=== PATIENT | male | born 1965 | race Caucasian/White ===

== ENCOUNTER 2019-05-12 07:59 | Inpatient (IN) | payer MEDICAID, SELFPAY ==
[2019-05-12] VITALS (115 sets, daily range): BP systolic 118–205; BP diastolic 88–169; PULSE 70–142; RESP 4–39; TEMP 36–36.6; O2SAT 82–98
--- NOTE | 2019-05-12 08:36 | DI.RAD_ITS ---
EXAM: XR CHEST 2V PA LATERAL INDICATION: cough, difficulty breathing. COMPARISON: CT ABDOMEN PELVIS W from 05/12/2019 TECHNIQUE: 2D digital imaging was performed. FINDINGS: The heart size is normal. Lungs are not well inflated on either view. There are small linear area of increased density at the right lung base likely representing atelectasis. Pneumonia cannot be def initely excluded. No pneumothorax or effusion is seen. IMPRESSION: Linear right lower lobe atelectasis.
--- NOTE | 2019-05-12 08:40 | DI.CT_ITS ---
EXAM: CT ABDOMEN PELVIS W CLINICAL HISTORY: abdominal pain TECHNIQUE: Images were performed from the lung bases through the ischial tuberosities after IV and w ithout oral contrast. There is mild artifact from patient's arm position at is sides. COMPARISON: No exams were available for comparison FINDINGS: There is a linear area atelectasis at the right lung base. The liver is enlarged and shows extreme s teatosis. No focal liver lesions or biliary dilatation is seen. The spleen is enlarged. The pancre as is mildly atrophic. The gallbladder, adrenals and kidneys are unremarkable. The appendix appears normal. There is no small bowel dilatation or wall thickening. There is a normal quantity of stool . There is no evidence of diverticulitis. The bladder is unremarkable. There is a small fatty cont aining umbilical hernia. There is no evidence spine or pelvic fracture. IMPRESSION: Severe hepatic steatosis. No acute abnormality.
--- NOTE | 2019-05-12 08:40 | DI.CT_ITS ---
EXAM: CT HEAD WO CLINICAL HISTORY: falls TECHNIQUE: Noncontrast COMPARISON: No exams were available for comparison FINDINGS: No intracranial hemorrhage, mass or infarct is seen. Is no evidence of skull fracture. The sinuses and mastoid air cells appear clear where visualized. IMPRESSION: No acute abnormality.
[2019-05-12] MEDS: Furosemide 100 MG/10 ML VIAL 80 MG IVP (08:45)
[2019-05-12] MEDS: LORazepam 2 MG/ML VIAL 0.5 MG IVP (08:46)
[2019-05-12 09:00] LABS: Abs Immature Grans 0.02 k/cumm (0.0-0.09); Absolute Basophil Count 0.02 k/cumm (0.0-0.2); Absolute Eosinophil Count 0.02 k/cumm (0.0-0.7); Absolute Lymphocyte Count 0.34 k/cumm (1.2-3.4); Absolute Monocyte Count 0.19 k/cumm (0.11-0.7); Absolute Neutrophil Count 2.46 k/cumm (1.2-6.7); Basophils % 0.7; Eosinophils % 0.7; HCT 42.2 % (40.0-50.0); HGB 14.2 g/dL (13.5-17.5); Immature Grans % 0.7; Lymphocytes % 11.1; Mean Corp. HGB Concentration 33.6 g/dL (32.0-36.0); Mean Corpuscular Hemoglobin 29.3 pg (27.0-33.0); Mean Corpuscular Volume 87.2 fL (80-95); Mean Platelet Volume 10.5 fL (8.0-11.0); Monocytes % 6.2; Neutrophils % 80.6; RBC 4.84 m/cumm (4.50-6.00); RBC Distribution Width 13.9 % (11.8-14.1); White Blood Cell Count 3.05 k/cumm (4.4-10.8)
[2019-05-12 09:11] LABS: Bilirubin Negative (Negative); Blood Trace-lysed (Negative); Clarity Clear (Clear); Glucose Negative (Negative); Ketones Negative (Negative); Leukocyte Esterase Negative (Negative); Nitrite Negative (Negative); Urobilinogen 0.2 EU/dL (Up TO 0.2); pH 7.5 (5-8)
[2019-05-12 09:11] LABS: PTT Activated 24.5 sec (21.0-31.4); Prothrombin Time 10.4 sec (9.3-11.0)
[2019-05-12 09:20] LABS: ALT 232 U/L (16-63); AST 190 U/L (15-37); Albumin 3.7 g/dL (3.4-5.0); Alkaline Phosphatase 143 U/L (46-116); Anion Gap 11.9 mmol/L (3-11); BUN 6 mg/dL (7-18); CO2 28.1 mmol/L (21.0-32.0); CREATININE 0.66 mg/dL (0.70-1.30); Calcium 8.4 mg/dL (8.5-10.1); Chloride 96 mmol/L (98-107); Glucose 155 mg/dL (70-100); Potassium 3.9 mmol/L (3.5-5.1); Sodium 136 mmol/L (136-145); Total Protein 7.2 g/dL (6.4-8.2)
[2019-05-12] MEDS: Albuterol/Ipratropium 3 ML UPD VIAL (09:20)
[2019-05-12] MEDS: methylPREDNISolone SUCC 125 MG VIAL (09:20)
[2019-05-12] MEDS: Albuterol 2.5 MG/3 ML INH SOLN VIAL (09:20)
[2019-05-12 09:26] LABS: Lipase 1090 U/L (73-393); NT-proBNP 131 pg/mL
[2019-05-12 09:32] LABS: WBC Negative HPF (0-5)
[2019-05-12 09:33] LABS: Bacteria Negative HPF (Negative); C & S Indicated? No; Casts Negative LPF (Negative); Crystals Negative HPF (Negative); Epithelial Cells Rare HPF (Negative); Mucus Negative (Negative)
[2019-05-12 09:34] LABS: Troponin I < 0.05 ng/mL (0.00-0.06)
[2019-05-12 09:39] LABS: Platelet Count 72 x1000/uL (130-400)
[2019-05-12 09:40] LABS: Diff Comment PLT Morph Reviewed; Polychromasia Present
--- NOTE | 2019-05-12 09:44 | NUR.NOTE ---
Nursing Note: pt has bruising all over his body in multiple stages of healing. states he falls almost every night when he stands up to go pee at night.
[2019-05-12] MEDS: Omnipaque 350 MG/ML 100 ML BTL IJ ×2 (10:25→13:27)
[2019-05-12] MEDS: LORazepam 2 MG/ML VIAL 1 MG IVP ×3 (10:34→13:29)
[2019-05-12] MEDS: Normal Saline 250 ML IV (11:30)
--- NOTE | 2019-05-12 11:39 | NUR.NOTE ---
Nursing Note: updated provider about pts urine output of 4,400mls and the increasing leg cramps. concern for hypokalemia and question for redraw. continue to monitor.
[2019-05-12 11:47] LABS: Troponin I < 0.05 ng/mL (0.00-0.06)
--- NOTE | 2019-05-12 12:15 | NUR.NOTE ---
Nursing Note: provided pt with 2 glasses of water as requested. hospitalist will be down to evaluate pt.
--- NOTE | 2019-05-12 12:31 | NUR.NOTE ---
Nursing Note: hospitalist at bedside.
[2019-05-12 13:13] LABS: Magnesium 1.7 mg/dL (1.8-2.4); Potassium 3.6 mmol/L (3.5-5.1)
--- NOTE | 2019-05-12 13:17 | W.ED.GENAD ---
Discharge Plan Discharge Details Chief Complaint: GenMedical Admit Provider: Jagdish Paz Attending Provider: Jagdish Paz Primary Care Provider: Milana Canales ED Provider: Heather Fregoso Home Meds and New Rx's Prescriptions: No Action methadone 40 mg Tablet,Soluble 130 mg PO DAILY RF: 0 Medical Decision Making Is a 53-year-old patient who presents to the emergency room hypertensive tachycardic and tachypneic appearing diaphoretic for complaints of increase in respiratory effort, occasional difficulty breathing, fluid retention and alcoholism. at the bedside reports multiple syncopal episodes recently. Specifically at night when getting up from bed to use the bathroom he stands from a laying position and passes out. This is reportedly the syncopal episodes which they have noted recently. Patient reports approximately 80 pound weight gain in the last 2 months. Patient notes significant fluid in his lower legs which is symmetrical bilaterally but is causing difficulty ambulating and interfering with his daily activities. Patient unable to work due to difficulty ambulating associated with pain in his legs as well as difficulty breathing when exerting. Patient denies active chest pain at this time. Patient does report upper abdominal pain. Occasional nausea. No patient does admit to being an alcoholic. He does report at least 12 beers daily. He does use methadone currently. He reports he typically goes to the [facility] clinic gets his dose of methadone and then goes home and begins drinking at that time due to withdrawal symptoms. Patient receiving methadone due to former IV drug use specifically Morphine. Last IV drug use approximately 4 to half years ago. On exam patient has rhonchi, rales and wheezing noted throughout all breath calixto, patient has obvious orthopnea, position was changed when noted increasing difficulty breathing laying flat. Patient propped upright in 2 L O2's via nasal cannula placed due to mild oxygen desaturations to the high 80s which were noted. Patient has notable tachycardia. Patient has cough present, abdominal distention noted with upper abdominal pain with palpation through the right and upper quadrants. No significant lower abdominal pain with palpation. Abdominal distention is diffuse consistent fluid retention. Distal pitting edema present in lower extremities, 2+. Lasix ordered after initial evaluation as well as imaging of his head due to frequent falls and alcoholism and CT of his abdomen due to abdominal distention and pain. I suspect this patient is retaining fluid due to his alcoholism possibly due to liver dysfunction and/or congestive heart failure. Labs ordered appropriately. This case and plan of care was discussed with Dr. Candy German who also evaluated the patient at the bedside Patient section x-ray ultimately shows mild atelectasis in the right lower lung but does not reveal obvious CHF pattern or pleural effusions. Patient's BNP is normal. Patient had urine output of approximately 4500 cc after giving Lasix 80 mg IV. Patient was provided nebs as well as Solu-Medrol due to wheezing which is become more evident on exam possibly due to daily smoking and underlying COPD which is undiagnosed. Patient did have some improvement with nebs. CIWA placed for alcohol withdrawal symptoms Patient will be admitted to the hospitalist, spoke with Dr. Paz, who will evaluate patient in the emergency room. HPI General Date/Time Provider Initiated Documentation: 05/12/19 08:35. HPI Narrative: Patient presents for complaints of worsening difficulty breathing, fluid in the his legs, abdominal pain and significant recent weight gain. Patient reports approximately 80 pounds of weight gain in the last 2 months. Patient is a daily drinker, admitted alcoholic. Currently on methadone for opiate addiction. Patient reports a history of IV drug use specifically morphine which he has been sober for the last 4 to half years. Uses methadone daily. Patient reports increase in difficulty breathing, worse when laying flat, cough is more productive and increased recently. Patient denies active chest pain. Patient presents appearing diaphoretic. Patient does report abdominal pain at present in the upper abdomen associated with mild nausea. No active vomiting. at the bedside reports he has been passing out when standing up from bed at night to use the bathroom. Patient reports multiple syncopal episodes and frequent falls. Presents with several areas of bruising on his back, chest and pelvic area. Patient reports the swelling in his leg is causing significant difficulty ambulating worse recently the last few weeks. 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 Patient admits to approximately 12 beers daily. He reports he typically goes to the methadone clinic gets his dose of methadone in the morning and then begins drinking in the morning due to withdrawal symptoms. Patient's last drink was yesterday. He does feel mildly shaky at this time. Admits to mild anxiety. Patient is a smoker smoking approximately 1-1/2 packs daily Patient denies fevers. Patient does report urinating normal amounts. No significant changes in bowels. Related Data Home Medications Medication Instructions Recorded Confirmed methadone 130 mg PO DAILY 05/12/19 05/12/19 Allergies Allergy/AdvReac Type Severity Reaction Status Date / Time No Known Allergies Allergy Unverified 05/12/19 08:09 General Stated Complaint: GenMedical KAYLEIGH: 2 Review of Systems All systems reviewed & are unremarkable except as noted in HPI and below Constitutional Constitutional: Reports chills, Reports fatigue, Denies headache(s) and Reports malaise ENT Ears, Nose, Mouth, and Throat: Denies headache(s), Denies nasal congestion and Denies sore throat Cardiovascular Cardiovascular: Denies chest pain, Denies chest pain at rest, Denies chest pain with activity, Reports syncope, Reports dyspnea on exertion and Reports orthopnea Respiratory Respiratory: Reports cough, Reports dyspnea on exertion and Reports wheezing Gastrointestinal Gastrointestinal: Reports abdominal pain, Denies diarrhea and Reports nausea Genitourinary Genitourinary: Denies dysuria Integumentary/Breasts Skin/Breast: Reports pruritus, Reports rash and Reports unusual bruising Neurologic Neurologic: Reports syncope and Denies headache(s) Endocrine Endocrine: Reports fatigue Allergic/Immunologic Allergic/Immunologic: Reports wheezing [facility] Medical History (Updated 05/12/19 @ 14:18 by Jagdish Paz MD) ETOH abuse (Chronic) 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 Alert and alert. HENMT: Head nomocephalic, normal to inspection. Atraumatic. Hearing grossly normal. External ear canal no erythema or swelling. TM normal bilaterally. Nose normal to inspection. No rhinnorhea. Normal facial exam. Tounge normal. Dentition normal. Normal posterior oropharynx. Uvula midline. Dry mucous membranes EYES: General normal appearance. Alignment normal. Eyelids normal. Conjunctiva normal. Sclera normal. PERRL. NECK: Normal visual inspection. FROM. No lymphadenopathy. Trachea midline. No Midline tenderness. CHEST: Normal insepection of the chest. RESP: Increased respiratory effort. Speaking full sentences. No cough. No wheezing. No retractions. Wheezing and rales present diffusely. Breath sound equal and present bilaterally. CARDIO: No JVD. Normal PMI. Regular Rate. Regular Rhythm. Normal peripheral pulses. GI: Normal inspection of abdomen. No distension. Soft. Nontender. Bowel sounds present in all 4 quadrants. No rebound. No gaurding. MUSCULOSKELETAL: Normal Gait. FROM of all extremities. Distal neurovascularly intact. Sensation intact distally. Bilateral distal edema present, symmetrical, 2+ pitting edema the pretibial darby extending into the feet. Pulses are present bilaterally in the feet. SKIN: Normal. Dry. No rashes. An echo mycosis of toes, several wounds to arms and legs, bruising noted scattered areas on the back from recent trauma, bruises noted in different stages NEURO: Alert and awake. Speech clear. PSYCH: Normal affect. Cooperative. Course Vital Signs Vital signs: Vital Signs Temperature 36.6 C 05/12/19 08:04 Pulse 111 H 05/12/19 08:04 Respiratory Rate 28 H 05/12/19 08:04 Blood Pressure 191/117 H 05/12/19 08:04 Pulse Oximetry 98 05/12/19 08:04 Temperature 36.6 C 05/12/19 08:04 Temperature Source Temporal Artery Scan 05/12/19 08:04 Pulse 102 H 05/12/19 12:01 Pulse 107 H 05/12/19 12:10 Respiratory Rate 18 05/12/19 12:10 Respiratory Effort 05/12/19 08:18 Respiratory Pattern Tachypnea 05/12/19 11:49 Blood Pressure 189/115 H 05/12/19 12:01 Blood Pressure Mean 127 05/12/19 12:01 Pulse Oximetry 93 L 05/12/19 12:10 Oxygen Delivery Method Nasal Cannula 05/12/19 08:15 Oxygen Flow Rate 2 05/12/19 08:15 Pain Level 8 05/12/19 08:04 Lab/Test Results Lab/Test Results: Laboratory Tests Range/Units 05/12/19 05/12/19 05/12/19 08:15 08:15 08:15 WBC (4.4-10.8) k/cumm 3.05 L RBC (4.50-6.00) m/cumm 4.84 Hgb (13.5-17.5) g/dL 14.2 Hct (40.0-50.0) % 42.2 MCV (80-95) fL 87.2 MCH (27.0-33.0) pg 29.3 MCHC (32.0-36.0) g/dL 33.6 RDW (11.8-14.1) % 13.9 Plt Count (130-400) x1000/uL 72 L MPV (8.0-11.0) fL 10.5 Immature Gran % 0.7 Neutrophils % 80.6 Lymphocytes % 11.1 Monocytes % 6.2 Eosinophils % 0.7 Basophils % 0.7 Absolute Neutrophils (1.2-6.7) k/cumm 2.46 Absolute Lymphocytes (1.2-3.4) k/cumm 0.34 L Absolute Monocytes (0.11-0.7) k/cumm 0.19 Absolute Eosinophils (0.0-0.7) k/cumm 0.02 Absolute Basophils (0.0-0.2) k/cumm 0.02 Differential Comment Plt morph reviewed RBC Morphology See below Polychromasia Present PT (9.3-11.0) sec 10.4 INR (0.9-1.1) 1.0 APTT (21.0-31.4) sec 24.5 Sodium (136-145) mmol/L Potassium (3.5-5.1) mmol/L Chloride (98-107) mmol/L Carbon Dioxide (21.0-32.0) mmol/L Anion Gap (3-11) mmol/L BUN (7-18) mg/dL Creatinine (0.70-1.30) mg/dL Estimated GFR/1.73 m2 (mL/min/1.73m2) Glucose (70-100) mg/dL Calcium (8.5-10.1) mg/dL Magnesium (1.8-2.4) mg/dL Total Bilirubin (0.2-1.0) mg/dL AST (15-37) U/L ALT (16-63) U/L Alkaline Phosphatase (46-116) U/L Troponin I (0.00-0.06) ng/mL < 0.05 NT-Pro-B Natriuret Pep ( - 299) pg/mL 131 Total Protein (6.4-8.2) g/dL Albumin (3.4-5.0) g/dL Lipase (73-393) U/L 1090 H Urine Color (Yellow) Urine Clarity (Clear) Urine pH (5-8) Ur Specific [place] (1.005-1.025) Urine Protein (Negative) mg/dL Urine Ketones (Negative) mg/dL Urine Blood (Negative) Urine Nitrite (Negative) Urine Bilirubin (Negative) Urine Urobilinogen (Up TO 0.2) EU/dL Ur Leukocyte Esterase (Negative) Urine RBC (0-2) HPF Urine WBC (0-5) HPF Ur Epithelial Cells (Negative) HPF Urine Crystals (Negative) HPF Urine Bacteria (Negative) HPF Urine Casts (Negative) LPF Urine Mucus (Negative) Ur Culture Indicated? Urine Glucose (Negative) mg/dL Range/Units 05/12/19 05/12/19 05/12/19 08:15 09:03 11:11 WBC (4.4-10.8) k/cumm RBC (4.50-6.00) m/cumm Hgb (13.5-17.5) g/dL Hct (40.0-50.0) % MCV (80-95) fL MCH (27.0-33.0) pg MCHC (32.0-36.0) g/dL RDW (11.8-14.1) % Plt Count (130-400) x1000/uL MPV (8.0-11.0) fL Immature Gran % Neutrophils % Lymphocytes % Monocytes % Eosinophils % Basophils % Absolute Neutrophils (1.2-6.7) k/cumm Absolute Lymphocytes (1.2-3.4) k/cumm Absolute Monocytes (0.11-0.7) k/cumm Absolute Eosinophils (0.0-0.7) k/cumm Absolute Basophils (0.0-0.2) k/cumm Differential Comment RBC Morphology Polychromasia PT (9.3-11.0) sec INR (0.9-1.1) APTT (21.0-31.4) sec Sodium (136-145) mmol/L 136 Potassium (3.5-5.1) mmol/L 3.9 Chloride (98-107) mmol/L 96 L Carbon Dioxide (21.0-32.0) mmol/L 28.1 Anion Gap (3-11) mmol/L 11.9 H BUN (7-18) mg/dL 6 L Creatinine (0.70-1.30) mg/dL 0.66 L Estimated GFR/1.73 m2 (mL/min/1.73m2) >= 60.00 Glucose (70-100) mg/dL 155 H Calcium (8.5-10.1) mg/dL 8.4 L Magnesium (1.8-2.4) mg/dL Total Bilirubin (0.2-1.0) mg/dL 1.0 AST (15-37) U/L 190 H ALT (16-63) U/L 232 H Alkaline Phosphatase (46-116) U/L 143 H Troponin I (0.00-0.06) ng/mL < 0.05 NT-Pro-B Natriuret Pep ( - 299) pg/mL Total Protein (6.4-8.2) g/dL 7.2 Albumin (3.4-5.0) g/dL 3.7 Lipase (73-393) U/L Urine Color (Yellow) Yellow Urine Clarity (Clear) Clear Urine pH (5-8) 7.5 Ur Specific [place] (1.005-1.025) 1.020 Urine Protein (Negative) mg/dL Negative Urine Ketones (Negative) mg/dL Negative Urine Blood (Negative) Trace-lysed H Urine Nitrite (Negative) Negative Urine Bilirubin (Negative) Negative Urine Urobilinogen (Up TO 0.2) EU/dL 0.2 Ur Leukocyte Esterase (Negative) Negative Urine RBC (0-2) HPF 10-20 H Urine WBC (0-5) HPF Negative Ur Epithelial Cells (Negative) HPF Rare Urine Crystals (Negative) HPF Negative Urine Bacteria (Negative) HPF Negative Urine Casts (Negative) LPF Negative Urine Mucus (Negative) Negative Ur Culture Indicated? No Urine Glucose (Negative) mg/dL Negative Range/Units 05/12/19 12:59 WBC (4.4-10.8) k/cumm RBC (4.50-6.00) m/cumm Hgb (13.5-17.5) g/dL Hct (40.0-50.0) % MCV (80-95) fL MCH (27.0-33.0) pg MCHC (32.0-36.0) g/dL RDW (11.8-14.1) % Plt Count (130-400) x1000/uL MPV (8.0-11.0) fL Immature Gran % Neutrophils % Lymphocytes % Monocytes % Eosinophils % Basophils % Absolute Neutrophils (1.2-6.7) k/cumm Absolute Lymphocytes (1.2-3.4) k/cumm Absolute Monocytes (0.11-0.7) k/cumm Absolute Eosinophils (0.0-0.7) k/cumm Absolute Basophils (0.0-0.2) k/cumm Differential Comment RBC Morphology Polychromasia PT (9.3-11.0) sec INR (0.9-1.1) APTT (21.0-31.4) sec Sodium (136-145) mmol/L Potassium (3.5-5.1) mmol/L 3.6 Chloride (98-107) mmol/L Carbon Dioxide (21.0-32.0) mmol/L Anion Gap (3-11) mmol/L BUN (7-18) mg/dL Creatinine (0.70-1.30) mg/dL Estimated GFR/1.73 m2 (mL/min/1.73m2) Glucose (70-100) mg/dL Calcium (8.5-10.1) mg/dL Magnesium (1.8-2.4) mg/dL 1.7 L Total Bilirubin (0.2-1.0) mg/dL AST (15-37) U/L ALT (16-63) U/L Alkaline Phosphatase (46-116) U/L Troponin I (0.00-0.06) ng/mL NT-Pro-B Natriuret Pep ( - 299) pg/mL Total Protein (6.4-8.2) g/dL Albumin (3.4-5.0) g/dL Lipase (73-393) U/L Urine Color (Yellow) Urine Clarity (Clear) Urine pH (5-8) Ur Specific [place] (1.005-1.025) Urine Protein (Negative) mg/dL Urine Ketones (Negative) mg/dL Urine Blood (Negative) Urine Nitrite (Negative) Urine Bilirubin (Negative) Urine Urobilinogen (Up TO 0.2) EU/dL Ur Leukocyte Esterase (Negative) Urine RBC (0-2) HPF Urine WBC (0-5) HPF Ur Epithelial Cells (Negative) HPF Urine Crystals (Negative) HPF Urine Bacteria (Negative) HPF Urine Casts (Negative) LPF Urine Mucus (Negative) Ur Culture Indicated? Urine Glucose (Negative) mg/dL
--- NOTE | 2019-05-12 13:27 | DI.CT_ITS ---
EXAM: CT CHEST PE CTA CLINICAL HISTORY: hypoxia TECHNIQUE: Post 100 cc Omnipaque [id number]. Axial CT angiography was performed with multi-slice acquisiti on and multi-planar and/or 3D reconstructions. Pulmonary arteries are suboptimally opacified with IV contrast. Exam is somewhat limited by the patient's body habitus. There is some respiratory motion as well. COMPARISON: CT ABDOMEN AND PELVIS W from 05/12/2019 FINDINGS: There is suboptimal opacification of the pulmonary arteries, particularly in the upper lobes. No jia tral pulmonary emboli are seen. There is elevation of the right diaphragm related to an enlarged fat ty liver. There is atelectasis at the right lung base. There are minimally increased densities in t he upper lobes, which could represent mild pneumonitis. No effusions are seen. Heart size is normal . There is no evidence of mass or adenopathy. Left gynecomastia is noted. There is an old proximal right clavicle fracture. No acute fractures are identified. Scoliosis and degenerative changes are noted in the spine. IMPRESSION: Somewhat limited exam due to patient body habitus and suboptimal pulmonary artery opacification. No large pulmonary emboli are seen. Small branch vessel emboli cannot be excluded. There is a question of mild upper lobe pneumonitis.
--- NOTE | 2019-05-12 13:40 | HPE_ITS ---
Date of service: 05/12/19 Time of Service: 13:40 Assessment and Plan Assessment and plan (1) Syncope: Status: Chronic Assessment and plan: Very likely Orthostatic, with patient reporting majority of events occuring while attempting to rise from a supine or seated position. Appears intravascularly depleted by labs, with EtOH intoxication potentially playing a role as well. - Hydrate and monitor orthostatic vitals. - No evidence of vasovagal symptoms. - Monitor on telemetry to rule out any evidence for arrhythmias. - Check ECHO to rule out structural heart disease. (2) Lower extremity edema: Status: Acute Assessment and plan: Bilateral pitting LE Edema - Unsure of etiology. - Check TSH. - Albumin is low normal. - Doubt DVT given bilateral nature of swelling. - Lack of proteinuria on u/a - Doubt nephrotic syndrome. - Lack of ascites on CT - imaging with significant fatty infiltration, but no mention of cirrhosis. - Normal BNP may be reflective of overall current dehydrated state - however, with subject and reported 80 pound weight gain. Check ECHO. - Hold off on any further diuresis currently, but may benefit from diuretic therapy soon. (3) Weight gain: Status: Acute Assessment and plan: As above. (4) Elevated liver enzymes: Status: Acute Assessment and plan: Patient has history of daily EtOH use, but with ALT > AST. - Given Obesity and findings of significant Steatohepatitis, fatty liver is a possibility. - Hx IVDA - check Hepatitis panel. - Check Fe/TIBC to rule out hemochromatosis. - Does not take medications other than daily methadone. (5) Tobacco abuse: Status: Acute Assessment and plan: Initiate NRT with prn Nicotrol. (6) Intravenous drug abuse in remission: Status: Acute Assessment and plan: Continue daily Methadone. (7) ETOH abuse: Status: Chronic Assessment and plan: Already with evidence of tremors, with last drink reportedly being last evening. Initiate on standing Chlordiazepoxide and Gabapentin, and maintain on CIWA protocol. Banana bag initiated, with MVI, Thiamine, and FA supplementation following. (8) Pneumonia: Status: Acute Assessment and plan: Potential evidence of infiltrate or 'pneumonitis' by CT, per verbal report from ED provider. Given hx of EtOH and recurrent daily LOC aspiration may be a possibility. Will initiate coverage with combination CTx and Metronidazole. (9) DVT prophylaxis: Status: Acute Assessment and plan: SC Enoxaparin. Initiate PPI therapy for GI prophylaxis as well. History of Present Illness History of Present Illness Chief Complaint: Syncope Narrative: Pleasant 53 year old man with a prior history of EtOH abuse and prior IVDA, being admitted from [facility] Emergency Department for further evaluation of recurrent syncopal episodes and recent weight gain. Mr. Maria has a Past Medical History significant for daily EtOH abuse, quantified as 12 pack per day of beer, along with prior IVDA with Morphine maintained on daily Methadone via [facility]. He also endorses daily tobacco use. The patient presented to the ED complaining of recent worsening dyspnea, accompanied by an approximate 80 lbs subjective weight gain over the last 2 months. He also endorses near daily 'syncope', described as blacking out, with episodes occuring mostly at night and when arising out of bed to use the bathroom. He takes a relatively high dose Methadone in the morning, and admits to drinking 6 24oz cans of beer through the day and mostly into the night. Upon presentation the patient was noted to be mildly hypoxic, hypertensive, and tachycardic. Work-up in the ED was significant for mild TCP, mild leukopenia, mild hypochloremia with normal renal function, and mildly elevated LFTs. BNP was normal, urinalysis negative for infection (although with hematuria without braga insertion), and Troponin undetectable. Lipase was elevated at 1090. Imaging showed evidence of severe hpeatic steatosis by CT, and RLL Atelectasis by CXR. Head CT showed no acute findings. CTA of the chest was also obtained by the ED, and while limited did not show any overt signs of PE - mention was made of potential Pneumonitis. Mr. Maria was referred for admission for further evaluation and treatment. Review of Systems All systems reviewed & are unremarkable except as noted in HPI and below PFSH Social History Smoking/Tobacco Use Status: Current every day Tobacco Type: cigarettes Alcohol Intake: current Alcohol Intake frequency: 3 or more drinks per day Alcohol type: beer Drug use: Current Sobriety Details: methadone clinic Do you feel safe at home: Yes Do you feel safe in your relationship?: Yes Meds Home Medications and Allergies Home Medications Medication Instructions Recorded Confirmed Type methadone 130 mg PO DAILY 05/12/19 05/12/19 History Allergies Allergy/AdvReac Type Severity Reaction Status Date / Time No Known Allergies Allergy Unverified 05/12/19 08:09 Exam Narrative Exam Narrative: GEN: AAOX3, NAD Neck: Supple CV: Regular, tachycardic, mildly distant Heart sounds but no overt r/m/g Pulmonary: Decreased breath sounds but clear, no clear wheezing or rhonchi at time of exam Abd: +BS, soft, distended and obese in contour. + Epigastric tenderness Vasc: +2-3 b/l pitting LE Edema Psych: Normal mood and affect Results Labs Result diagrams: 05/12/19 08:15 05/12/19 12:59 Labs: Laboratory Results - last 24 hr 05/12/19 05/12/19 05/12/19 08:15 08:15 08:15 WBC 3.05 L RBC 4.84 Hgb 14.2 Hct 42.2 MCV 87.2 MCH 29.3 MCHC 33.6 RDW 13.9 Plt Count 72 L MPV 10.5 Immature Gran % 0.7 Neutrophils % 80.6 Lymphocytes % 11.1 Monocytes % 6.2 Eosinophils % 0.7 Basophils % 0.7 Absolute Neutrophils 2.46 Absolute Lymphocytes 0.34 L Absolute Monocytes 0.19 Absolute Eosinophils 0.02 Absolute Basophils 0.02 Differential Comment Plt morph reviewed RBC Morphology See below Polychromasia Present PT 10.4 INR 1.0 APTT 24.5 Sodium Potassium Chloride Carbon Dioxide Anion Gap BUN Creatinine Estimated GFR/1.73 m2 Glucose Calcium Magnesium Total Bilirubin AST ALT Alkaline Phosphatase Troponin I < 0.05 NT-Pro-B Natriuret Pep 131 Total Protein Albumin Lipase 1090 H Urine Color Urine Clarity Urine pH Ur Specific [place] Urine Protein Urine Ketones Urine Blood Urine Nitrite Urine Bilirubin Urine Urobilinogen Ur Leukocyte Esterase Urine RBC Urine WBC Ur Epithelial Cells Urine Crystals Urine Bacteria Urine Casts Urine Mucus Ur Culture Indicated? Urine Glucose 05/12/19 05/12/19 05/12/19 08:15 09:03 11:11 WBC RBC Hgb Hct MCV MCH MCHC RDW Plt Count MPV Immature Gran % Neutrophils % Lymphocytes % Monocytes % Eosinophils % Basophils % Absolute Neutrophils Absolute Lymphocytes Absolute Monocytes Absolute Eosinophils Absolute Basophils Differential Comment RBC Morphology Polychromasia PT INR APTT Sodium 136 Potassium 3.9 Chloride 96 L Carbon Dioxide 28.1 Anion Gap 11.9 H BUN 6 L Creatinine 0.66 L Estimated GFR/1.73 m2 >= 60.00 Glucose 155 H Calcium 8.4 L Magnesium Total Bilirubin 1.0 AST 190 H ALT 232 H Alkaline Phosphatase 143 H Troponin I < 0.05 NT-Pro-B Natriuret Pep Total Protein 7.2 Albumin 3.7 Lipase Urine Color Yellow Urine Clarity Clear Urine pH 7.5 Ur Specific [place] 1.020 Urine Protein Negative Urine Ketones Negative Urine Blood Trace-lysed H Urine Nitrite Negative Urine Bilirubin Negative Urine Urobilinogen 0.2 Ur Leukocyte Esterase Negative Urine RBC 10-20 H Urine WBC Negative Ur Epithelial Cells Rare Urine Crystals Negative Urine Bacteria Negative Urine Casts Negative Urine Mucus Negative Ur Culture Indicated? No Urine Glucose Negative 05/12/19 12:59 WBC RBC Hgb Hct MCV MCH MCHC RDW Plt Count MPV Immature Gran % Neutrophils % Lymphocytes % Monocytes % Eosinophils % Basophils % Absolute Neutrophils Absolute Lymphocytes Absolute Monocytes Absolute Eosinophils Absolute Basophils Differential Comment RBC Morphology Polychromasia PT INR APTT Sodium Potassium 3.6 Chloride Carbon Dioxide Anion Gap BUN Creatinine Estimated GFR/1.73 m2 Glucose Calcium Magnesium 1.7 L Total Bilirubin AST ALT Alkaline Phosphatase Troponin I NT-Pro-B Natriuret Pep Total Protein Albumin Lipase Urine Color Urine Clarity Urine pH Ur Specific [place] Urine Protein Urine Ketones Urine Blood Urine Nitrite Urine Bilirubin Urine Urobilinogen Ur Leukocyte Esterase Urine RBC Urine WBC Ur Epithelial Cells Urine Crystals Urine Bacteria Urine Casts Urine Mucus Ur Culture Indicated? Urine Glucose Last Vital Signs Temp 36.6 C 05/12/19 08:04 Pulse 109 H 05/12/19 13:27 Resp 22 05/12/19 13:30 BP 118/89 05/12/19 13:27 Pulse Ox 89 L 05/12/19 13:30
[2019-05-12 14:15] LABS: Iron 93 ug/dL (50-175); Total Iron Binding Capacity 362 ug/dL (250-450); Transferrin Sat 26 % (20-55)
[2019-05-12 14:41] LABS: Procalcitonin < 0.1 ng/mL
[2019-05-12] MEDS: Normal Saline 500 ML IV (15:00)
[2019-05-12] MEDS: chlordiazePOXIDE 25 MG CAP PO ×2 (15:27→20:04)
[2019-05-12] MEDS: Gabapentin 400 MG CAP 800 MG PO ×2 (15:28→20:04)
[2019-05-12] MEDS: cefTRIAXone 2 GM/50 ML BAG IVPB (15:30)
[2019-05-12] MEDS: metroNIDAZOLE 500 MG/100 ML BAG 100 MG IVPB (16:36)
[2019-05-12] MEDS: LORazepam 2 MG/ML VIAL IVP (16:46)
[2019-05-12] MEDS: Normal Saline Flush 10 ML SYR IVP (16:48)
[2019-05-12] MEDS: MAGNESIUM SULFATE 1 GM/100 ML BAG IVPB (16:59)
[2019-05-12] MEDS: Pantoprazole 40 MG VIAL IVP (16:59)
[2019-05-13] VITALS (46 sets, daily range): BP systolic 117–175; BP diastolic 68–129; PULSE 70–110; RESP 4–28; TEMP 35.6–36.8; O2SAT 90–96
[2019-05-13] MEDS: metroNIDAZOLE 500 MG/100 ML BAG 100 MG IVPB ×2 (00:30→08:54)
[2019-05-13] MEDS: LORazepam 2 MG/ML VIAL IVP ×2 (00:58→14:32)
[2019-05-13 06:53] LABS: Abs Immature Grans 0.02 k/cumm (0.0-0.09); Absolute Basophil Count 0.01 k/cumm (0.0-0.2); Absolute Eosinophil Count 0.01 k/cumm (0.0-0.7); Absolute Monocyte Count 0.35 k/cumm (0.11-0.7); Absolute Neutrophil Count 3.89 k/cumm (1.2-6.7); Basophils % 0.2; Eosinophils % 0.2; HCT 41.7 % (40.0-50.0); HGB 14.3 g/dL (13.5-17.5); Immature Grans % 0.4; Lymphocytes % 10.5; Mean Corp. HGB Concentration 34.3 g/dL (32.0-36.0); Mean Corpuscular Hemoglobin 30.4 pg (27.0-33.0); Mean Corpuscular Volume 88.7 fL (80-95); Mean Platelet Volume 10.2 fL (8.0-11.0); Monocytes % 7.3; Neutrophils % 81.4; Platelet Count 92 x1000/uL (130-400); RBC Distribution Width 14.1 % (11.8-14.1); White Blood Cell Count 4.78 k/cumm (4.4-10.8)
[2019-05-13 07:08] LABS: ALT 213 U/L (16-63); AST 134 U/L (15-37); Albumin 3.4 g/dL (3.4-5.0); Alkaline Phosphatase 131 U/L (46-116); Anion Gap 6.4 mmol/L (3-11); BUN 15 mg/dL (7-18); Bilirubin, Total 0.9 mg/dL (0.2-1.0); CO2 33.6 mmol/L (21.0-32.0); Calcium 8.5 mg/dL (8.5-10.1); Chloride 96 mmol/L (98-107); Glucose 127 mg/dL (70-100); Lipase 966 U/L (73-393); Magnesium 2.3 mg/dL (1.8-2.4); Potassium 3.2 mmol/L (3.5-5.1); Sodium 136 mmol/L (136-145); Total Protein 7.4 g/dL (6.4-8.2)
--- NOTE | 2019-05-13 07:45 | DI.US_ITS ---
APPROVED REPORT EXAM: Comprehensive 2D, Doppler, and color-flow Echocardiogram Patient Location: In-Patient Room/Bed: 221A [employer]aste[employer] Spr[employer] Gun: Maryam Almeida [facility] ([place]) Indications: Significant weight gain, Dyspnea Conclusion Left Ventricle : The left ventricle is normal size. The left ventricular ejection fraction is within the normal range. There is normal LV segmental wall motion. Diastolic function is indeterminate but t here is evidence of increased LV filling pressures. Right Ventricle : The right ventricle is normal size. The right ventricular systolic function is norm al. Atria : Left atrium is mildly enlarged. The right atrium size is normal. Aortic Valve : Aortic valve is not well visualized. Aortic valve is probably trileaflet. There is no aortic valvular stenosis. No aortic regurgitation is present. Mitral Valve : The mitral valve is normal in structure. Trace mitral regurgitation. No evidence of mi tral valve stenosis. Tricuspid Valve : Tricuspid valve is grossly normal in structure and function. Trace tricuspid regurg itation. There is no tricuspid valve stenosis. Pulmonic Valve : Pulmonic valve is not well visualized. Great Vessels : The IVC was not visualized. Cannot estimate RVSP. There is no prior echocardiogram available for comparison. Wall motion Left Ventricle The left ventricle is normal size. The left ventricular ejection fraction is within the normal range. There is normal left ventricular wall thickness. There is normal LV segmental wall motion. Diastolic function is indeterminate but there is evidence of increased LV filling pressures. LVEF is 50-55%. Right Ventricle The right ventricle is normal size. The right ventricular systolic function is normal. Atria Left atrium is mildly enlarged. The right atrium size is normal. Aortic Valve Aortic valve is not well visualized. Aortic valve is probably trileaflet. There is no aortic valvular stenosis. No aortic regurgitation is present. Mitral Valve The mitral valve is normal in structure. No evidence of mitral valve stenosis. Trace mitral regurgita tion. Tricuspid Valve Tricuspid valve is grossly normal in structure and function. There is no tricuspid valve stenosis. Tr vanessa tricuspid regurgitation. Pulmonic Valve Pulmonic valve is not well visualized. There is no pulmonic valvular stenosis. Trace pulmonic regurgi tation. Great Vessels The aortic root is normal in size. The ascending aorta is normal in size. The IVC was not visualized. Cannot estimate RVSP. Pericardium There is no pericardial effusion. 2D Dimensions IVSd 0.80 cm M: 0.6-1.2 LV EDV A2C 121.44 mL PWd 0.80 cm M: 0.6 - 1.2 LV EDV A4C 98.42 mL LVDd 4.65 cm M: 4.2 - 5.8 LA Volume Index A2C 22.15 mL/m2 LVDs 3.40 cm M: 2.5 - 4.0 LA Volume Index A4C 12.23 mL/m2 Aortic Root 3.60 cm M: 3.1 - 3.7 LA Volume Index Biplane 16.96 mL/m2 Left Atrium 4.46 cm M: 3.0 - 4.0 LA Area A4C 12.39 cm2 RA Area A4C 10.86 cm2 LA Area A2C 17.17 cm2 LVOT 2.15 cm (M/F) 1.5-2.5 EF AP4 51.55 % Ascending Aorta 3.87 cm M: 2.6 - 3.4 EF AP2 44.84 % LVEF (Teich) 52.00 % EF BP 48.69 % LVEF (Ingram's) 48.69 % M: 52 - 72 LV Volume 80.54 mL M: 62 - 150 LV Volume Index 33.84 mL/m2 M: 34 - 74 FS 26.55 % LV Diastology E Decel Time 116.00 (160-240 msec) E/A Ratio 0.7 MED E' 0.09 (>0.07 m/s) LV E/e MED 5.60 (<14) LAT E' 0.08 (>0.1 m/s) LV E/e LAT 6.45 (<14) Aortic Valve LVOT Area 3.65 cm2 LVOT Peak Marcel. 1.00 m/s LVOT Mean Marcel. 0.64 m/s VARSHA Vmax 3.18 m/s LVOT Peak Gr. 4.05 mmHg VARSHA Vmax Index 1.34 cm2/m2 LVOT Mean Gr. 1.95 mmHg VARSHA Mean Marcel. 2.73 m/s LVOT VTI 0.15 m VARSHA Mean Marcel. Index 1.15 cm2/m2 AoV Peak Marcel. 1.16 (0.5-1.3 m/s) AoV Mean Marcel. 0.86 m/s AO Peak GR. 5.35 mmHg AO Mean GR. 3.21 (<5 mmHg) AO VTI 0.18 (0.18-0.25 m) VARSHA (VTI) 3.25 (2.5-4.5 cm2) VARSHA (VTI) Index 1.36 cm/m2 Mitral Valve MV E Max Marcel. 0.51 (0.4-1.3 m/s) MV A Velocity 0.75 (0.4-1.3 m/s) E/A Ratio 0.65 MV Decel. Time 116.00 (160-240 msec) MV PHT 33.65 msec MVA PHT 6.50 cm2 Pulmonary Valve PV Peak Velocity 0.85 (0.5-1.5 m/s)
[2019-05-13] MEDS: Methadone Liquid 10 MG/ML 130 MG PO (08:42)
[2019-05-13] MEDS: Multivitamin TAB 1 TAB PO (08:56)
[2019-05-13] MEDS: Gabapentin 400 MG CAP 800 MG PO ×3 (08:56→21:04)
[2019-05-13] MEDS: Thiamine 100 MG TAB PO (08:56)
[2019-05-13] MEDS: chlordiazePOXIDE 25 MG CAP PO ×3 (08:56→21:04)
--- NOTE | 2019-05-13 08:59 | PDOC.CMIN ---
- If Service Date Differs Date of service: 05/13/19 Time of Service: 08:59 Care Management Initial Assess REASON FOR HOSPITALIZATION:: Syncope PAST MEDICAL HISTORY/PAST SURGICAL HISTORY:: ETOH abuse. Former IVDU. obesity PREVIOUS FUNCTIONAL STATUS/SOCIAL/FAMILY SUPPORTS:: Mario lives in an apartment in [place] with his Phyllis. They have 2 adult children who live in the area. The apartment Mario lives in is on the second floor and he has 15 stairs to climb plus an additional floght up to the bedrooms.Mario has not been able to work for over a year due to breathing problems. CURRENT FUNCTIONAL STATUS:: Mario was sitting up in bed when CM met with him. He was pleasant and cooperative and readily engaged in conversation. Mario stated that he has been unable to work for over a year and would like to apply for disability. CM provided Mario with information about [facility] and will follow up on Thursday. ADVANCE DIRECTIVES:: none on file Has patient been provided with information about the portal?: Yes Did the patient sign up for the portal?: No CODE STATUS:: Full Code INSURANCE COVERAGE / FINANCIAL ISSUES:: Medicaid CURRENT HOME/COMMUNITY SERVICES/EQUIPMENT:: Mario receives [employer]. he states that neither he nor his work and they have no income. PRIMARY CARE PHYSICIAN:: Milana Canales POTENTIAL DISCHARGE NEEDS:: follow up with PCP. Possible substance abuse treatment PATIENT/FAMILY EDUCATION NEEDS:: discharge plan, limitations, follow up plan, [facility] [employer]. ANTICIPATED BARRIERS TO DISCHARGE:: none TRANSPORTATION:: via priavte vehicle with family PLAN:: Mario will likely be discharged home with new community services. He will transport via private vehicle with . CM will continue to support patient, family and discharge planning needs.
[2019-05-13] MEDS: Potassium Chloride 20 MEQ TABCR 40 MEQ PO (09:03)
[2019-05-13] MEDS: Albuterol 2.5 MG/3 ML INH SOLN VIAL (09:23)
[2019-05-13] MEDS: MULTIVITAMIN 10 ML, THIAMINE 100 MG, FOLIC ACID 1 MG in DEXTROSE 5%-0.45% SALINE 1,000 ML 42 ML IV (10:38)
[2019-05-13] MEDS: Albuterol/Ipratropium 3 ML UPD VIAL UPD (12:55)
--- NOTE | 2019-05-13 12:55 | W.PM.PROGNOT ---
Date of Service Date of service: 05/13/19 Time of Service: 12:56 Assessment and Plan Assessment and plan (1) Syncope: Status: Chronic Assessment and plan: Very likely Orthostatic, with patient reporting majority of events occuring while attempting to rise from a supine or seated position. Appears intravascularly depleted by labs, with EtOH intoxication potentially playing a role as well. - Initially diuresed with 80 IV Lasix in the ED, then Hydrated prior to admission. Current labs appear without signs of overt dehydration. - No evidence of vasovagal symptoms by history. - Monitor on telemetry to rule out any evidence for arrhythmias - so far without. - ECHO essentially normal, and without signs of structural heart disease or heart failure. (2) Dyspnea: Status: Acute Assessment and plan: Unlikely to be CHF based on normal ECHO and BNP. Potential mild pneumonia, but with undetectable Procalcitonin. Patient has a lengthy history of tobacco abuse, with likely underlying COPD. Current symptoms may represent acute exacerbation of underlying chronic obstructive pulmonary disease. - Initiate high dose IV Steroids. - Standing Duonebs. - Supplemental O2 as needed. - Doubt infection, but will continue on Ceftriaxone given cough and change in respiratory status, currently day #2. - Monitor respiratory symptoms closely. (3) Pneumonia: Status: Acute Assessment and plan: As above. (4) Lower extremity edema: Status: Acute Assessment and plan: Bilateral pitting LE Edema - Unsure of etiology. - TSH checked and normal. - Albumin is low normal. - Doubt DVT given bilateral nature of swelling, and no PE on CT Scan. - Lack of proteinuria on urinalysis - Doubt nephrotic syndrome. - Lack of ascites on CT - imaging with significant fatty infiltration, but no mention of cirrhosis. - Normal BNP and ECHO normal - Doubt CHF despite reported significant recent weight gain. - Hold off on any further diuresis currently and treat potential COPD exacerbation. May benefit from diuretic therapy in the future. (5) Weight gain: Status: Acute Assessment and plan: As above. (6) Elevated liver enzymes: Status: Acute Assessment and plan: Patient has history of daily EtOH use, but with ALT > AST. - Given Obesity and findings of significant Steatohepatitis, fatty liver is a possibility, with concurrent EtOH abuse as contributing to transaminitis. - Hx IVDA - check Hepatitis panel. - Check Fe/TIBC to rule out hemochromatosis. - Does not take medications other than daily methadone. (7) Tobacco abuse: Status: Acute Assessment and plan: Initiated NRT with prn Nicotrol. (8) Intravenous drug abuse in remission: Status: Acute Assessment and plan: Continue daily Methadone. (9) ETOH abuse: Status: Chronic Assessment and plan: Already with evidence of tremors, with last drink reportedly being last evening. Initiated on standing Chlordiazepoxide and Gabapentin, and maintained on CIWA protocol. Banana bag initiated, with MVI, Thiamine, and FA supplementation following. (10) DVT prophylaxis: Status: Acute Assessment and plan: SC Enoxaparin. Initiated PPI therapy for GI prophylaxis as well, especially given EtOH history and current treatment with steroids. Subjective Subjective Interval history since last seen: Pleasant 53 year old man with a prior history of EtOH abuse and prior IVDA, admitted from [facility] Emergency Department on 05/12 for further evaluation of recurrent syncopal episodes and recent weight gain. Mr. Maria has a Past Medical History significant for daily EtOH abuse, quantified as 12 pack per day of beer, along with prior IVDA with Morphine maintained on daily Methadone via BA[facility]. He also endorsed daily tobacco use, upwards of a 1.5 packs a day of cigarettes. The patient presented to the ED complaining of recent worsening dyspnea, accompanied by an approximate 80 lbs subjective weight gain over the last 2 months. He also endorses near daily 'syncope', described as blacking out, with episodes occuring mostly at night and when arising out of bed to use the bathroom. He takes a relatively high dose Methadone in the morning, and admits to drinking 6 24oz cans of beer through the day and mostly into the night. Upon presentation the patient was noted to be mildly hypoxic, hypertensive, and tachycardic. Work-up in the ED was significant for mild TCP, mild leukopenia, mild hypochloremia with normal renal function, and mildly elevated LFTs. BNP was normal, urinalysis negative for infection (although with hematuria without braga insertion), and Troponin undetectable. Lipase was elevated at 1090. Imaging showed evidence of severe hepeatic steatosis by CT, and RLL Atelectasis by CXR. Head CT showed no acute findings. CTA of the chest was also obtained by the ED, and while limited did not show any overt signs of PE - mention was made of potential mild upper lobe Pneumonitis, but procalcitonin was undetectable. Mr. Maria was referred for admission for further evaluation and treatment. This morning the patient feels improved. His ECHO was obtained and with potential Diastolic Dysfunction only (increased LV Pressures), but otherwise normal. No overnight events reported. Remains afebrile. Exam Narrative Exam Narrative: GEN: AAOX3, NAD Neck: Supple CV: Regular, tachycardic, mildly distant Heart sounds but no overt r/m/g Pulmonary: Breath sounds currently with diffuse rhonchi, mild wheezing Abd: +BS, soft, distended and obese in contour. + Epigastric tenderness Vasc: +2-3 b/l pitting LE Edema. B/l erythema c/w stasis Psych: Anxious, otherwise normal mood and affect Objective Objective Clinical Data: Abnormal lab results 05/12/19 05/13/19 05/13/19 Range/Units 12:59 06:10 06:10 Plt Count 92 L (130-400) x1000/uL Absolute Lymphocytes 0.50 L (1.2-3.4) k/cumm Potassium 3.2 L (3.5-5.1) mmol/L Chloride 96 L (98-107) mmol/L Carbon Dioxide 33.6 H (21.0-32.0) mmol/L Glucose 127 H (70-100) mg/dL Magnesium 1.7 L (1.8-2.4) mg/dL AST 134 H (15-37) U/L ALT 213 H (16-63) U/L Alkaline Phosphatase 131 H (46-116) U/L Lipase 966 H (73-393) U/L Vital Signs Temperature 36.8 C 05/13/19 12:24 Temperature Source Temporal Artery Scan 05/13/19 12:24 Pulse 106 H 05/13/19 12:14 Pulse 107 H 05/13/19 12:14 Respiratory Rate 12 05/13/19 12:14 Respiratory Effort Labored 05/13/19 12:24 Respiratory Depth Normal 05/13/19 12:24 Respiratory Pattern Normal 05/13/19 12:24 Blood Pressure 143/107 H 05/13/19 12:14 Blood Pressure Mean 116 05/13/19 12:14 Pulse Oximetry 94 L 05/13/19 12:14 Oxygen Delivery Method Nasal Cannula 05/13/19 09:18 Oxygen Flow Rate 4 05/13/19 09:18 Pain Level 2 05/13/19 09:05 Intake & Output 05/12/19 05/13/19 05/13/19 23:59 11:59 23:59 Intake Total 250.05 / 500.05 963 / 963 Output Total 1350 / 5750 1050 / 1050 Balance -1099.95 / -5249.95 -87 / -87 Weight 118 kg Intake: IV 250.05 / 500.05 613 / 613 Oral 350 / 350 Output: Urine 1350 / 5750 1050 / 1050 Other: Urine Color Dark Nicole Pale [place] Yellow Urine Appearance Clear Urine Odor Strong None Comment Per report, have not visualized thus far. icteric urine Voiding Methods Urinal Laboratory Results WBC 4.78 k/cumm (4.4-10.8) D 05/13/19 06:10 RBC 4.70 m/cumm (4.50-6.00) 05/13/19 06:10 Hgb 14.3 g/dL (13.5-17.5) 05/13/19 06:10 Hct 41.7 % (40.0-50.0) 05/13/19 06:10 MCV 88.7 fL (80-95) 05/13/19 06:10 MCH 30.4 pg (27.0-33.0) 05/13/19 06:10 MCHC 34.3 g/dL (32.0-36.0) 05/13/19 06:10 RDW 14.1 % (11.8-14.1) 05/13/19 06:10 Plt Count 92 x1000/uL (130-400) L 05/13/19 06:10 MPV 10.2 fL (8.0-11.0) 05/13/19 06:10 Immature Gran % 0.4 05/13/19 06:10 Neutrophils % 81.4 05/13/19 06:10 Lymphocytes % 10.5 05/13/19 06:10 Monocytes % 7.3 05/13/19 06:10 Eosinophils % 0.2 05/13/19 06:10 Basophils % 0.2 05/13/19 06:10 Absolute Neutrophils 3.89 k/cumm (1.2-6.7) 05/13/19 06:10 Absolute Lymphocytes 0.50 k/cumm (1.2-3.4) L 05/13/19 06:10 Absolute Monocytes 0.35 k/cumm (0.11-0.7) 05/13/19 06:10 Absolute Eosinophils 0.01 k/cumm (0.0-0.7) 05/13/19 06:10 Absolute Basophils 0.01 k/cumm (0.0-0.2) 05/13/19 06:10 Differential Comment Plt morph reviewed 05/12/19 08:15 RBC Morphology See below 05/12/19 08:15 Polychromasia Present 05/12/19 08:15 PT 10.4 sec (9.3-11.0) 05/12/19 08:15 INR 1.0 (0.9-1.1) 05/12/19 08:15 APTT 24.5 sec (21.0-31.4) 05/12/19 08:15 Sodium 136 mmol/L (136-145) 05/13/19 06:10 Potassium 3.2 mmol/L (3.5-5.1) L 05/13/19 06:10 Chloride 96 mmol/L (98-107) L 05/13/19 06:10 Carbon Dioxide 33.6 mmol/L (21.0-32.0) H 05/13/19 06:10 Anion Gap 6.4 mmol/L (3-11) 05/13/19 06:10 BUN 15 mg/dL (7-18) D 05/13/19 06:10 Creatinine 0.80 mg/dL (0.70-1.30) 05/13/19 06:10 Estimated GFR/1.73 m2 >= 60.00 (mL/min/1.73m2) 05/13/19 06:10 Glucose 127 mg/dL (70-100) H 05/13/19 06:10 Calcium 8.5 mg/dL (8.5-10.1) 05/13/19 06:10 Magnesium 2.3 mg/dL (1.8-2.4) 05/13/19 06:10 Iron 93 ug/dL (50-175) 05/12/19 12:59 TIBC 362 ug/dL (250-450) 05/12/19 12:59 Transferrin % Sat 26 % (20-55) 05/12/19 12:59 Total Bilirubin 0.9 mg/dL (0.2-1.0) 05/13/19 06:10 AST 134 U/L (15-37) H 05/13/19 06:10 ALT 213 U/L (16-63) H 05/13/19 06:10 Alkaline Phosphatase 131 U/L (46-116) H 05/13/19 06:10 Troponin I < 0.05 ng/mL (0.00-0.06) 05/12/19 11:11 NT-Pro-B Natriuret Pep 131 pg/mL (-299) 05/12/19 08:15 Total Protein 7.4 g/dL (6.4-8.2) 05/13/19 06:10 Albumin 3.4 g/dL (3.4-5.0) 05/13/19 06:10 Lipase 966 U/L (73-393) H 05/13/19 06:10 Procalcitonin < 0.1 ng/mL 05/12/19 12:59 TSH 2.80 uIU/mL (0.36-3.74) 05/13/19 06:10 Urine Color Yellow (Yellow) 05/12/19 09:03 Urine Clarity Clear (Clear) 05/12/19 09:03 Urine pH 7.5 (5-8) 05/12/19 09:03 Ur Specific [place] 1.020 (1.005-1.025) 05/12/19 09:03 Urine Protein Negative mg/dL (Negative) 05/12/19 09:03 Urine Ketones Negative mg/dL (Negative) 05/12/19 09:03 Urine Blood Trace-lysed (Negative) H 05/12/19 09:03 Urine Nitrite Negative (Negative) 05/12/19 09:03 Urine Bilirubin Negative (Negative) 05/12/19 09:03 Urine Urobilinogen 0.2 EU/dL (Up TO 0.2) 05/12/19 09:03 Ur Leukocyte Esterase Negative (Negative) 05/12/19 09:03 Urine RBC 10-20 HPF (0-2) H 05/12/19 09:03 Urine WBC Negative HPF (0-5) 05/12/19 09:03 Ur Epithelial Cells Rare HPF (Negative) 05/12/19 09:03 Urine Crystals Negative HPF (Negative) 05/12/19 09:03 Urine Bacteria Negative HPF (Negative) 05/12/19 09:03 Urine Casts Negative LPF (Negative) 05/12/19 09:03 Urine Mucus Negative (Negative) 05/12/19 09:03 Ur Culture Indicated? No 05/12/19 09:03 Urine Glucose Negative mg/dL (Negative) 05/12/19 09:03 Hepatitis A IgM Ab Cancelled 05/12/19 Unknown Hep Bs Antigen Cancelled 05/12/19 Unknown Hep B Core Total Ab Cancelled 05/12/19 Unknown Hepatitis C Antibody Cancelled 05/12/19 Unknown
--- NOTE | 2019-05-13 13:33 | PHARADMIT ---
Addendum entered by Devonte Mccormick III 05/16/19 12:22: Pharmacy Note Subjective CIWA- scores trending down, Librium dose tapering. Still requires Ativan. Objective BP-159/1100 Plts-87 ScR-0.96 H&H,Lytes-OK Assessment Lovenox dcd (Has SCDs) due to Low Plts, Gets Daily Methadone 130mg. Rocephin comletes today. Same LUIZA Librium, dose on transfer. Plan MD to transfer to the floor today. Original Note: Admission Pharmacy Clinical Review Dyspnea, syncope Code Status Full Code Current Weight 118 kg Renally Cleared and Narrow Therapeutic Index Meds Crcl ~119 mL/min current meds okay QTc Value / Action Taken QTc 489 has methadone ordered BP Control, Fever BP 143/107 afebrile Electrolytes reviewed K+ 3.2 DVT Prophylaxis enoxaparin Opiate Usage / Scheduled Bowel Regimen Ordered luiza/prn Plt/SCr for Heparin / Enoxaparin plt 92 SCr 0.80 INR for Warfarin n/a H/H stable, WBC/Bands h/h 14.3/41.7 WBC 4.78 Antibiotic appropriateness ceftriaxone (day 2) for potential mild pneumonia per progress note Cultures and Sensitivities none Surgical ABX d/c within 24 hr n/a DM control / Insulin Dosing Bg 127 none Heart Failure (Check EF%) (TSEPHEN's, B-Block, Diuretics) none IV to PO Switch n/a Home Meds Reviewed yes Home Meds Not Ordered all ordered Comments PO potassium replacement given metronidazole was discontinued currently has both PO and IV multivitamin, folic acid and thiamine ordered
[2019-05-13] MEDS: Normal Saline 500 ML 30 ML IV (14:21)
[2019-05-13] MEDS: cefTRIAXone 2 GM/50 ML BAG IVPB (14:22)
[2019-05-13] MEDS: Normal Saline Flush 10 ML SYR IVP ×2 (14:22→17:16)
[2019-05-13] MEDS: methylPREDNISolone SUCC 40 MG VIAL IVP ×2 (14:23→22:15)
[2019-05-13 14:54] LABS: Hep A Total Ab w Rflx IgM Negative (Negative)
--- NOTE | 2019-05-13 15:29 | CHAPLAIN ---
Allen was resting in bed when I visited. His wire and mom had been visiting earlier but have gone home for the day. Allen lives in [place], where he grew up, and likes living there. According to Care Management and ER notes, Allen is an admitted alcoholic, former IV drug user and a [facility] patient. He told me that he has a lot of health issues going on the he waited as long as I could before coming in, and asked me to be thinking of him. 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
[2019-05-13] MEDS: Enoxaparin 40 MG/0.4 ML SYR SC (17:15)
[2019-05-13] MEDS: Pantoprazole 40 MG VIAL IVP (17:15)
[2019-05-14] VITALS (45 sets, daily range): BP systolic 138–191; BP diastolic 79–125; PULSE 72–155; RESP 1–20; TEMP 35.5–36.8; O2SAT 88–97
[2019-05-14] MEDS: LORazepam 2 MG/ML VIAL IVP ×3 (03:55→16:21)
[2019-05-14] MEDS: Albuterol/Ipratropium 3 ML UPD VIAL UPD ×5 (03:56→20:15)
[2019-05-14] MEDS: Normal Saline Flush 10 ML SYR IVP ×3 (06:30→16:22)
[2019-05-14] MEDS: methylPREDNISolone SUCC 40 MG VIAL IVP ×2 (06:30→14:07)
[2019-05-14 06:59] LABS: Abs Immature Grans 0.03 k/cumm (0.0-0.09); Absolute Basophil Count 0.01 k/cumm (0.0-0.2); Absolute Lymphocyte Count 0.34 k/cumm (1.2-3.4); Absolute Neutrophil Count 4.29 k/cumm (1.2-6.7); Basophils % 0.2; HCT 40.6 % (40.0-50.0); HGB 13.6 g/dL (13.5-17.5); Immature Grans % 0.6; Mean Corp. HGB Concentration 33.5 g/dL (32.0-36.0); Mean Corpuscular Hemoglobin 29.9 pg (27.0-33.0); Mean Corpuscular Volume 89.2 fL (80-95); Mean Platelet Volume 10.8 fL (8.0-11.0); Monocytes % 4.1; Neutrophils % 88.1; RBC 4.55 m/cumm (4.50-6.00); RBC Distribution Width 13.8 % (11.8-14.1); White Blood Cell Count 4.87 k/cumm (4.4-10.8)
[2019-05-14 07:07] LABS: Lipase 649 U/L (73-393); Magnesium 2.2 mg/dL (1.8-2.4)
[2019-05-14 07:17] LABS: ALT 165 U/L (16-63); AST 89 U/L (15-37); Albumin 3.3 g/dL (3.4-5.0); Alkaline Phosphatase 118 U/L (46-116); Anion Gap 7.7 mmol/L (3-11); BUN 16 mg/dL (7-18); Bilirubin, Total 0.9 mg/dL (0.2-1.0); CO2 29.3 mmol/L (21.0-32.0); CREATININE 0.78 mg/dL (0.70-1.30); Calcium 8.3 mg/dL (8.5-10.1); Chloride 97 mmol/L (98-107); Glucose 182 mg/dL (70-100); Potassium 4.2 mmol/L (3.5-5.1); Sodium 134 mmol/L (136-145); Total Protein 6.9 g/dL (6.4-8.2)
[2019-05-14 07:29] LABS: Platelet Count 80 x1000/uL (130-400)
--- NOTE | 2019-05-14 08:30 | PGE_ITS ---
Date of Service Date of service: 05/14/19 Time of Service: 15:18 Assessment and Plan Assessment and plan (1) Alcohol withdrawal: Status: Acute Assessment and plan: Appears to be getting worse. Continue monitoring on CIWA with PO/IV ativan and scheduled librium. (2) Syncope: Status: Chronic Assessment and plan: Upon further investigation, it does appear that these syncopal events are post-micturation and are likely vasovagal in nature. Monitor on tele. (3) Dyspnea: Status: Acute Assessment and plan: Likely a combination of acute pneumonia, acute exacer bation of COPD, but I do think that there was a component of CHF as he sounds wet. For now, avoid IVF; decrease dose of ceftriaxone; keep steroid dose the same, continue nebs. (4) Pneumonia: Status: Acute Assessment and plan: As above. (5) Lower extremity edema: Status: Acute Assessment and plan: Likely due to CHF. low proBNP in setting of obesity could underestimate the actual degree of CHF. Avoid IVF for now. Consider resuming diuresis tomorrow. (6) Weight gain: Status: Acute Assessment and plan: As above. (7) Elevated liver enzymes: Status: Acute Assessment and plan: Patient has history of daily EtOH use, but with ALT > AST. Also, possibly congestive hepatopathy, steatohepatitis, fatty liver, with concurrent EtOH abuse as contributing to transaminitis. - Hx IVDA - Hepatitis panel pending - Transferrin saturation wnl - not likely to represent hemochromatosis. - Does not take medications other than daily methadone. (8) Tobacco abuse: Status: Acute Assessment and plan: add nicotine patch to nicotrol (9) Intravenous drug abuse in remission: Status: Acute Assessment and plan: Continue daily Methadone. (10) ETOH abuse: Status: Chronic Assessment and plan: As above (11) DVT prophylaxis: Status: Acute Assessment and plan: hold heparin due to thrombocytopenia (likely due to alcohol). Subjective Subjective Interval history since last seen: 6 mg of IV ativan given overnight. Did require PO ativan today and is starting to get more tremulous now. Nursing expresses concerns that he might be getting worse. I clarified with the patient - he states his syncopal episodes only happen after he urinates. Afebrile. Had not voided all night - voided 775 this am. No signs of urinary retention on bladder scans since. O2 has been able to be weaned to 3L from 5L. Denies dizziness, chest pain, shortness of breath, nausea, vomiting. 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 Objective Objective Clinical Data: Abnormal lab results 05/14/19 05/14/19 05/14/19 Range/Units 06:10 06:10 06:10 Plt Count 80 L (130-400) x1000/uL Absolute Lymphocytes 0.34 L (1.2-3.4) k/cumm Sodium 134 L (136-145) mmol/L Chloride 97 L (98-107) mmol/L Glucose 182 H (70-100) mg/dL Calcium 8.3 L (8.5-10.1) mg/dL AST 89 H (15-37) U/L ALT 165 H (16-63) U/L Alkaline Phosphatase 118 H (46-116) U/L Albumin 3.3 L (3.4-5.0) g/dL Lipase 649 H (73-393) U/L Vital Signs Temperature 35.5 C L 05/14/19 03:24 Temperature Source Temporal Artery Scan 05/14/19 03:24 Pulse 74 05/13/19 23:51 Pulse 87 05/13/19 22:01 Respiratory Rate 17 05/14/19 05:58 Respiratory Effort Accessory Muscle Use 05/14/19 03:24 Respiratory Depth Deep 05/14/19 03:24 Respiratory Pattern Normal 05/14/19 03:24 Blood Pressure 157/111 H 05/14/19 05:58 Blood Pressure Mean 126 05/14/19 05:58 Blood Pressure Position Supine 05/13/19 21:00 Pulse Oximetry 93 L 05/14/19 05:58 Oxygen Delivery Method Nasal Cannula 05/14/19 05:58 Oxygen Flow Rate 5 05/14/19 05:58 Pain Level 0 05/14/19 05:58 Intake & Output 05/13/19 05/13/19 05/14/19 11:59 23:59 11:59 Intake Total 963 / 1960.7 997.7 / 1960.7 540 / 540 Output Total 1050 / 1825 775 / 1825 Balance -87 / 135.7 222.7 / 135.7 540 / 540 Weight 121.6 kg Intake: IV 613 / 1440.7 827.7 / 1440.7 Oral 350 / 520 170 / 520 540 / 540 Output: Urine 1050 / 1825 775 / 1825 Other: Urine Color Pale Dark [place] Yellow Urine Appearance Clear Cloudy Urine Odor None Normal Comment icteric urine had not voided all shift. Denied need to void. pt states he does not need to void. bladder scanned for 375-425mL Stood to void = 775 mL Voiding Methods Urinal Laboratory Results WBC 4.87 k/cumm (4.4-10.8) 05/14/19 06:10 RBC 4.55 m/cumm (4.50-6.00) 05/14/19 06:10 Hgb 13.6 g/dL (13.5-17.5) 05/14/19 06:10 Hct 40.6 % (40.0-50.0) 05/14/19 06:10 MCV 89.2 fL (80-95) 05/14/19 06:10 MCH 29.9 pg (27.0-33.0) 05/14/19 06:10 MCHC 33.5 g/dL (32.0-36.0) 05/14/19 06:10 RDW 13.8 % (11.8-14.1) 05/14/19 06:10 Plt Count 80 x1000/uL (130-400) L 05/14/19 06:10 MPV 10.8 fL (8.0-11.0) 05/14/19 06:10 Immature Gran % 0.6 05/14/19 06:10 Neutrophils % 88.1 05/14/19 06:10 Lymphocytes % 7.0 05/14/19 06:10 Monocytes % 4.1 05/14/19 06:10 Eosinophils % 0.0 05/14/19 06:10 Basophils % 0.2 05/14/19 06:10 Absolute Neutrophils 4.29 k/cumm (1.2-6.7) 05/14/19 06:10 Absolute Lymphocytes 0.34 k/cumm (1.2-3.4) L 05/14/19 06:10 Absolute Monocytes 0.20 k/cumm (0.11-0.7) 05/14/19 06:10 Absolute Eosinophils 0.00 k/cumm (0.0-0.7) 05/14/19 06:10 Absolute Basophils 0.01 k/cumm (0.0-0.2) 05/14/19 06:10 Differential Comment Plt morph reviewed 05/12/19 08:15 RBC Morphology See below 05/12/19 08:15 Polychromasia Present 05/12/19 08:15 PT 10.4 sec (9.3-11.0) 05/12/19 08:15 INR 1.0 (0.9-1.1) 05/12/19 08:15 APTT 24.5 sec (21.0-31.4) 05/12/19 08:15 Sodium 134 mmol/L (136-145) L 05/14/19 06:10 Potassium 4.2 mmol/L (3.5-5.1) D 05/14/19 06:10 Chloride 97 mmol/L (98-107) L 05/14/19 06:10 Carbon Dioxide 29.3 mmol/L (21.0-32.0) 05/14/19 06:10 Anion Gap 7.7 mmol/L (3-11) 05/14/19 06:10 BUN 16 mg/dL (7-18) 05/14/19 06:10 Creatinine 0.78 mg/dL (0.70-1.30) 05/14/19 06:10 Estimated GFR/1.73 m2 >= 60.00 (mL/min/1.73m2) 05/14/19 06:10 Glucose 182 mg/dL (70-100) H 05/14/19 06:10 Calcium 8.3 mg/dL (8.5-10.1) L 05/14/19 06:10 Magnesium 2.2 mg/dL (1.8-2.4) 05/14/19 06:10 Iron 93 ug/dL (50-175) 05/12/19 12:59 TIBC 362 ug/dL (250-450) 05/12/19 12:59 Transferrin % Sat 26 % (20-55) 05/12/19 12:59 Total Bilirubin 0.9 mg/dL (0.2-1.0) 05/14/19 06:10 AST 89 U/L (15-37) H 05/14/19 06:10 ALT 165 U/L (16-63) H 05/14/19 06:10 Alkaline Phosphatase 118 U/L (46-116) H 05/14/19 06:10 Troponin I < 0.05 ng/mL (0.00-0.06) 05/12/19 11:11 NT-Pro-B Natriuret Pep 131 pg/mL (-299) 05/12/19 08:15 Total Protein 6.9 g/dL (6.4-8.2) 05/14/19 06:10 Albumin 3.3 g/dL (3.4-5.0) L 05/14/19 06:10 Lipase 649 U/L (73-393) H 05/14/19 06:10 Procalcitonin < 0.1 ng/mL 05/12/19 12:59 TSH 2.80 uIU/mL (0.36-3.74) 05/13/19 06:10 Urine Color Yellow (Yellow) 05/12/19 09:03 Urine Clarity Clear (Clear) 05/12/19 09:03 Urine pH 7.5 (5-8) 05/12/19 09:03 Ur Specific [place] 1.020 (1.005-1.025) 05/12/19 09:03 Urine Protein Negative mg/dL (Negative) 05/12/19 09:03 Urine Ketones Negative mg/dL (Negative) 05/12/19 09:03 Urine Blood Trace-lysed (Negative) H 05/12/19 09:03 Urine Nitrite Negative (Negative) 05/12/19 09:03 Urine Bilirubin Negative (Negative) 05/12/19 09:03 Urine Urobilinogen 0.2 EU/dL (Up TO 0.2) 05/12/19 09:03 Ur Leukocyte Esterase Negative (Negative) 05/12/19 09:03 Urine RBC 10-20 HPF (0-2) H 05/12/19 09:03 Urine WBC Negative HPF (0-5) 05/12/19 09:03 Ur Epithelial Cells Rare HPF (Negative) 05/12/19 09:03 Urine Crystals Negative HPF (Negative) 05/12/19 09:03 Urine Bacteria Negative HPF (Negative) 05/12/19 09:03 Urine Casts Negative LPF (Negative) 05/12/19 09:03 Urine Mucus Negative (Negative) 05/12/19 09:03 Ur Culture Indicated? No 05/12/19 09:03 Urine Glucose Negative mg/dL (Negative) 05/12/19 09:03 Hepatitis A IgM Ab Cancelled 05/12/19 Unknown Hepatitis A Ab Total Negative (Negative) 05/12/19 08:15 Hep Bs Antigen Cancelled 05/12/19 Unknown Hep B Core Total Ab Cancelled 05/12/19 Unknown Hepatitis C Antibody Cancelled 05/12/19 Unknown
[2019-05-14] MEDS: Multivitamin TAB 1 TAB PO (08:51)
[2019-05-14] MEDS: Gabapentin 400 MG CAP 800 MG PO ×3 (08:51→20:18)
[2019-05-14] MEDS: Acetaminophen 325 MG TAB PO ×2 (08:51→14:06)
[2019-05-14] MEDS: chlordiazePOXIDE 25 MG CAP PO ×3 (08:52→20:17)
[2019-05-14] MEDS: Thiamine 100 MG TAB PO (08:52)
[2019-05-14] MEDS: LORazepam 1 MG TAB PO/SL ×4 (08:52→20:17)
[2019-05-14] MEDS: Methadone Liquid 10 MG/ML 130 MG PO (09:40)
[2019-05-14] MEDS: guaiFENesin 600 MG TABCR PO ×2 (10:59→20:18)
[2019-05-14] MEDS: cefTRIAXone 2 GM/50 ML BAG IVPB (14:06)
--- NOTE | 2019-05-14 15:46 | PDOC.CMPRO ---
- If Service Date Differs Date of service: 05/14/19 Time of Service: 15:46 Care Management Progress Note S/O: Mario was laying in bed when CM met with him. He was dozing and stated that he was kind of tired. His was also present. CM reviewed information provided yesterday re: [place] AD document and [facility]. Mario was too sleepy to converse about the material but his said they would review the information. CM offered to answer any questions they might have tomorrow. Mario continues to score between 10 and 11 on the CIWA scale and is receiving medication as needed. A: Mario is a 53 year old man admitted to [facility] on 05/12/19 with dyspnea and syncope P: Mario will likely be discharged home with new community services in addition to the substance abuse treatment he is currently receiving through [facility]. He will transport with his via private vehicle and follow up with his PCP. CM will continue to support patient, family and discharge planning needs.
[2019-05-14] MEDS: Nicotine 21 MG/24 HR PATCH TD (16:21)
[2019-05-14] MEDS: Pantoprazole 40 MG VIAL IVP (16:21)
[2019-05-15] VITALS (38 sets, daily range): BP systolic 139–165; BP diastolic 77–113; PULSE 72–115; RESP 1–28; TEMP 36–36.7; O2SAT 91–100
[2019-05-15] MEDS: methylPREDNISolone SUCC 40 MG VIAL IVP ×3 (05:34→21:35)
[2019-05-15] MEDS: Albuterol/Ipratropium 3 ML UPD VIAL UPD ×5 (05:35→21:35)
--- NOTE | 2019-05-15 06:04 | NUR.NOTE ---
duo neb treatments given x2 tonight. Ls remain very rhonchorous and wheeezy.Nursing Note:
[2019-05-15 06:51] LABS: Abs Immature Grans 0.03 k/cumm (0.0-0.09); Absolute Eosinophil Count 0.02 k/cumm (0.0-0.7); Absolute Lymphocyte Count 0.82 k/cumm (1.2-3.4); Absolute Neutrophil Count 4.32 k/cumm (1.2-6.7); Eosinophils % 0.4; HGB 14.1 g/dL (13.5-17.5); Immature Grans % 0.5; Lymphocytes % 14.4; Mean Corp. HGB Concentration 32.8 g/dL (32.0-36.0); Mean Corpuscular Hemoglobin 29.5 pg (27.0-33.0); Mean Platelet Volume 10.5 fL (8.0-11.0); Monocytes % 8.8; Neutrophils % 75.9; RBC 4.78 m/cumm (4.50-6.00); RBC Distribution Width 14.1 % (11.8-14.1); White Blood Cell Count 5.69 k/cumm (4.4-10.8)
[2019-05-15 07:02] LABS: Platelet Count 86 x1000/uL (130-400)
[2019-05-15 07:06] LABS: ALT 140 U/L (16-63); AST 64 U/L (15-37); Albumin 3.5 g/dL (3.4-5.0); Alkaline Phosphatase 113 U/L (46-116); BUN 18 mg/dL (7-18); Bilirubin, Direct 0.35 mg/dL (0.00-0.20); Bilirubin, Total 0.9 mg/dL (0.2-1.0); CREATININE 0.89 mg/dL (0.70-1.30); Calcium 8.6 mg/dL (8.5-10.1); Chloride 98 mmol/L (98-107); Glucose 103 mg/dL (70-100); Magnesium 2.3 mg/dL (1.8-2.4); Potassium 4.1 mmol/L (3.5-5.1); Sodium 135 mmol/L (136-145); Total Protein 7.2 g/dL (6.4-8.2)
--- NOTE | 2019-05-15 07:36 | CMPROGNOTE_ITS ---
- If Service Date Differs Date of service: 05/15/19 Time of Service: 07:36 Care Management Progress Note S/O: Mario was sitting up in bed when CM came to see him. He was much more awake than yesterday and stated that he is feeling a bit better. He extended his arms to show CM that he was less tremulous, however he continues to score between 12 and 14 on the CIWA scale. He remains ICU level of care. A: Mario is a 53 year old man admitted to [facility] on 05/12/19 with dyspnea and syncope P: Mario will likely be discharged home with new community services in addition to the substance abuse treatment he is currently receiving through [facility]. He will transport with his via private vehicle and follow up with his PCP. CM will continue to support patient, family and discharge planning needs.
--- NOTE | 2019-05-15 08:00 | DI.RAD_ITS ---
EXAM: XR PORTABLE CHEST AP INDICATION: follow up respiratory failure. COMPARISON: XR CHEST 2V PA LATERAL from 05/12/2019 TECHNIQUE: 2D digital imaging was performed. FINDINGS: Lungs are not well inflated. There are linear areas of atelectasis. Leads overlie the chest. The he art size is normal. No focal area of consolidation or effusion is seen. IMPRESSION: Limited exam. Linear atelectasis. No acute abnormality.
[2019-05-15] MEDS: Multivitamin TAB 1 TAB PO (08:01)
[2019-05-15] MEDS: Gabapentin 400 MG CAP 800 MG PO ×3 (08:01→21:36)
[2019-05-15] MEDS: guaiFENesin 600 MG TABCR PO ×2 (08:01→21:38)
[2019-05-15] MEDS: Methadone Liquid 10 MG/ML 130 MG PO (08:02)
[2019-05-15] MEDS: chlordiazePOXIDE 25 MG CAP PO ×3 (08:02→21:36)
[2019-05-15] MEDS: Thiamine 100 MG TAB PO (08:02)
[2019-05-15] MEDS: Nicotine 21 MG/24 HR PATCH TD (08:03)
[2019-05-15] MEDS: LORazepam 1 MG TAB PO/SL (08:08)
[2019-05-15] MEDS: Acetaminophen 325 MG TAB PO ×2 (08:09→21:35)
--- NOTE | 2019-05-15 08:22 | PGE_ITS ---
Date of Service Date of service: 05/15/19 Time of Service: 13:59 Assessment and Plan Assessment and plan (1) Alcohol withdrawal: Status: Acute Assessment and plan: Not improving yet. Keep in ICU as just did require IV ativan. Continue monitoring on CIWA with PO/IV ativan and scheduled librium. (2) Syncope: Status: Chronic Assessment and plan: Upon further investigation, it does appear that these syncopal events are post-micturation and are likely vasovagal in nature. Monitor on tele. (3) Dyspnea: Status: Acute Assessment and plan: Likely a combination of acute pneumonia, acute exacerbation of COPD, and CHF (understimated by low BNP in setting of obesity). CXR better and clinically he is improving as well, with decreasing O2 requirements. Start to decrease solumedrol. Continue ceftriaxone (day 4); continue nebs. (4) Pneumonia: Status: Acute Assessment and plan: As above. (5) Lower extremity edema: Status: Acute Assessment and plan: Likely due to CHF. low proBNP in setting of obesity could underestimate the actual degree of CHF. Avoid IVF for now. Would not resume diuresis yet as PO intake is not as good today. (6) Weight gain: Status: Acute Assessment and plan: As above. 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 - Hx IVDA - Hepatitis panel pending - Transferrin saturation wnl - not likely to represent hemochromatosis. - Does not take medications other than daily methadone. (8) Tobacco abuse: Status: Acute Assessment and plan: Continue nicotine patch and prn nicotrol (9) Intravenous drug abuse in remission: Status: Acute Assessment and plan: Continue daily Methadone. (10) ETOH abuse: Status: Chronic Assessment and plan: As above (11) DVT prophylaxis: Status: Acute Assessment and plan: hold heparin due to thrombocytopenia (likely due to alcohol). Subjective Subjective Interval history since last seen: 3 mg of PO ativan given before bedtime, slept through night. Methadone already given - still having headache/anxiety/tremors. CIWA 11 this am. Given 3 mg PO ativan this morning. Given IV ativan this afternoon for CIWA score of 12 as the patient started to get more confused. In a chair this am, but back to bed now. States not short of breath, now on 2L of O2. Denies dizziness, hallucinations, chest pain, nausea. Exam Narrative Exam Narrative: General: very tremulous Obese male, A&Ox3, cooperative, looks slightly less tachypneic; anxious HEENT: EOMI, MMM Heart: RRR, no m/r/g, tachycardic Lungs: improved rhonchi/rales B GI: abdomen is soft, nontender, nondistended Extremities: trace edema BLE's, no c/c. Objective Objective Clinical Data: Abnormal lab results 05/15/19 05/15/19 Range/Units 06:10 06:10 Plt Count 86 L (130-400) x1000/uL Absolute Lymphocytes 0.82 L (1.2-3.4) k/cumm Sodium 135 L (136-145) mmol/L Glucose 103 H D (70-100) mg/dL Conjugated Bilirubin 0.35 H (0.00-0.20) mg/dL AST 64 H (15-37) U/L ALT 140 H (16-63) U/L Vital Signs Temperature 36 C L 05/15/19 04:44 Temperature Source Tympanic 05/15/19 04:44 Pulse 102 H 05/15/19 06:01 Pulse 103 H 05/15/19 06:01 Respiratory Rate 19 05/15/19 06:01 Respiratory Effort Accessory Muscle Use 05/15/19 04:44 Respiratory Depth Normal 05/15/19 04:44 Respiratory Pattern Normal 05/15/19 04:44 Blood Pressure 147/100 H 05/15/19 06:01 Blood Pressure Mean 112 05/15/19 06:01 Blood Pressure Position Sitting 05/15/19 04:44 Pulse Oximetry 92 L 05/15/19 06:01 Oxygen Delivery Method Nasal Cannula 05/15/19 04:44 Oxygen Flow Rate 3 05/15/19 04:44 Pain Level 6 05/15/19 08:09 Intake & Output 05/14/19 05/14/19 05/15/19 11:59 23:59 11:59 Intake Total 1810.5 / 2610.5 800 / 2610.5 Output Total 1735 / 3230 1495 / 3230 650 / 650 Balance 75.5 / -619.5 -695 / -619.5 -650 / -650 Weight 118.5 kg 121.5 kg Intake: IV 530.5 / 590.5 60 / 590.5 Oral 1280 / 2020 740 / 2019 Output: Urine 1700 / 3175 1475 / 3175 650 / 650 Post Void Residual Other: Urine Color Dark Gautam Dark Agutam Dark Gautam Urine Appearance Clear Clear Clear Urine Odor Normal Strong Strong Comment Pt denies having to void at this time. Pt voided 1525cc dark gautam urine during day shift. Voiding Methods Urinal Urinal Laboratory Results WBC 5.69 k/cumm (4.4-10.8) 05/15/19 06:10 RBC 4.78 m/cumm (4.50-6.00) 05/15/19 06:10 Hgb 14.1 g/dL (13.5-17.5) 05/15/19 06:10 Hct 43.0 % (40.0-50.0) 05/15/19 06:10 MCV 90.0 fL (80-95) 05/15/19 06:10 MCH 29.5 pg (27.0-33.0) 05/15/19 06:10 MCHC 32.8 g/dL (32.0-36.0) 05/15/19 06:10 RDW 14.1 % (11.8-14.1) 05/15/19 06:10 Plt Count 86 x1000/uL (130-400) L 05/15/19 06:10 MPV 10.5 fL (8.0-11.0) 05/15/19 06:10 Immature Gran % 0.5 05/15/19 06:10 Neutrophils % 75.9 05/15/19 06:10 Lymphocytes % 14.4 05/15/19 06:10 Monocytes % 8.8 05/15/19 06:10 Eosinophils % 0.4 05/15/19 06:10 Basophils % 0.0 05/15/19 06:10 Absolute Neutrophils 4.32 k/cumm (1.2-6.7) 05/15/19 06:10 Absolute Lymphocytes 0.82 k/cumm (1.2-3.4) L 05/15/19 06:10 Absolute Monocytes 0.50 k/cumm (0.11-0.7) 05/15/19 06:10 Absolute Eosinophils 0.02 k/cumm (0.0-0.7) 05/15/19 06:10 Absolute Basophils 0.00 k/cumm (0.0-0.2) 05/15/19 06:10 Differential Comment Plt morph reviewed 05/12/19 08:15 RBC Morphology See below 05/12/19 08:15 Polychromasia Present 05/12/19 08:15 PT 10.4 sec (9.3-11.0) 05/12/19 08:15 INR 1.0 (0.9-1.1) 05/12/19 08:15 APTT 24.5 sec (21.0-31.4) 05/12/19 08:15 Sodium 135 mmol/L (136-145) L 05/15/19 06:10 Potassium 4.1 mmol/L (3.5-5.1) 05/15/19 06:10 Chloride 98 mmol/L (98-107) 05/15/19 06:10 Carbon Dioxide 30.0 mmol/L (21.0-32.0) 05/15/19 06:10 Anion Gap 7.0 mmol/L (3-11) 05/15/19 06:10 BUN 18 mg/dL (7-18) 05/15/19 06:10 Creatinine 0.89 mg/dL (0.70-1.30) 05/15/19 06:10 Estimated GFR/1.73 m2 >= 60.00 (mL/min/1.73m2) 05/15/19 06:10 Glucose 103 mg/dL (70-100) H D 05/15/19 06:10 Calcium 8.6 mg/dL (8.5-10.1) 05/15/19 06:10 Magnesium 2.3 mg/dL (1.8-2.4) 05/15/19 06:10 Iron 93 ug/dL (50-175) 05/12/19 12:59 TIBC 362 ug/dL (250-450) 05/12/19 12:59 Transferrin % Sat 26 % (20-55) 05/12/19 12:59 Total Bilirubin 0.9 mg/dL (0.2-1.0) 05/15/19 06:10 Conjugated Bilirubin 0.35 mg/dL (0.00-0.20) H 05/15/19 06:10 AST 64 U/L (15-37) H 05/15/19 06:10 ALT 140 U/L (16-63) H 05/15/19 06:10 Alkaline Phosphatase 113 U/L (46-116) 05/15/19 06:10 Troponin I < 0.05 ng/mL (0.00-0.06) 05/12/19 11:11 NT-Pro-B Natriuret Pep 131 pg/mL (-299) 05/12/19 08:15 Total Protein 7.2 g/dL (6.4-8.2) 05/15/19 06:10 Albumin 3.5 g/dL (3.4-5.0) 05/15/19 06:10 Lipase 649 U/L (73-393) H 05/14/19 06:10 Procalcitonin < 0.1 ng/mL 05/12/19 12:59 TSH 2.80 uIU/mL (0.36-3.74) 05/13/19 06:10 Urine Color Yellow (Yellow) 05/12/19 09:03 Urine Clarity Clear (Clear) 05/12/19 09:03 Urine pH 7.5 (5-8) 05/12/19 09:03 Ur Specific [place] 1.020 (1.005-1.025) 05/12/19 09:03 Urine Protein Negative mg/dL (Negative) 05/12/19 09:03 Urine Ketones Negative mg/dL (Negative) 05/12/19 09:03 Urine Blood Trace-lysed (Negative) H 05/12/19 09:03 Urine Nitrite Negative (Negative) 05/12/19 09:03 Urine Bilirubin Negative (Negative) 05/12/19 09:03 Urine Urobilinogen 0.2 EU/dL (Up TO 0.2) 05/12/19 09:03 Ur Leukocyte Esterase Negative (Negative) 05/12/19 09:03 Urine RBC 10-20 HPF (0-2) H 05/12/19 09:03 Urine WBC Negative HPF (0-5) 05/12/19 09:03 Ur Epithelial Cells Rare HPF (Negative) 05/12/19 09:03 Urine Crystals Negative HPF (Negative) 05/12/19 09:03 Urine Bacteria Negative HPF (Negative) 05/12/19 09:03 Urine Casts Negative LPF (Negative) 05/12/19 09:03 Urine Mucus Negative (Negative) 05/12/19 09:03 Ur Culture Indicated? No 05/12/19 09:03 Urine Glucose Negative mg/dL (Negative) 05/12/19 09:03 Hepatitis A IgM Ab Cancelled 05/12/19 Unknown Hepatitis A Ab Total Negative (Negative) 05/12/19 08:15 Hep Bs Antigen Cancelled 05/12/19 Unknown Hep B Core Total Ab Cancelled 05/12/19 Unknown Hepatitis C Antibody Cancelled 05/12/19 Unknown CXR 05/15/19: Atelectasis or scar in the left midlung
--- NOTE | 2019-05-15 09:19 | DI.VRAD_ITS ---
PROCEDURE INFORMATION: Exam: XR Chest, 1 View Exam date and time: 05/15/2019 9:01 AM Clinical history: 53 years old, male; Other: Follow up respiratory failure TECHNIQUE: Imaging protocol: XR of the chest Views: 1 view. COMPARISON: CR XR CHEST 2V PA LATERAL 05/12/2019 10:47 AM FINDINGS: Lungs: Linear density in the left midlung may represent atelectasis or scar Pleural space: Unremarkable. No pleural effusion. No pneumothorax. Heart/Mediastinum: Unremarkable. No cardiomegaly. Diaphragm: Elevated hemidiaphragms bilaterally Bones/joints: Unremarkable. Other findings: Overlying EKG wires IMPRESSION: Atelectasis or scar in the left midlung Dictated and Authenticated by: Aureliano Bhatti MD. Ordering:KALEB Nguyen MD
[2019-05-15] MEDS: Senna TAB 1 TAB PO ×2 (11:28→21:38)
[2019-05-15] MEDS: Docusate Sodium 100 MG CAP PO ×2 (11:28→21:38)
[2019-05-15] MEDS: LORazepam 2 MG/ML VIAL IVP ×2 (11:28→14:32)
[2019-05-15] MEDS: Normal Saline Flush 10 ML SYR IVP ×4 (11:35→21:36)
[2019-05-15] MEDS: cefTRIAXone 1 GM/50 ML BAG IVPB (13:51)
[2019-05-15] MEDS: Pantoprazole 40 MG VIAL IVP (16:34)
[2019-05-16] VITALS (39 sets, daily range): BP systolic 128–172; BP diastolic 75–109; PULSE 72–108; RESP 2–21; TEMP 35.5–37.6; O2SAT 85–96
[2019-05-16] MEDS: LORazepam 2 MG/ML VIAL IVP (01:58)
[2019-05-16] MEDS: Normal Saline Flush 10 ML SYR IVP ×4 (01:59→16:22)
[2019-05-16] MEDS: Acetaminophen 325 MG TAB PO ×3 (02:00→23:53)
[2019-05-16] MEDS: Benzonatate 200 MG CAP PO (03:04)
[2019-05-16] MEDS: Albuterol/Ipratropium 3 ML UPD VIAL UPD ×6 (03:05→23:43)
[2019-05-16 06:55] LABS: Abs Immature Grans 0.03 k/cumm (0.0-0.09); Absolute Basophil Count 0.01 k/cumm (0.0-0.2); Absolute Lymphocyte Count 0.34 k/cumm (1.2-3.4); Absolute Monocyte Count 0.34 k/cumm (0.11-0.7); Absolute Neutrophil Count 5.57 k/cumm (1.2-6.7); Basophils % 0.2; HCT 40.9 % (40.0-50.0); HGB 13.4 g/dL (13.5-17.5); Immature Grans % 0.5; Lymphocytes % 5.4; Mean Corp. HGB Concentration 32.8 g/dL (32.0-36.0); Mean Corpuscular Hemoglobin 29.8 pg (27.0-33.0); Mean Corpuscular Volume 91.1 fL (80-95); Mean Platelet Volume 10.8 fL (8.0-11.0); Monocytes % 5.4; Neutrophils % 88.5; RBC 4.49 m/cumm (4.50-6.00); White Blood Cell Count 6.29 k/cumm (4.4-10.8)
[2019-05-16 07:02] LABS: Anion Gap 6.9 mmol/L (3-11); BUN 16 mg/dL (7-18); CO2 29.1 mmol/L (21.0-32.0); CREATININE 0.96 mg/dL (0.70-1.30); Calcium 8.5 mg/dL (8.5-10.1); Chloride 98 mmol/L (98-107); Glucose 173 mg/dL (70-100); Magnesium 2.4 mg/dL (1.8-2.4); Potassium 4.6 mmol/L (3.5-5.1); Sodium 134 mmol/L (136-145)
[2019-05-16 07:33] LABS: Diff Comment PLT Morph Reviewed; Platelet Count 87 x1000/uL (130-400); RBC Morphology Normal
[2019-05-16] MEDS: Nicotine 21 MG/24 HR PATCH TD (07:52)
[2019-05-16] MEDS: LORazepam 1 MG TAB PO/SL ×2 (07:53→13:09)
[2019-05-16] MEDS: guaiFENesin 600 MG TABCR PO ×2 (07:54→20:10)
[2019-05-16] MEDS: Multivitamin TAB 1 TAB PO (07:55)
[2019-05-16] MEDS: chlordiazePOXIDE 25 MG CAP PO ×3 (07:55→20:10)
[2019-05-16] MEDS: Gabapentin 400 MG CAP 800 MG PO ×2 (07:55→13:09)
[2019-05-16] MEDS: Docusate Sodium 100 MG CAP PO ×2 (07:55→20:10)
[2019-05-16] MEDS: Senna TAB 1 TAB PO ×2 (07:55→20:09)
[2019-05-16] MEDS: Thiamine 100 MG TAB PO (07:55)
[2019-05-16] MEDS: Methadone Liquid 10 MG/ML 130 MG PO (08:04)
--- NOTE | 2019-05-16 08:27 | W.PM.PROGNOT ---
Date of Service Date of service: 05/16/19 Time of Service: 08:27 Assessment and Plan Assessment and plan (1) Alcohol withdrawal: Status: Acute Assessment and plan: Better. Ok to move out of ICU to [facility] with tele. Keep on current dose of librium. Ask care management to discuss resources in the community to help quit drinking. Continue monitoring on CIWA with PO/IV ativan and scheduled librium. (2) Syncope: Status: Chronic Assessment and plan: Upon further investigation, it does appear that these syncopal events are post-micturation and are likely vasovagal in nature. Monitor on tele. Check orthostatics. (3) Dyspnea: Status: Acute Assessment and plan: Likely a combination of acute pneumonia, acute exacerbation of COPD, and CHF (understimated by low BNP in setting of obesity). O2 weaned. CXR shows resolution of infiltrate - d/c antibiotics after today's dose (will have completed 5 days of ceftriaxone). Change steroids to PO (keep dose same). Continue nebs - will need a nebulizer machine at home. (4) Pneumonia: Status: Acute Assessment and plan: As above. (5) Lower extremity edema: Status: Acute Assessment and plan: Likely due to CHF. Low proBNP in setting of obesity could underestimate the actual degree of CHF. Will give 1 dose of IV lasix at this time. . (6) Weight gain: Status: Acute Assessment and plan: As above. 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 - Hx IVDA - Hepatitis panel pending - Transferrin saturation wnl - not likely to represent hemochromatosis. - Does not take medications other than daily methadone. (8) Tobacco abuse: Status: Acute Assessment and plan: Continue nicotine patch and prn nicotrol (9) Intravenous drug abuse in remission: Status: Acute Assessment and plan: Continue daily Methadone. (10) ETOH abuse: Status: Chronic Assessment and plan: As above (11) DVT prophylaxis: Status: Acute Assessment and plan: hold heparin due to thrombocytopenia (likely due to alcohol). Subjective Subjective Interval history since last seen: The patient denies dizziness, chest pain, states breathing is a lot better, denies n/v. CIWA 12 this am - received 3 mg of ativan PO. Feels better. Not hallucinating. 3mg of IV ativan overnight for CIWA of 13. Cough nonproductive. Wheezing is better. O2 weaned down to room air. Was able to ambulate around the floor without oxygen and not desaturate. Nursing feels he no longer requires ICU. Sleep apnea-like episodes reported. Discussed sleep apnea and drinking with patient. He does not seem to be interested in AA or going to rehab, but he is interested in quitting drinking. He agrees to speak to case management about resources in community to help him quit drinking, though he states he already knows them all. Exam Narrative Exam Narrative: General: very tremulous Obese male, A&Ox3, cooperative, looks better, less tachypneic. Seen on room air HEENT: EOMI, MMM Heart: RRR, no m/r/g, tachycardic Lungs: expiratory wheezing bilaterally - better GI: abdomen is soft, nontender, nondistended Extremities: trace edema BLE's, no c/c. Objective Objective Clinical Data: Abnormal lab results 05/16/19 05/16/19 Range/Units 06:08 06:08 RBC 4.49 L (4.50-6.00) m/cumm Hgb 13.4 L (13.5-17.5) g/dL Plt Count 87 L (130-400) x1000/uL Absolute Lymphocytes 0.34 L (1.2-3.4) k/cumm Sodium 134 L (136-145) mmol/L Glucose 173 H (70-100) mg/dL Vital Signs Temperature 36.8 C 05/16/19 08:05 Temperature Source Temporal Artery Scan 05/16/19 08:05 Pulse 100 H 05/16/19 08:19 Pulse 76 05/16/19 06:01 Respiratory Rate 19 05/16/19 08:19 Respiratory Effort Labored 05/16/19 08:05 Respiratory Depth Normal 05/16/19 08:05 Respiratory Pattern Normal 05/16/19 08:05 Blood Pressure 140/90 05/16/19 08:05 Blood Pressure Mean 106 05/16/19 08:05 Blood Pressure Position Supine 05/16/19 02:55 Pulse Oximetry 92 L 05/16/19 08:19 Oxygen Delivery Method Nasal Cannula 05/16/19 08:05 Oxygen Flow Rate 1 05/16/19 08:05 Pain Level 3 05/16/19 08:05 Intake & Output 05/15/19 05/15/19 05/16/19 11:59 23:59 11:59 Intake Total 250 / 320 70 / 320 600 / 600 Output Total 650 / 2425 1775 / 2425 Balance -400 / -2105 -1705 / -2105 600 / 600 Weight 121.5 kg 121.8 kg Intake: IV 10 70 / 80 Oral 240 / 240 600 / 600 Output: Urine 650 / 2425 1775 / 2425 Post Void Residual 0 / 0 Other: Urine Color Dark Gautam Light Gautam Urine Appearance Clear Clear Urine Odor Strong Strong Comment scanned x 5, highest 32 pt voided 750ml lt gautam urine to urinal at his bedside. Voiding Methods Urinal Laboratory Results WBC 6.29 k/cumm (4.4-10.8) 05/16/19 06:08 RBC 4.49 m/cumm (4.50-6.00) L 05/16/19 06:08 Hgb 13.4 g/dL (13.5-17.5) L 05/16/19 06:08 Hct 40.9 % (40.0-50.0) 05/16/19 06:08 MCV 91.1 fL (80-95) 05/16/19 06:08 MCH 29.8 pg (27.0-33.0) 05/16/19 06:08 MCHC 32.8 g/dL (32.0-36.0) 05/16/19 06:08 RDW 14.0 % (11.8-14.1) 05/16/19 06:08 Plt Count 87 x1000/uL (130-400) L 05/16/19 06:08 MPV 10.8 fL (8.0-11.0) 05/16/19 06:08 Immature Gran % 0.5 05/16/19 06:08 Neutrophils % 88.5 05/16/19 06:08 Lymphocytes % 5.4 05/16/19 06:08 Monocytes % 5.4 05/16/19 06:08 Eosinophils % 0.0 05/16/19 06:08 Basophils % 0.2 05/16/19 06:08 Absolute Neutrophils 5.57 k/cumm (1.2-6.7) 05/16/19 06:08 Absolute Lymphocytes 0.34 k/cumm (1.2-3.4) L 05/16/19 06:08 Absolute Monocytes 0.34 k/cumm (0.11-0.7) 05/16/19 06:08 Absolute Eosinophils 0.00 k/cumm (0.0-0.7) 05/16/19 06:08 Absolute Basophils 0.01 k/cumm (0.0-0.2) 05/16/19 06:08 Differential Comment Plt morph reviewed 05/16/19 06:08 RBC Morphology Normal 05/16/19 06:08 Polychromasia Present 05/12/19 08:15 PT 10.4 sec (9.3-11.0) 05/12/19 08:15 INR 1.0 (0.9-1.1) 05/12/19 08:15 APTT 24.5 sec (21.0-31.4) 05/12/19 08:15 Sodium 134 mmol/L (136-145) L 05/16/19 06:08 Potassium 4.6 mmol/L (3.5-5.1) 05/16/19 06:08 Chloride 98 mmol/L (98-107) 05/16/19 06:08 Carbon Dioxide 29.1 mmol/L (21.0-32.0) 05/16/19 06:08 Anion Gap 6.9 mmol/L (3-11) 05/16/19 06:08 BUN 16 mg/dL (7-18) 05/16/19 06:08 Creatinine 0.96 mg/dL (0.70-1.30) 05/16/19 06:08 Estimated GFR/1.73 m2 >= 60.00 (mL/min/1.73m2) 05/16/19 06:08 Glucose 173 mg/dL (70-100) H 05/16/19 06:08 Calcium 8.5 mg/dL (8.5-10.1) 05/16/19 06:08 Magnesium 2.4 mg/dL (1.8-2.4) 05/16/19 06:08 Iron 93 ug/dL (50-175) 05/12/19 12:59 TIBC 362 ug/dL (250-450) 05/12/19 12:59 Transferrin % Sat 26 % (20-55) 05/12/19 12:59 Total Bilirubin 0.9 mg/dL (0.2-1.0) 05/15/19 06:10 Conjugated Bilirubin 0.35 mg/dL (0.00-0.20) H 05/15/19 06:10 AST 64 U/L (15-37) H 05/15/19 06:10 ALT 140 U/L (16-63) H 05/15/19 06:10 Alkaline Phosphatase 113 U/L (46-116) 05/15/19 06:10 Troponin I < 0.05 ng/mL (0.00-0.06) 05/12/19 11:11 NT-Pro-B Natriuret Pep 131 pg/mL (-299) 05/12/19 08:15 Total Protein 7.2 g/dL (6.4-8.2) 05/15/19 06:10 Albumin 3.5 g/dL (3.4-5.0) 05/15/19 06:10 Lipase 649 U/L (73-393) H 05/14/19 06:10 Procalcitonin < 0.1 ng/mL 05/12/19 12:59 TSH 2.80 uIU/mL (0.36-3.74) 05/13/19 06:10 Urine Color Yellow (Yellow) 05/12/19 09:03 Urine Clarity Clear (Clear) 05/12/19 09:03 Urine pH 7.5 (5-8) 05/12/19 09:03 Ur Specific [place] 1.020 (1.005-1.025) 05/12/19 09:03 Urine Protein Negative mg/dL (Negative) 05/12/19 09:03 Urine Ketones Negative mg/dL (Negative) 05/12/19 09:03 Urine Blood Trace-lysed (Negative) H 05/12/19 09:03 Urine Nitrite Negative (Negative) 05/12/19 09:03 Urine Bilirubin Negative (Negative) 05/12/19 09:03 Urine Urobilinogen 0.2 EU/dL (Up TO 0.2) 05/12/19 09:03 Ur Leukocyte Esterase Negative (Negative) 05/12/19 09:03 Urine RBC 10-20 HPF (0-2) H 05/12/19 09:03 Urine WBC Negative HPF (0-5) 05/12/19 09:03 Ur Epithelial Cells Rare HPF (Negative) 05/12/19 09:03 Urine Crystals Negative HPF (Negative) 05/12/19 09:03 Urine Bacteria Negative HPF (Negative) 05/12/19 09:03 Urine Casts Negative LPF (Negative) 05/12/19 09:03 Urine Mucus Negative (Negative) 05/12/19 09:03 Ur Culture Indicated? No 05/12/19 09:03 Urine Glucose Negative mg/dL (Negative) 05/12/19 09:03 Hepatitis A IgM Ab Cancelled 05/12/19 Unknown Hepatitis A Ab Total Negative (Negative) 05/12/19 08:15 Hep Bs Antigen Cancelled 05/12/19 Unknown Hep B Core Total Ab Cancelled 05/12/19 Unknown Hepatitis C Antibody Cancelled 05/12/19 Unknown
[2019-05-16] MEDS: methylPREDNISolone SUCC 40 MG VIAL IVP (08:50)
[2019-05-16] MEDS: Furosemide 20 MG/2 ML VIAL IVP (11:38)
[2019-05-16] MEDS: cefTRIAXone 1 GM/50 ML BAG IVPB (13:26)
[2019-05-16] MEDS: Pantoprazole 40 MG VIAL IVP (16:23)
[2019-05-16] MEDS: Gabapentin 800 MG TAB PO (20:09)
[2019-05-16] MEDS: predniSONE 20 MG TAB 40 MG PO (20:10)
[2019-05-17] VITALS (22 sets, daily range): BP systolic 126–153; BP diastolic 75–99; PULSE 74–97; RESP 4–21; TEMP 36.6–37.2; O2SAT 90–99
[2019-05-17] MEDS: LORazepam 1 MG TAB PO/SL ×2 (01:57→14:44)
[2019-05-17 07:49] LABS: HCT 42.7 % (40.0-50.0); HGB 14.1 g/dL (13.5-17.5); Mean Corpuscular Volume 90.9 fL (80-95); Mean Platelet Volume 10.6 fL (8.0-11.0); Platelet Count 103 x1000/uL (130-400); RBC Distribution Width 14.1 % (11.8-14.1); White Blood Cell Count 6.59 k/cumm (4.4-10.8)
[2019-05-17] MEDS: Methadone Liquid 10 MG/ML 130 MG PO (08:02)
[2019-05-17] MEDS: Albuterol/Ipratropium 3 ML UPD VIAL UPD ×5 (08:05→23:28)
[2019-05-17 08:12] LABS: ALT 101 U/L (16-63); AST 40 U/L (15-37); Albumin 3.6 g/dL (3.4-5.0); Alkaline Phosphatase 103 U/L (46-116); Anion Gap 9.2 mmol/L (3-11); BUN 16 mg/dL (7-18); Bilirubin, Total 0.8 mg/dL (0.2-1.0); CO2 29.8 mmol/L (21.0-32.0); CREATININE 0.93 mg/dL (0.70-1.30); Chloride 96 mmol/L (98-107); Glucose 186 mg/dL (70-100); Magnesium 2.3 mg/dL (1.8-2.4); Potassium 4.2 mmol/L (3.5-5.1); Sodium 135 mmol/L (136-145); Total Protein 7.6 g/dL (6.4-8.2)
[2019-05-17] MEDS: chlordiazePOXIDE 25 MG CAP PO ×3 (08:49→19:59)
[2019-05-17] MEDS: Nicotine 21 MG/24 HR PATCH TD (08:49)
[2019-05-17] MEDS: predniSONE 20 MG TAB 40 MG PO ×2 (08:49→19:59)
[2019-05-17] MEDS: guaiFENesin 600 MG TABCR PO ×2 (08:49→19:59)
[2019-05-17] MEDS: Thiamine 100 MG TAB PO (08:50)
[2019-05-17] MEDS: Gabapentin 800 MG TAB PO ×3 (08:50→19:59)
[2019-05-17] MEDS: Docusate Sodium 100 MG CAP PO ×2 (08:50→19:59)
[2019-05-17] MEDS: Senna TAB 1 TAB PO ×2 (08:50→19:59)
[2019-05-17] MEDS: Multivitamin TAB 1 TAB PO (08:50)
--- NOTE | 2019-05-17 10:57 | CMPROGNOTE_ITS ---
- If Service Date Differs Date of service: 05/17/19 Time of Service: 10:57 Care Management Progress Note S/O: Allen met with the [facility] today and he was open to support and would like to continue to receive support. No change in the plan today Allen remains inpatient with no change in status. CM faxed referral to [facility] for additional support as requested by the patient. A: Mario is a 53 year old man admitted to [facility] on 05/12/19 with dyspnea and syncope P: Mario will likely be discharged home with new community services in addition to the substance abuse treatment he is currently receiving through [facility]. He will transport with his via private vehicle and follow up with his PCP. CM will continue to support patient, family and discharge planning needs.
[2019-05-17] MEDS: Polyethylene Glycol 3350 17 GM PACKET PO (11:33)
[2019-05-17] MEDS: Milk of Magnesia 30 ML CUP PO (11:33)
[2019-05-17] MEDS: Acetaminophen 325 MG TAB PO (12:17)
--- NOTE | 2019-05-17 15:11 | W.PM.PROGNOT ---
Date of Service Date of service: 05/17/19 Time of Service: 15:11 Assessment and Plan Assessment and plan (1) Alcohol withdrawal: Status: Acute Assessment and plan: Better, but remains on librium taper and still did require an additional dose of ativan. Not ready to start tapering librium. Ok to d/c tele. Continue monitoring on CIWA with PO/IV ativan and scheduled librium. (2) Syncope: Status: Chronic Assessment and plan: Syncopal events are post-micturation and are likely vasovagal in nature. (3) Dyspnea: Status: Acute Assessment and plan: Likely a combination of acute pneumonia, acute exacerbation of COPD, and CHF (understimated by low BNP in setting of obesity). Still requires O2 at night - likely has ELLIOT - will eventually need a sleep study, but tonight will at a minimum do overnight oxymetry to qualify the patient for noctural O2 on discharge home tomorrow. CXR shows resolution of infiltrate - d/c antibiotics after today's dose (will have completed 5 days of ceftriaxone). Continue steroid taper. Continue nebs - will need a nebulizer machine at home. (4) Pneumonia: Status: Acute Assessment and plan: As above. (5) Lower extremity edema: Status: Resolved Assessment and plan: Likely due to CHF. Low proBNP in setting of obesity could underestimate the actual degree of CHF. Not requiring diuresis tonight. (6) Weight gain: Status: Resolved Assessment and plan: As above. 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 - Hx IVDA - Hepatitis panel pending - Transferrin saturation wnl - not likely to represent hemochromatosis. - Does not take medications other than daily methadone. 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 (10) ETOH abuse: Status: Chronic Assessment and plan: As above (11) DVT prophylaxis: Status: Acute Assessment and plan: hold heparin due to thrombocytopenia (likely due to alcohol). Subjective Subjective Interval history since last seen: Mr Maria required 2 L of O2 overnight, saturating 80 % while asleep. During the day, he does not require oxygen. He is planned to undergo overnight oxymetry tonight. He states he is feeling a lot better. Did just have a CIWA score of 5 and required a dose of PO ativan. Denies dizziness, chest pain, shortness of breath, nausea. Continues to have a cough. Exam Narrative Exam Narrative: General: anxious, but not tremulous, Obese male, A&Ox3, cooperative, looks better HEENT: EOMI, MMM Heart: RRR, no m/r/g Lungs: rhonchi and rales clear after a cough - CTAB GI: abdomen is soft, nontender, nondistended Extremities: no edema BLE's, does have chronic venous stasis, no c/c. Objective Objective Clinical Data: Abnormal lab results 05/17/19 05/17/19 Range/Units 06:50 06:50 Plt Count 103 L (130-400) x1000/uL Sodium 135 L (136-145) mmol/L Chloride 96 L (98-107) mmol/L Glucose 186 H (70-100) mg/dL Conjugated Bilirubin 0.30 H (0.00-0.20) mg/dL AST 40 H (15-37) U/L ALT 101 H (16-63) U/L Vital Signs Temperature 36.6 C 05/17/19 07:20 Temperature Source Tympanic 05/17/19 07:20 Pulse 85 05/17/19 11:25 Pulse Rhythm Regular 05/17/19 07:35 Pulse 94 H 05/16/19 10:27 Respiratory Rate 12 05/17/19 11:25 Respiratory Effort 05/17/19 08:20 Respiratory Depth Shallow 05/17/19 08:20 Respiratory Pattern Normal 05/17/19 08:20 Blood Pressure 143/99 H 05/17/19 07:20 Blood Pressure Mean 114 05/16/19 10:27 Blood Pressure Position Supine 05/16/19 02:55 Pulse Oximetry 94 L 05/17/19 13:04 Oxygen Delivery Method Room Air 05/17/19 13:04 Oxygen Flow Rate 0 05/17/19 13:04 Pain Level 8 05/17/19 12:17 Intake & Output 05/16/19 05/17/19 05/17/19 23:59 11:59 23:59 Intake Total 220 / 1060 240 / 240 Output Total 1300 / 1900 Balance -1080 / -840 240 / 240 Weight 120.6 kg Intake: IV Oral 200 / 1040 240 / 240 Output: Urine 1300 / 1900 Other: Urine Color Yellow Urine Appearance Clear Urine Odor None Comment Per Pt Voiding Methods Toilet Toilet Urinal Laboratory Results WBC 6.59 k/cumm (4.4-10.8) 05/17/19 06:50 RBC 4.70 m/cumm (4.50-6.00) 05/17/19 06:50 Hgb 14.1 g/dL (13.5-17.5) 05/17/19 06:50 Hct 42.7 % (40.0-50.0) 05/17/19 06:50 MCV 90.9 fL (80-95) 05/17/19 06:50 MCH 30.0 pg (27.0-33.0) 05/17/19 06:50 MCHC 33.0 g/dL (32.0-36.0) 05/17/19 06:50 RDW 14.1 % (11.8-14.1) 05/17/19 06:50 Plt Count 103 x1000/uL (130-400) L 05/17/19 06:50 MPV 10.6 fL (8.0-11.0) 05/17/19 06:50 Immature Gran % 0.5 05/16/19 06:08 Neutrophils % 88.5 05/16/19 06:08 Lymphocytes % 5.4 05/16/19 06:08 Monocytes % 5.4 05/16/19 06:08 Eosinophils % 0.0 05/16/19 06:08 Basophils % 0.2 05/16/19 06:08 Absolute Neutrophils 5.57 k/cumm (1.2-6.7) 05/16/19 06:08 Absolute Lymphocytes 0.34 k/cumm (1.2-3.4) L 05/16/19 06:08 Absolute Monocytes 0.34 k/cumm (0.11-0.7) 05/16/19 06:08 Absolute Eosinophils 0.00 k/cumm (0.0-0.7) 05/16/19 06:08 Absolute Basophils 0.01 k/cumm (0.0-0.2) 05/16/19 06:08 Differential Comment Plt morph reviewed 05/16/19 06:08 RBC Morphology Normal 05/16/19 06:08 Polychromasia Present 05/12/19 08:15 PT 10.4 sec (9.3-11.0) 05/12/19 08:15 INR 1.0 (0.9-1.1) 05/12/19 08:15 APTT 24.5 sec (21.0-31.4) 05/12/19 08:15 Sodium 135 mmol/L (136-145) L 05/17/19 06:50 Potassium 4.2 mmol/L (3.5-5.1) 05/17/19 06:50 Chloride 96 mmol/L (98-107) L 05/17/19 06:50 Carbon Dioxide 29.8 mmol/L (21.0-32.0) 05/17/19 06:50 Anion Gap 9.2 mmol/L (3-11) 05/17/19 06:50 BUN 16 mg/dL (7-18) 05/17/19 06:50 Creatinine 0.93 mg/dL (0.70-1.30) 05/17/19 06:50 Estimated GFR/1.73 m2 >= 60.00 (mL/min/1.73m2) 05/17/19 06:50 Glucose 186 mg/dL (70-100) H 05/17/19 06:50 Calcium 9.0 mg/dL (8.5-10.1) 05/17/19 06:50 Magnesium 2.3 mg/dL (1.8-2.4) 05/17/19 06:50 Iron 93 ug/dL (50-175) 05/12/19 12:59 TIBC 362 ug/dL (250-450) 05/12/19 12:59 Transferrin % Sat 26 % (20-55) 05/12/19 12:59 Total Bilirubin 0.8 mg/dL (0.2-1.0) 05/17/19 06:50 Conjugated Bilirubin 0.30 mg/dL (0.00-0.20) H 05/17/19 06:50 AST 40 U/L (15-37) H 05/17/19 06:50 ALT 101 U/L (16-63) H 05/17/19 06:50 Alkaline Phosphatase 103 U/L (46-116) 05/17/19 06:50 Troponin I < 0.05 ng/mL (0.00-0.06) 05/12/19 11:11 NT-Pro-B Natriuret Pep 131 pg/mL (-299) 05/12/19 08:15 Total Protein 7.6 g/dL (6.4-8.2) 05/17/19 06:50 Albumin 3.6 g/dL (3.4-5.0) 05/17/19 06:50 Lipase 649 U/L (73-393) H 05/14/19 06:10 Procalcitonin < 0.1 ng/mL 05/12/19 12:59 TSH 2.80 uIU/mL (0.36-3.74) 05/13/19 06:10 Urine Color Yellow (Yellow) 05/12/19 09:03 Urine Clarity Clear (Clear) 05/12/19 09:03 Urine pH 7.5 (5-8) 05/12/19 09:03 Ur Specific [place] 1.020 (1.005-1.025) 05/12/19 09:03 Urine Protein Negative mg/dL (Negative) 05/12/19 09:03 Urine Ketones Negative mg/dL (Negative) 05/12/19 09:03 Urine Blood Trace-lysed (Negative) H 05/12/19 09:03 Urine Nitrite Negative (Negative) 05/12/19 09:03 Urine Bilirubin Negative (Negative) 05/12/19 09:03 Urine Urobilinogen 0.2 EU/dL (Up TO 0.2) 05/12/19 09:03 Ur Leukocyte Esterase Negative (Negative) 05/12/19 09:03 Urine RBC 10-20 HPF (0-2) H 05/12/19 09:03 Urine WBC Negative HPF (0-5) 05/12/19 09:03 Ur Epithelial Cells Rare HPF (Negative) 05/12/19 09:03 Urine Crystals Negative HPF (Negative) 05/12/19 09:03 Urine Bacteria Negative HPF (Negative) 05/12/19 09:03 Urine Casts Negative LPF (Negative) 05/12/19 09:03 Urine Mucus Negative (Negative) 05/12/19 09:03 Ur Culture Indicated? No 05/12/19 09:03 Urine Glucose Negative mg/dL (Negative) 05/12/19 09:03 Hepatitis A IgM Ab Cancelled 05/12/19 Unknown Hepatitis A Ab Total Negative (Negative) 05/12/19 08:15 Hep Bs Antigen Cancelled 05/12/19 Unknown Hep B Core Total Ab Cancelled 05/12/19 Unknown Hepatitis C Antibody Cancelled 05/12/19 Unknown
--- NOTE | 2019-05-17 15:30 | NUR.NOTE ---
Nursing Note: Pt reports feeling anxious and states he wants a cigarette. Informed Pt there is no smoking allowed here @ [facility]. Nicotine patch on and nicotrol at bedside. Pt stated I want to get the fuck out of here informed.
[2019-05-17] MEDS: Pantoprazole 40 MG VIAL IVP (16:24)
[2019-05-17] MEDS: Normal Saline Flush 10 ML SYR IVP (16:25)
[2019-05-18 04:23] VITALS: PULSE 82; RESP 1; RESP 16; RESP 8; O2SAT 84
[2019-05-18] MEDS: Albuterol/Ipratropium 3 ML UPD VIAL UPD ×2 (04:23→07:33)
[2019-05-18 04:27] VITALS: BP 135/90; PULSE 82; RESP 16; TEMP 36.5; O2SAT 84
[2019-05-18] MEDS: Methadone Liquid 10 MG/ML 130 MG PO (05:55)
[2019-05-18 07:21] VITALS: BP 127/83; PULSE 81; RESP 20; TEMP 36.3; O2SAT 96
[2019-05-18 07:33] VITALS: PULSE 79; RESP 18; RESP 8; O2SAT 99
[2019-05-18 07:42] VITALS: PULSE 80; RESP 16; RESP 8; O2SAT 100
[2019-05-18] MEDS: Normal Saline Flush 10 ML SYR IVP (08:12)
[2019-05-18] MEDS: Polyethylene Glycol 3350 17 GM PACKET PO (08:12)
[2019-05-18] MEDS: Multivitamin TAB 1 TAB PO (08:13)
[2019-05-18] MEDS: Nicotine 21 MG/24 HR PATCH TD (08:13)
[2019-05-18] MEDS: Senna TAB 1 TAB PO (08:13)
[2019-05-18] MEDS: Docusate Sodium 100 MG CAP PO (08:13)
[2019-05-18] MEDS: Gabapentin 800 MG TAB PO ×2 (08:13→13:52)
[2019-05-18] MEDS: Thiamine 100 MG TAB PO (08:13)
[2019-05-18] MEDS: guaiFENesin 600 MG TABCR PO (08:13)
[2019-05-18] MEDS: chlordiazePOXIDE 25 MG CAP PO ×2 (08:13→13:52)
[2019-05-18] MEDS: predniSONE 20 MG TAB 40 MG PO (08:13)
[2019-05-18 08:25] VITALS: O2SAT 96
--- NOTE | 2019-05-18 11:27 | PDOC.CMDIS ---
- If Service Date Differs Date of service: 05/18/19 Time of Service: 11:27 LACE Index Scoring Tool - Questions: Length of Stay (in days): 4 - 6 Acuity (Admit via E.D.?): Yes Care Management Discharge Reason for Hospitalization: Syncope Discharge Plan: Discharge home with oxygen at night through [facility] coordinated by RT. CM faxed a referral to [facility] (Medicaid nurse healthcare consultant) and [facility] connections for resources and apply for disability. He will need follow up with sleep study, and outpatient PFT he will need to follow up with his primary care provider. He will transport home with his spouse at time of discharge. Patient/Family Education Needs: Discharge education, limitations and follow up plan of care including ask me three and self management. Services Needed at Discharge: Oxygen Therapy, Transportation
--- NOTE | 2019-05-18 12:09 | W.PM.DS.N ---
Date of service: 05/18/19 Time of Service: 12:09 DS: Diagnosis Discharge Diagnosis (1) Acute respiratory failure with hypoxia: Status: Resolved Asessment and Plan: Multifactorial (2) Acute on chronic diastolic CHF (congestive heart failure), NYHA class 1: Status: Acute Asessment and Plan: low pro BNP likely underestimating degree of CHF in obesity (3) COPD with acute exacerbation: Status: Suspected Asessment and Plan: PFTs ordered on discharge (4) Alcohol withdrawal: Status: Acute (5) Syncope: Status: Chronic Asessment and Plan: Post-micturation at home; none seen at the hospital If recurs, could benefit from halter monitor (6) Dyspnea: Status: Acute Asessment and Plan: Multifactorial, due to acute exacerbation of likely COPD with pneumonia, now at baseline, as well as acute on chronic diastolic CHF and sleep apnea. 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 Asessment and Plan: on methadone (12) ETOH abuse: Status: Chronic Asessment and Plan: being discharged with a librium taper (13) Lower extremity edema: Status: Resolved Asessment and Plan: DVT ruled out (14) Nocturnal hypoxia: Status: Chronic Asessment and Plan: Being discharged home on 2L of nocturnal O2 (15) Obstructive sleep apnea: Status: Suspected Asessment and Plan: Being referred for a sleep study (16) Opioid dependence: Status: Chronic (17) Anxiety disorder: Status: Chronic (18) Hepatic steatosis: Status: Acute Discharge Plan Disposition Patient Disposition: HOME Condition: Improving Discharge Details Chief Complaint: GenMedical Reason For Visit: DYSPNEA,SYNCOPE Admit Date/Time: 05/12/19 13:19 Admit Provider: Jagdish Paz Attending Provider: Jagdish Paz Primary Care Provider: Milana Canales ED Provider: Heather Fregoso Hospital Course Hospital Course: Mr Maria is a 53 year old male with PMHx of chronic opioid dependence with h/o of prior IV drug use, now on methadone therapy, as well as tobacco abuse, suspected chronic diastolic CHF, suspected COPD and suspected ELLIOT, who was admitted to [facility] ICU on 05/12/19 with acute hypoxic respiratory failure, requiring up to 5L of O2, felt to be multifactorial, due to pneumonia present on admission, suspected exacerbation of COPD, acute on chronic diastolic CHF, underestimated by normal pro-BNP in setting of obesity, and likely underlying obstructive sleep apnea. He was treated with standing librium with prn ativan per [facility], as well as ceftriaxone for pneumonia, steroid taper and nebulizer treatments. He was maintained on his methadone, which he normally gets through [facility]. He was transferred out of ICU on 05/16/19. He completed his antibiotics in house. He will need to finish his steroid and librium tapers as outpatient. He met with a technology coach and received resources for alcohol dependence treatment in the community. He no longer requires oxygen during the day or with ambulation, but does qualify for nocturnal oxygen at 2L (overnight oxymetry on room air with O2 sats of 84%). He would greatly benefit from testing for obstructive sleep apnea and is being referred to a sleep clinic as outpatient. As far as reports of post-micturation syncopal episodes prior to admission, we have seen no arrhythmias or syncope/near syncope here. It is possible that, in setting of alcohol intoxication, his autonomic nervous system was causing him to have vaso vagal episodes. If these recur as outpatient, he should have outpatient cardiac monitoring - we will defer this to PCP. The patient is stable for discharge home today. Care for patient as well as preparation of his discharge summary took 45 minutes on the day of discharge. Home Meds and New Rx's Prescriptions: New benzonatate 200 mg Capsule 200 mg PO TID PRNQty: 30 RF: 0 chlordiazepoxide HCl 25 mg Capsule 25 mg PO TID Qty: 2 RF: 0 gabapentin 800 mg Tablet 800 mg PO TID Qty: 60 RF: 0 Combivent Respimat 20-100 mcg/actuation Mist 1 - 2 puff inhalation QID Qty: 4 RF: 0 multivitamin [Multiple Vitamins] Tablet 1 tab PO DAILY Qty: 30 RF: 0 prednisone 20 mg Tablet See Rx Instructions .ROUTE .COMPLEX Qty: 10 RF: 0 nicotine 21 mg/24 hr Patch 24 Hour 21 mg transdermal DAILY Qty: 30 RF: 0 docusate sodium [Colace] 100 mg Capsule 100 mg PO BID Qty: 60 RF: 0 thiamine mononitrate (vit B1) [Vitamin B-1 (mononitrate)] 100 mg Tablet 100 mg PO DAILY Qty: 30 RF: 0 pantoprazole [Protonix] 40 mg tablet,delayed release (DR/EC) 40 mg PO DAILY Qty: 30 RF: 0 chlordiazepoxide HCl 10 mg capsule See Rx Instructions .ROUTE .COMPLEX Qty: 26 RF: 0 Continued methadone 40 mg Tablet,Soluble 130 mg PO DAILY RF: 0 Discharge Instructions Instructions: Chlordiazepoxide (By mouth), Prednisone (By mouth), Gabapentin (By mouth), Heart Failure (DC), Sleep Apnea (DC), COPD (Chronic Obstructive Pulmonary Disease) (DC), Abuse of Alcohol (DC), Bacterial Pneumonia (DC), Alcohol Withdrawal (DC) Additional Instructions: Finish your prednisone and librium tapers as prescribed. You must stop smoking and drinking. Do not take librium if you have made the decision to drink. You must not smoke while wearing oxygen. Wear 2 L of oxygen at night only. Follow up with Dr Canales (PCP) as below. Follow up for a sleep study. Follow up for PFT's. Stand Alone Forms: Nursing Discharge Form Referrals: [facility]OTHER[facility] - Milana Canales [Primary Care Provider] - 05/27/19 9:15 am Activity:: Activity as Tolerated Equipment/Supplies:: 2L at night Diet:: Low Sodium Discharge Orders Discharge Orders: Discharge Order (Routine); Ordered 05/18/19 Ordered By: Wendy Robledo Other Ambulatory Orders: PFT ([facility]) (Outpt) (ONCE) Timeframe: 20190525 Facility: [facility] - Location: Respiratory Therapy Ordered By: Wendy Robledo DS: Summary Status at Discharge Functional status at discharge: independent ambulation Overall status at discharge: patient is back to baseline Mental Status: mental status grossly normal Speech and Movement: speech and movement normal Mood: anxious mood Affect: anxious affect Exam Narrative Exam Narrative: General: anxious, but not tremulous, Obese male, A&Ox3, cooperative, looks better HEENT: EOMI, MMM Heart: RRR, no m/r/g Lungs: CTAB after coughing GI: abdomen is soft, nontender, nondistended Extremities: no edema BLE's, does have chronic venous stasis, no c/c. Psych Mental Status: mental status grossly normal Speech and Movement: speech and movement normal Mood: anxious mood Affect: anxious affect DS: Data Vitals/I&O Vitals and I&O: Vital Signs Temperature 36.3 C L 05/18/19 07:21 Temperature Source Tympanic 05/18/19 07:21 Pulse 80 05/18/19 07:42 Pulse Rhythm Regular 05/18/19 08:26 Pulse 94 H 05/16/19 10:27 Respiratory Rate 16 05/18/19 07:42 Respiratory Effort 05/18/19 08:26 Respiratory Depth Normal 05/18/19 08:26 Respiratory Pattern Normal 05/18/19 08:26 Blood Pressure 127/83 05/18/19 07:21 Blood Pressure Mean 114 05/16/19 10:27 Blood Pressure Position Supine 05/16/19 02:55 Pulse Oximetry 96 05/18/19 08:25 Oxygen Delivery Method Room Air 05/18/19 08:25 Oxygen Flow Rate 0 05/18/19 08:25 Pain Level 5 05/18/19 07:21 Comment 05/18/19 04:27 Intake & Output 05/17/19 05/18/19 05/18/19 23:59 11:59 23:59 Intake Total 250 / 250 480 / 480 Output Total 900 / 900 Balance -650 / -650 480 / 480 Weight 120.4 kg Intake: IV Oral 240 / 240 480 / 480 Output: Urine 900 / 900 Other: Urine Color Yellow Urine Appearance Clear Urine Odor Normal Comment pt states he got up to void this morning; urine not assessed by RN at that time. pt denies GI/ issues Voiding Methods Toilet Toilet Data Completed and Pending Completed studies during hospitalization [Text1]: CXR 05/12/19: The heart size is normal. Lungs are not well inflated on either view. There are small linear area of increased density at the right lung base likely representing atelectasis. Pneumonia cannot be definitely excluded. No pneumothorax or effusion is seen. IMPRESSION: Linear right lower lobe atelectasis. CT abdomen/pelvis 05/12/19: Severe hepatic steatosis. No acute abnormality. CT head 05/12/19: No acute abnormality. CTA chest 05/12/19: Somewhat limited exam due to patient body habitus and suboptimal pulmonary artery opacification. No large pulmonary emboli are seen. Small branch vessel emboli cannot be excluded. There is a question of mild upper lobe pneumonitis. 2D echo 05/13/19: Left Ventricle : The left ventricle is normal size. The left ventricular ejection fraction is within the normal range. There is normal LV segmental wall motion. Diastolic function is indeterminate but there is evidence of increased LV filling pressures. Right Ventricle : The right ventricle is normal size. The right ventricular systolic function is normal. Atria : Left atrium is mildly enlarged. The right atrium size is normal. Aortic Valve : Aortic valve is not well visualized. Aortic valve is probably trileaflet. There is no aortic valvular stenosis. No aortic regurgitation is present. Mitral Valve : The mitral valve is normal in structure. Trace mitral regurgitation. No evidence of mitral valve stenosis. Tricuspid Valve : Tricuspid valve is grossly normal in structure and function. Trace tricuspid regurgitation. There is no tricuspid valve stenosis. Pulmonic Valve : Pulmonic valve is not well visualized. Great Vessels : The IVC was not visualized. Cannot estimate RVSP. There is no prior echocardiogram available for comparison. CXR 05/15/19: Limited exam. Linear atelectasis. No acute abnormality. Pending studies at discharge: Hepatitis studies [facility] Medical History ETOH abuse (Chronic) 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) Social History Smoking/Tobacco Use Status: Current every day Tobacco Type: cigarettes Alcohol Intake: current Alcohol Intake frequency: 3 or more drinks per day Alcohol type: beer Drug use: Current Sobriety Details: methadone clinic Do you feel safe at home: Yes Do you feel safe in your relationship?: Yes
[2019-05-18] MEDS: Ipratropium/Albuterol 4 GM 120 PUFF INH IH (12:18)
[2019-05-19 13:39] LABS: HBs Antibody, Qual Negative (See Note); HBs Antibody, Quant <3.1 mIU/mL; Hepatitis B Core Antibody Negative (Negative); Hepatitis B surface Ag Negative (Negative); Hepatitis C Ab w Rflx HCV PCR Negative (Negative)
== END 2019-05-18 13:55 | disposition home or self-care (01) | DRG 189 ==
LOC: ER 13:43 → ICU 14:29 → MS 05-18 12:28 → ICU 05-19 11:07 → MS 05-19 11:07
PROVIDERS: Admitting Provider Internal Medicine; Emergency Provider Physician Assistant; PCP Nurse Practitioner Family; Visit Provider Internal Medicine
DX: J96.01 Acute respiratory failure with hypoxia (principal); I50.33 Acute on chronic diastolic (congestive) heart failure; J18.1 Lobar pneumonia, unspecified organism; J44.1 Chronic obstructive pulmonary disease with (acute) exacerbation; F11.20 Opioid dependence, uncomplicated; F10.239 Alcohol dependence with withdrawal, unspecified; R55 Syncope and collapse; K70.0 Alcoholic fatty liver; G47.34 Idiopathic sleep related nonobstructive alveolar hypoventilation; G47.33 Obstructive sleep apnea (adult) (pediatric); F41.9 Anxiety disorder, unspecified; D69.6 Thrombocytopenia, unspecified; E66.9 Obesity, unspecified
CPT/HCPCS: 36415; 71275; 80048; 80053; 80076; 83690; 84145; 85027; 86704; 86706; 86709; 86803; 87340; 94640; 96361; 96374; 96375; 96376; 99223; 99232; 99233; 99239; 99285; J1650; 70450; 71045; 71046; 74177; 81003; 81015; 83540; 83550; 83735; 83880; 84132; 84443; 84484; 85025; 85610; 85730; 87070; 87205; 93005; 93010; 93306; 94762; 99284; J0696; J1940; J1941; J2060; J2930; J3475; J3490; J7512; J7613; J7620

== ENCOUNTER 2019-06-01 20:43 | Outpatient (REF) | payer MEDICAID, SELFPAY ==
[2019-06-01 20:46] LABS: Abs Immature Grans 0.06 k/cumm (0.0-0.09); Absolute Basophil Count 0.03 k/cumm (0.0-0.2); Absolute Eosinophil Count 0.14 k/cumm (0.0-0.7); Absolute Lymphocyte Count 0.88 k/cumm (1.2-3.4); Absolute Neutrophil Count 2.75 k/cumm (1.2-6.7); Basophils % 0.7; Eosinophils % 3.3; HCT 40.4 % (40.0-50.0); HGB 13.6 g/dL (13.5-17.5); Immature Grans % 1.4; Lymphocytes % 20.7; Mean Corp. HGB Concentration 33.7 g/dL (32.0-36.0); Mean Corpuscular Hemoglobin 29.8 pg (27.0-33.0); Mean Corpuscular Volume 88.6 fL (80-95); Monocytes % 9.4; Neutrophils % 64.5; Platelet Count 130 x1000/uL (130-400); RBC 4.56 m/cumm (4.50-6.00); RBC Distribution Width 13.6 % (11.8-14.1); White Blood Cell Count 4.26 k/cumm (4.4-10.8)
[2019-06-01 20:49] LABS: Prothrombin Time 9.6 sec (9.3-11.0)
[2019-06-01 21:39] LABS: Hemoglobin A1C 6.7 % (4.5-6.2)
[2019-06-01 21:46] LABS: ALT 61 U/L (16-63); AST 31 U/L (15-37); Albumin 3.3 g/dL (3.4-5.0); Alkaline Phosphatase 82 U/L (46-116); Anion Gap 10.8 mmol/L (3-11); BUN 9 mg/dL (7-18); Bilirubin, Total 0.4 mg/dL (0.2-1.0); CO2 28.2 mmol/L (21.0-32.0); CREATININE 0.91 mg/dL (0.70-1.30); Chloride 101 mmol/L (98-107); Folate 13.2 ng/mL (8.6-20.0); Glucose 201 mg/dL (74-106); Magnesium 1.7 mg/dL (1.8-2.4); Potassium 4.5 mmol/L (3.5-5.1); Sodium 140 mmol/L (136-145); Total Protein 6.5 g/dL (6.4-8.2); Vitamin B12 1114 pg/mL (193-986)
[2019-06-01 22:35] LABS: Bilirubin, Direct 0.14 mg/dL (0.00-0.20)
[2019-06-03 11:40] LABS: AFP Tumor Marker 3.2 ng/mL (<8.1)
== END 2019-06-01 21:03 ==
LOC: NCHCN 20:43
PROVIDERS: PCP Nurse Practitioner Family; Visit Provider Family Medicine
DX: K76.0 Fatty (change of) liver, not elsewhere classified (principal); R16.0 Hepatomegaly, not elsewhere classified; F11.21 Opioid dependence, in remission; F10.20 Alcohol dependence, uncomplicated; J44.1 Chronic obstructive pulmonary disease with (acute) exacerbation; F17.200 Nicotine dependence, unspecified, uncomplicated; J96.91 Respiratory failure, unspecified with hypoxia; J18.9 Pneumonia, unspecified organism
CPT/HCPCS: 80053; 81240; 81241; 85300; 85303; 85306; 85610; 85613; 85730; 85732; 86147; 82105; 82248; 82607; 82746; 83036; 83735; 85025; 85240; 85379

== ENCOUNTER 2019-06-08 15:07 | Outpatient (REF) | payer MEDICAID, SELFPAY ==
[2019-06-08 22:42] LABS: Anion Gap 9.3 mmol/L (3-11); BUN 9 mg/dL (7-18); CO2 30.7 mmol/L (21.0-32.0); CREATININE 0.89 mg/dL (0.70-1.30); Calcium 9.1 mg/dL (8.5-10.1); Chloride 99 mmol/L (98-107); Glucose 138 mg/dL (74-106); Potassium 3.9 mmol/L (3.5-5.1); Sodium 139 mmol/L (136-145)
== END 2019-06-08 15:27 ==
LOC: NCHCN 15:07
PROVIDERS: PCP Nurse Practitioner Family; Visit Provider Family Medicine
DX: E11.9 Type 2 diabetes mellitus without complications (principal); R60.0 Localized edema
CPT/HCPCS: 80048

== ENCOUNTER 2019-08-15 07:11 | Inpatient (IN) | payer MEDICAID, SELFPAY ==
[2019-08-15] VITALS (45 sets, daily range): BP systolic 96–165; BP diastolic 37–123; PULSE 0–123; RESP 4–22; TEMP 36.2–38.2; O2SAT 90–99
[2019-08-15] MEDS: Normal Saline 1,000 ML 1000 ML IV (07:50)
--- NOTE | 2019-08-15 07:50 | ED.GENADUL_ITS ---
Discharge Plan Disposition Condition: Improving Discharge Details Chief Complaint: Cellulitis Admit Date/Time: 08/15/19 10:01 Admit Provider: Wendy Robledo Attending Provider: Wendy Robledo Primary Care Provider: Milana Canales ED Provider: Clarisse Anand Discharge Instructions Activity:: Activity as Tolerated Equipment/Supplies:: Blood Glucose Monitor Diet:: Carb Counting Discharge Orders Discharge Orders: Discharge Order (Routine); Ordered 08/18/19 Ordered By: Destiny Cortez Discharge Data Discharge Date/Time-TO BE ENTERED AT DEPARTURE: 08/15/19 11:14 Medical Decision Making Allen Maria is a 53-year-old man with history of COPD, CHF, IV drug use in the past, liver disease, alcohol dependence who presented to the emergency department with lower extremity rash and pain over the past week, worsening the past 3 to 4 days. On exam patient is diaphoretic and somewhat ill-appearing, but alert, pleasant, cooperative. Erythema and edema of the left foot and left lower leg without crepitus or drainage. Medial thigh with faint erythema, no tenderness to palpation, left groin erythematous with mild tenderness. Normal examination of the genitals. Concern for significant cellulitis, early sepsis, pneumonia, metabolic/lyte disturbance, other. Doubt necrotizing fasciitis. Left groin with mild skin breakdown likely secondary to yeast, cellulitis, this may be entry site. Exam/history is not consistent with Bishnu's gangrene. 8:06 Discussed Pt [facility] Dr. Cuba of surgery for bedside eval. 8:24 no surgical intervention at this time per Dr. Cuba, she will consult, plan for admission, awaiting labs 9:54 patient admitted to medicine Clinical impression: Cellulitis Disposition: [facility] inpatient Medical Records Medical records reviewed: Yes I reviewed the patient's medical records. Imaging Data Radiologic Study: Attestation: I personally reviewed and interpreted this imaging study as follows: Radiologist's impression: EXAM: XR PORTABLE CHEST AP INDICATION: SOB, cough. COMPARISON: XR PORTABLE CHEST AP from 05/15/2019 TECHNIQUE: 2D digital imaging was performed. FINDINGS: The heart size and pulmonary vasculature are within normal limits. There is unchanged elevation of the right hemidiaphragm. There is scarring or atelectasis in the right lung base. No focal consolidating infiltrates, effusions or pneumothoraces are identified. The bones appear unremarkable. IMPRESSION: No acute pulmonary process. EXAM: XR TIB/FIB LT INDICATION: infection, r/o gas. COMPARISON: No exams were available for comparison TECHNIQUE: 2D digital imaging was performed. FINDINGS: No acute fracture or dislocation is identified. No radiographic findings to suggest acute osteomyelitis are present. There is soft tissue swelling in the lower leg, particularly around the ankle. IMPRESSION: Marked soft tissue swelling about the lower leg, particularly around the ankle. No radiographic findings to suggest acute osteomyelitis. EXAM: XR FOOT LT LIMITED INDICATION: infection, r/o gas. COMPARISON: No exams were available for comparison TECHNIQUE: 2D digital imaging was performed. FINDINGS: There is marked soft tissue swelling around the foot. The bones are intact. No acute fracture or dislocation is seen. No radiographic evidence of acute osteomyelitis is noted. IMPRESSION: 1. Marked soft tissue swelling of the left foot. 2. No radiographic evidence of acute osteomyelitis. EXAM: US LOWER EXTREMITY VENOUS LT CLINICAL HISTORY: edema, infection. TECHNIQUE: Left lower extremity venous ultrasound performed using grayscale, color-flow, and spectral Doppler analysis. COMPARISON: No previous for comparison. FINDINGS: The left common femoral, femoral and popliteal veins demonstrate normal compressibility, augmentation, and color Doppler. The posterior tibial veins are patent. The saphenofemoral junction is unremarkable. There is edema seen in the soft tissues of the lower extremity. A 5.5 cm benign-appearing lymph node is seen in the left inguinal region. IMPRESSION: No DVT. Lab Data Lab results reviewed: Yes I reviewed the patient's lab results. Labs: 08/15/19 07:50 Blood Blood Culture - Pending 08/15/19 08:10 Blood Blood Culture - Pending Laboratory Tests Range/Units 08/15/19 08/15/19 08/15/19 08:10 08:10 08:10 WBC (4.4-10.8) k/cumm 12.82 H RBC (4.50-6.00) m/cumm 5.09 Hgb (13.5-17.5) g/dL 15.3 Hct (40.0-50.0) % 43.9 MCV (80-95) fL 86.2 MCH (27.0-33.0) pg 30.1 MCHC (32.0-36.0) g/dL 34.9 RDW (11.8-14.1) % 14.9 H Plt Count (130-400) x1000/uL 75 L MPV (8.0-11.0) fL 11.4 H Immature Gran % % 0.0 Neutrophils % 77.0 Band Neutrophils % % 10.0 Lymphocytes % 5.0 Monocytes % 8.0 Eosinophils % 0.0 Basophils % 0.0 Absolute Neutrophils (1.2-6.7) k/cumm 11.15 H Absolute Lymphocytes (1.2-3.4) k/cumm 0.64 L Absolute Monocytes (0.11-0.7) k/cumm 1.03 H Absolute Eosinophils (0.0-0.7) k/cumm 0.00 Absolute Basophils (0.0-0.2) k/cumm 0.00 Differential Comment Manual differential RBC Morphology See below Polychromasia Present Sodium (136-145) mmol/L 132 L Potassium (3.5-5.1) mmol/L 3.9 Chloride (98-107) mmol/L 93 L Carbon Dioxide (21.0-32.0) mmol/L 25.9 Anion Gap (3-11) mmol/L 13.1 H BUN (7-18) mg/dL 12 Creatinine (0.70-1.30) mg/dL 1.10 Estimated GFR/1.73 m2 (mL/min/1.73m2) >= 60.00 Glucose (74-106) mg/dL 195 H Lactate (0.6-1.4) mmol/L 1.8 H Calcium (8.5-10.1) mg/dL 8.6 Total Bilirubin (0.2-1.0) mg/dL 1.8 H AST (15-37) U/L 53 H ALT (16-63) U/L 96 H Alkaline Phosphatase (46-116) U/L 95 Troponin I (<0.06) ng/Ml < 0.05 Total Protein (6.4-8.2) g/dL 7.2 Albumin (3.4-5.0) g/dL 3.5 ECG Data Attestation: I personally reviewed and interpreted this ECG (s) as follows: Interpretation: EKG shows sinus tachycardia 105, normal axis, no STEMI, nondiagnostic EKG HPI General Mode of arrival: ambulatory . Date/Time Provider Initiated Documentation: 08/15/19 07:12 . Limitations to Documentation: no limitations . Information obtained by: patient, RN notes reviewed and old records reviewed . HPI Narrative: Allen Maria is a 53 y/o man with a history of IV drug use in the past now on methadone, alcohol dependence, chronic liver disease, COPD, CHF presenting to the emergency department with fatigue and leg pain/rash. Patient reports that approximately 1 week ago he noticed pain and slight rash in his left upper inner thigh. Patient reports that this pain and rash seem to improve, however in the last 3 to 4 days he has noticed worsening pain and rash in his left lower leg. Patient also reports that he has had increasing fatigue over the past few days. Patient reports that he was admitted to this hospital April 2019 for pneumonia and COPD. Patient reports that he has had shortness of breath and cough since he was discharged from that admission, however he reports that shortness of breath and cough seem worse in the past few days. Patient reports that he drinks 3 beers a day or so, but states he has not had anything to drink in the past 2 days. Patient reports that he is not currently experiencing withdrawal symptoms. Denies any pain other than left leg pain, including pain to testicles. No rash other than to left leg. Denies fevers, vomiting, diarrhea, numbness, weakness. Has a decreased appetite the past few days. No recent travel. No known initial skin wound or lesion. Related Data Home Medications Medication Instructions Recorded Confirmed methadone 130 mg PO DAILY 05/12/19 08/15/19 docusate sodium [Colace] 100 mg PO BID #60 cap 05/18/19 08/15/19 gabapentin 800 mg PO TID #60 tab 05/18/19 08/15/19 pantoprazole [Protonix] 40 mg PO DAILY #30 tab 05/18/19 08/15/19 thiamine mononitrate (vit B1) 100 mg PO DAILY #30 tab 05/18/19 08/15/19 [Vitamin B-1 (mononitrate)] Oxygen 08/15/19 08/15/19 albuterol sulfate [ProAir HFA] 2 puff INHALATION Q6H PRN 08/15/19 08/15/19 fluticasone propion-salmeterol 2 puff INHALATION BID 08/15/19 08/15/19 [Advair HFA] furosemide 40 mg PO QDAY 08/15/19 08/15/19 magnesium 400 mg PO BID 08/15/19 08/15/19 tiotropium bromide [Spiriva with 18 mcg INHALATION QDAY 08/15/19 08/15/19 HandiHaler] amoxicillin-pot clavulanate 1 tab PO BID #20 tab 08/18/19 [Augmentin] metformin 500 mg PO DAILY #30 tab 08/18/19 nystatin 500,000 units PO 5X/DAY #240 ml 08/18/19 prednisone See Rx Instructions .ROUTE 08/18/19 .COMPLEX #6 tab silver sulfadiazine 0 g TOPICAL BID #1 g 08/18/19 sulfamethoxazole-trimethoprim 2 tab PO BID #40 tab 08/18/19 Previous Rx's Medication Instructions Recorded docusate sodium [Colace] 100 mg PO BID #60 cap 05/18/19 gabapentin 800 mg PO TID #60 tab 05/18/19 pantoprazole [Protonix] 40 mg PO DAILY #30 tab 05/18/19 thiamine mononitrate (vit B1) 100 mg PO DAILY #30 tab 05/18/19 [Vitamin B-1 (mononitrate)] amoxicillin-pot clavulanate 1 tab PO BID #20 tab 08/18/19 [Augmentin] metformin 500 mg PO DAILY #30 tab 08/18/19 nystatin 500,000 units PO 5X/DAY #240 ml 08/18/19 prednisone See Rx Instructions .ROUTE 08/18/19 .COMPLEX #6 tab silver sulfadiazine 0 g TOPICAL BID #1 g 08/18/19 sulfamethoxazole-trimethoprim 2 tab PO BID #40 tab 08/18/19 Allergies Allergy/AdvReac Type Severity Reaction Status Date / Time No Known Allergies Allergy Unverified 08/15/19 07:25 General Stated Complaint: Cellulitis KAYLEIGH: 2 Review of Systems Narrative: Constitutional: denies fevers Eyes: denies eye pain ENT: denies ear pain, dental pain, sore throat Cardiovascular: denies chest pain Respiratory: Reports SOB, cough GI: denies abdominal pain, vomiting, diarrhea : denies flank pain, testicular pain, dysuria, testicular swelling MSK: denies back pain, neck pain, arthralgias, reports left lower leg pain Skin: Reports rash to left leg Neuro: denies headaches, numbness, weakness [facility] Medical History Anxiety disorder (Chronic) Chronic diastolic CHF (congestive heart failure) (Acute) Chronic respiratory failure with hypoxia (Acute) COPD (chronic obstructive pulmonary disease) (Chronic) DMII (diabetes mellitus, type 2) (Acute) ETOH abuse (Chronic) EtOH dependence (Acute) Hepatic steatosis (Acute) 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) Nocturnal hypoxia (Chronic) Obesity (BMI 30-39.9) (Acute) Obstructive sleep apnea (Suspected) Opioid dependence (Chronic) on methadone Thrombocytopenia (Chronic) Tobacco abuse (Chronic) Surgical History History of mandibular surgery (Acute) S/P nasal surgery (Acute) Family History Father Diabetes Brother Cancer lung cancer - smoker Social History Smoking/Tobacco Use Status: Current every day Tobacco Type: cigarettes Alcohol Intake: current Alcohol Intake frequency: 3 or more drinks per day Alcohol type: beer Drug use: Current Sobriety Details: methadone clinic Do you feel safe at home: Yes Do you feel safe in your relationship?: Yes Exam Narrative Exam Narrative: Constitutional: Somewhat ill appearing, pleasant, conversing normally HENT: head atraumatic/normocephalic/normal inspection, mucous membranes moist Eyes: conjunctiva normal, sclera normal, pupils 3mm b/l Neck: no stridor, normal ROM, trachea midline Chest: normal inspection Resp: normal work of breathing, LCTAB Cardio: Tachycardic rate 108, normal rhythm, no murmur appreciated GI: abdomen soft, non-tender, non-distended : Normal inspection of the scrotum and penis without erythema, edema, testicles nontender to palpation without mass Back: normal inspection, no rash Skin: warm, diaphoretic, normal color, no rash except to left leg as noted below Neuro: alert, not altered, grossly non-focal, normal tone Ext: With circumferential erythema of the left foot and lower leg, left lower leg and foot edematous, no apparent drainage, area of rash diffusely tender to palpation without crepitus, able to range knee without pain, mild erythema of the medial thigh without tenderness palpation or crepitus, left groin with patchy erythema, mild tenderness to palpation without crepitus Psych: normal mood, normal affect, normal behavior Course Vital Signs Vital signs: Vital Signs Temperature 37.3 C 08/15/19 07:15 Pulse 123 H 08/15/19 07:15 Respiratory Rate 18 08/15/19 07:15 Blood Pressure 156/106 H 08/15/19 07:15 Pulse Oximetry 95 08/15/19 07:15 Temperature 37.3 C 08/15/19 07:15 Temperature Source Oral 08/15/19 07:15 Pulse 123 H 08/15/19 07:15 Respiratory Rate 18 08/15/19 07:15 Respiratory Effort 08/15/19 07:22 Blood Pressure 156/106 H 08/15/19 07:15 Blood Pressure Position Sitting 08/15/19 07:15 Pulse Oximetry 95 08/15/19 07:15 Oxygen Delivery Method Room Air 08/15/19 07:15 Oxygen Flow Rate 0 08/15/19 07:15 Pain Level 10 08/15/19 07:15 Lab/Test Results Lab/Test Results: 08/15/19 07:37 Blood Blood Culture - Pending 08/15/19 07:37 Blood Blood Culture - Pending
[2019-08-15] MEDS: CEFEPIME 2 GM in Normal Saline 100 ML IVPB (07:58)
[2019-08-15] MEDS: CLINDAMYCIN 900 MG/50 ML BAG 50 MG IVPB (08:10)
[2019-08-15] MEDS: Albuterol/Ipratropium 3 ML UPD VIAL UPD ×3 (08:14→18:10)
[2019-08-15 08:20] LABS: Lactate 1.8 mmol/L (0.6-1.4)
[2019-08-15 08:29] LABS: Abs Immature Grans 0.07 k/cumm (0.0-0.09); HCT 43.9 % (40.0-50.0); HGB 15.3 g/dL (13.5-17.5); Mean Corp. HGB Concentration 34.9 g/dL (32.0-36.0); Mean Corpuscular Hemoglobin 30.1 pg (27.0-33.0); Mean Corpuscular Volume 86.2 fL (80-95); Mean Platelet Volume 11.4 fL (8.0-11.0); RBC 5.09 m/cumm (4.50-6.00); RBC Distribution Width 14.9 % (11.8-14.1); White Blood Cell Count 12.82 k/cumm (4.4-10.8)
[2019-08-15] MEDS: VANCOMYCIN 2,000 MG in Normal Saline 500 ML 250 MG IVPB (08:36)
--- NOTE | 2019-08-15 08:45 | DI.US_ITS ---
EXAM: US LOWER EXTREMITY VENOUS LT CLINICAL HISTORY: edema, infection. TECHNIQUE: Left lower extremity venous ultrasound performed using grayscale, color-flow, and spectra l Doppler analysis. COMPARISON: No previous for comparison. FINDINGS: The left common femoral, femoral and popliteal veins demonstrate normal compressibility, augmentation , and color Doppler. The posterior tibial veins are patent. The saphenofemoral junction is unremarkab le. There is edema seen in the soft tissues of the lower extremity. A 5.5 cm benign-appearing lymph node is seen in the left inguinal region. IMPRESSION: No DVT. Findings were discussed with the emergency department on the date of the examination.
[2019-08-15 08:48] LABS: ALT 96 U/L (16-63); AST 53 U/L (15-37); Albumin 3.5 g/dL (3.4-5.0); Alkaline Phosphatase 95 U/L (46-116); Anion Gap 13.1 mmol/L (3-11); BUN 12 mg/dL (7-18); Bilirubin, Total 1.8 mg/dL (0.2-1.0); CO2 25.9 mmol/L (21.0-32.0); Calcium 8.6 mg/dL (8.5-10.1); Chloride 93 mmol/L (98-107); Glucose 195 mg/dL (74-106); Potassium 3.9 mmol/L (3.5-5.1); Sodium 132 mmol/L (136-145); Total Protein 7.2 g/dL (6.4-8.2); Troponin I < 0.05 ng/Ml (<0.06)
--- NOTE | 2019-08-15 08:49 | DI.RAD_ITS ---
EXAM: XR PORTABLE CHEST AP INDICATION: SOB, cough. COMPARISON: XR PORTABLE CHEST AP from 05/15/2019 TECHNIQUE: 2D digital imaging was performed. FINDINGS: The heart size and pulmonary vasculature are within normal limits. There is unchanged elevation of t he right hemidiaphragm. There is scarring or atelectasis in the right lung base. No focal consolida ting infiltrates, effusions or pneumothoraces are identified. The bones appear unremarkable. IMPRESSION: No acute pulmonary process.
--- NOTE | 2019-08-15 08:50 | DI.RAD_ITS ---
EXAM: XR FOOT LT LIMITED INDICATION: infection, r/o gas. COMPARISON: No exams were available for comparison TECHNIQUE: 2D digital imaging was performed. FINDINGS: There is marked soft tissue swelling around the foot. The bones are intact. No acute fracture or di slocation is seen. No radiographic evidence of acute osteomyelitis is noted. IMPRESSION: 1. Marked soft tissue swelling of the left foot. 2. No radiographic evidence of acute osteomyelitis.
--- NOTE | 2019-08-15 08:50 | DI.RAD_ITS ---
EXAM: XR TIB/FIB LT INDICATION: infection, r/o gas. COMPARISON: No exams were available for comparison TECHNIQUE: 2D digital imaging was performed. FINDINGS: No acute fracture or dislocation is identified. No radiographic findings to suggest acute osteomyeli tis are present. There is soft tissue swelling in the lower leg, particularly around the ankle. IMPRESSION: Marked soft tissue swelling about the lower leg, particularly around the ankle. No radiographic find ings to suggest acute osteomyelitis.
[2019-08-15 09:10] LABS: Platelet Count 75 x1000/uL (130-400)
[2019-08-15 09:11] LABS: Absolute Lymphocyte Count 0.64 k/cumm (1.2-3.4); Absolute Monocyte Count 1.03 k/cumm (0.11-0.7); Absolute Neutrophil Count 11.15 k/cumm (1.2-6.7); Diff Comment Manual Differential; Polychromasia Present
[2019-08-15 09:56] LABS: NT-proBNP 177 pg/mL (<300)
[2019-08-15 10:18] LABS: C-Reactive Protein 22.63 mg/dL (0.0-0.3)
--- NOTE | 2019-08-15 10:34 | W.SURGCON ---
Date of service: 08/15/19 Time of Service: 10:34 Assessment and Plan Assessment and plan (1) Opioid dependence: Status: Chronic (2) Acute on chronic diastolic CHF (congestive heart failure), NYHA class 1: Status: Acute (3) COPD with acute exacerbation: Status: Acute (4) Obstructive sleep apnea: Status: Suspected (5) EtOH dependence: Status: Acute (6) Tobacco abuse: Status: Chronic (7) Intravenous drug abuse in remission: Status: Chronic (8) ETOH abuse: Status: Chronic (9) DMII (diabetes mellitus, type 2): Status: Acute (10) Cellulitis: Status: Acute Assessment and plan: severe infection. no open sores. does not require debridement. no crepitus. treat w/ abx at this time. can use silvadene and vanessa wraps Ct angio after hydration merrepenum nad vanco control of DM moniter for w/drawl follow CRP DM foot care. (11) Sepsis: Status: Acute History of Present Illness Narrative: pt admitted thru ED w/ pain in LLE. Severe cellulitis. pt is + DM. hx of smoking/CAD/IVDA/ETOH abuse. Very poorly kept. 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) Nocturnal hypoxia (Chronic) Obesity (BMI 30-39.9) (Acute) Obstructive sleep apnea (Suspected) Opioid dependence (Chronic) on methadone Thrombocytopenia (Chronic) Tobacco abuse (Chronic) Surgical History History of mandibular surgery (Acute) S/P nasal surgery (Acute) Family History Father Diabetes Brother Cancer lung cancer - smoker Social History (Reviewed 02/17/20 @ 18:56 by NICHOLAS Ulloa Smoking/Tobacco Use Status: Current every day Tobacco Type: cigarettes Alcohol Intake: current Alcohol Intake frequency: 3 or more drinks per day Alcohol type: beer Drug use: Current Sobriety Details: methadone clinic Do you feel safe at home: Yes Do you feel safe in your relationship?: Yes Exam Const General: cooperative, healthy appearing, comfortable, no acute distress, well developed and well groomed Nutritional Appearance: average body habitus and well nourished Orientation: alert, awake and oriented x3 HENMT Head: normal to inspection, normocephalic and atraumatic Ears: hearing grossly normal bilaterally and external ears normal General nose exam: external nose normal Face and sinus: normal facial exam and sinuses nontender Mouth: oral mucosae normal, lip normal, tongue normal and moist mucous membranes Teeth and gingiva: dentition normal Eyes General: appearance normal, both eyes and all related structures Conjunctivae: conjunctivae normal Sclera: sclerae normal Pupils: PERRL Neck Neck: normal visual inspection and full ROM Chest Chest: normal inspection of the chest Resp Effort & Inspection: normal respiratory effort, able to speak in complete sentences, no cough, no nasal flaring, not tachypneic and no use of accessory muscles Auscultation: clear to auscultation bilaterally, no rales, no rhonchi and no wheezes Cardio Jugular venous pressure: no JVD Rate: regular rate Rhythm: regular rhythm GI Inspection: normal to inspection, no edema and non-distended Palpation: soft, no masses, nontender and No ascites Auscultation: normal bowel sounds Skin General skin exam: no rashes or lesions noted Trauma: no lacerations or abrasions Neuro General: alert, oriented x3, oriented, moves all extremities, no focal motor deficits and CN's II-XI intact bilaterally Cognition: normal cognition Speech: speech normal Gait: normal gait Motor: muscle tone normal throughout Sensory Exam: no sensory deficits noted Extrem General: normal exam except as noted Other: LLE: red and swollen from knee to toes. generalized weeping of the skin- serous. there are no open wounds. skin, jamie of feet is filthy. there are no open sores. I cannot palpate any pulses- but this may be due to edema. he has full ROM. he has some numbness secondary to DM b/l. Psych Appearance: grossly normal and well kempt Mental Status: mental status grossly normal Speech and Movement: speech and movement normal Affect: normal affect Results Last Vital Signs Temp 36.6 C 08/15/19 09:08 Pulse 98 H 08/15/19 10:15 Resp 16 08/15/19 09:10 BP 139/105 H 08/15/19 10:15 Pulse Ox 92 L 08/15/19 10:01 Labs Result diagrams: 08/15/19 08:10 08/15/19 08:10 Labs: Laboratory Results - last 24 hr 08/15/19 08/15/19 08/15/19 07:41 08:10 08:10 WBC RBC Hgb Hct MCV MCH MCHC RDW Plt Count MPV Immature Gran % Neutrophils % Band Neutrophils % Lymphocytes % Monocytes % Eosinophils % Basophils % Absolute Neutrophils Absolute Lymphocytes Absolute Monocytes Absolute Eosinophils Absolute Basophils Differential Comment RBC Morphology Polychromasia Sodium 132 L Potassium 3.9 Chloride 93 L Carbon Dioxide 25.9 Anion Gap 13.1 H BUN 12 Creatinine 1.10 Estimated GFR/1.73 m2 >= 60.00 Glucose 195 H Lactate 1.8 H Calcium 8.6 Total Bilirubin 1.8 H AST 53 H ALT 96 H Alkaline Phosphatase 95 Troponin I < 0.05 C-Reactive Protein 22.63 H NT-Pro-B Natriuret Pep 177 Total Protein 7.2 Albumin 3.5 08/15/19 08:10 WBC 12.82 H RBC 5.09 Hgb 15.3 Hct 43.9 MCV 86.2 MCH 30.1 MCHC 34.9 RDW 14.9 H Plt Count 75 L MPV 11.4 H Immature Gran % 0.0 Neutrophils % 77.0 Band Neutrophils % 10.0 Lymphocytes % 5.0 Monocytes % 8.0 Eosinophils % 0.0 Basophils % 0.0 Absolute Neutrophils 11.15 H Absolute Lymphocytes 0.64 L Absolute Monocytes 1.03 H Absolute Eosinophils 0.00 Absolute Basophils 0.00 Differential Comment Manual differential RBC Morphology See below Polychromasia Present Sodium Potassium Chloride Carbon Dioxide Anion Gap BUN Creatinine Estimated GFR/1.73 m2 Glucose Lactate Calcium Total Bilirubin AST ALT Alkaline Phosphatase Troponin I C-Reactive Protein NT-Pro-B Natriuret Pep Total Protein Albumin
[2019-08-15 11:04] LABS: Troponin I < 0.05 ng/Ml (<0.06)
[2019-08-15 11:08] LABS: Procalcitonin 0.7 ng/mL
[2019-08-15] MEDS: THIAMINE 100 MG in Normal Saline 100 ML 200 MG IVPB (11:51)
[2019-08-15] MEDS: Insulin Aspart 300 UNITS/3 ML PEN SC ×2 (12:02→22:56)
--- NOTE | 2019-08-15 13:30 | W.PM.HP.N ---
Date of service: 08/15/19 Time of Service: 13:31 Assessment and Plan Assessment and plan (1) Sepsis: Status: Acute Assessment and plan: due to cellulitis LLE, present on admission. qSOFA score of zero - not high risk. Admitted to medical surgical floor with empiric vancomycin and zosyn, IVF. Will trend CRP and procalcitonin, await results of blood cultures. (2) Cellulitis of left lower extremity: Status: Acute Assessment and plan: Possible trigger - initial crack in the heel. ?diabetic foot infection which extended more proximally. General surgery evaluated the patient in ED - did not feel surgical intervention was needed. Will obtain podiatry c/s. Consider MRI LLE as CRP elevated and OM may have to be ruled out. Will discuss with podiatry. Treatment as above - empiric vanco/zosyn. Trend CRP/procalcitonin. (3) COPD with acute exacerbation: Status: Acute Assessment and plan: In addition to above abx, will treat with systemic steroids, and scheduled and prn nebs. (4) DMII (diabetes mellitus, type 2): Status: Acute Assessment and plan: Will cover with SSI. Anticipate steroid-induced hyperglycemia as well. (5) EtOH dependence: Status: Acute Assessment and plan: Monitor on CIWA with prn ativan. Previously required librium. Not showing signs of w/d yet. (6) Opioid dependence: Status: Chronic Assessment and plan: Continue home methadone. (7) Nocturnal hypoxia: Status: Chronic Assessment and plan: Continue home O2 at 2.5 L. STill needs a sleep study - has not yet followed up. (8) DVT prophylaxis: Status: Acute Assessment and plan: TEDs/SCD's. Avoid chemical DVT ppx due to chronic thrombocytopenia (9) Discharge planning issues: Status: Acute Assessment and plan: Full code History of Present Illness History of Present Illness Chief Complaint: I couldn't even walk anymore - left leg pain, swelling and redness Narrative: Mr Maria is a 53 year old male with PMHx of NIDDM2, chronic diastolic CHF, COPD, suspected ELLIOT, chronic hypoxic respiratory failure on 2.5 L of O2 at night, alcohol abuse with history of alcohol withdrawal and h/o IVD abuse, now on methadone therapy through [facility], who presented to [facility] ED today complaining of LLE pain, swelling, and redness - to the point that he had a hard time bearing weight on the leg. The patient states that the symptoms started 1 week ago when the heel of his left foot cracked. He stated it was really painful. Within the next 48 hours, he noticed that his L inner thigh was sore, but not so much erythematous. Within 3 days, his distal LLE including his foot became more swollen, red, and painful. The pain is so bad the patient can't sleep at night. He describes objective fevers, chills, and dry heaves. He states his breathing is at his baseline and that his cough has been productive of white/yellow sputum - his normal. He does endorse wheezing. He was given a nebulizer treatment in ED with some relief. Venous doppler of LLE ruled out a DVT. He was initiated on vancomycin, cefepime, and clindamycin in the ED after having blood cultures drawn. We were asked to admit the patient for further care. His last alcoholic beverage was 2 days ago. Review of Systems Narrative: 12 systems reviewed. Pertinent positives and negatives are as per HPI. 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) Nocturnal hypoxia (Chronic) Obesity (BMI 30-39.9) (Acute) Obstructive sleep apnea (Suspected) Opioid dependence (Chronic) on methadone Thrombocytopenia (Chronic) Tobacco abuse (Chronic) Surgical History (Updated 08/15/19 @ 15:20 by Wendy Robledo MD) History of mandibular surgery (Acute) S/P nasal surgery (Acute) Family History (Updated 08/15/19 @ 15:21 by Wendy Robledo MD) Father Diabetes Brother Cancer lung cancer - smoker Social History Smoking/Tobacco Use Status: Current every day Tobacco Type: cigarettes Alcohol Intake: current Alcohol Intake frequency: 3 or more drinks per day Alcohol type: beer Drug use: Current Sobriety Details: methadone clinic Do you feel safe at home: Yes Do you feel safe in your relationship?: Yes Meds Home Medications and Allergies Home Medications Medication Instructions Recorded Confirmed Type methadone 130 mg PO DAILY 05/12/19 08/15/19 History docusate sodium [Colace] 100 mg PO BID #60 cap 05/18/19 08/15/19 Rx gabapentin 800 mg PO TID #60 tab 05/18/19 08/15/19 Rx ipratropium-albuterol [Combivent 1 - 2 puff INHALATION QID #4 gm 05/18/19 08/15/19 Rx Respimat] multivitamin [Multiple Vitamins] 1 tab PO DAILY #30 tab 05/18/19 08/15/19 Rx pantoprazole [Protonix] 40 mg PO DAILY #30 tab 05/18/19 08/15/19 Rx thiamine mononitrate (vit B1) 100 mg PO DAILY #30 tab 05/18/19 08/15/19 Rx [Vitamin B-1 (mononitrate)] Oxygen 08/15/19 08/15/19 History albuterol sulfate [ProAir HFA] 2 puff INHALATION Q6H PRN 08/15/19 08/15/19 History Allergies Allergy/AdvReac Type Severity Reaction Status Date / Time No Known Allergies Allergy Unverified 08/15/19 07:25 Exam Narrative Exam Narrative: General: Obese male, looks sick, laying comfortably in bed, able to fluently tell the story of his illness Neurological: A&Ox3, no focal deficits, not tremulous Psychiatric: mildly anxious Skin: LLE erythematous and edematos 2[address] to the knee, erythema tracking posteriorly on his LLE and up into his inner thigh; cracked left heel, but no obvious draining wound on L foot; cracked skin on several toes on LLE HEENT: Atraumatic, normocephalic, EOMI, dry MM, clear oropharynx, no submandibular or cervical lymphadenopathy, no goiter or JVD Cardiovascular: RRR, mildly tachycardic, no m/r/g Lungs: wheezing on expiration B Gastrointestinal: soft, nontender, nondistended Genitourinary: deferred Extremities: see skin exam; I am unable to palpate LLE pedal pulse, but it is dopplerable; 1+ RLE pedal pulse, no e/c/c RLE. No open wounds R foot. Results Imaging Additional studies: US venous LLE: No DVT. CXR: No acute pulmonary process XR Left foot: 1. Marked soft tissue swelling of the left foot. 2. No radiographic evidence of acute osteomyelitis. XR L tib/fib: Marked soft tissue swelling about the lower leg, particularly around the ankle. No radiographic findings to suggest acute osteomyelitis. EKG: HR 105, Sinus tach, no acute ischemia Labs Result diagrams: 08/15/19 08:10 08/15/19 08:10 Labs: Laboratory Results - last 24 hr 08/15/19 08/15/19 08/15/19 07:41 08:10 08:10 WBC RBC Hgb Hct MCV MCH MCHC RDW Plt Count MPV Immature Gran % Neutrophils % Band Neutrophils % Lymphocytes % Monocytes % Eosinophils % Basophils % Absolute Neutrophils Absolute Lymphocytes Absolute Monocytes Absolute Eosinophils Absolute Basophils Differential Comment RBC Morphology Polychromasia Sodium 132 L Potassium 3.9 Chloride 93 L Carbon Dioxide 25.9 Anion Gap 13.1 H BUN 12 Creatinine 1.10 Estimated GFR/1.73 m2 >= 60.00 Glucose 195 H Lactate 1.8 H Calcium 8.6 Total Bilirubin 1.8 H AST 53 H ALT 96 H Alkaline Phosphatase 95 Troponin I < 0.05 C-Reactive Protein 22.63 H NT-Pro-B Natriuret Pep 177 Total Protein 7.2 Albumin 3.5 Procalcitonin Cancelled 08/15/19 08/15/19 08/15/19 08:10 10:25 10:25 WBC 12.82 H RBC 5.09 Hgb 15.3 Hct 43.9 MCV 86.2 MCH 30.1 MCHC 34.9 RDW 14.9 H Plt Count 75 L MPV 11.4 H Immature Gran % 0.0 Neutrophils % 77.0 Band Neutrophils % 10.0 Lymphocytes % 5.0 Monocytes % 8.0 Eosinophils % 0.0 Basophils % 0.0 Absolute Neutrophils 11.15 H Absolute Lymphocytes 0.64 L Absolute Monocytes 1.03 H Absolute Eosinophils 0.00 Absolute Basophils 0.00 Differential Comment Manual differential RBC Morphology See below Polychromasia Present Sodium Potassium Chloride Carbon Dioxide Anion Gap BUN Creatinine Estimated GFR/1.73 m2 Glucose Lactate Calcium Total Bilirubin AST ALT Alkaline Phosphatase Troponin I < 0.05 C-Reactive Protein NT-Pro-B Natriuret Pep Total Protein Albumin Procalcitonin 0.7 Last Vital Signs Temp 36.2 C L 08/15/19 11:27 Pulse 76 08/15/19 11:27 Resp 20 08/15/19 11:27 BP 159/100 H 08/15/19 11:27 Pulse Ox 96 08/15/19 11:27
[2019-08-15] MEDS: Acetaminophen 325 MG TAB PO ×2 (13:46→20:06)
[2019-08-15] MEDS: Normal Saline Flush 10 ML SYR (15:25)
[2019-08-15] MEDS: Normal Saline 1,000 ML 100 ML IV (15:25)
[2019-08-15] MEDS: Pantoprazole 40 MG VIAL IVP (16:06)
[2019-08-15] MEDS: methylPREDNISolone SUCC 125 MG VIAL 60 MG IVP (16:07)
[2019-08-15] MEDS: PIPERACILLIN/TAZO 3.375 GM in Normal Saline 50 ML IVPB ×2 (16:07→22:26)
[2019-08-15] MEDS: LORazepam 1 MG TAB PO/SL ×2 (17:36→20:06)
--- NOTE | 2019-08-15 18:53 | W.PODCONSULT ---
Date of service: 08/15/19 Time of Service: 18:53 History of Present Illness History of Present Illness Chief Complaint: Cellulitis left lower extremity Narrative: 53-year-old white male with multiple comorbidities admitted for cellulitis left lower extremity with sepsis. He indicates he developed some tenderness in the medial aspect of his left groin on Thursday and he had progressive redness swelling pain developing from the tips of his toes to just below his knee. He seen at bedside with Hitesh wrap on his left leg. Admission labs are reviewed, x-rays are unremarkable without any findings of osteomyelitis. 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) Nocturnal hypoxia (Chronic) Obesity (BMI 30-39.9) (Acute) Obstructive sleep apnea (Suspected) Opioid dependence (Chronic) on methadone Thrombocytopenia (Chronic) Tobacco abuse (Chronic) Surgical History History of mandibular surgery (Acute) S/P nasal surgery (Acute) Family History Father Diabetes Brother Cancer lung cancer - smoker Social History Smoking/Tobacco Use Status: Current every day Tobacco Type: cigarettes Alcohol Intake: current Alcohol Intake frequency: 3 or more drinks per day Alcohol type: beer Drug use: Current Sobriety Details: methadone clinic Do you feel safe at home: Yes Do you feel safe in your relationship?: Yes Exam Narrative Exam Narrative: Allen is seen at bedside. He is awake and alert and communicates effectively. He is feels like his left foot is better since he has been admitted as he is able to move them more freely and not feeling as tight. Vascular exam: DP and PT pulses are palpable in the right lower extremity graded plus 1 out of 4, capillary refills immediately to all toes and there is no edema Left lower extremity Hitesh wrap is removed, pulses are poorly palpable secondary to edema but there is good capillary return to the toes and there is intense erythema from the tops of his toes to just below his knee primarily across the dorsal aspect of the foot and anterior aspect of his leg with some extension medially and posterior. no fluid accumulations or deep abscesses were palpable. Marker tracings of cellulitis are noted on his leg and groin which were placed early on his admission and no extension noted at this time. Venous Doppler studies were performed earlier and are negative for DVT. A large lymph node in his groin is noted.. Dermatologic exam: Toenails are heavy, yellowed, thick, dystrophic, hypertrophic, elongated and in need of debridement. There is subungual debris with periungual tenderness but no active drainage. All toenails are affected. Skin on both lower extremities plantar aspects of his foot is dry with superficial fissures noted around the heels and across the forefoot including the tips of the toes. None of the fissures appear to be grossly open, there is no drainage no erythema and there was no particular tenderness with palpation. There is intense cellulitis affecting the left lower extremity as previously mentioned but the skin is intact at this time. No drainage is observed. Muscle groups of 5 out of 5 bilaterally with the left foot being somewhat uncomfortable due to edema and cellulitis. Skeletal exam appeared grossly unremarkable at this time. There was nothing obvious in his left foot starting at the toes with the midfoot and rear foot being difficult to palpate due to cellulitis and edema. The radiographs that were obtained earlier in the day have no findings to suggest an osteomyelitis at this time. Neurologically: His toes are downgoing. He admits to significant numbness of his feet likely due to alcohol induced neuropathy but I note that his blood sugar is about 195 and it likely is a contributing factor to his decreased sensorium. Impressions: Acute cellulitis with sepsis left lower extremity Xerosis with heel fissuring bilaterally Onychodystrophy likely onychomycosis Peripheral neuropathy Plan: At this time I do not see any clinical evidence for deep space infection of the foot or osteomyelitis. The chronic fissures on his feet can certainly be a nidus for infection triggering his current cellulitis. I did emphasize to Allen the importance of hydrating the skin to reduce xerosis and fissuring. Clinically at this time I agree with continued IV antibiotics, compression and elevation of the left lower extremity. Application of moisturizing creams to both feet. I mechanically and electrically debrided all nails aggressively and atraumatically to patient tolerance 1 through 5 bilaterally. Gently curettaged all debris free of the nail grooves. I will be happy to reassess if requested if his clinical picture changes or any further concerns for potential osteomyelitis of the foot needs to be examined. Unless his clinical picture changes, I do not feel that any additional imaging of his left foot is required. Results Last Vital Signs Temp 36.8 C 08/15/19 15:05 Pulse 96 H 08/15/19 15:08 Resp 18 08/15/19 15:08 BP 127/68 08/15/19 15:05 Pulse Ox 99 08/15/19 15:08 Labs Result diagrams: 08/15/19 08:10 08/15/19 08:10 Labs: Laboratory Results - last 24 hr 08/15/19 08/15/19 08/15/19 07:41 08:10 08:10 WBC RBC Hgb Hct MCV MCH MCHC RDW Plt Count MPV Immature Gran % Neutrophils % Band Neutrophils % Lymphocytes % Monocytes % Eosinophils % Basophils % Absolute Neutrophils Absolute Lymphocytes Absolute Monocytes Absolute Eosinophils Absolute Basophils Differential Comment RBC Morphology Polychromasia Sodium 132 L Potassium 3.9 Chloride 93 L Carbon Dioxide 25.9 Anion Gap 13.1 H BUN 12 Creatinine 1.10 Estimated GFR/1.73 m2 >= 60.00 Glucose 195 H Lactate 1.8 H Calcium 8.6 Total Bilirubin 1.8 H AST 53 H ALT 96 H Alkaline Phosphatase 95 Troponin I < 0.05 C-Reactive Protein 22.63 H NT-Pro-B Natriuret Pep 177 Total Protein 7.2 Albumin 3.5 Procalcitonin Cancelled 08/15/19 08/15/19 08/15/19 08:10 10:25 10:25 WBC 12.82 H RBC 5.09 Hgb 15.3 Hct 43.9 MCV 86.2 MCH 30.1 MCHC 34.9 RDW 14.9 H Plt Count 75 L MPV 11.4 H Immature Gran % 0.0 Neutrophils % 77.0 Band Neutrophils % 10.0 Lymphocytes % 5.0 Monocytes % 8.0 Eosinophils % 0.0 Basophils % 0.0 Absolute Neutrophils 11.15 H Absolute Lymphocytes 0.64 L Absolute Monocytes 1.03 H Absolute Eosinophils 0.00 Absolute Basophils 0.00 Differential Comment Manual differential RBC Morphology See below Polychromasia Present Sodium Potassium Chloride Carbon Dioxide Anion Gap BUN Creatinine Estimated GFR/1.73 m2 Glucose Lactate Calcium Total Bilirubin AST ALT Alkaline Phosphatase Troponin I < 0.05 C-Reactive Protein NT-Pro-B Natriuret Pep Total Protein Albumin Procalcitonin 0.7
[2019-08-15] MEDS: Magnesium Oxide 400 MG TAB PO (19:48)
[2019-08-15] MEDS: Normal Saline Flush 10 ML SYR IVP (19:48)
[2019-08-15] MEDS: Docusate Sodium 100 MG CAP PO (19:49)
[2019-08-15] MEDS: Budesonide/Formoterol 160/4.5 6 GM 60 PUFF INH IH (22:20)
[2019-08-15] MEDS: Gabapentin 800 MG TAB PO (22:23)
[2019-08-16] VITALS (11 sets, daily range): BP systolic 129–158; BP diastolic 83–96; PULSE 98–110; RESP 4–24; TEMP 36.2–37.5; O2SAT 93–95
[2019-08-16] MEDS: Albuterol/Ipratropium 3 ML UPD VIAL UPD ×4 (00:25→17:43)
[2019-08-16] MEDS: methylPREDNISolone SUCC 125 MG VIAL 60 MG IVP ×4 (00:25→23:59)
[2019-08-16] MEDS: Normal Saline Flush 10 ML SYR IVP ×3 (00:29→23:59)
[2019-08-16] MEDS: Normal Saline 1,000 ML 100 ML IV ×2 (03:57→23:47)
[2019-08-16] MEDS: PIPERACILLIN/TAZO 3.375 GM in Normal Saline 50 ML IVPB ×4 (03:57→22:09)
[2019-08-16 07:20] LABS: Abs Immature Grans 0.06 k/cumm (0.0-0.09); Absolute Lymphocyte Count 0.21 k/cumm (1.2-3.4); Absolute Monocyte Count 0.34 k/cumm (0.11-0.7); Absolute Neutrophil Count 7.87 k/cumm (1.2-6.7); HCT 36.7 % (40.0-50.0); HGB 12.5 g/dL (13.5-17.5); Immature Grans % 0.7 %; Lymphocytes % 2.5; Mean Corp. HGB Concentration 34.1 g/dL (32.0-36.0); Mean Corpuscular Hemoglobin 29.7 pg (27.0-33.0); Mean Corpuscular Volume 87.2 fL (80-95); Mean Platelet Volume 11.5 fL (8.0-11.0); Neutrophils % 92.8; RBC 4.21 m/cumm (4.50-6.00); RBC Distribution Width 14.9 % (11.8-14.1); White Blood Cell Count 8.48 k/cumm (4.4-10.8)
[2019-08-16 07:44] LABS: Anion Gap 9.6 mmol/L (3-11); BUN 10 mg/dL (7-18); CO2 26.4 mmol/L (21.0-32.0); Calcium 8.3 mg/dL (8.5-10.1); Chloride 99 mmol/L (98-107); Glucose 222 mg/dL (74-106); Magnesium 2.4 mg/dL (1.8-2.4); Potassium 4.1 mmol/L (3.5-5.1); Sodium 135 mmol/L (136-145); TSH (W/Ref FT4) 0.52 uIU/mL (0.36-3.74)
[2019-08-16 07:48] LABS: Diff Comment PLT Morph Reviewed; Platelet Count 73 x1000/uL (130-400); RBC Morphology Normal
[2019-08-16] MEDS: Budesonide/Formoterol 160/4.5 6 GM 60 PUFF INH IH ×2 (07:52→18:13)
[2019-08-16 07:54] LABS: C-Reactive Protein > 25.00 mg/dL (0.0-0.3)
[2019-08-16] MEDS: Multivitamin TAB 1 TAB PO (07:55)
[2019-08-16] MEDS: Docusate Sodium 100 MG CAP PO ×2 (07:55→18:14)
[2019-08-16] MEDS: Thiamine 100 MG TAB PO (07:55)
[2019-08-16] MEDS: Gabapentin 800 MG TAB PO ×3 (07:55→18:14)
[2019-08-16] MEDS: Folic Acid 1 MG TAB PO (07:56)
[2019-08-16] MEDS: Magnesium Oxide 400 MG TAB PO ×2 (07:56→18:14)
[2019-08-16] MEDS: Silver sulfaDIAZINE 1% 25 GM TUBE TP ×2 (07:56→18:14)
[2019-08-16] MEDS: Insulin Aspart 300 UNITS/3 ML PEN SC ×4 (08:22→22:10)
--- NOTE | 2019-08-16 08:30 | DI.CT_ITS ---
EXAM: CT ABD AORTA CTA W RUNOFF CLINICAL HISTORY: DM/SMOKER/INFECTION. TECHNIQUE: Imaging Protocol: Axial CT angiography was performed with multislice acquisition and mul tiplanar and/or 3D reconstructions. CONTRAST MATERIAL: Intravenous: Omnipaque 350 Contrast volume:150 mL contrast route:IV - Oral: No COMPARISON: CT CHEST PE CTA from 05/12/2019 FINDINGS: Vascular Structures: Abdomen: Celiac Allamuchy/SMA: No evidence of occlusion or significant stenosis. Renal Arteries: No evidence of occlusion or significant stenosis. There is a single renal artery per fusing each kidney. Aorta: No aneurysm. No dissection. Mild atherosclerosis. Pelvis: Iliac Arteries: No evidence of occlusion or significant stenosis. Atherosclerosis. Common Femoral Arteries: No evidence of occlusion or significant stenosis. Lower extremities: Right: Common Femoral: No evidence of occlusion or significant stenosis. Superficial Femoral: No evidence of occlusion or significant stenosis. Popliteal: No evidence of occlusion or significant stenosis. Knee Trifurcation: No evidence of occlusion or significant stenosis. Anterior tibial: No evidence of occlusion or significant stenosis. Posterior Tibial: No evidence of occlusion or significant stenosis. Dorsalis Pedis: No evidence of occlusion or significant stenosis. Left: Common Femoral: No evidence of occlusion or significant stenosis. Superficial Femoral: No evidence of occlusion or significant stenosis. Popliteal: No evidence of occlusion or significant stenosis. Knee Trifurcation: No evidence of occlusion or significant stenosis. Anterior tibial: No evidence of occlusion or significant stenosis. Posterior Tibial: No evidence of occlusion or significant stenosis. Dorsalis Pedis: No evidence of occlusion or significant stenosis. Soft Tissues: Liver: The superior liver was not included on this examination. There is diffuse decreased attenuati on of the liver consistent with fatty infiltration. No measurable mass. Gallbladder and biliary tract: No radiodense calculus or dilation. Pancreas: Normal density, no abnormal calcifications or inflammatory process. Spleen: The superior spleen is not included on this examination. The spleen is enlarged measuring at least 20 centimeters in length. Kidneys: Normal size, contour and axis. No radiodense stones or obstructive uropathy. No masses seen. Adrenal glands: No masses seen. Aorta: See above. Bladder: Symmetric distention, no gross wall thickening. Bowel: No obstruction or bowel wall thickening. Peritoneal cavity: No ascites, collection or mesenteric inflammatory response. Reproductive organs: Within normal limits. Bones: Degenerative changes. Lymph nodes: Mildly enlarged left external iliac and left inguinal lymph nodes. There is edema seen in the soft tissues of the left inguinal region and left lower extremity. There is thickening of the skin in the left lower extremity. No focal fluid collection is seen. There is ill-defined spiculat ed soft tissue lateral to the left greater trochanter. This area measures 5.2 AP x 3.8 TR x 5.2 cran iocaudad cm. IMPRESSION: 1. No evidence of occlusion or significant stenosis. 2. Hepatic steatosis. 3. Splenomegaly. 4. Left lower extremity subcutaneous edema and skin thickening. No focal fluid collection. Findings are suspicious for cellulitis. No findings to suggest acute osteomyelitis. 5. 5.2 x 3.8 x 5.2 cm spiculated soft tissue lateral to the left greater trochanter. This may repres ent an area of scarring or postsurgical change. Neoplasm cannot be excluded. Please correlate with patient's surgical or traumatic history. MRI/Biopsy may be considered for further evaluation. DATA REPOSITORY: All CT scans at this facility are submitted to the National Radiology Data Registry (NRDR) Dose Index Registry (DIR) with the [employer] (ACR). RADIATION OPTIMIZATION: All CT scans at this facility use at least one of these dose optimization te chniques: automated exposure control; mA and/or kV adjustment per patient size (includes targeted exa ms where dose is matched to clinical indication); or iterative reconstruction.
[2019-08-16 08:32] LABS: Lactate 1.5 mmol/L (0.6-1.4)
[2019-08-16] MEDS: LORazepam 1 MG TAB PO/SL (08:54)
[2019-08-16] MEDS: Omnipaque 350 MG/ML 100 ML BTL IJ (09:27)
--- NOTE | 2019-08-16 11:18 | W.NUTCONSULT ---
Date of service: 08/16/19 Time of Service: 11:19 Nutritional Consult ASSESSMENT: 53 year old male admitted with sepsis secondary to cellulitis of lower extremity. PMH: ETOH/drug use, DM2, CHF, COPD, Resp. Fx. Meds include appropriate vitamin/mineral repletion. Follwoing Diabetic Diet with adequate intake. BMI indicates class 2 obesity. DM consult pending. Nut at nutritional risk at this time. will be available prn. MONITORING AND EVALUATION: labs, po intake, weight Time Spent in Nutritional Counseling and Treatment: 0 time spent face to face
[2019-08-16] MEDS: Methadone Liquid 10 MG/ML 130 MG PO (11:20)
--- NOTE | 2019-08-16 14:16 | CHAPLAIN ---
Allen was sitting in a chair when I visited. He said he is feeling better and his leg is beginning to look better. I didn't stay long as he said he was hoping to rest. He expects family members to be in later today to visit.
[2019-08-16] MEDS: chlordiazePOXIDE 25 MG CAP PO ×2 (14:32→18:14)
--- NOTE | 2019-08-16 15:15 | PDOC.CMIN ---
- If Service Date Differs Date of service: 08/16/19 Time of Service: 15:15 Care Management Initial Assess REASON FOR HOSPITALIZATION:: Sepsis due to Cellulitis LLE PAST MEDICAL HISTORY/PAST SURGICAL HISTORY:: Medical History (Updated 08/15/19 @ 15:33 by Wendy Robledo MD). Anxiety disorder (Chronic). Chronic diastolic CHF (congestive heart failure) (Acute). Chronic respiratory failure with hypoxia (Acute). COPD (chronic obstructive pulmonary disease) (Chronic). DMII (diabetes mellitus, type 2) (Acute). ETOH abuse (Chronic). EtOH dependence (Acute). Hepatic steatosis (Acute). 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 Nocturnal hypoxia (Chronic). Obesity (BMI 30-39.9) (Acute). Obstructive sleep apnea (Suspected). Opioid dependence (Chronic). on methadone. Thrombocytopenia (Chronic). Tobacco abuse (Chronic). Surgical History (Updated 08/15/19 @ 15:20 by Wendy Robledo MD). History of mandibular surgery (Acute). S/P nasal surgery (Acute) PREVIOUS FUNCTIONAL STATUS/SOCIAL/FAMILY SUPPORTS:: Allen lives in [place] with his , Phyllis. His mother lives nearby and is supportive. 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 He is independent at baseline, and has his license but does not currently have a car. His mother transports him, as well as [facility]. CURRENT FUNCTIONAL STATUS:: Allen was sitting up in bed when CM met with him. He reported that he was feeling a bit better today, but he has not been able to get much sleep here as so many people have been in and out of his room. He has seen Dr. Alfonso for his foot, who stated to continue abx, compression and elevation of his LLE. CM will continue to follow. ADVANCE DIRECTIVES:: None on file. Has patient been provided with information about the portal?: No Did the patient sign up for the portal?: No CODE STATUS:: Full Code INSURANCE COVERAGE / FINANCIAL ISSUES:: [employer]/ Self Pay CURRENT HOME/COMMUNITY SERVICES/EQUIPMENT:: Allen does not currently have any equipment or services in the community. PRIMARY CARE PHYSICIAN:: Sunshine Pierre POTENTIAL DISCHARGE NEEDS:: Evaluations for further needs, follow up appointments PATIENT/FAMILY EDUCATION NEEDS:: Review discharge instructions regarding activity levels and medications, discussion of self care needs including ask me three ANTICIPATED BARRIERS TO DISCHARGE:: None identified at this time. TRANSPORTATION:: Anticipate Allen will transport via private vehicle driven by his mom vs [facility]. PLAN:: Anticipate Allen will return home when medically cleared. CM will fax a referral to [facility] for assistance with SSI/SSDI, as requested by Allen. He will transport via private vehicle. CM will continue to follow.
[2019-08-16 15:32] LABS: Vancomycin, Trough 8.3 ug/mL (10.0-20.0)
--- NOTE | 2019-08-16 15:33 | W.PM.PROGNOT ---
Date of Service Date of service: 08/16/19 Time of Service: 15:33 Assessment and Plan Assessment and plan (1) Sepsis: Status: Acute Assessment and plan: due to cellulitis LLE, present on admission. Blood cultures: 1 bottle out of 4 is positive for GPCs in clusters. Speciation/sensitivities pending. Repeat blood cultures in am. Consider repeat echo, pending result of culture. Continue empiric vanco/zosyn. Recheck CRP and procalcitonin tomorrow. Decrease IVF rate. (2) Cellulitis of left lower extremity: Status: Acute Assessment and plan: Possible trigger - initial crack in the heel. Podiatry does feel that the cracked skin could have been port of entry, but there is no indication for surgery at this time. Continue empiric vanco/zosyn. Trend CRP/procalcitonin. (3) COPD with acute exacerbation: Status: Acute Assessment and plan: In addition to above abx, continue systemic steroids, and scheduled and prn nebs. (4) DMII (diabetes mellitus, type 2): Status: Acute Assessment and plan: Continue SSI. Add long acting insulin Anticipate steroid-induced hyperglycemia. (5) EtOH dependence: Status: Acute Assessment and plan: Monitor on CIWA with prn ativan and now scheduled librium. (6) Opioid dependence: Status: Chronic Assessment and plan: Continue home methadone. (7) Nocturnal hypoxia: Status: Chronic Assessment and plan: Continue home O2 at 2.5 L. STill needs a sleep study - has not yet followed up. (8) DVT prophylaxis: Status: Acute Assessment and plan: TEDs/SCD's. Avoid chemical DVT ppx due to chronic thrombocytopenia (9) Discharge planning issues: Status: Acute Assessment and plan: Full code Subjective Subjective Interval history since last seen: Mr Maria states he thinks he feels a little bit better. Denies dizziness, chest pain, states his breathing is at his baseline. Denies n/v. C/o anxiety. States his L leg feels a lot better. It is less swollen/painful. CIWA score 9 this am - initiated on librium - now it is a 2. Exam Narrative Exam Narrative: General: Obese male, looks a bit better than yesterday,but still looks sick/flushed, mildly anxious, not tremulous HEENT: EOMI, MMM Cardiovascular: RRR, no m/r/g Lungs: quiet rhonchi and rales diffusely B Gastrointestinal: soft, nontender, nondistended Extremities: LLE wrapped - when unwrapped, erythema does not appear to extend quite as proximally and has more of a dark red tone, edema has decreased Objective Objective Clinical Data: Abnormal lab results 08/16/19 08/16/19 08/16/19 Range/Units 06:20 06:20 08:10 RBC 4.21 L (4.50-6.00) m/cumm Hgb 12.5 L D (13.5-17.5) g/dL Hct 36.7 L (40.0-50.0) % RDW 14.9 H (11.8-14.1) % Plt Count 73 L (130-400) x1000/uL MPV 11.5 H (8.0-11.0) fL Absolute Neutrophils 7.87 H (1.2-6.7) k/cumm Absolute Lymphocytes 0.21 L (1.2-3.4) k/cumm Sodium 135 L (136-145) mmol/L Glucose 222 H (74-106) mg/dL Lactate 1.5 H (0.6-1.4) mmol/L Calcium 8.3 L (8.5-10.1) mg/dL C-Reactive Protein > 25.00 H (0.0-0.3) mg/dL Vancomycin Trough (10.0-20.0) ug/mL 08/16/19 Range/Units 15:08 RBC (4.50-6.00) m/cumm Hgb (13.5-17.5) g/dL Hct (40.0-50.0) % RDW (11.8-14.1) % Plt Count (130-400) x1000/uL MPV (8.0-11.0) fL Absolute Neutrophils (1.2-6.7) k/cumm Absolute Lymphocytes (1.2-3.4) k/cumm Sodium (136-145) mmol/L Glucose (74-106) mg/dL Lactate (0.6-1.4) mmol/L Calcium (8.5-10.1) mg/dL C-Reactive Protein (0.0-0.3) mg/dL Vancomycin Trough 8.3 L (10.0-20.0) ug/mL Vital Signs Temperature 36.6 C 08/16/19 11:50 Temperature Source Skin 08/16/19 11:50 Pulse 102 H 08/16/19 13:34 Pulse Rhythm Regular 08/16/19 07:50 Pulse 97 H 08/15/19 09:10 Respiratory Rate 20 08/16/19 13:34 Respiratory Effort 08/16/19 07:50 Respiratory Depth Normal 08/16/19 07:50 Respiratory Pattern Normal 08/16/19 07:50 Blood Pressure 134/91 H 08/16/19 11:50 Blood Pressure Mean 116 08/15/19 11:00 Blood Pressure Position Sitting 08/15/19 07:15 Pulse Oximetry 93 L 08/16/19 13:34 Oxygen Delivery Method Room Air 08/16/19 13:29 Oxygen Flow Rate 0 08/16/19 13:29 Pain Level 5 08/16/19 11:50 Comment 08/16/19 07:20 Intake & Output 08/15/19 08/16/19 08/16/19 23:59 11:59 23:59 Intake Total 2041 / 3581 2370 / 2620 250 / 2620 Balance 2040 / 3581 2370 / 2620 250 / 2620 Weight 123.1 kg Intake: IV 801 / 2101 1050 / 1050 Oral 1240 / 1480 1320 / 1570 250 / 1570 Other: Urine Color Yellow Yellow Urine Appearance Clear Clear Comment voided x2 in the bathroom voids independently in toilet Stool Size Moderate Voiding Methods Toilet Toilet Toilet Laboratory Results WBC 8.48 k/cumm (4.4-10.8) D 08/16/19 06:20 RBC 4.21 m/cumm (4.50-6.00) L 08/16/19 06:20 Hgb 12.5 g/dL (13.5-17.5) L D 08/16/19 06:20 Hct 36.7 % (40.0-50.0) L 08/16/19 06:20 MCV 87.2 fL (80-95) 08/16/19 06:20 MCH 29.7 pg (27.0-33.0) 08/16/19 06:20 MCHC 34.1 g/dL (32.0-36.0) 08/16/19 06:20 RDW 14.9 % (11.8-14.1) H 08/16/19 06:20 Plt Count 73 x1000/uL (130-400) L 08/16/19 06:20 MPV 11.5 fL (8.0-11.0) H 08/16/19 06:20 Immature Gran % 0.7 % 08/16/19 06:20 Neutrophils % 92.8 08/16/19 06:20 Band Neutrophils % 10.0 % 08/15/19 08:10 Lymphocytes % 2.5 08/16/19 06:20 Monocytes % 4.0 08/16/19 06:20 Eosinophils % 0.0 08/16/19 06:20 Basophils % 0.0 08/16/19 06:20 Absolute Neutrophils 7.87 k/cumm (1.2-6.7) H 08/16/19 06:20 Absolute Lymphocytes 0.21 k/cumm (1.2-3.4) L 08/16/19 06:20 Absolute Monocytes 0.34 k/cumm (0.11-0.7) 08/16/19 06:20 Absolute Eosinophils 0.00 k/cumm (0.0-0.7) 08/16/19 06:20 Absolute Basophils 0.00 k/cumm (0.0-0.2) 08/16/19 06:20 Differential Comment Plt morph reviewed 08/16/19 06:20 RBC Morphology Normal 08/16/19 06:20 Polychromasia Present 08/15/19 08:10 Sodium 135 mmol/L (136-145) L 08/16/19 06:20 Potassium 4.1 mmol/L (3.5-5.1) 08/16/19 06:20 Chloride 99 mmol/L (98-107) 08/16/19 06:20 Carbon Dioxide 26.4 mmol/L (21.0-32.0) 08/16/19 06:20 Anion Gap 9.6 mmol/L (3-11) 08/16/19 06:20 BUN 10 mg/dL (7-18) 08/16/19 06:20 Creatinine 0.80 mg/dL (0.70-1.30) 08/16/19 06:20 Estimated GFR/1.73 m2 >= 60.00 (mL/min/1.73m2) 08/16/19 06:20 Glucose 222 mg/dL (74-106) H 08/16/19 06:20 Lactate 1.5 mmol/L (0.6-1.4) H 08/16/19 08:10 Calcium 8.3 mg/dL (8.5-10.1) L 08/16/19 06:20 Magnesium 2.4 mg/dL (1.8-2.4) 08/16/19 06:20 Total Bilirubin 1.8 mg/dL (0.2-1.0) H 08/15/19 08:10 AST 53 U/L (15-37) H 08/15/19 08:10 ALT 96 U/L (16-63) H 08/15/19 08:10 Alkaline Phosphatase 95 U/L (46-116) 08/15/19 08:10 Troponin I < 0.05 ng/Ml (<0.06) 08/15/19 10:25 C-Reactive Protein > 25.00 mg/dL (0.0-0.3) H 08/16/19 06:20 NT-Pro-B Natriuret Pep 177 pg/mL (<300) 08/15/19 07:41 Total Protein 7.2 g/dL (6.4-8.2) 08/15/19 08:10 Albumin 3.5 g/dL (3.4-5.0) 08/15/19 08:10 Procalcitonin 0.7 ng/mL 08/15/19 10:25 TSH 0.52 uIU/mL (0.36-3.74) 08/16/19 06:20 Vancomycin Trough 8.3 ug/mL (10.0-20.0) L 08/16/19 15:08 CTA aorta w/ runoff: read pending
[2019-08-16] MEDS: Pantoprazole 40 MG VIAL IVP (16:05)
[2019-08-16] MEDS: LORazepam 1 MG TAB PO (18:14)
[2019-08-16] MEDS: Acetaminophen 325 MG TAB PO (19:18)
--- NOTE | 2019-08-16 20:28 | W.PM.PROGNOT ---
Date of Service Date of service: 08/16/19 Time of Service: 10:30 Assessment and Plan Assessment and plan (1) Cellulitis of left lower extremity: Status: Acute Assessment and plan: The CT angiogram is reviewed. No abscess identified. Arteries patent. No surgical intervention indicated at this time. Blood culture with gram positive cocci in 1/4 bottles Subjective Subjective Interval history since last seen: Patient reports decreased swelling and improved mobility of leg. No new complaints Exam Narrative Exam Narrative: Left leg with erythema extending from toes to knee and then on medial thigh. Also some overlying a reactive groin node. Has not extended significantly beyond marking. Objective Objective Clinical Data: Abnormal lab results 08/16/19 08/16/19 08/16/19 Range/Units 06:20 06:20 08:10 RBC 4.21 L (4.50-6.00) m/cumm Hgb 12.5 L D (13.5-17.5) g/dL Hct 36.7 L (40.0-50.0) % RDW 14.9 H (11.8-14.1) % Plt Count 73 L (130-400) x1000/uL MPV 11.5 H (8.0-11.0) fL Absolute Neutrophils 7.87 H (1.2-6.7) k/cumm Absolute Lymphocytes 0.21 L (1.2-3.4) k/cumm Sodium 135 L (136-145) mmol/L Glucose 222 H (74-106) mg/dL Lactate 1.5 H (0.6-1.4) mmol/L Calcium 8.3 L (8.5-10.1) mg/dL C-Reactive Protein > 25.00 H (0.0-0.3) mg/dL Vancomycin Trough (10.0-20.0) ug/mL 08/16/19 Range/Units 15:08 RBC (4.50-6.00) m/cumm Hgb (13.5-17.5) g/dL Hct (40.0-50.0) % RDW (11.8-14.1) % Plt Count (130-400) x1000/uL MPV (8.0-11.0) fL Absolute Neutrophils (1.2-6.7) k/cumm Absolute Lymphocytes (1.2-3.4) k/cumm Sodium (136-145) mmol/L Glucose (74-106) mg/dL Lactate (0.6-1.4) mmol/L Calcium (8.5-10.1) mg/dL C-Reactive Protein (0.0-0.3) mg/dL Vancomycin Trough 8.3 L (10.0-20.0) ug/mL Vital Signs Temperature 99.5 F 08/16/19 19:32 Temperature Source Tympanic 08/16/19 19:32 Pulse 110 H 08/16/19 19:32 Pulse Rhythm Regular 08/16/19 19:23 Pulse 97 H 08/15/19 09:10 Respiratory Rate 20 08/16/19 19:32 Respiratory Effort 08/16/19 19:23 Respiratory Depth Normal 08/16/19 19:23 Respiratory Pattern Normal 08/16/19 19:23 Blood Pressure 151/84 H 08/16/19 19:32 Blood Pressure Mean 116 08/15/19 11:00 Blood Pressure Position Sitting 08/15/19 07:15 Pulse Oximetry 95 08/16/19 19:32 Oxygen Delivery Method Room Air 08/16/19 19:32 Oxygen Flow Rate 0 08/16/19 19:32 Pain Level 5 08/16/19 19:18 Comment 08/16/19 16:07 Intake & Output 08/15/19 08/16/19 08/16/19 23:59 11:59 23:59 Intake Total 2040 / 3581 2420 / 3710 1290 / 3710 Balance 2040 / 358 2420 / 3710 1290 / 3710 Weight 271 lb 6.224 oz Intake: IV 801 / 2101 1100 / 1150 50 / 1150 Oral 1240 / 1480 1320 / 2560 1240 / 2560 Other: Urine Color Yellow Yellow Urine Appearance Clear Clear Comment voided x2 in the bathroom voids independently in toilet Stool Size Moderate Voiding Methods Toilet Toilet Toilet Laboratory Results WBC 8.48 k/cumm (4.4-10.8) D 08/16/19 06:20 RBC 4.21 m/cumm (4.50-6.00) L 08/16/19 06:20 Hgb 12.5 g/dL (13.5-17.5) L D 02/18/20 06:20 Hct 36.7 % (40.0-50.0) L 08/16/19 06:20 MCV 87.2 fL (80-95) 08/16/19 06:20 MCH 29.7 pg (27.0-33.0) 08/16/19 06:20 MCHC 34.1 g/dL (32.0-36.0) 08/16/19 06:20 RDW 14.9 % (11.8-14.1) H 08/16/19 06:20 Plt Count 73 x1000/uL (130-400) L 08/16/19 06:20 MPV 11.5 fL (8.0-11.0) H 08/16/19 06:20 Immature Gran % 0.7 % 08/16/19 06:20 Neutrophils % 92.8 08/16/19 06:20 Band Neutrophils % 10.0 % 08/15/19 08:10 Lymphocytes % 2.5 08/16/19 06:20 Monocytes % 4.0 08/16/19 06:20 Eosinophils % 0.0 08/16/19 06:20 Basophils % 0.0 08/16/19 06:20 Absolute Neutrophils 7.87 k/cumm (1.2-6.7) H 08/16/19 06:20 Absolute Lymphocytes 0.21 k/cumm (1.2-3.4) L 08/16/19 06:20 Absolute Monocytes 0.34 k/cumm (0.11-0.7) 08/16/19 06:20 Absolute Eosinophils 0.00 k/cumm (0.0-0.7) 08/16/19 06:20 Absolute Basophils 0.00 k/cumm (0.0-0.2) 08/16/19 06:20 Differential Comment Plt morph reviewed 08/16/19 06:20 RBC Morphology Normal 08/16/19 06:20 Polychromasia Present 08/15/19 08:10 Sodium 135 mmol/L (136-145) L 08/16/19 06:20 Potassium 4.1 mmol/L (3.5-5.1) 08/16/19 06:20 Chloride 99 mmol/L (98-107) 08/16/19 06:20 Carbon Dioxide 26.4 mmol/L (21.0-32.0) 08/16/19 06:20 Anion Gap 9.6 mmol/L (3-11) 08/16/19 06:20 BUN 10 mg/dL (7-18) 08/16/19 06:20 Creatinine 0.80 mg/dL (0.70-1.30) 08/16/19 06:20 Estimated GFR/1.73 m2 >= 60.00 (mL/min/1.73m2) 08/16/19 06:20 Glucose 222 mg/dL (74-106) H 08/16/19 06:20 Lactate 1.5 mmol/L (0.6-1.4) H 08/16/19 08:10 Calcium 8.3 mg/dL (8.5-10.1) L 08/16/19 06:20 Magnesium 2.4 mg/dL (1.8-2.4) 08/16/19 06:20 Total Bilirubin 1.8 mg/dL (0.2-1.0) H 08/15/19 08:10 AST 53 U/L (15-37) H 08/15/19 08:10 ALT 96 U/L (16-63) H 08/15/19 08:10 Alkaline Phosphatase 95 U/L (46-116) 08/15/19 08:10 Troponin I < 0.05 ng/Ml (<0.06) 08/15/19 10:25 C-Reactive Protein > 25.00 mg/dL (0.0-0.3) H 08/16/19 06:20 NT-Pro-B Natriuret Pep 177 pg/mL (<300) 08/15/19 07:41 Total Protein 7.2 g/dL (6.4-8.2) 08/15/19 08:10 Albumin 3.5 g/dL (3.4-5.0) 08/15/19 08:10 Procalcitonin 0.7 ng/mL 08/15/19 10:25 TSH 0.52 uIU/mL (0.36-3.74) 08/16/19 06:20 Vancomycin Trough 8.3 ug/mL (10.0-20.0) L 08/16/19 15:08
[2019-08-16] MEDS: Insulin Glargine 300 UNITS/3 ML PEN 10 UNITS SC (22:09)
[2019-08-17] VITALS (9 sets, daily range): BP systolic 133–181; BP diastolic 79–96; PULSE 83–92; RESP 4–20; TEMP 36.2–36.7; O2SAT 92–98
[2019-08-17] MEDS: PIPERACILLIN/TAZO 3.375 GM in Normal Saline 50 ML IVPB ×4 (04:15→21:40)
[2019-08-17] MEDS: Acetaminophen 325 MG TAB PO (04:53)
[2019-08-17] MEDS: Albuterol/Ipratropium 3 ML UPD VIAL UPD ×3 (06:15→18:50)
[2019-08-17 06:59] LABS: Abs Immature Grans 0.07 k/cumm (0.0-0.09); Absolute Basophil Count 0.01 k/cumm (0.0-0.2); Absolute Eosinophil Count 0.01 k/cumm (0.0-0.7); Absolute Lymphocyte Count 0.35 k/cumm (1.2-3.4); Absolute Monocyte Count 0.27 k/cumm (0.11-0.7); Absolute Neutrophil Count 5.54 k/cumm (1.2-6.7); Basophils % 0.2; Eosinophils % 0.2; HCT 35.5 % (40.0-50.0); HGB 12.2 g/dL (13.5-17.5); Immature Grans % 1.1 %; Lymphocytes % 5.6; Mean Corp. HGB Concentration 34.4 g/dL (32.0-36.0); Mean Corpuscular Hemoglobin 30.3 pg (27.0-33.0); Mean Corpuscular Volume 88.3 fL (80-95); Mean Platelet Volume 11.3 fL (8.0-11.0); Monocytes % 4.3; Neutrophils % 88.6; Platelet Count 92 x1000/uL (130-400); RBC 4.02 m/cumm (4.50-6.00); RBC Distribution Width 14.9 % (11.8-14.1); White Blood Cell Count 6.25 k/cumm (4.4-10.8)
[2019-08-17 07:17] LABS: Anion Gap 6.7 mmol/L (3-11); BUN 15 mg/dL (7-18); CO2 29.3 mmol/L (21.0-32.0); CREATININE 0.79 mg/dL (0.70-1.30); Calcium 8.4 mg/dL (8.5-10.1); Chloride 100 mmol/L (98-107); Glucose 201 mg/dL (74-106); Magnesium 2.5 mg/dL (1.8-2.4); Potassium 4.1 mmol/L (3.5-5.1); Sodium 136 mmol/L (136-145)
[2019-08-17 07:25] LABS: C-Reactive Protein 16.44 mg/dL (0.0-0.3)
[2019-08-17] MEDS: Insulin Aspart 300 UNITS/3 ML PEN SC ×4 (08:20→21:40)
[2019-08-17] MEDS: chlordiazePOXIDE 25 MG CAP PO ×3 (08:23→19:40)
[2019-08-17] MEDS: Docusate Sodium 100 MG CAP PO ×2 (08:24→19:41)
[2019-08-17] MEDS: Gabapentin 800 MG TAB PO ×3 (08:24→19:41)
[2019-08-17] MEDS: Multivitamin TAB 1 TAB PO (08:25)
[2019-08-17] MEDS: Thiamine 100 MG TAB PO (08:25)
[2019-08-17] MEDS: Folic Acid 1 MG TAB PO (08:26)
[2019-08-17] MEDS: methylPREDNISolone SUCC 125 MG VIAL 60 MG IVP ×2 (08:26→17:01)
[2019-08-17] MEDS: Budesonide/Formoterol 160/4.5 6 GM 60 PUFF INH IH ×2 (08:40→19:40)
[2019-08-17] MEDS: Magnesium Oxide 400 MG TAB PO ×2 (09:07→19:41)
[2019-08-17] MEDS: Silver sulfaDIAZINE 1% 25 GM TUBE TP ×2 (09:07→19:40)
[2019-08-17] MEDS: LORazepam 1 MG TAB PO/SL ×2 (10:33→18:50)
[2019-08-17] MEDS: Methadone Liquid 10 MG/ML 130 MG PO (11:42)
--- NOTE | 2019-08-17 12:31 | PDOC.CMPRO ---
- If Service Date Differs Date of service: 08/17/19 Time of Service: 12:31 Care Management Progress Note S/O: Allen was sitting up in bed when CM met with him. His , Phyllis was in the room with him. He stated that he is feeling good and that he is receiving good care here at [facility]. CM informed Allen that a referral was sent to [facility] for his questions regarding SSI/SSDI. CM explained that they sometimes meet with pt's while at the hospital, otherwise they will call and set up an outpatient appointment. CM will follow up with the referral sent. CM will continue to follow. A: Allen is a 53 year old male admitted to [facility] on 08/15/19 with Sepsis and Cellulitis of the LLE. P: Anticipate Allen will return home with no additional services once medically cleared. He will transport via private vehicle by family when ready. He will follow up with his PCP, as recommended. [facility] will follow up with him while inpatient vs outpatient. CM will continue to follow.
--- NOTE | 2019-08-17 12:50 | PHARADMIT ---
Addendum entered by Devonte Mccormick III 08/17/19 15:59: VANCOMYCIN TROUGH 19.4, INTERPOLATED TO 16.1. CONTINUE CURRENT DOSE Original Note: Admission Pharmacy Clinical Review sepsis due to cellulitis LLE, CHF Code Status Full Code Current Weight Wgt-123.1 kg Renally Cleared and Narrow Therapeutic Index Meds CrCl~ 119 mL/min Meds-OK QTc Value / Action Taken QTc-465 (Methadone, Zosyn) BP Control, Fever BP- 133/79 Electrolytes reviewed Na-136 K+3.6 Mag-2.5 DVT Prophylaxis TEDS & SCDs (low Plts) Opiate Usage / Scheduled Bowel Regimen Ordered No Yes Plt/SCr for Heparin / Enoxaparin PLts-92 SCr-0.79 INR for Warfarin na H/H stable, WBC/Bands H&H-12.2/35.5 WBC-6.25 Antibiotic appropriateness Zosyn, Vancomycin Cultures and Sensitivities Blood-pending (Earlier, Naeem sp.) Surgical ABX d/c within 24 hr na DM control / Insulin Dosing BG-201 Aspart, Glargine Heart Failure (Check EF%) (STEPHEN's, B-Block, Diuretics) None IV to PO Switch No Home Meds Reviewed Yes Home Meds Not Order Advair (subs Symbicort), Spiriva,Lasix Comments RCRP-16.44 On Methadone, Librium for CIWA
[2019-08-17 15:39] LABS: Vancomycin, Trough 19.4 ug/mL (10.0-20.0)
--- NOTE | 2019-08-17 16:23 | W.INDIABCONS ---
Date of service: 08/17/19 Time of Service: 16:23 Diabetes Inpatient Consult DESCRIPTION/ASSESSMENT: Appreciate diabetes consult for Mr. Maria who is hospitalized with sepsis related to foot infection. A1c 6.7 06/17 He is experiencing hyperglycemia this hospitalization secondary to 60mg steroid administration q 8 hours. Blood sugars 195-243 taking sensitive insulin correction and eating 30-65 grams carbohydrate per meal. He was started on 10u basal insulin last night. Diabetes is in reasonable control without medication when not on steroids as evidenced by A1c. INTERVENTION: If improved glycemic control is desired suggest addition of low dose of NPH with each steroid administration. Given he may have some insulin sensitivity, and his need for insulin correction is at least 10 units which is not actually correcting hyperglycemia, suggest 5 units at each administration and decrease as steroid is tapered. This is substantially lower dose than the recommended .8x weight in Kg based on steroid dose. PLAN: Suggest adding NPH dosing at steroid administration if this temporary hyperglycemia is not acceptable Will follow up re: self management support prior to discharge as able. Time Spent in Nutritional Counseling and Treatment: 0 minutes face to face
--- NOTE | 2019-08-17 16:54 | W.PM.PROGNOT ---
Date of Service Date of service: 08/17/19 Time of Service: 16:54 Assessment and Plan Assessment and plan (1) Sepsis: Status: Acute Assessment and plan: resolved. Blood cultures: 1 bottle out of 4 is positive for GPCs in clusters. Speciation/sensitivities pending. likely contaminent Repeat blood cultures pending Consider repeat echo, pending result of culture. Continue empiric vanco day 3/zosyn day 3 CRP trending downwards and procalcitonin tomorrow. Decrease IVF rate (2) Cellulitis of left lower extremity: Status: Acute Assessment and plan: Possible trigger - initial crack in the heel. Podiatry does feel that the cracked skin could have been port of entry, but there is no indication for surgery at this time. Continue empiric vanco/zosyn. Trend CRP/procalcitonin. (3) COPD with acute exacerbation: Status: Acute Assessment and plan: In addition to above abx, continue systemic steroids with taper, and scheduled and prn nebs. (4) DMII (diabetes mellitus, type 2): Status: Acute Assessment and plan: Continue SSI. Add long acting insulin Anticipate steroid-induced hyperglycemia (5) EtOH dependence: Status: Acute Assessment and plan: Monitor on CIWA with prn ativan and now scheduled librium. (6) Opioid dependence: Status: Chronic Assessment and plan: Continue home methadone. (7) Nocturnal hypoxia: Status: Chronic Assessment and plan: Continue home O2 at 2.5 L. STill needs a sleep study - has not yet followed up. (8) DVT prophylaxis: Status: Acute Assessment and plan: TEDs/SCD's. Avoid chemical DVT ppx due to chronic thrombocytopenia (9) Discharge planning issues: Status: Acute Assessment and plan: full code, anticipate discharge to home when medically stable, case management following. Subjective Subjective Patient reports: no new complaints and pain is less Interval history since last seen: reports improvement in pain and swelling of left lower extremity. able to ambulate better, no fevers or chills, is eating and drinking well but c/o some tongue discomfort. states he had loose stools in am but improved during the day, voiding without difficulty Exam Const General: cooperative, comfortable, no acute distress, well developed, disheveled and other (older than stated age) Nutritional Appearance: average body habitus Orientation: alert, awake and oriented x3 HENMT Head: normal to inspection, normocephalic and atraumatic Mouth: tongue abnormal with white coating Chest Chest: normal inspection of the chest Resp Effort & Inspection: normal respiratory effort Auscultation: wheezes expiratory wheezes (scattered coarse, with good air movement) Cardio Rate: regular rate Rhythm: regular rhythm GI Inspection: normal to inspection Palpation: soft Auscultation: normal bowel sounds Skin Rashes: rashes noted (left lower, extending slightly above dressing. dressing clean and intact) Neuro General: alert, awake and oriented x3 Cranial Nerves: CN's II-XI intact bilaterally Extrem General: edema (reports improvement) Laterality: left Psych Mental Status: mental status grossly normal Speech and Movement: speech and movement normal Mood: congruent mood Affect: normal affect Attitude: cooperative Thought Process: normal Thought Content: normal Objective Objective Clinical Data: Abnormal lab results 08/17/19 08/17/19 Range/Units 06:31 06:31 RBC 4.02 L (4.50-6.00) m/cumm Hgb 12.2 L (13.5-17.5) g/dL Hct 35.5 L (40.0-50.0) % RDW 14.9 H (11.8-14.1) % Plt Count 92 L (130-400) x1000/uL MPV 11.3 H (8.0-11.0) fL Absolute Lymphocytes 0.35 L (1.2-3.4) k/cumm Glucose 201 H (74-106) mg/dL Calcium 8.4 L (8.5-10.1) mg/dL Magnesium 2.5 H (1.8-2.4) mg/dL C-Reactive Protein 16.44 H (0.0-0.3) mg/dL Vital Signs Temperature 36.7 C 08/17/19 15:27 Temperature Source Tympanic 08/17/19 15:27 Pulse 83 08/17/19 15:27 Pulse Rhythm Regular 08/17/19 13:30 Pulse 97 H 08/15/19 09:10 Respiratory Rate 08/17/19 15:27 Respiratory Effort Non-Labored 08/17/19 13:30 Respiratory Depth Normal 08/17/19 13:30 Respiratory Pattern Irregular 08/17/19 13:30 Blood Pressure 155/94 H 08/17/19 15:27 Blood Pressure Mean 116 08/15/19 11:00 Blood Pressure Position Sitting 08/15/19 07:15 Pulse Oximetry 93 L 08/17/19 15:27 Oxygen Delivery Method Room Air 08/17/19 15:27 Oxygen Flow Rate 0 08/17/19 15:27 Pain Level 0 08/17/19 15:27 Comment 08/17/19 07:29 Intake & Output 08/16/19 08/17/19 08/17/19 23:59 11:59 23:59 Intake Total 3141.667 / 6161.667 2150 / 2560 410 / 2560 Balance 3141.667 / 6161.667 2150 / 2560 410 / 2560 Weight 123.1 kg Intake: IV 1901.667 / 3001.667 550 / 600 50 / 600 Oral 1240 / 3160 1600 / 1960 360 / 1960 Other: Urine Color Yellow Urine Appearance Clear Clear Clear Comment Pt voiding independently in bathroom, flushing toilet. Denies GI/ issues. voids independently Voiding Methods Toilet Toilet Toilet Laboratory Results WBC 6.25 k/cumm (4.4-10.8) 08/17/19 06:31 RBC 4.02 m/cumm (4.50-6.00) L 08/17/19 06:31 Hgb 12.2 g/dL (13.5-17.5) L 08/17/19 06:31 Hct 35.5 % (40.0-50.0) L 08/17/19 06:31 MCV 88.3 fL (80-95) 08/17/19 06:31 MCH 30.3 pg (27.0-33.0) 08/17/19 06:31 MCHC 34.4 g/dL (32.0-36.0) 08/17/19 06:31 RDW 14.9 % (11.8-14.1) H 08/17/19 06:31 Plt Count 92 x1000/uL (130-400) L 08/17/19 06:31 MPV 11.3 fL (8.0-11.0) H 08/17/19 06:31 Immature Gran % 1.1 % 08/17/19 06:31 Neutrophils % 88.6 08/17/19 06:31 Band Neutrophils % 10.0 % 08/15/19 08:10 Lymphocytes % 5.6 08/17/19 06:31 Monocytes % 4.3 08/17/19 06:31 Eosinophils % 0.2 08/17/19 06:31 Basophils % 0.2 08/17/19 06:31 Absolute Neutrophils 5.54 k/cumm (1.2-6.7) 08/17/19 06:31 Absolute Lymphocytes 0.35 k/cumm (1.2-3.4) L 08/17/19 06:31 Absolute Monocytes 0.27 k/cumm (0.11-0.7) 08/17/19 06:31 Absolute Eosinophils 0.01 k/cumm (0.0-0.7) 08/17/19 06:31 Absolute Basophils 0.01 k/cumm (0.0-0.2) 08/17/19 06:31 Differential Comment Plt morph reviewed 08/16/19 06:20 RBC Morphology Normal 08/16/19 06:20 Polychromasia Present 08/15/19 08:10 Sodium 136 mmol/L (136-145) 08/17/19 06:31 Potassium 4.1 mmol/L (3.5-5.1) 08/17/19 06:31 Chloride 100 mmol/L (98-107) 08/17/19 06:31 Carbon Dioxide 29.3 mmol/L (21.0-32.0) 08/17/19 06:31 Anion Gap 6.7 mmol/L (3-11) 08/17/19 06:31 BUN 15 mg/dL (7-18) 08/17/19 06:31 Creatinine 0.79 mg/dL (0.70-1.30) 08/17/19 06:31 Estimated GFR/1.73 m2 >= 60.00 (mL/min/1.73m2) 08/17/19 06:31 Glucose 201 mg/dL (74-106) H 08/17/19 06:31 Lactate 1.5 mmol/L (0.6-1.4) H 08/16/19 08:10 Calcium 8.4 mg/dL (8.5-10.1) L 08/17/19 06:31 Magnesium 2.5 mg/dL (1.8-2.4) H 08/17/19 06:31 Total Bilirubin 1.8 mg/dL (0.2-1.0) H 08/15/19 08:10 AST 53 U/L (15-37) H 08/15/19 08:10 ALT 96 U/L (16-63) H 08/15/19 08:10 Alkaline Phosphatase 95 U/L (46-116) 08/15/19 08:10 Troponin I < 0.05 ng/Ml (<0.06) 08/15/19 10:25 C-Reactive Protein 16.44 mg/dL (0.0-0.3) H 08/17/19 06:31 NT-Pro-B Natriuret Pep 177 pg/mL (<300) 08/15/19 07:41 Total Protein 7.2 g/dL (6.4-8.2) 08/15/19 08:10 Albumin 3.5 g/dL (3.4-5.0) 08/15/19 08:10 Procalcitonin 0.7 ng/mL 08/15/19 10:25 TSH 0.52 uIU/mL (0.36-3.74) 08/16/19 06:20 Vancomycin Trough 19.4 ug/mL (10.0-20.0) 08/17/19 15:07
[2019-08-17] MEDS: Pantoprazole 40 MG VIAL IVP (17:01)
[2019-08-17] MEDS: Normal Saline Flush 10 ML SYR IVP ×2 (17:01→21:40)
[2019-08-17] MEDS: Nystatin 500000 UNITS/5 ML SUSP 5ML CUP PO ×2 (18:50→21:41)
[2019-08-17] MEDS: Insulin Glargine 300 UNITS/3 ML PEN 10 UNITS SC (21:40)
[2019-08-17] MEDS: LORazepam 1 MG TAB PO (21:43)
[2019-08-18] MEDS: PIPERACILLIN/TAZO 3.375 GM in Normal Saline 50 ML IVPB ×2 (04:23→10:49)
[2019-08-18] MEDS: LORazepam 1 MG TAB PO ×2 (04:23→12:03)
[2019-08-18] MEDS: Nystatin 500000 UNITS/5 ML SUSP 5ML CUP PO ×3 (05:47→13:59)
[2019-08-18] MEDS: Albuterol/Ipratropium 3 ML UPD VIAL UPD ×2 (05:48→12:09)
[2019-08-18 06:29] LABS: Abs Immature Grans 0.12 k/cumm (0.0-0.09); Absolute Lymphocyte Count 0.43 k/cumm (1.2-3.4); Absolute Monocyte Count 0.25 k/cumm (0.11-0.7); Absolute Neutrophil Count 4.03 k/cumm (1.2-6.7); HCT 36.4 % (40.0-50.0); HGB 12.2 g/dL (13.5-17.5); Immature Grans % 2.5 %; Lymphocytes % 8.9; Mean Corp. HGB Concentration 33.5 g/dL (32.0-36.0); Mean Corpuscular Hemoglobin 29.8 pg (27.0-33.0); Mean Platelet Volume 10.6 fL (8.0-11.0); Monocytes % 5.2; Neutrophils % 83.4; Platelet Count 132 x1000/uL (130-400); RBC 4.09 m/cumm (4.50-6.00); White Blood Cell Count 4.83 k/cumm (4.4-10.8)
[2019-08-18 06:34] LABS: Anion Gap 6.7 mmol/L (3-11); BUN 14 mg/dL (7-18); CO2 28.3 mmol/L (21.0-32.0); CREATININE 0.77 mg/dL (0.70-1.30); Calcium 8.1 mg/dL (8.5-10.1); Chloride 100 mmol/L (98-107); Glucose 197 mg/dL (74-106); Magnesium 2.4 mg/dL (1.8-2.4); Potassium 4.4 mmol/L (3.5-5.1); Sodium 135 mmol/L (136-145)
[2019-08-18] MEDS: Mylanta Suspension 30 ML CUP PO (06:54)
[2019-08-18] MEDS: Budesonide/Formoterol 160/4.5 6 GM 60 PUFF INH IH (07:36)
[2019-08-18 07:37] VITALS: O2SAT 98
[2019-08-18 07:39] VITALS: RESP 16
[2019-08-18 07:40] LABS: Procalcitonin 0.2 ng/mL
[2019-08-18 07:55] VITALS: BP 142/88; PULSE 76; RESP 20; TEMP 36.4; O2SAT 95
[2019-08-18] MEDS: Thiamine 100 MG TAB PO (08:01)
[2019-08-18] MEDS: Docusate Sodium 100 MG CAP PO (08:01)
[2019-08-18] MEDS: Folic Acid 1 MG TAB PO (08:02)
[2019-08-18] MEDS: Magnesium Oxide 400 MG TAB PO (08:02)
[2019-08-18] MEDS: Gabapentin 800 MG TAB PO ×2 (08:03→13:59)
[2019-08-18] MEDS: chlordiazePOXIDE 25 MG CAP PO ×2 (08:03→13:59)
[2019-08-18] MEDS: predniSONE 20 MG TAB 40 MG PO (08:03)
[2019-08-18] MEDS: Multivitamin TAB 1 TAB PO (08:03)
[2019-08-18] MEDS: Silver sulfaDIAZINE 1% 25 GM TUBE TP (08:04)
[2019-08-18] MEDS: Insulin Aspart 300 UNITS/3 ML PEN SC ×2 (08:08→11:52)
[2019-08-18] MEDS: Methadone Liquid 10 MG/ML 130 MG PO (08:13)
--- NOTE | 2019-08-18 10:12 | W.PM.DS.N ---
Documented by User: Destiny Cortez NP 08/18/19 13:45 Date of service: 08/18/19 Time of Service: 10:12 DS: Diagnosis Discharge Diagnosis (1) Sepsis: Status: Acute (2) Cellulitis of left lower extremity: Status: Acute (3) COPD with acute exacerbation: Status: Acute (4) DMII (diabetes mellitus, type 2): Status: Acute (5) EtOH dependence: Status: Acute (6) Opioid dependence: Status: Chronic (7) Nocturnal hypoxia: Status: Chronic Discharge Plan Disposition Patient Disposition: HOME Condition: Improving Discharge Details Chief Complaint: Cellulitis Reason For Visit: SEPSIS DUE TO CELLULITIS LLE Admit Date/Time: 08/15/19 10:01 Admit Provider: Wendy Robledo Attending Provider: Wendy Robledo Primary Care Provider: Milana Canales ED Provider: Clarisse Anand Hospital Course Hospital Course: Mr Maria is a 53 year old male with a past medical history of type 2 diabetes mellitus with a hemoglobin A1c of 6.7, chronic diastolic CHF, COPD, suspected ELLIOT, chronic hypoxic respiratory failure on 2.5 L of O2 at night, alcohol abuse with history of alcohol withdrawal and history of IV drug abuse abuse, now on methadone therapy through [facility], who presented to the ED for left lower extremity pain, swelling, and redness. Work-up in the emergency department included a venous doppler which ruled out a DVT. He was initiated on vancomycin, zosyn, and clindamycin in the ED after having blood cultures drawn. He was admitted to the medical surgical unit for further inpatient treatment and evaluation. He was seen by podiatry who did debride his nails imaging showed no evidence of osteomyelitis. He was also seen by general surgery and a CTA showed no evidence of peripheral artery disease. His erythema pain and swelling gradually improved. His inflammatory markers as well he has been afebrile he is eating drinking bowels and bladder functioning he is stable and is requesting discharge to home. I did discuss with him that I would like to try to down steps here in the hospital prior to discharge secondary to the degree of erythema that is still present. He insists that the erythema swelling and pain is markedly improved and insists that he will elevate at home and return sooner for new or worsening symptoms. Again I did tell him that I thought staying another day or 2 on IV might be prudent but again he really wants to be discharged today. I will discharge him home on Bactrim DS 2 tabs p.o. twice daily for 10 days and Augmentin 875 twice daily for 10 days He has been on IV steroids for COPD exacerbation and has been down stepped to oral which he will complete 4 more days then stop. He had no alcohol withdrawal symptoms while hospitalized. He will follow-up outpatient with primary care provider. Home Meds and New Rx's Prescriptions: New silver sulfadiazine 1 % Cream 0 g topical BID Qty: 1 RF: 0 nystatin 100,000 unit/mL Suspension 500,000 units PO 5X/DAY Qty: 240 RF: 0 sulfamethoxazole-trimethoprim 800-160 mg tablet 2 tab PO BID Qty: 40 RF: 0 amoxicillin-pot clavulanate [Augmentin] 875-125 mg tablet 1 tab PO BID Qty: 20 RF: 0 metformin 500 mg tablet 500 mg PO DAILY Qty: 30 RF: 0 prednisone 20 mg tablet See Rx Instructions .ROUTE .COMPLEX Qty: 6 RF: 0 Continued (DME) Oxygen Tank RF: 0 No Action methadone 40 mg Tablet,Soluble 130 mg PO DAILY RF: 0 gabapentin 800 mg Tablet 800 mg PO TID Qty: 60 RF: 0 docusate sodium [Colace] 100 mg Capsule 100 mg PO BID Qty: 60 RF: 0 thiamine mononitrate (vit B1) [Vitamin B-1 (mononitrate)] 100 mg Tablet 100 mg PO DAILY Qty: 30 RF: 0 pantoprazole [Protonix] 40 mg tablet,delayed release (DR/EC) 40 mg PO DAILY Qty: 30 RF: 0 albuterol sulfate [ProAir HFA] 90 mcg/actuation Hfa Aerosol Inhaler 2 puff INHALATION Q6H PRNRF: 0 Spiriva with HandiHaler 18 mcg Capsule, W/Inhalation Device 18 mcg INHALATION QDAY RF: 0 magnesium 200 mg Tablet 400 mg PO BID RF: 0 furosemide 40 mg Tablet 40 mg PO QDAY RF: 0 Advair HFA 115-21 mcg/actuation Hfa Aerosol Inhaler 2 puff INHALATION BID RF: 0 Discharge Instructions Instructions: Cellulitis (DC) Additional Instructions: take antibioitics as prescribed. call or return immediately for worsening symptoms elevate leg as much as possible during the day to keep swelling down wrap with vanessa wrap to help keep swelling down. Stand Alone Forms: Nursing Discharge Form Referrals: Milana Canales [Primary Care Provider] - 08/23/19 8:00 am Activity:: Activity as Tolerated Equipment/Supplies:: Blood Glucose Monitor Diet:: Carb Counting Discharge Orders Discharge Orders: Discharge Order (Routine); Ordered 08/18/19 Ordered By: Destiny Cortez Discharge Data Discharge Date/Time-TO BE ENTERED AT DEPARTURE: 08/18/19 14:42 DS: Summary Status at Discharge Functional status at discharge: independent ambulation Overall status at discharge: patient is progressing back to baseline Mental Status: mental status grossly normal Speech and Movement: speech and movement normal Mood: congruent mood Affect: normal affect Exam Narrative Exam Narrative: General: Obese white male, older appearing than stated age, In no acute distress: Neuro: A&Ox3, no focal deficits, not tremulous Psychiatric: Normal mood and affect Skin: LLE erythematous and edematus 2[address] to the knee, erythema that was tracking posteriorly on his LLE and up into his inner thigh has resolved; cracked left heel, but no obvious draining wound on L foot; cracked skin on several toes on LLE HEENT: Atraumatic, normocephalic, EOMI, Slightly dry oral mucosa with no exudate, clear oropharynx, Cardiovascular: RRR, No murmurs appreciated Lungs: Faint scattered wheezing on expiration Gastrointestinal: soft, nontender, nondistended Psych Mental Status: mental status grossly normal Speech and Movement: speech and movement normal Mood: congruent mood Affect: normal affect DS: Data Vitals/I&O Vitals and I&O: Vital Signs Temperature 36.4 C L 08/18/19 07:55 Temperature Source Tympanic 08/18/19 07:55 Pulse 76 08/18/19 07:55 Pulse Rhythm Regular 08/18/19 00:20 Pulse 97 H 08/15/19 09:10 Respiratory Rate 20 08/18/19 07:55 Respiratory Effort 08/18/19 08:36 Respiratory Depth Normal 08/18/19 08:36 Respiratory Pattern Normal 08/18/19 08:36 Blood Pressure 142/88 H 08/18/19 07:55 Blood Pressure Mean 116 08/15/19 11:00 Blood Pressure Position Sitting 08/15/19 07:15 Pulse Oximetry 95 08/18/19 07:55 Oxygen Delivery Method Room Air 08/18/19 07:55 Oxygen Flow Rate 0 08/18/19 07:55 Pain Level 5 08/18/19 08:35 Comment 08/17/19 07:29 Intake & Output 08/17/19 08/17/19 08/18/19 11:59 23:59 11:59 Intake Total 2650 / 3660 1010 / 3660 1530 / 1530 Balance 2650 / 3660 1010 / 3660 1530 / 1530 Weight 123.1 kg Intake: IV 1050 / 1700 650 / 1700 1050 / 1050 Oral 1600 / 1960 360 / 1960 480 / 480 Other: Urine Color Yellow Urine Appearance Clear Clear Clear Urine Odor Normal Comment Pt voiding independently in bathroom, flushing toilet. Denies GI/ issues. voids independently Stool Size Large Voiding Methods Toilet Toilet Data Completed and Pending Labs on day of discharge: Labs from last 24 hours 08/18/19 08/18/19 08/18/19 06:04 06:04 06:04 WBC 4.83 RBC 4.09 L Hgb 12.2 L Hct 36.4 L MCV 89.0 MCH 29.8 MCHC 33.5 RDW 15.0 H Plt Count 132 MPV 10.6 Immature Gran % 2.5 Neutrophils % 83.4 Lymphocytes % 8.9 Monocytes % 5.2 Eosinophils % 0.0 Basophils % 0.0 Absolute Neutrophils 4.03 Absolute Lymphocytes 0.43 L Absolute Monocytes 0.25 Absolute Eosinophils 0.00 Absolute Basophils 0.00 Sodium 135 L Potassium 4.4 Chloride 100 Carbon Dioxide 28.3 Anion Gap 6.7 BUN 14 Creatinine 0.77 Estimated GFR/1.73 m2 >= 60.00 Glucose 197 H Calcium 8.1 L Magnesium 2.4 Procalcitonin 0.2 Vancomycin Trough 08/17/19 15:07 WBC RBC Hgb Hct MCV MCH MCHC RDW Plt Count MPV Immature Gran % Neutrophils % Lymphocytes % Monocytes % Eosinophils % Basophils % Absolute Neutrophils Absolute Lymphocytes Absolute Monocytes Absolute Eosinophils Absolute Basophils Sodium Potassium Chloride Carbon Dioxide Anion Gap BUN Creatinine Estimated GFR/1.73 m2 Glucose Calcium Magnesium Procalcitonin Vancomycin Trough 19.4 Preliminary micro results at discharge 08/17/19 06:31 Blood Culture - Preliminary Blood NO GROWTH 24 HOURS 08/17/19 06:45 Blood Culture - Preliminary Blood NO GROWTH 24 HOURS 08/15/19 07:50 Blood Culture - Preliminary Blood Staph Sp., Not Aureus 08/15/19 08:10 Blood Culture - Preliminary Blood NO GROWTH 48 HOURS PFSH Medical History Anxiety disorder (Chronic) Chronic diastolic CHF (congestive heart failure) (Acute) Chronic respiratory failure with hypoxia (Acute) COPD (chronic obstructive pulmonary disease) (Chronic) DMII (diabetes mellitus, type 2) (Acute) ETOH abuse (Chronic) EtOH dependence (Acute) Hepatic steatosis (Acute) 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) Nocturnal hypoxia (Chronic) Obesity (BMI 30-39.9) (Acute) Obstructive sleep apnea (Suspected) Opioid dependence (Chronic) on methadone Thrombocytopenia (Chronic) Tobacco abuse (Chronic) Surgical History History of mandibular surgery (Acute) S/P nasal surgery (Acute) Family History Father Diabetes Brother Cancer lung cancer - smoker Social History Smoking/Tobacco Use Status: Current every day Tobacco Type: cigarettes Alcohol Intake: current Alcohol Intake frequency: 3 or more drinks per day Alcohol type: beer Drug use: Current Sobriety Details: methadone clinic Do you feel safe at home: Yes Do you feel safe in your relationship?: Yes Documented by User: Wendy Robledo MD 08/18/19 15:09 Discharge Plan Disposition Patient Disposition: HOME Condition: Improving Discharge Details Chief Complaint: Cellulitis Reason For Visit: SEPSIS DUE TO CELLULITIS LLE Admit Date/Time: 08/15/19 10:01 Admit Provider: Wendy Robledo Attending Provider: Wendy Robledo Primary Care Provider: Milana Canales ED Provider: Clarisse Anand [facility] Hospital Course Hospital Course: Mr Maria is a 53 year old male with a past medical history of type 2 diabetes mellitus with a hemoglobin A1c of 6.7, chronic diastolic CHF, COPD, suspected ELLIOT, chronic hypoxic respiratory failure on 2.5 L of O2 at night, alcohol abuse with history of alcohol withdrawal and history of IV drug abuse abuse, now on methadone therapy through [facility], who presented to the ED for left lower extremity pain, swelling, and redness. Work-up in the emergency department included a venous doppler which ruled out a DVT. He was initiated on vancomycin, zosyn, and clindamycin in the ED after having blood cultures drawn. He was admitted to the medical surgical unit for further inpatient treatment and evaluation. He was seen by podiatry who did debride his nails imaging showed no evidence of osteomyelitis. He was also seen by general surgery and a CTA showed no evidence of peripheral artery disease. His erythema pain and swelling gradually improved. His inflammatory markers as well he has been afebrile he is eating drinking bowels and bladder functioning he is stable and is requesting discharge to home. I did discuss with him that I would like to try to down steps here in the hospital prior to discharge secondary to the degree of erythema that is still present. He insists that the erythema swelling and pain is markedly improved and insists that he will elevate at home and return sooner for new or worsening symptoms. Again I did tell him that I thought staying another day or 2 on IV might be prudent but again he really wants to be discharged today. I will discharge him home on Bactrim DS 2 tabs p.o. twice daily for 10 days and Augmentin 875 twice daily for 10 days He has been on IV steroids for COPD exacerbation and has been down stepped to oral which he will complete 4 more days then stop. He had no alcohol withdrawal symptoms while hospitalized. He will follow-up outpatient with primary care provider. Home Meds and New Rx's Prescriptions: New silver sulfadiazine 1 % Cream 0 g topical BID Qty: 1 RF: 0 nystatin 100,000 unit/mL Suspension 500,000 units PO 5X/DAY Qty: 240 RF: 0 sulfamethoxazole-trimethoprim 800-160 mg tablet 2 tab PO BID Qty: 40 RF: 0 amoxicillin-pot clavulanate [Augmentin] 875-125 mg tablet 1 tab PO BID Qty: 20 RF: 0 metformin 500 mg tablet 500 mg PO DAILY Qty: 30 RF: 0 prednisone 20 mg tablet See Rx Instructions .ROUTE .COMPLEX Qty: 6 RF: 0 Continued (DME) Oxygen Tank RF: 0 No Action methadone 40 mg Tablet,Soluble 130 mg PO DAILY RF: 0 gabapentin 800 mg Tablet 800 mg PO TID Qty: 60 RF: 0 docusate sodium [Colace] 100 mg Capsule 100 mg PO BID Qty: 60 RF: 0 thiamine mononitrate (vit B1) [Vitamin B-1 (mononitrate)] 100 mg Tablet 100 mg PO DAILY Qty: 30 RF: 0 pantoprazole [Protonix] 40 mg tablet,delayed release (DR/EC) 40 mg PO DAILY Qty: 30 RF: 0 albuterol sulfate [ProAir HFA] 90 mcg/actuation Hfa Aerosol Inhaler 2 puff INHALATION Q6H PRNRF: 0 Spiriva with HandiHaler 18 mcg Capsule, W/Inhalation Device 18 mcg INHALATION QDAY RF: 0 magnesium 200 mg Tablet 400 mg PO BID RF: 0 furosemide 40 mg Tablet 40 mg PO QDAY RF: 0 Advair HFA 115-21 mcg/actuation Hfa Aerosol Inhaler 2 puff INHALATION BID RF: 0 Discharge Instructions Instructions: Cellulitis (DC) Additional Instructions: take antibioitics as prescribed. call or return immediately for worsening symptoms elevate leg as much as possible during the day to keep swelling down wrap with vanessa wrap to help keep swelling down. Stand Alone Forms: Nursing Discharge Form Referrals: Milana Canales [Primary Care Provider] - 08/23/19 8:00 am Activity:: Activity as Tolerated Equipment/Supplies:: Blood Glucose Monitor Diet:: Carb Counting Discharge Orders Discharge Orders: Discharge Order (Routine); Ordered 08/18/19 Ordered By: Destiny Cortez Discharge Data Discharge Date/Time-TO BE ENTERED AT DEPARTURE: 08/18/19 14:42 [facility] Medical History Anxiety disorder (Chronic) Chronic diastolic CHF (congestive heart failure) (Acute) Chronic respiratory failure with hypoxia (Acute) COPD (chronic obstructive pulmonary disease) (Chronic) DMII (diabetes mellitus, type 2) (Acute) ETOH abuse (Chronic) EtOH dependence (Acute) Hepatic steatosis (Acute) 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) Nocturnal hypoxia (Chronic) Obesity (BMI 30-39.9) (Acute) Obstructive sleep apnea (Suspected) Opioid dependence (Chronic) on methadone Thrombocytopenia (Chronic) Tobacco abuse (Chronic) Surgical History History of mandibular surgery (Acute) S/P nasal surgery (Acute) Family History Father Diabetes Brother Cancer lung cancer - smoker Social History Smoking/Tobacco Use Status: Current every day Tobacco Type: cigarettes Alcohol Intake: current Alcohol Intake frequency: 3 or more drinks per day Alcohol type: beer Drug use: Current Sobriety Details: methadone clinic Do you feel safe at home: Yes Do you feel safe in your relationship?: Yes
[2019-08-18 11:14] VITALS: BP 160/106; PULSE 76; RESP 18; TEMP 36.4; O2SAT 95
[2019-08-18 12:09] VITALS: PULSE 89; RESP 16; RESP 4; RESP 5; O2SAT 98
[2019-08-18 12:10] VITALS: PULSE 92; RESP 16; RESP 5; O2SAT 99
--- NOTE | 2019-08-18 12:19 | CMDISCH_ITS ---
- If Service Date Differs Date of service: 08/18/19 Time of Service: 12:19 LACE Index Scoring Tool - Questions: Length of Stay (in days): 4 - 6 Acuity (Admit via E.D.?): Yes Comorbidities: Diabetes w/o Complication, Congestive Heart Failure, Chronic Pulmonary Disease E.D. Visits: 2 - Answers: Total Score: 14 Risk of Readmission: High Risk Care Management Discharge Reason for Hospitalization: Sepsis due to Cellulitis LLE Discharge Plan: Allen will return home with no additional services. CM sent a referral to [facility], who will connect him with [facility] to receive support with SSI applications. CM will coordinate transportation via [facility] private vehicle for him to return home. He will follow up with his PCP and discharge plan of care. Patient/Family Education Needs: Review discharge instructions regarding activity levels and medications, discussion of self care needs including ask me three and goals of care. Services Needed at Discharge: Transportation (RCT p/v)
== END 2019-08-18 14:42 | disposition home or self-care (01) | DRG 872 ==
LOC: ER 10:28 → MS 11:20
PROVIDERS: Admitting Provider Internal Medicine; Emergency Provider Student in an Organized Health Care Education/Training Program; PCP Nurse Practitioner Family; Visit Provider Internal Medicine
DX: A41.9 Sepsis, unspecified organism (principal); L03.116 Cellulitis of left lower limb; J44.1 Chronic obstructive pulmonary disease with (acute) exacerbation; F11.20 Opioid dependence, uncomplicated; I50.32 Chronic diastolic (congestive) heart failure; J96.11 Chronic respiratory failure with hypoxia; L85.3 Xerosis cutis; R23.4 Changes in skin texture; L60.3 Nail dystrophy; B35.1 Tinea unguium; E11.42 Type 2 diabetes mellitus with diabetic polyneuropathy; F10.20 Alcohol dependence, uncomplicated; G47.33 Obstructive sleep apnea (adult) (pediatric); F19.11 Other psychoactive substance abuse, in remission; F17.210 Nicotine dependence, cigarettes, uncomplicated; E66.9 Obesity, unspecified; Z68.36 Body mass index [BMI] 36.0-36.9, adult; D69.6 Thrombocytopenia, unspecified; R59.0 Localized enlarged lymph nodes; Z71.3 Dietary counseling and surveillance
CPT/HCPCS: 36415; 75635; 80048; 80053; 84145; 87040; 87077; 93005; 94640; 96361; 96365; 96366; 96367; 99223; 99231; 99232; 99239; 99253; 99285; 71045; 73590; 73620; 80202; 83605; 83735; 83880; 84443; 84484; 85025; 86140; 87070; 87205; 93010; 93971; J2543; J2930; J3370; J3490; J7512; J7620

== ENCOUNTER 2019-08-22 06:17 | Inpatient (IN) | payer MEDICAID, SELFPAY ==
[2019-08-22] VITALS (28 sets, daily range): BP systolic 120–184; BP diastolic 77–102; PULSE 83–129; RESP 2–28; TEMP 36.5–37.2; O2SAT 87–97
--- NOTE | 2019-08-22 05:15 | DI.RAD_ITS ---
EXAM: XR PORTABLE CHEST AP CLINICAL HISTORY: shortness of breath COMPARISON: XR PORTABLE CHEST AP from 05/15/2019 XR PORTABLE CHEST AP from 08/15/2019 FINDINGS: Portable AP chest was obtained. There is mild elevation of the diaphragm on the right which has been present on multiple previous examinations. Linear areas of increased radiodensity in right lung bas e are consistent with atelectasis, present on prior film of 08/15 but not present on prior film of . Patchy bilateral areas of increased radiodensity noted in the perihilar areas bilaterally, most prominent left upper lung field, suggestive of pneumonia but asymmetric pulmonary edema not enti rely excluded. IMPRESSION: Patchy bilateral acute infiltrates, left greater than right. Please see above discussion. Suspiciou s for pneumonia.
--- NOTE | 2019-08-22 05:48 | ED.GENADUL_ITS ---
Discharge Plan Disposition Patient Disposition: [facility] INPATIENT Condition: Stable Discharge Details Chief Complaint: RespSymp Clinical Impression: COPD with acute exacerbation, Cellulitis of left lower extremity Primary Care Provider: Milana Canales ED Provider: Og Poole Home Meds and New Rx's Prescriptions: No Action methadone 40 mg Tablet,Soluble 130 mg PO DAILY RF: 0 gabapentin 800 mg Tablet 800 mg PO TID Qty: 60 RF: 0 docusate sodium [Colace] 100 mg Capsule 100 mg PO BID Qty: 60 RF: 0 thiamine mononitrate (vit B1) [Vitamin B-1 (mononitrate)] 100 mg Tablet 100 mg PO DAILY Qty: 30 RF: 0 pantoprazole [Protonix] 40 mg tablet,delayed release (DR/EC) 40 mg PO DAILY Qty: 30 RF: 0 albuterol sulfate [ProAir HFA] 90 mcg/actuation Hfa Aerosol Inhaler 2 puff INHALATION Q6H PRNRF: 0 (DME) Oxygen Tank RF: 0 Spiriva with HandiHaler 18 mcg Capsule, W/Inhalation Device 18 mcg INHALATION QDAY RF: 0 magnesium 200 mg Tablet 400 mg PO BID RF: 0 furosemide 40 mg Tablet 40 mg PO QDAY RF: 0 Advair HFA 115-21 mcg/actuation Hfa Aerosol Inhaler 2 puff INHALATION BID RF: 0 silver sulfadiazine 1 % Cream 0 g topical BID Qty: 1 RF: 0 nystatin 100,000 unit/mL Suspension 500,000 units PO 5X/DAY Qty: 240 RF: 0 sulfamethoxazole-trimethoprim 800-160 mg tablet 2 tab PO BID Qty: 40 RF: 0 amoxicillin-pot clavulanate [Augmentin] 875-125 mg tablet 1 tab PO BID Qty: 20 RF: 0 metformin 500 mg tablet 500 mg PO DAILY Qty: 30 RF: 0 prednisone 20 mg tablet See Rx Instructions .ROUTE .COMPLEX Qty: 6 RF: 0 Medical Decision Making <Michael Gill MD - Last Filed: 08/22/19 07:11> 53 yo male with hx of copd, larisa supposed to be on home o2 at night, diastolic heart failure, dm2, who just left the [facility] on 08/18 for left leg cellulitis comes in with increased redness, swelling and discomfort in the left leg as well as shortness of breath. He states he was planning on coming to the ED today after he went to [facility] for the increased redness and swelling, but woke up this morning short of breath so called ems who gave him two duoneb and he states he feels better with his breathing, forgot to wear his home o2 as he is supposed to. he denies fevers or severe pain. He is talking in full sentences, has apical wheezing bilaterally and diminished breath sounds at the bases. His entire left leg from the knee down is red, swollen and warm, no severe pain to touch. Suspect recurrent cellulitis. Had negative xrays for osteo during last admission and also negative cta and u/s of the leg. Will repeat foot xray, obtain labs and monitor. Suspect his shortness of breath is multifactorial due to his copd and also not wearing his o2. NO chest pain or pressure and no significant b lines on bedside u/s so doubt chf pt remains hd stable, mild sinus tachycardia at rate of 110. labs show lactate of 2.0 otherwise reassuring lab work, crp over 3 down from last admission and procalcitonin reassuring. Will treat as cellulitis as it did improve with IV abx last time but could also be lymphedema. Will admit for cellulitis and also copd Differential Diagnosis Differential Diagnosis: cellulitis, copd, larisa Medical Records Medical records reviewed: Yes I reviewed the patient's medical records. Imaging Data Radiologic Study: Attestation: I personally reviewed and interpreted this imaging study as follows: Imaging: X-Ray Radiologist's impression: IMPRESSION: Patchy interstitial prominence noted which is nonspecific involving predominantly central lungs more prominent on the left than on the right.. Radiologic Study #2: Attestation: I personally reviewed and interpreted this imaging study as follows: Imaging: X-Ray Radiologist's impression: Diffuse soft tissue swelling of the left foot noted . Lab Data Lab results reviewed: Yes I reviewed the patient's lab results. ECG Data Attestation: I personally reviewed and interpreted this ECG (s) as follows: Prior ECG tracings: not available for review Interpretation: sinus tachycardia rate of 129, pr 132, qtc 434 <Og Poole DO - Last Filed: 08/22/19 08:11> 53-year-old male with a past medical history of CHF, COPD, recent left lower extremity cellulitis who left prior to recommended discharge date less than 3 days ago, was signed out to me by my colleague Dr. Gill pending admission to the hospitalist. Please refer to his HPI, assessment and plan in initial documentation. At time of handoff a troponin was ordered but had not yet resulted. Pending callback from the hospitalist. Hospitalist did call, I spoke with Dr. Amaro, he agrees with the assessment and plan recommendations for admission. After handoff with my colleague Dr. Gill I did personally reevaluate and reassess the patient. Bedside ultrasound shows a very small trace pericardial effusion with potential minimal small fat pad. No signs of pericardial tamponade whatsoever or significant hypokinesis. Bedside pulmonary ultrasound shows evidence of minimal B-lines. He otherwise appears clinically stable at this time, heart rate has improved to 105. Vancomycin will be continued. I do suspect he has a combination of minimal/mild CHF, in conjunction with COPD, and continued cellulitis that is minimally improving. I did discuss with the hospitalist potential for DVT especially that at this time he appears clinically inconsistent with this is his minimal chest pressure has completely improved/resolved with the breathing treatments that he received. However it does remain in the differential. We will get a repeat ultrasound of his left lower extremity. I have extensively reviewed the treatment plan with the patient. I have addressed all patient concerns at this time. I have also discussed the plan with the admitting physician and they agree with the current assessment and plan and have agreed to assume responsibility for the patient. All parties demonstrate verbal understanding and agreement with our assessment and plan at this time. HPI <Michael Gill MD - Last Filed: 08/22/19 07:11> General Mode of arrival: EMS . Date/Time Provider Initiated Documentation: 08/22/19 06:20 . Limitations to Documentation: no limitations . Information obtained by: patient . History of Present Illness 53 year old M presents to the emergency department with the chief complaint of left leg increased redness and swelling, described as moderate, Patient started experiencing this week(s) (1) and it has been constant. No relieving factors improve symptom(s), No exacerbating factors reported . Related Data Home Medications Medication Instructions Recorded Confirmed methadone 130 mg PO DAILY 05/12/19 08/22/19 docusate sodium [Colace] 100 mg PO BID #60 cap 05/18/19 08/22/19 gabapentin 800 mg PO TID #60 tab 05/18/19 08/22/19 pantoprazole [Protonix] 40 mg PO DAILY #30 tab 05/18/19 08/22/19 thiamine mononitrate (vit B1) 100 mg PO DAILY #30 tab 05/18/19 08/22/19 [Vitamin B-1 (mononitrate)] Oxygen 08/15/19 08/15/19 albuterol sulfate [ProAir HFA] 2 puff INHALATION Q6H PRN 08/15/19 08/22/19 fluticasone propion-salmeterol 2 puff INHALATION BID 08/15/19 08/22/19 [Advair HFA] furosemide 40 mg PO QDAY 08/15/19 08/22/19 magnesium 400 mg PO BID 08/15/19 08/22/19 tiotropium bromide [Spiriva with 18 mcg INHALATION QDAY 08/15/19 08/22/19 HandiHaler] amoxicillin-pot clavulanate 1 tab PO BID #20 tab 08/18/19 08/22/19 [Augmentin] metformin 500 mg PO DAILY #30 tab 08/18/19 08/22/19 nystatin 500,000 units PO 5X/DAY #240 ml 08/18/19 08/22/19 prednisone See Rx Instructions .ROUTE 08/18/19 08/22/19 .COMPLEX #6 tab silver sulfadiazine 0 g TOPICAL BID #1 g 08/18/19 08/22/19 sulfamethoxazole-trimethoprim 2 tab PO BID #40 tab 08/18/19 08/22/19 Previous Rx's Medication Instructions Recorded docusate sodium [Colace] 100 mg PO BID #60 cap 05/18/19 gabapentin 800 mg PO TID #60 tab 05/18/19 pantoprazole [Protonix] 40 mg PO DAILY #30 tab 05/18/19 thiamine mononitrate (vit B1) 100 mg PO DAILY #30 tab 05/18/19 [Vitamin B-1 (mononitrate)] amoxicillin-pot clavulanate 1 tab PO BID #20 tab 08/18/19 [Augmentin] metformin 500 mg PO DAILY #30 tab 08/18/19 nystatin 500,000 units PO 5X/DAY #240 ml 08/18/19 prednisone See Rx Instructions .ROUTE 08/18/19 .COMPLEX #6 tab silver sulfadiazine 0 g TOPICAL BID #1 g 08/18/19 sulfamethoxazole-trimethoprim 2 tab PO BID #40 tab 08/18/19 Allergies Allergy/AdvReac Type Severity Reaction Status Date / Time No Known Allergies Allergy Unverified 08/15/19 07:25 General KAYLEIGH: 2 Review of Systems <Michael Gill MD - Last Filed: 08/22/19 07:11> All systems reviewed & are unremarkable except as noted in HPI and below Constitutional Constitutional: Denies chills and Denies fever(s) Cardiovascular Cardiovascular: Denies chest pain and Denies dyspnea Respiratory Respiratory: Denies cough and Denies dyspnea Gastrointestinal Gastrointestinal: Denies abdominal pain, Denies nausea and Denies vomiting Psychiatric Psychiatric: Denies depression PFSH <Michael Gill MD - Last Filed: 08/22/19 07:11> Social History Smoking/Tobacco Use Status: Current every day Tobacco Type: cigarettes Alcohol Intake: current Alcohol Intake frequency: 3 or more drinks per day Alcohol type: beer Drug use: Current Sobriety Details: methadone clinic Do you feel safe at home: Yes Do you feel safe in your relationship?: Yes Exam <Michael Gill MD - Last Filed: 08/22/19 07:11> Const General: no acute distress Orientation: alert HENTX Head: normal to inspection Ears: external ears normal General nose exam: external nose normal Mouth: moist mucous membranes Eyes General: appearance normal, both eyes and all related structures Neck Neck: normal visual inspection Resp Effort & Inspection: normal respiratory effort and able to speak in complete sentences Cardio Rate: tachycardic Skin General skin exam: no rashes or lesions noted Neuro General: alert and oriented x3 Extrem General: normal to inspection Psych Mental Status: mental status grossly normal Course <Michael Gill MD - Last Filed: 08/22/19 07:11> Lab/Test Results Lab/Test Results: 08/22/19 05:17 Blood Blood Culture - Pending 08/22/19 05:17 Blood Blood Culture - Pending Sign Out <Michael Gill MD - Last Filed: 08/22/19 07:11> Sign Out Data: Sign Out Comment: follow up troponin likely admission Last updated by Michael Gill MD at 08/22/19 07:24
[2019-08-22 06:07] LABS: BE (Venous) 8.5 mmol/L (-3-3); HCO3 (Venous) 34 mmol/L (22-28); O2 Sat (Venous) 60 % (70-80); TCO2 (Venous) 30 mmol/L (22-29); pCO2 (Venous) 58 mm/Hg (34-47); pH (Venous) 7.37 (7.35-7.45); pO2 (Venous) 34 mm/Hg (28-44)
--- NOTE | 2019-08-22 06:10 | DI.RAD_ITS ---
EXAM: XR FOOT LT COMPLETE CLINICAL HISTORY: ?osteomyelitis TECHNIQUE: COMPARISON: XR FOOT LT LIMITED from 08/15/2019 FINDINGS: Three views were obtained. There is diffuse soft tissue swelling of the foot. No focal erosive or d estructive lesion seen. If there is clinical suspicion of osteomyelitis additional evaluation with M RI may be considered. IMPRESSION:
[2019-08-22 06:12] LABS: Abs Immature Grans 0.64 k/cumm (0.0-0.09); HCT 43.1 % (40.0-50.0); HGB 14.5 g/dL (13.5-17.5); Mean Corp. HGB Concentration 33.6 g/dL (32.0-36.0); Mean Platelet Volume 9.7 fL (8.0-11.0); Platelet Count 217 x1000/uL (130-400); RBC 4.84 m/cumm (4.50-6.00); RBC Distribution Width 15.1 % (11.8-14.1); White Blood Cell Count 8.14 k/cumm (4.4-10.8)
--- NOTE | 2019-08-22 06:20 | DI.VRAD_ITS ---
PROCEDURE INFORMATION: Exam: XR Chest, 1 View Exam date and time: 08/22/2019 6:01 AM Age: 53 years old Clinical indication: Shortness of breath TECHNIQUE: Imaging protocol: XR of the chest Views: 1 view. COMPARISON: No relevant prior studies available. FINDINGS: Lungs: Linear atelectasis noted at the right lung base Patchy interstitial prominence noted which is nonspecific involving predominantly central lungs more prominent on the left than on the right.. Pleural space: Unremarkable. No pleural effusion. No pneumothorax. Heart/Mediastinum: Unremarkable. No cardiomegaly. Bones/joints: Unremarkable. IMPRESSION: Patchy interstitial prominence noted which is nonspecific involving predominantly central lungs more prominent on the left than on the right.. Dictated and Authenticated by: Angelo Vega MD. Ordering:JACKELYN Rodriguez MD
[2019-08-22 06:21] LABS: ETHANOL BLOOD < 3.0 mg/dL (<3)
[2019-08-22 06:25] LABS: INR 1.1 (0.9-1.1); PTT Activated 22.8 sec (21.0-31.4); Prothrombin Time 10.9 sec (9.3-11.0)
[2019-08-22] MEDS: Normal Saline 1,000 ML 1000 ML IV (06:27)
[2019-08-22] MEDS: VANCOMYCIN 1,000 MG in Normal Saline 250 ML 166.6666 MG IVPB (06:27)
[2019-08-22] MEDS: Normal Saline Flush 10 ML SYR IVP ×2 (06:27→20:23)
[2019-08-22] MEDS: methylPREDNISolone SUCC 125 MG VIAL IVP (06:27)
--- NOTE | 2019-08-22 06:27 | DI.VRAD_ITS ---
PROCEDURE INFORMATION: Exam: XR Left Foot Complete Exam date and time: 08/22/2019 6:04 AM Age: 53 years old Clinical indication: Pain; Foot; Left; Patient HX: ? Osteomyelitis, swelling, redness TECHNIQUE: Imaging protocol: XR Left foot. Views: 3 or more views. COMPARISON: CR XR FOOT LT LIMITED 08/15/2019 8:31 AM FINDINGS: Bones/joints: Normal. Soft tissues: Diffuse soft tissue swelling of the left foot noted . IMPRESSION: Diffuse soft tissue swelling of the left foot noted . Dictated and Authenticated by: Angelo Vega MD. Ordering:JACKELYN Rodriguez MD
[2019-08-22 06:33] LABS: ALT 102 U/L (16-63); AST 45 U/L (15-37); Albumin 3.1 g/dL (3.4-5.0); Alkaline Phosphatase 92 U/L (46-116); Anion Gap 4.5 mmol/L (3-11); BUN 10 mg/dL (7-18); Bilirubin, Total 0.5 mg/dL (0.2-1.0); CO2 32.5 mmol/L (21.0-32.0); CREATININE 1.01 mg/dL (0.70-1.30); Calcium 8.2 mg/dL (8.5-10.1); Chloride 94 mmol/L (98-107); Glucose 192 mg/dL (74-106); Magnesium 1.9 mg/dL (1.8-2.4); NT-proBNP 220 pg/mL (<300); Potassium 4.3 mmol/L (3.5-5.1); Sodium 131 mmol/L (136-145); Total Protein 7.3 g/dL (6.4-8.2)
[2019-08-22 06:35] LABS: C-Reactive Protein 3.58 mg/dL (0.0-0.3)
--- NOTE | 2019-08-22 06:40 | NUR.NOTE ---
ANDRES Vargas from [facility] c/o SOB. Pt DC rom this facility AMA on 08/19 s/p LLE cellulitis. Sent home on PO abx. Today feeling acutely SOB. Has home O2, supposed to use 2.5L continuously. Has not worn for several days. Did not use O2 when felt SOB, because i didn't feel good. Also notes continued redness to LLE. Per EMS RA sat 84% on their arrival. Placed on O2 NC on arrival to the ED, sats to low 90's. insp/exp wheezes throughout. US guided IV to RUE placed by MD Gill. Labs drawn. ST on monitor. Reports PRIEST.
[2019-08-22 06:45] LABS: Absolute Lymphocyte Count 0.33 k/cumm (1.2-3.4); Absolute Monocyte Count 0.65 k/cumm (0.11-0.7); Absolute Neutrophil Count 6.67 k/cumm (1.2-6.7); Diff Comment Manual Differential
[2019-08-22 06:46] LABS: Anisocytosis 1+
--- NOTE | 2019-08-22 06:47 | NUR.NOTE ---
3+ pitting edema to LLE, +PP. LLE red, hot to touch, weeping scant amount of serous drainage in area below knee. RLE +pp.
[2019-08-22 07:04] LABS: Procalcitonin 0.2 ng/mL
[2019-08-22 07:22] LABS: ESR 21 mm/hr (1-20)
--- NOTE | 2019-08-22 07:45 | DI.US_ITS ---
EXAM: US LOWER EXTREMITY VENOUS LT US LOWER EXTREMITY VENOUS LT CLINICAL HISTORY: swelling, cellulitis, r/o DVT. swelling, cellulitis, r/o DVT TECHNIQUE: Ultrasound performed using standard protocol. COMPARISON: US LOWER EXTREMITY VENOUS LT from 08/15/2019 FINDINGS: Duplex venous ultrasound was performed according to the usual protocol. The deep veins are freely com pressible throughout and there is normal flow augmentation with manual calf compression. 2D and Doppl er evaluation are unremarkable. IMPRESSION: No evidence of deep venous thrombosis of the lower extremity DATA REPOSITORY:
[2019-08-22 08:11] LABS: Troponin I < 0.05 ng/Ml (<0.06)
[2019-08-22] MEDS: Normal Saline 1,000 ML 150 ML IV ×2 (08:40→18:29)
[2019-08-22] MEDS: Albuterol/Ipratropium 3 ML UPD VIAL UPD ×3 (10:33→19:54)
[2019-08-22 10:42] LABS: Troponin I 0.05 ng/Ml (<0.06)
--- NOTE | 2019-08-22 10:56 | HPE_ITS ---
Date of service: 08/22/19 Time of Service: 10:56 Assessment and Plan Assessment and plan (1) HCAP (healthcare-associated pneumonia): Status: Acute Assessment and plan: Patient presents with new onset cough for the last 3 to 4 days along with new infiltrates on his chest x-ray. Given his recent hospi talization presumption is that he has a healthcare acquired pneumonia. Patient will continue to be treated with vancomycin and clindamycin for cellulitis of his left leg and Zosyn has been added for respiratory pathogens. Patient be given IV corticosteroids for his COPD exacerbation along with aerosolized bronchodilators and supplemental oxygen. (2) Cellulitis of left lower extremity: Status: Acute Assessment and plan: Continue vancomycin and will add Zosyn and clindamycin to his regimen. Zosyn was added in particular for coverage of respiratory pathogens in light of his pneumonia (3) COPD with acute exacerbation: Status: Acute Assessment and plan: As above (4) DMII (diabetes mellitus, type 2): Status: Acute Assessment and plan: Will refrain from use of the Metformin given his recent history of diarrhea. We will cover him with insulin per sliding scale. Monitor blood sugars before meals and at bedtime. We will change his diet to a cardiac/diabetic diet Qualifiers: Diabetes mellitus group home insulin use: without terminal operator use Diabetes mellitus complication status: without complication Qualified Code(s): E11.9 - Type 2 diabetes mellitus without complications (5) EtOH dependence: Status: Acute Assessment and plan: We will monitor for acute alcohol withdrawal with CIWA scale. However patient was hospitalized for 3 to 4 days last time without evidence of acute alcohol withdrawal Qualifiers: Substance use status: uncomplicated Qualified Code(s): F10.20 - Alcohol dependence, uncomplicated (6) Obstructive sleep apnea: Status: Suspected Assessment and plan: Will order CPAP at night. He has been suspected of having ELLIOT but says that he has not had a formal work-up (7) Opioid dependence: Status: Chronic Assessment and plan: We will continue his usual dose of methadone which was confirmed by nursing staff per their discussion with [facility] Qualifiers: Substance use status: uncomplicated Qualified Code(s): F11.20 - Opioid dependence, uncomplicated History of Present Illness History of Present Illness Chief Complaint: Dyspnea Narrative: 53-year-old male with a history of COPD, diastolic heart failure, type 2 diabetes mellitus who is a smoker of 1 pack a day for the last 10 years, former IV drug user currently clean for the last 6 years on chronic methadone treatment who was hospitalized at [facility] from August 15 through August 18, 2019 with left lower extremity cellulitis. He was treated with IV antibiotics including vancomycin and Zosyn and was discharged on oral antibiotics including Bactrim DS 2 tabs p.o. twice daily x10 days Augmentin 875 mg twice daily x10 days at that time is also being treated for COPD exacerbation with oral steroids. Patient states his been taking his oral antibiotics since discharge. He presented emergency department with acute dyspnea and nonproductive cough not associated with any fever but associated with chest tightness and also new onset of left lower extremity edema up to his thigh to the level of his hip. Cough is been present for the last 2 to 3 days. Yesterday dyspnea was severe enough that he could not lie flat and had to sit up to breathe. There is been no associated fever or chills or rigors. Evaluation emergency department included routine labs CBC that failed to show a leukocytosis. Total white cell count 8100. Hemoglobin hematocrit are normal at 14.5 and 43%. CMP demonstrated normal BUN and creatinine of 10 and 1.0. Lactate was elevated 2.0. LFTs were mildly elevated at 45 and 102. Troponin levels were negative x2 sets. CRP is elevated 3.58. proBNP is normal at 220 and procalcitonin is slightly elevated at 0.2. Imaging studies include a venous duplex of his left leg because of acute left leg edema that developed after discharge from the hospital. This showed no evidence for DVT chest x-ray showed patchy bilateral acute infiltrates left greater than right suspicious for pneumonia. X-ray of the left foot was performed showed diffuse soft tissue swelling in the foot but no focal erosive or destructive lesions were seen. Patient is now admitted to the hospital for continued antibiotic treatment of his left leg cellulitis as well as treatment of HCAP Review of Systems Constitutional Constitutional: Denies chills, Denies fever(s), Reports snoring and Denies stops breathing during sleep Cardiovascular Cardiovascular: Reports chest pain, Reports chest pain at rest, Reports leg edema, Reports dyspnea, Reports orthopnea and Reports paroxysmal nocturnal dyspnea Respiratory Respiratory: Denies change in phlegm color, Reports chest congestion, Reports cough, Denies excessive phlegm production, Reports dyspnea and Reports snoring Gastrointestinal Gastrointestinal: Reports diarrhea Genitourinary Genitourinary: Reports system reviewed and no additional complaints, except as docu Musculoskeletal Musculoskeletal: Reports as per HPI Integumentary/Breasts Skin/Breast: Reports as per HPI Neurologic Neurologic: Reports system reviewed and no additional complaints, except as docu Psychiatric Psychiatric: Reports system reviewed and no additional complaints, except as docu Endocrine Endocrine: Reports system reviewed and no additional complaints, except as docu Hematologic/Lymphatic Hematologic/Lymphatic: Reports system reviewed and no additional complaints, except as docu Allergic/Immunologic Allergic/Immunologic: Reports system reviewed and no additional complaints, except as docu PFSH Social History Smoking/Tobacco Use Status: Current every day Tobacco Type: cigarettes Alcohol Intake: current Alcohol Intake frequency: 3 or more drinks per day Alcohol type: beer Drug use: Current Sobriety Details: methadone clinic Do you feel safe at home: Yes Do you feel safe in your relationship?: Yes Meds Home Medications and Allergies Home Medications Medication Instructions Recorded Confirmed Type methadone 130 mg PO DAILY 05/12/19 08/22/19 History docusate sodium [Colace] 100 mg PO BID #60 cap 05/18/19 08/22/19 Rx gabapentin 800 mg PO TID #60 tab 05/18/19 08/22/19 Rx pantoprazole [Protonix] 40 mg PO DAILY #30 tab 05/18/19 08/22/19 Rx thiamine mononitrate (vit B1) 100 mg PO DAILY #30 tab 05/18/19 08/22/19 Rx [Vitamin B-1 (mononitrate)] Oxygen 08/15/19 08/15/19 History albuterol sulfate [ProAir HFA] 2 puff INHALATION Q6H PRN 08/15/19 08/22/19 History fluticasone propion-salmeterol 2 puff INHALATION BID 08/15/19 08/22/19 History [Advair HFA] furosemide 40 mg PO QDAY 08/15/19 08/22/19 History magnesium 400 mg PO BID 08/15/19 08/22/19 History tiotropium bromide [Spiriva with 18 mcg INHALATION QDAY 08/15/19 08/22/19 History HandiHaler] amoxicillin-pot clavulanate 1 tab PO BID #20 tab 08/18/19 08/22/19 Rx [Augmentin] metformin 500 mg PO DAILY #30 tab 08/18/19 08/22/19 Rx nystatin 500,000 units PO 5X/DAY #240 ml 08/18/19 08/22/19 Rx prednisone See Rx Instructions .ROUTE 08/18/19 08/22/19 Rx .COMPLEX #6 tab silver sulfadiazine 0 g TOPICAL BID #1 g 08/18/19 08/22/19 Rx sulfamethoxazole-trimethoprim 2 tab PO BID #40 tab 08/18/19 08/22/19 Rx Allergies Allergy/AdvReac Type Severity Reaction Status Date / Time No Known Allergies Allergy Unverified 08/15/19 07:25 Exam Narrative Exam Narrative: Morbidly obese male who is alert and oriented person place time circumstance. HEENT is unremarkable. Neck is obese soft and nontender without lymphadenopathy no JVD no carotid bruits normal carotid pulses. Lungs reveal diffuse expiratory wheezes and bibasilar rales no rhonchi. Heart is regular without murmur rub or gallop. Abdomen is obese soft and nontender with no bruits no palpable masses. Lower extremities there is asymmetric pitting edema of his left leg from his foot and ankle all the way up to his thigh just below his groin. There is area of erythema over the left pretibial surface covering the lower one third of his left leg and involving the ankle and left foot. Pedal pulses are palpable and strong. There is no open sores or purulent discharge. Neurologic exam is nonfocal and grossly intact. Results Imaging Imaging Studies: Left foot x-ray showed soft tissue swelling in the foot no erosive or destructive lesion seen. Chest x-ray showed patchy interstitial prominence in the perihilar regions bilaterally most prominent left upper lobe suggestive of pneumonia. Left leg venous duplex study showed no DVT Labs Result diagrams: 08/22/19 05:56 08/22/19 05:56 Labs: Laboratory Results - last 24 hr 08/22/19 08/22/19 08/22/19 05:56 05:56 05:56 WBC 8.14 RBC 4.84 Hgb 14.5 Hct 43.1 MCV 89.0 MCH 30.0 MCHC 33.6 RDW 15.1 H Plt Count 217 MPV 9.7 Immature Gran % See Differential Neutrophils % 74.0 Band Neutrophils % 8.0 Lymphocytes % 4.0 Monocytes % 8.0 Eosinophils % 0.0 Basophils % 0.0 Metamyelocytes % 3.0 Myelocytes % 3.0 Absolute Neutrophils 6.67 Absolute Lymphocytes 0.33 L Absolute Monocytes 0.65 Absolute Eosinophils 0.00 Absolute Basophils 0.00 Differential Comment Manual differential RBC Morphology See below Anisocytosis 1+ ESR PT 10.9 INR 1.1 APTT 22.8 VBG pH VBG pCO2 VBG pO2 VBG HCO3 VBG Total CO2 VBG O2 Saturation VBG Base Excess Sodium 131 L Potassium 4.3 Chloride 94 L Carbon Dioxide 32.5 H Anion Gap 4.5 BUN 10 Creatinine 1.01 Estimated GFR/1.73 m2 >= 60.00 Glucose 192 H Lactate Calcium 8.2 L Magnesium 1.9 Total Bilirubin 0.5 AST 45 H ALT 102 H Alkaline Phosphatase 92 Troponin I C-Reactive Protein NT-Pro-B Natriuret Pep 220 Total Protein 7.3 Albumin 3.1 L Procalcitonin Ethyl Alcohol 08/22/19 08/22/19 08/22/19 05:56 05:56 05:56 WBC RBC Hgb Hct MCV MCH MCHC RDW Plt Count MPV Immature Gran % Neutrophils % Band Neutrophils % Lymphocytes % Monocytes % Eosinophils % Basophils % Metamyelocytes % Myelocytes % Absolute Neutrophils Absolute Lymphocytes Absolute Monocytes Absolute Eosinophils Absolute Basophils Differential Comment RBC Morphology Anisocytosis ESR PT INR APTT VBG pH 7.37 VBG pCO2 58 H VBG pO2 34 VBG HCO3 34 H VBG Total CO2 30 H VBG O2 Saturation 60 L VBG Base Excess 8.5 H Sodium Potassium Chloride Carbon Dioxide Anion Gap BUN Creatinine Estimated GFR/1.73 m2 Glucose Lactate 2.0 H Calcium Magnesium Total Bilirubin AST ALT Alkaline Phosphatase Troponin I C-Reactive Protein NT-Pro-B Natriuret Pep Total Protein Albumin Procalcitonin Ethyl Alcohol < 3.0 08/22/19 08/22/19 08/22/19 05:56 05:56 05:56 WBC RBC Hgb Hct MCV MCH MCHC RDW Plt Count MPV Immature Gran % Neutrophils % Band Neutrophils % Lymphocytes % Monocytes % Eosinophils % Basophils % Metamyelocytes % Myelocytes % Absolute Neutrophils Absolute Lymphocytes Absolute Monocytes Absolute Eosinophils Absolute Basophils Differential Comment RBC Morphology Anisocytosis ESR 21 H PT INR APTT VBG pH VBG pCO2 VBG pO2 VBG HCO3 VBG Total CO2 VBG O2 Saturation VBG Base Excess Sodium Potassium Chloride Carbon Dioxide Anion Gap BUN Creatinine Estimated GFR/1.73 m2 Glucose Lactate Calcium Magnesium Total Bilirubin AST ALT Alkaline Phosphatase Troponin I C-Reactive Protein 3.58 H NT-Pro-B Natriuret Pep Total Protein Albumin Procalcitonin 0.2 Ethyl Alcohol 08/22/19 08/22/19 05:56 10:15 WBC RBC Hgb Hct MCV MCH MCHC RDW Plt Count MPV Immature Gran % Neutrophils % Band Neutrophils % Lymphocytes % Monocytes % Eosinophils % Basophils % Metamyelocytes % Myelocytes % Absolute Neutrophils Absolute Lymphocytes Absolute Monocytes Absolute Eosinophils Absolute Basophils Differential Comment RBC Morphology Anisocytosis ESR PT INR APTT VBG pH VBG pCO2 VBG pO2 VBG HCO3 VBG Total CO2 VBG O2 Saturation VBG Base Excess Sodium Potassium Chloride Carbon Dioxide Anion Gap BUN Creatinine Estimated GFR/1.73 m2 Glucose Lactate Calcium Magnesium Total Bilirubin AST ALT Alkaline Phosphatase Troponin I < 0.05 0.05 C-Reactive Protein NT-Pro-B Natriuret Pep Total Protein Albumin Procalcitonin Ethyl Alcohol Last Vital Signs Temp 36.6 C 08/22/19 05:41 Pulse 110 H 08/22/19 10:35 Resp 18 08/22/19 10:35 BP 136/77 08/22/19 08:49 Pulse Ox 97 08/22/19 10:35
[2019-08-22] MEDS: Gabapentin 800 MG TAB PO ×3 (11:03→19:54)
[2019-08-22] MEDS: Thiamine 100 MG TAB PO (11:03)
[2019-08-22] MEDS: Docusate Sodium 100 MG CAP PO (11:03)
[2019-08-22] MEDS: Magnesium Oxide 400 MG TAB PO ×2 (11:03→19:54)
[2019-08-22] MEDS: Methadone Liquid 10 MG/ML 130 MG PO (11:03)
[2019-08-22] MEDS: Pantoprazole 40 MG TABCR PO (11:06)
[2019-08-22] MEDS: CLINDAMYCIN 900 MG/50 ML BAG 50 MG IVPB ×2 (13:21→19:56)
[2019-08-22] MEDS: PIPERACILLIN/TAZO 4.5 GM in Normal Saline 100 ML IVPB ×2 (14:55→22:02)
[2019-08-22] MEDS: VANCOMYCIN 2,000 MG in Normal Saline 500 ML 250 MG IV (14:55)
[2019-08-22] MEDS: methylPREDNISolone SUCC 125 MG VIAL 80 MG IVP ×2 (14:57→22:03)
[2019-08-22] MEDS: Insulin Aspart 300 UNITS/3 ML PEN SC ×2 (17:23→22:03)
--- NOTE | 2019-08-22 18:44 | INITIAL_ITS ---
Care Management Initial Assess REASON FOR HOSPITALIZATION:: COPD, CHF, Cellulitis PAST MEDICAL HISTORY/PAST SURGICAL HISTORY:: Anxiety, Diastolic CHF, chronic respiratory failure with hypoxia, COPD, DM2, ETOH abuse, hepatic steatosis, IV drug abuse in re-admission, nocturnal hypoxia, KATT, Cellulitis-sepsis, HCAP, Obesity, ELLIOT, Opioid dependence, thrombocytopenia, tobacco abuse, mandibular sugery, nasal surgery. PREVIOUS FUNCTIONAL STATUS/SOCIAL/FAMILY SUPPORTS:: Allen resides in [place] with his , Phyllis. He reports his mother lives nearby and is supportive. 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 He is independent at baseline, has his license but does not currently own a vehicle. His mother provides transportation, as well as RCT; through their [place] Office. CURRENT FUNCTIONAL STATUS:: Allen is lying in bed, oxygen on, being assessed by RN when CM attempts to meet with him. CM will continue to follow. ADVANCE DIRECTIVES:: None on file. Has patient been provided with information about the portal?: No Did the patient sign up for the portal?: No CODE STATUS:: Full Code INSURANCE COVERAGE / FINANCIAL ISSUES:: Medicaid CURRENT HOME/COMMUNITY SERVICES/EQUIPMENT:: Allen is reportedly working with community supports on applying for disability. PRIMARY CARE PHYSICIAN:: Milana Canales POTENTIAL DISCHARGE NEEDS:: Follow up appointment with PCP, transport support. PATIENT/FAMILY EDUCATION NEEDS:: Review discharge instructions regarding activity levels and medications, discussion of self care needs including Ask Me Three, review re-admission considerations. ANTICIPATED BARRIERS TO DISCHARGE:: None identified. TRANSPORTATION:: Via RCT coordinated through [place] [facility]. PLAN:: Allen will return home when medically cleared, he will follow up with his PCP and plan of care as prescribed. He will transport via private vehicle; RCT coordinated by this typewriter operator automatic. CM will continue to follow and support discharge planning considerations. Readmission - Within the Past 30 Days Yes or No: Y - Date of First Admission Date of 1st Admission: 08/15/19 - Date of this Admission Date of Admission: 08/22/19 This admission was: Through ED - Office Visit Since 1st Admission Have you seen your PCP in the office since discharge?: No Had an appointment Been Scheduled?: Yes Date of Scheduled Appointment: 08/23/19@0800 - ED visits How many ED visits in the past 12 months: 3 (Since 05/12/19) - Assessment for Readmission Summary of readmission circumstances, based upon interviews: Per Provider DC 08/18/19: Mr Maria is a 53 year old male with a past medical history of type 2 diabetes mellitus with a hemoglobin A1c of 6.7, chronic diastolic CHF, COPD, suspected ELLIOT, chronic hypoxic respiratory failure on 2.5 L of O2 at night, alcohol abuse with history of alcohol withdrawal and history of IV drug abuse abuse, now on methadone therapy through [facility], who presented to the ED for left lower extremity pain, swelling, and redness. Work-up in the emergency department included a venous doppler which ruled out a DVT. He was initiated on vancomycin, zosyn, and clindamycin in the ED after having blood cultures drawn. He was admitted to the medical surgical unit for further inpatient treatment and evaluation. He was seen by podiatry who did debride his nails imaging showed no evidence of osteomyelitis. He was also seen by general surgery and a CTA showed no evidence of peripheral artery disease. His erythema pain and swelling gradually improved. His inflammatory markers as well he has been afebrile he is eating drinking bowels and bladder functioning he is stable and is requesting discharge to home. I did discuss with him that I would like to try to down steps here in the hospital prior to discharge secondary to the degree of erythema that is still present. He insists that the erythema swelling and pain is markedly improved and insists that he will elevate at home and return sooner for new or worsening symptoms. Again I did tell him that I thought staying another day or 2 on IV might be prudent but again he really wants to be discharged today. I will discharge him home on Bactrim DS 2 tabs p.o. twice daily for 10 days and Augmentin 875 twice daily for 10 days He has been on IV steroids for COPD exacerbation and has been down stepped to oral which he will complete 4 more days then stop. He had no alcohol withdrawal symptoms while hospitalized. He will follow-up outpatient with primary care provider.
[2019-08-22] MEDS: Budesonide/Formoterol 160/4.5 6 GM 60 PUFF INH IH (19:53)
[2019-08-23] VITALS (14 sets, daily range): BP systolic 128–148; BP diastolic 77–95; PULSE 76–102; RESP 4–22; TEMP 35.7–37.2; O2SAT 84–96
[2019-08-23] MEDS: VANCOMYCIN 2,000 MG in Normal Saline 500 ML 250 MG IV ×3 (00:24→20:59)
[2019-08-23] MEDS: Albuterol/Ipratropium 3 ML UPD VIAL UPD ×4 (02:06→23:23)
[2019-08-23] MEDS: CLINDAMYCIN 900 MG/50 ML BAG 50 MG IVPB ×3 (04:06→20:59)
[2019-08-23] MEDS: Normal Saline Flush 10 ML SYR IVP ×6 (04:24→21:14)
[2019-08-23] MEDS: Normal Saline 1,000 ML 150 ML IV ×2 (05:15→13:20)
[2019-08-23] MEDS: PIPERACILLIN/TAZO 4.5 GM in Normal Saline 100 ML IVPB ×3 (06:06→22:49)
[2019-08-23] MEDS: methylPREDNISolone SUCC 125 MG VIAL 80 MG IVP ×3 (06:07→21:14)
[2019-08-23 07:50] LABS: Lactate 1.9 mmol/L (0.6-1.4)
[2019-08-23 07:51] LABS: Absolute Lymphocyte Count 0.32 k/cumm (1.2-3.4); Absolute Monocyte Count 0.28 k/cumm (0.11-0.7); Absolute Neutrophil Count 5.12 k/cumm (1.2-6.7); HCT 41.3 % (40.0-50.0); HGB 13.8 g/dL (13.5-17.5); Immature Grans % 3.4 %; Lymphocytes % 5.4; Mean Corp. HGB Concentration 33.4 g/dL (32.0-36.0); Mean Corpuscular Hemoglobin 30.1 pg (27.0-33.0); Mean Platelet Volume 9.4 fL (8.0-11.0); Monocytes % 4.7; Neutrophils % 86.5; Platelet Count 182 x1000/uL (130-400); RBC 4.59 m/cumm (4.50-6.00); White Blood Cell Count 5.92 k/cumm (4.4-10.8)
[2019-08-23 08:07] LABS: Anion Gap 7.4 mmol/L (3-11); BUN 11 mg/dL (7-18); C-Reactive Protein 4.92 mg/dL (0.0-0.3); CO2 30.6 mmol/L (21.0-32.0); CREATININE 0.98 mg/dL (0.70-1.30); Calcium 8.2 mg/dL (8.5-10.1); Chloride 97 mmol/L (98-107); Glucose 228 mg/dL (74-106); Potassium 4.7 mmol/L (3.5-5.1); Sodium 135 mmol/L (136-145)
[2019-08-23] MEDS: Insulin Aspart 300 UNITS/3 ML PEN SC ×3 (08:26→21:15)
[2019-08-23] MEDS: Enoxaparin 40 MG/0.4 ML SYR SC (08:26)
[2019-08-23] MEDS: Gabapentin 800 MG TAB PO ×3 (08:27→21:00)
[2019-08-23] MEDS: Thiamine 100 MG TAB PO (08:27)
[2019-08-23] MEDS: Pantoprazole 40 MG TABCR PO (08:27)
[2019-08-23] MEDS: Docusate Sodium 100 MG CAP PO (08:27)
[2019-08-23] MEDS: Magnesium Oxide 400 MG TAB PO ×2 (08:28→21:00)
[2019-08-23] MEDS: Budesonide/Formoterol 160/4.5 6 GM 60 PUFF INH IH ×2 (09:04→21:02)
[2019-08-23] MEDS: Methadone Liquid 10 MG/ML 130 MG PO (09:25)
--- NOTE | 2019-08-23 11:17 | W.NUTCONSULT ---
Date of service: 08/23/19 Time of Service: 11:18 Nutritional Consult ASSESSMENT: 53 year old male admitted with COPD exacerbation, cellulities, obesity, CHF. Hx of opiod and tobacco abuse. Following Diabetic diet and meeting nutrient and fluid needs at this time. BMI indicates class 2 obesity. Not considered at nutritional risk at this time. Followed by CDE for diabetes counseling. MONITORING AND EVALUATION: po intake, weight, labs Time Spent in Nutritional Counseling and Treatment: 0 time spent face to face
--- NOTE | 2019-08-23 11:19 | PDOC.CMPRO ---
- If Service Date Differs Date of service: 08/23/19 Time of Service: 11:19 Care Management Progress Note S/O: Allen was sitting up on the side of his bed when CM met with him. His , Phyllis, was in the room with him. Allen reported that he was feeling much better today. He stated that his leg became much worse after going home last week, so he felt that he needed to return to [facility]. He stated that he is receiving very good care at [facility], and is happy to have his care here. He reported that he expects to stay for a couple more days while he recuperates. CM will continue to follow and support Allen with discharge planning needs. A: Allen is a 53 year old male admitted to [facility] on 08/22/19 with COPD, CHF, Cellulitis. P: Anticipate Allen will return home when medically cleared. He will follow up with his PCP, as recommended. He will transport via [facility] private vehicle, coordinated by CM. CM will continue to follow and support discharge planning considerations.
[2019-08-23] MEDS: guaiFENesin 600 MG TABCR PO ×2 (14:29→21:00)
[2019-08-23] MEDS: LORazepam 1 MG TAB PO/SL ×2 (14:43→21:14)
--- NOTE | 2019-08-23 16:56 | PGE_ITS ---
Date of Service Date of service: 08/23/19 Time of Service: 16:56 Assessment and Plan Assessment and plan (1) HCAP (healthcare-associated pneumonia): Status: Acute Assessment and plan: Continue with IV Zosyn and IV vancomycin for healthcare acquired pneumonia. Add Acapella for pulmonary toiletry. Add Mucinex to help mobilize sputum. Continue with IV corticosteroids and ae rosolized bronchodilators.. (2) Cellulitis of left lower extremity: Status: Acute Assessment and plan: Continue with current antibiotic regimen including Zosyn and clindamycin for cellulitis. Zosyn was added for respiratory pathogens (3) COPD with acute exacerbation: Status: Acute Assessment and plan: As above (4) DMII (diabetes mellitus, type 2): Status: Acute Assessment and plan: Will refrain from use of the Metformin given his recent history of diarrhea. We will cover him with insulin per sliding scale. Monitor blood sugars before meals and at bedtime. We will change his diet to a cardiac/diabetic diet Qualifiers: Diabetes mellitus exterminator termite insulin use: without exterminator termite use Diabetes mellitus complication status: without complication Qualified Code(s): E11.9 - Type 2 diabetes mellitus without complications (5) EtOH dependence: Status: Acute Assessment and plan: We will monitor for acute alcohol withdrawal with CIWA scale. However patient was hospitalized for 3 to 4 days last time without evidence of acute alcohol withdrawal Qualifiers: Substance use status: uncomplicated Qualified Code(s): F10.20 - Alcohol dependence, uncomplicated (6) Obstructive sleep apnea: Status: Suspected Assessment and plan: Will order CPAP at night. He has been suspected of having ELLIOT but says that he has not had a formal work-up (7) Opioid dependence: Status: Chronic Assessment and plan: We will continue his usual dose of methadone which was confirmed by nursing staff per their discussion with ZEE Qualifiers: Substance use status: uncomplicated Qualified Code(s): F11.20 - Opioid dependence, uncomplicated Subjective Subjective Interval history since last seen: Patient states that the left leg edema has gone down remarkably. He has been trying to keep it elevated and nursing has been applying an Hitesh wrap. Area of erythema is diminishing to the lower half of his left tibia. As far as his pneumonia is breathing has improved although he still has coarse expiratory wheezes and rhonchi. Cough is nonproductive. He remains afebrile. Oxygen FiO2 has been decreased to 3 L/min per nasal cannula with his oxygen saturation in the low 90s. Exam Narrative Exam Narrative: Middle-age male who is sitting up in bed eating his dinner. Chest is barrel chested. Lungs reveal coarse scattered bilateral expiratory wheezes and rhonchi. Heart is regular without murmur rub or gallop abdomen is obese soft and nontender. Left leg edema has gone down remarkably. He was edematous all the way to his left groin with 3+ pitting edema. This is gone down it is now down to 1-2+ pitting edema in the tibia and no appreciable edema in the thigh Objective Objective Clinical Data: Abnormal lab results 08/23/19 08/23/19 08/23/19 Range/Units 07:41 07:41 07:41 RDW 15.0 H (11.8-14.1) % Absolute Lymphocytes 0.32 L (1.2-3.4) k/cumm Sodium 135 L (136-145) mmol/L Chloride 97 L (98-107) mmol/L Glucose 228 H (74-106) mg/dL Lactate 1.9 H (0.6-1.4) mmol/L Calcium 8.2 L (8.5-10.1) mg/dL C-Reactive Protein 4.92 H (0.0-0.3) mg/dL Vital Signs Temperature 36.4 C L 08/23/19 10:15 Temperature Source Tympanic 08/23/19 10:15 Pulse 91 H 08/23/19 11:58 Pulse Rhythm Regular 08/23/19 08:30 Pulse 106 H 08/22/19 08:24 Respiratory Rate 16 08/23/19 11:58 Respiratory Effort 08/23/19 08:30 Respiratory Depth Normal 08/23/19 08:30 Respiratory Pattern Normal 08/23/19 08:30 Blood Pressure 148/91 H 08/23/19 10:15 Blood Pressure Mean 90 08/22/19 08:24 Blood Pressure Position Sitting 08/22/19 05:41 Pulse Oximetry 84 L 08/23/19 11:58 Oxygen Delivery Method Room Air 08/23/19 11:43 Oxygen Flow Rate 0 08/23/19 11:43 Pain Level 0 08/23/19 01:07 Intake & Output 08/22/19 08/23/19 08/23/19 23:59 11:59 23:59 Intake Total 2637.5 / 3907.5 2690.0 / 3840.0 1150 / 3840.0 Output Total 2600 / 2600 800 / 800 Balance 37.5 / 1307.5 1890.0 / 3040.0 1150 / 3040.0 Weight 121.2 kg Intake: IV 1917.5 / 3187.5 2450.0 / 3000.0 550 / 3000.0 Oral 720 / 720 240 / 840 600 / 840 Output: Urine 2600 / 2600 800 / 800 Other: Urine Color Yellow Yellow Urine Appearance Clear Clear Urine Odor None Comment voids in toilet Stool Size Moderate Stool Characteristics Soft Voiding Methods Urinal Urinal Toilet Laboratory Results WBC 5.92 k/cumm (4.4-10.8) 08/23/19 07:41 RBC 4.59 m/cumm (4.50-6.00) 08/23/19 07:41 Hgb 13.8 g/dL (13.5-17.5) 08/23/19 07:41 Hct 41.3 % (40.0-50.0) 08/23/19 07:41 MCV 90.0 fL (80-95) 08/23/19 07:41 MCH 30.1 pg (27.0-33.0) 08/23/19 07:41 MCHC 33.4 g/dL (32.0-36.0) 08/23/19 07:41 RDW 15.0 % (11.8-14.1) H 08/23/19 07:41 Plt Count 182 x1000/uL (130-400) 08/23/19 07:41 MPV 9.4 fL (8.0-11.0) 08/23/19 07:41 Immature Gran % 3.4 % 08/23/19 07:41 Neutrophils % 86.5 08/23/19 07:41 Band Neutrophils % 8.0 % 08/22/19 05:56 Lymphocytes % 5.4 08/23/19 07:41 Monocytes % 4.7 08/23/19 07:41 Eosinophils % 0.0 08/23/19 07:41 Basophils % 0.0 08/23/19 07:41 Metamyelocytes % 3.0 % 08/22/19 05:56 Myelocytes % 3.0 % 08/22/19 05:56 Absolute Neutrophils 5.12 k/cumm (1.2-6.7) 08/23/19 07:41 Absolute Lymphocytes 0.32 k/cumm (1.2-3.4) L 08/23/19 07:41 Absolute Monocytes 0.28 k/cumm (0.11-0.7) 08/23/19 07:41 Absolute Eosinophils 0.00 k/cumm (0.0-0.7) 08/23/19 07:41 Absolute Basophils 0.00 k/cumm (0.0-0.2) 08/23/19 07:41 Differential Comment Manual differential 08/22/19 05:56 RBC Morphology See below 08/22/19 05:56 Anisocytosis 1+ 08/22/19 05:56 ESR 21 mm/hr (1-20) H 08/22/19 05:56 PT 10.9 sec (9.3-11.0) 08/22/19 05:56 INR 1.1 (0.9-1.1) 08/22/19 05:56 APTT 22.8 sec (21.0-31.4) 08/22/19 05:56 VBG pH 7.37 (7.35-7.45) 08/22/19 05:56 VBG pCO2 58 mm/Hg (34-47) H 08/22/19 05:56 VBG pO2 34 mm/Hg (28-44) 08/22/19 05:56 VBG HCO3 34 mmol/L (22-28) H 08/22/19 05:56 VBG Total CO2 30 mmol/L (22-29) H 08/22/19 05:56 VBG O2 Saturation 60 % (70-80) L 08/22/19 05:56 VBG Base Excess 8.5 mmol/L (-3-3) H 08/22/19 05:56 Sodium 135 mmol/L (136-145) L 08/23/19 07:41 Potassium 4.7 mmol/L (3.5-5.1) 08/23/19 07:41 Chloride 97 mmol/L (98-107) L 08/23/19 07:41 Carbon Dioxide 30.6 mmol/L (21.0-32.0) 08/23/19 07:41 Anion Gap 7.4 mmol/L (3-11) 08/23/19 07:41 BUN 11 mg/dL (7-18) 08/23/19 07:41 Creatinine 0.98 mg/dL (0.70-1.30) 08/23/19 07:41 Estimated GFR/1.73 m2 >= 60.00 (mL/min/1.73m2) 08/23/19 07:41 Glucose 228 mg/dL (74-106) H 08/23/19 07:41 Lactate 1.9 mmol/L (0.6-1.4) H 08/23/19 07:41 Calcium 8.2 mg/dL (8.5-10.1) L 08/23/19 07:41 Magnesium 1.9 mg/dL (1.8-2.4) 08/22/19 05:56 Total Bilirubin 0.5 mg/dL (0.2-1.0) 08/22/19 05:56 AST 45 U/L (15-37) H 08/22/19 05:56 ALT 102 U/L (16-63) H 08/22/19 05:56 Alkaline Phosphatase 92 U/L (46-116) 08/22/19 05:56 Troponin I 0.05 ng/Ml (<0.06) 08/22/19 10:15 C-Reactive Protein 4.92 mg/dL (0.0-0.3) H 08/23/19 07:41 NT-Pro-B Natriuret Pep 220 pg/mL (<300) 08/22/19 05:56 Total Protein 7.3 g/dL (6.4-8.2) 08/22/19 05:56 Albumin 3.1 g/dL (3.4-5.0) L 08/22/19 05:56 Procalcitonin 0.2 ng/mL 08/22/19 05:56 Ethyl Alcohol < 3.0 mg/dL (<3) 08/22/19 05:56
[2019-08-24] VITALS (11 sets, daily range): BP systolic 136–170; BP diastolic 85–111; PULSE 81–102; RESP 5–24; TEMP 36.8–38.7; O2SAT 89–94
[2019-08-24] MEDS: LORazepam 1 MG TAB PO/SL ×4 (02:00→20:20)
[2019-08-24] MEDS: CLINDAMYCIN 900 MG/50 ML BAG 50 MG IVPB ×3 (03:45→20:19)
[2019-08-24] MEDS: PIPERACILLIN/TAZO 4.5 GM in Normal Saline 100 ML IVPB ×3 (05:30→22:02)
[2019-08-24] MEDS: methylPREDNISolone SUCC 125 MG VIAL 80 MG IVP ×3 (05:31→22:01)
[2019-08-24] MEDS: Normal Saline Flush 10 ML SYR IVP ×4 (05:31→20:20)
[2019-08-24] MEDS: VANCOMYCIN 2,000 MG in Normal Saline 500 ML 250 MG IV ×2 (05:31→16:22)
[2019-08-24] MEDS: Albuterol/Ipratropium 3 ML UPD VIAL UPD ×3 (05:31→17:35)
[2019-08-24 06:42] LABS: Abs Immature Grans 0.05 k/cumm (0.0-0.09); Absolute Lymphocyte Count 0.44 k/cumm (1.2-3.4); Absolute Monocyte Count 0.31 k/cumm (0.11-0.7); Absolute Neutrophil Count 4.52 k/cumm (1.2-6.7); HCT 40.9 % (40.0-50.0); HGB 13.3 g/dL (13.5-17.5); Immature Grans % 0.9 %; Lymphocytes % 8.3; Mean Corp. HGB Concentration 32.5 g/dL (32.0-36.0); Mean Corpuscular Hemoglobin 29.4 pg (27.0-33.0); Mean Corpuscular Volume 90.5 fL (80-95); Mean Platelet Volume 9.6 fL (8.0-11.0); Monocytes % 5.8; Platelet Count 148 x1000/uL (130-400); RBC 4.52 m/cumm (4.50-6.00); White Blood Cell Count 5.32 k/cumm (4.4-10.8)
[2019-08-24 06:51] LABS: Anion Gap 3.4 mmol/L (3-11); BUN 12 mg/dL (7-18); C-Reactive Protein 1.96 mg/dL (0.0-0.3); CO2 34.6 mmol/L (21.0-32.0); CREATININE 0.92 mg/dL (0.70-1.30); Calcium 8.3 mg/dL (8.5-10.1); Chloride 97 mmol/L (98-107); Glucose 201 mg/dL (74-106); Potassium 4.8 mmol/L (3.5-5.1); Sodium 135 mmol/L (136-145)
[2019-08-24] MEDS: Enoxaparin 40 MG/0.4 ML SYR SC (07:58)
[2019-08-24] MEDS: Insulin Aspart 300 UNITS/3 ML PEN SC ×4 (07:58→22:04)
[2019-08-24] MEDS: guaiFENesin 600 MG TABCR PO ×2 (07:59→20:21)
[2019-08-24] MEDS: Pantoprazole 40 MG TABCR PO (07:59)
[2019-08-24] MEDS: Thiamine 100 MG TAB PO (07:59)
[2019-08-24] MEDS: Magnesium Oxide 400 MG TAB PO ×2 (07:59→20:21)
[2019-08-24] MEDS: Docusate Sodium 100 MG CAP PO (07:59)
[2019-08-24] MEDS: Gabapentin 800 MG TAB PO ×3 (07:59→20:21)
[2019-08-24] MEDS: Budesonide/Formoterol 160/4.5 6 GM 60 PUFF INH IH ×2 (08:05→20:19)
[2019-08-24] MEDS: Methadone Liquid 10 MG/ML 130 MG PO (08:25)
--- NOTE | 2019-08-24 10:33 | W.PM.PROGNOT ---
Date of Service Date of service: 08/24/19 Time of Service: 10:33 Assessment and Plan Assessment and plan (1) HCAP (healthcare-associated pneumonia): Status: Acute Assessment and plan: Continue with IV Zosyn and IV vancomycin for healthcare acquired pneumonia. Add Acapella for pulmonary toiletry. Add Mucinex to help mobilize sputum. Continue with IV corticosteroids and aerosolized bronchodilators.. (2) Cellulitis of left lower extremity: Status: Acute Assessment and plan: Continue with current antibiotic regimen including Zosyn and clindamycin for cellulitis. Zosyn was added for respiratory pathogens. He remains afebrile with no leukocytosis and his CRP is declining down to 1.96. (3) COPD with acute exacerbation: Status: Acute Assessment and plan: As above (4) DMII (diabetes mellitus, type 2): Status: Acute Assessment and plan: I have added NPH to cover the spikes in his blood sugar from his Solu-Medrol Qualifiers: Diabetes mellitus complication status: without complication Diabetes mellitus care home insulin use: without care home use Qualified Code(s): E11.9 - Type 2 diabetes mellitus without complications (5) EtOH dependence: Status: Acute Assessment and plan: Patient remains on CIWA protocol. He is scoring a 6 or 7 on a CIWA scale. I think this is primarily related to his anxiety associated with his dyspnea from his COPD and pneumonia. He is not having any hallucinations Qualifiers: Substance use status: uncomplicated Qualified Code(s): F10.20 - Alcohol dependence, uncomplicated (6) Obstructive sleep apnea: Status: Suspected Assessment and plan: Patient apparently was supposed to be referred for polysomnogram but this has not been worked up yet. (7) Opioid dependence: Status: Chronic Assessment and plan: We will continue his usual dose of methadone which was confirmed by nursing staff per their discussion with ZEE Qualifiers: Substance use status: uncomplicated Qualified Code(s): F11.20 - Opioid dependence, uncomplicated Subjective Subjective Interval history since last seen: Patient states from a cellulitis standpoint he is doing better. The induration and erythema have been receding in his left leg. Left thigh is no longer swollen. The edema is down in his left lower leg. He has not been running any fevers. His CRP is declining to 1.96. From a respiratory standpoint he feels things a little rougher today. Just getting cleaned up in the bathroom he was very short of breath. Cough is nonproductive. He states aerosol treatments to help with his breathing. Exam Narrative Exam Narrative: Obese middle-aged male who is mildly dyspneic with just ambulating across his room. Lungs reveal diffuse expiratory wheezes and rhonchi. Heart is regular but slightly tachycardic. Left lower leg is improving. No induration of the thigh. 1+ edema of the left lower leg. The pretibial erythema is not as intense and it looks more of a dark pink to purplish coloration. No exudate. Objective Objective Clinical Data: Abnormal lab results 08/24/19 08/24/19 Range/Units 06:15 06:15 Hgb 13.3 L (13.5-17.5) g/dL RDW 15.0 H (11.8-14.1) % Absolute Lymphocytes 0.44 L (1.2-3.4) k/cumm Sodium 135 L (136-145) mmol/L Chloride 97 L (98-107) mmol/L Carbon Dioxide 34.6 H (21.0-32.0) mmol/L Glucose 201 H (74-106) mg/dL Calcium 8.3 L (8.5-10.1) mg/dL C-Reactive Protein 1.96 H (0.0-0.3) mg/dL Vital Signs Temperature 36.8 C 08/24/19 07:33 Temperature Source Tympanic 08/24/19 07:33 Pulse 95 H 08/24/19 07:33 Pulse Rhythm Regular 08/24/19 10:27 Pulse 106 H 08/22/19 08:24 Respiratory Rate 19 08/24/19 07:33 Respiratory Effort Short of Breath 08/24/19 10:27 Respiratory Depth Normal 08/24/19 10:27 Respiratory Pattern Normal 08/24/19 10:27 Blood Pressure 144/94 H 08/24/19 07:33 Blood Pressure Mean 90 08/22/19 08:24 Blood Pressure Position Sitting 08/22/19 05:41 Pulse Oximetry 94 L 08/24/19 07:33 Oxygen Delivery Method Nasal Cannula 08/24/19 07:33 Oxygen Flow Rate 3 08/24/19 07:33 Pain Level 0 08/24/19 08:25 Intake & Output 08/23/19 08/23/19 08/24/19 11:59 23:59 11:59 Intake Total 2690.0 / 5467.5 2777.5 / 5467.5 100 / 100 Output Total 2099 1300 / 2100 Balance 1890.0 / 3367.5 1477.5 / 3367.5 100 / 100 Weight 121.2 kg 118 kg Intake: IV 2450.0 / 4387.5 1937.5 / 4387.5 100 / 100 Oral 240 / 1080 840 / 1080 Output: Urine 2099 1300 / 2100 Other: Urine Color Yellow Yellow Urine Appearance Clear Clear Clear Comment voids in toilet Voiding Methods Urinal Urinal Toilet Laboratory Results WBC 5.32 k/cumm (4.4-10.8) 08/24/19 06:15 RBC 4.52 m/cumm (4.50-6.00) 08/24/19 06:15 Hgb 13.3 g/dL (13.5-17.5) L 08/24/19 06:15 Hct 40.9 % (40.0-50.0) 08/24/19 06:15 MCV 90.5 fL (80-95) 08/24/19 06:15 MCH 29.4 pg (27.0-33.0) 08/24/19 06:15 MCHC 32.5 g/dL (32.0-36.0) 08/24/19 06:15 RDW 15.0 % (11.8-14.1) H 08/24/19 06:15 Plt Count 148 x1000/uL (130-400) 08/24/19 06:15 MPV 9.6 fL (8.0-11.0) 08/24/19 06:15 Immature Gran % 0.9 % 08/24/19 06:15 Neutrophils % 85.0 08/24/19 06:15 Band Neutrophils % 8.0 % 08/22/19 05:56 Lymphocytes % 8.3 08/24/19 06:15 Monocytes % 5.8 08/24/19 06:15 Eosinophils % 0.0 08/24/19 06:15 Basophils % 0.0 08/24/19 06:15 Metamyelocytes % 3.0 % 08/22/19 05:56 Myelocytes % 3.0 % 08/22/19 05:56 Absolute Neutrophils 4.52 k/cumm (1.2-6.7) 08/24/19 06:15 Absolute Lymphocytes 0.44 k/cumm (1.2-3.4) L 08/24/19 06:15 Absolute Monocytes 0.31 k/cumm (0.11-0.7) 08/24/19 06:15 Absolute Eosinophils 0.00 k/cumm (0.0-0.7) 08/24/19 06:15 Absolute Basophils 0.00 k/cumm (0.0-0.2) 08/24/19 06:15 Differential Comment Manual differential 08/22/19 05:56 RBC Morphology See below 08/22/19 05:56 Anisocytosis 1+ 08/22/19 05:56 ESR 21 mm/hr (1-20) H 08/22/19 05:56 PT 10.9 sec (9.3-11.0) 08/22/19 05:56 INR 1.1 (0.9-1.1) 08/22/19 05:56 APTT 22.8 sec (21.0-31.4) 08/22/19 05:56 VBG pH 7.37 (7.35-7.45) 08/22/19 05:56 VBG pCO2 58 mm/Hg (34-47) H 08/22/19 05:56 VBG pO2 34 mm/Hg (28-44) 08/22/19 05:56 VBG HCO3 34 mmol/L (22-28) H 08/22/19 05:56 VBG Total CO2 30 mmol/L (22-29) H 08/22/19 05:56 VBG O2 Saturation 60 % (70-80) L 08/22/19 05:56 VBG Base Excess 8.5 mmol/L (-3-3) H 08/22/19 05:56 Sodium 135 mmol/L (136-145) L 08/24/19 06:15 Potassium 4.8 mmol/L (3.5-5.1) 08/24/19 06:15 Chloride 97 mmol/L (98-107) L 08/24/19 06:15 Carbon Dioxide 34.6 mmol/L (21.0-32.0) H 08/24/19 06:15 Anion Gap 3.4 mmol/L (3-11) 08/24/19 06:15 BUN 12 mg/dL (7-18) 08/24/19 06:15 Creatinine 0.92 mg/dL (0.70-1.30) 08/24/19 06:15 Estimated GFR/1.73 m2 >= 60.00 (mL/min/1.73m2) 08/24/19 06:15 Glucose 201 mg/dL (74-106) H 08/24/19 06:15 Lactate 1.9 mmol/L (0.6-1.4) H 08/23/19 07:41 Calcium 8.3 mg/dL (8.5-10.1) L 08/24/19 06:15 Magnesium 1.9 mg/dL (1.8-2.4) 08/22/19 05:56 Total Bilirubin 0.5 mg/dL (0.2-1.0) 08/22/19 05:56 AST 45 U/L (15-37) H 08/22/19 05:56 ALT 102 U/L (16-63) H 08/22/19 05:56 Alkaline Phosphatase 92 U/L (46-116) 08/22/19 05:56 Troponin I 0.05 ng/Ml (<0.06) 08/22/19 10:15 C-Reactive Protein 1.96 mg/dL (0.0-0.3) H 08/24/19 06:15 NT-Pro-B Natriuret Pep 220 pg/mL (<300) 08/22/19 05:56 Total Protein 7.3 g/dL (6.4-8.2) 08/22/19 05:56 Albumin 3.1 g/dL (3.4-5.0) L 08/22/19 05:56 Procalcitonin 0.2 ng/mL 08/22/19 05:56 Ethyl Alcohol < 3.0 mg/dL (<3) 08/22/19 05:56
--- NOTE | 2019-08-24 11:30 | W.INDIABCONS ---
Date of service: 08/24/19 Time of Service: 11:30 Diabetes Inpatient Consult DESCRIPTION/ASSESSMENT: Appreciate diabetes consult for Allen Maria who is hospitalized with COPD, Pneumonia and cellulitis. He currently receives 80mg Prednilisone q 8 hours. A1c 6.7 BMI 36 Blood sugars this hospitalization 138-335 taking sensitive insulin correction. He received a total of 11 units Aspart over the course of the day with blood sugars [id number]. At home he takes Metformin and appears to be just meeting diagnosis of diabetes. INTERVENTION: If improved glycemic control is desired, he may benefit from a low dose of NPH at the time of steroid administration at a low dose suggesting 4 units given his high dose of steroid and somewhat small glycemic response. He could alternatively be offered 16units long acting insulin if his steroid does is not changing precipitously. PLAN: WIll follow blood sugars and follow up when he is closer to discharge as needed. Time Spent in Nutritional Counseling and Treatment: 0 minutes face to face
--- NOTE | 2019-08-24 11:35 | W.NUTRFU ---
Date of service: 08/24/19 Time of Service: 11:35 Nutritional Follow up NOTE: Allen continues to have excellent po intake however due to large wound (cellulitis on left lower limb), and his large size (BMI 35) will need additional protein for optimal wound healing. Estimated Needs based on Adjusted Body Weight of 90 [id number] kcal (25-30 kcal/kg), 90-108 g protein(1-1.2 gpro/kg) , 2700 ml fluid(30 ml fluid/kg). Current PO intake (1800 kcal, 60 g protein ) meeting 75% of calorie and protein needs for optimal healing. Recommend adding 2 packets ally daily (additional 30 grams protein) and double protein at lunch and dinner to meet 100% nutrient/fluid needs. Nutritional Diagnosis: Increased nutrient needs in view of wound size and increased nutrient needs for healing Intervention: Ally - 1 packet BID, double protein at lunch and dinner - providing addition of 60 -70 grams of protein Plan: coordinate care with wound team, coordinate care with dietary, educate patient on nutrient needs for optimal healing, CDE to work with medical team for diabetes management. Time Spent in Nutritional Counseling and Treatment: 10 min spent face to face
--- NOTE | 2019-08-24 13:59 | PHA.ADMREV ---
Pharmacy Clinical Review - Admission Clinical Review (Last Reviewed 08/15/19 @ 18:56 by Raul Garcia DPM) HCAP (healthcare-associated pneumonia) (Acute) Cellulitis of left lower extremity (Acute) DMII (diabetes mellitus, type 2) (Acute) EtOH dependence (Acute) COPD with acute exacerbation (Acute) No Known Allergies Allergy (Unverified 08/15/19 07:25) Height 6 ft Weight 118 kg - Renal Dosing Renal Dosing: BUN 12 mg/dL (7-18) 08/24/19 06:15 Creatinine 0.92 mg/dL (0.70-1.30) 08/24/19 06:15 CrCl ~126ml/min using adjusted body weight Medications needing adjustments: Reviewed List of meds needing interventions: None. - Anticoagulation Anticoagulation: Hgb 13.3 g/dL (13.5-17.5) L 08/24/19 06:15 Hct 40.9 % (40.0-50.0) 08/24/19 06:15 Plt Count 148 x1000/uL (130-400) 08/24/19 06:15 INR 1.1 (0.9-1.1) 08/22/19 05:56 Creatinine 0.92 mg/dL (0.70-1.30) 08/24/19 06:15 DVT Prohphylaxis: Reviewed Medications: Enoxaparin Therapeutic Anticoagulation: N/A - Opiate Usage Evaluate Pain Scale/Pains Meds: Reviewed Scheduled Bowel Reg ordered if on Opiates?: Yes - Relevant Labs ESR 21 mm/hr (1-20) H 08/22/19 05:56 Sodium 135 mmol/L (136-145) L 08/24/19 06:15 Potassium 4.8 mmol/L (3.5-5.1) 08/24/19 06:15 Chloride 97 mmol/L (98-107) L 08/24/19 06:15 Magnesium 1.9 mg/dL (1.8-2.4) 08/22/19 05:56 C-Reactive Protein 1.96 mg/dL (0.0-0.3) H 08/24/19 06:15 Electrolytes, C-Reactive P, ESR: Reviewed - Antimicrobial Stewardship Antibiotic appropriateness: Reviewed (Zosyn for HCAP plus Clinda+Vanco for cellulitis; Vanco Trough 14.7 - continued 2grams q10h) Surgical Abx d/c within 24 hr: N/A De-escalation: No (Day 3 of antibiotics) IV to PO Switch: No C. Diff: No - DM Control DM Control: Glucose 201 mg/dL (74-106) H 08/24/19 06:15 Finger Stick Blood Glucose 162 Finger Stick Blood Glucose 189 Finger Stick Blood Glucose 189 Insulin Dosing: Reviewed (Aspart SS plus NPH 40U q8h - verified dose with MD: 1/2U per every mg of steroid (80mg of solu-medrol q8h)) - Heart Failure/NC Heart Failure/NC: Troponin I 0.05 ng/Ml (<0.06) 08/22/19 10:15 NT-Pro-B Natriuret Pep 220 pg/mL (<300) 08/22/19 05:56 EF%, STEPHEN's, B-Blockers, Diuretics: Reviewed - BP Control BP Control: Blood Pressure 144/94 Blood Pressure 136/85 If elevated: Reviewed - QTc Review If Elevated: Reviewed - IV to PO Switch IV Medications: Reviewed - Home Meds Home Med List reviewed: Reviewed Relevent Home Meds Not ordered & why?: Furosemide, metformin (ss aspart as inpt) - Current meds Current Medication Order Review: Reviewed - Comments Comments/Follow Ups: CRP is trending down. ABX Day 3. MIGUEL protocol. daily methadone
[2019-08-24] MEDS: Insulin NPH-Human 300 UNITS/3 ML PEN 40 UNIT SC ×2 (14:15→22:02)
--- NOTE | 2019-08-24 15:27 | W.NUTRFU ---
Date of service: 08/24/19 Time of Service: 15:27 Nutritional Follow up NOTE: Met with Allen again today as nursing reports he will not drink Stewart as protein supplement. Educated Allen on importance of adequate protein intake for optimal wound healing. He is able to demonstrate understanding and is willing to eat double portions of protein at meals and cottage cheese daily. Will d/c Stewart and will continue to support for optimal nutritional intake as with increased nutrient needs with cellulitis and skin breakdown. Time Spent in Nutritional Counseling and Treatment: 15 min spent face to face
[2019-08-24 15:55] LABS: Vancomycin, Trough 14.7 ug/mL (10.0-20.0)
--- NOTE | 2019-08-24 20:13 | PDOC.CMPRO ---
- If Service Date Differs Date of service: 08/24/19 Time of Service: 20:13 Care Management Progress Note S/O: Allen was sitting up on the edge of his bed when CM met with him. He reported that he was feeling better today, but not at his baseline. He stated that he expects to be at [facility] for a couple more days because he doesn't want to leave too early. He stated that he was anxious to leave quickly at his last admission, and he feels that he left too soon. He stated that he wants to take care of his body in order to spend more time with his family. CM will continue to follow. A: Allen is a 53 year old male admitted to [facility] on 08/22/19 with COPD, CHF, Cellulitis. P: Anticipate Allen will return home when medically cleared. He will follow up with his PCP, as recommended. He will transport via [facility] private vehicle, coordinated by CM. CM will continue to follow and support discharge planning considerations.
[2019-08-24] MEDS: Albuterol 2.5 MG/3 ML INH SOLN VIAL UPD (22:12)
[2019-08-25] VITALS (79 sets, daily range): BP systolic 118–180; BP diastolic 70–131; PULSE 82–146; RESP 2–35; TEMP 36.6–38.3; O2SAT 83–98
[2019-08-25] MEDS: Albuterol/Ipratropium 3 ML UPD VIAL UPD ×5 (00:21→23:18)
[2019-08-25] MEDS: LORazepam 1 MG TAB PO/SL ×7 (00:21→23:15)
[2019-08-25] MEDS: Acetaminophen 325 MG TAB 650 MG PO (00:58)
[2019-08-25] MEDS: Normal Saline Flush 10 ML SYR IVP ×5 (02:29→23:15)
[2019-08-25] MEDS: VANCOMYCIN 2,000 MG in Normal Saline 500 ML 250 MG IV ×3 (02:29→23:18)
[2019-08-25] MEDS: CLINDAMYCIN 900 MG/50 ML BAG 50 MG IVPB ×3 (04:48→20:38)
[2019-08-25] MEDS: methylPREDNISolone SUCC 125 MG VIAL 80 MG IVP ×2 (06:00→14:55)
[2019-08-25] MEDS: PIPERACILLIN/TAZO 4.5 GM in Normal Saline 100 ML IVPB ×3 (06:20→23:16)
[2019-08-25] MEDS: Insulin NPH-Human 300 UNITS/3 ML PEN 40 UNIT SC (06:27)
[2019-08-25 07:10] LABS: Abs Immature Grans 0.04 k/cumm (0.0-0.09); Absolute Lymphocyte Count 0.28 k/cumm (1.2-3.4); Absolute Monocyte Count 0.25 k/cumm (0.11-0.7); Absolute Neutrophil Count 3.48 k/cumm (1.2-6.7); HCT 39.5 % (40.0-50.0); HGB 13.2 g/dL (13.5-17.5); Lymphocytes % 6.9; Mean Corp. HGB Concentration 33.4 g/dL (32.0-36.0); Mean Corpuscular Hemoglobin 29.7 pg (27.0-33.0); Monocytes % 6.2; Neutrophils % 85.9; Platelet Count 136 x1000/uL (130-400); RBC 4.44 m/cumm (4.50-6.00); White Blood Cell Count 4.05 k/cumm (4.4-10.8)
[2019-08-25 07:17] LABS: Anion Gap 6.2 mmol/L (3-11); BUN 13 mg/dL (7-18); C-Reactive Protein 2.16 mg/dL (0.0-0.3); CO2 30.8 mmol/L (21.0-32.0); CREATININE 0.88 mg/dL (0.70-1.30); Calcium 8.2 mg/dL (8.5-10.1); Chloride 95 mmol/L (98-107); Glucose 189 mg/dL (74-106); Potassium 4.3 mmol/L (3.5-5.1); Sodium 132 mmol/L (136-145)
[2019-08-25] MEDS: Budesonide/Formoterol 160/4.5 6 GM 60 PUFF INH IH ×2 (07:50→23:21)
[2019-08-25] MEDS: Albuterol 2.5 MG/3 ML INH SOLN VIAL UPD (08:01)
[2019-08-25] MEDS: Thiamine 100 MG TAB PO (08:22)
[2019-08-25] MEDS: Magnesium Oxide 400 MG TAB PO ×2 (08:22→23:14)
[2019-08-25] MEDS: guaiFENesin 600 MG TABCR PO ×2 (08:22→23:14)
[2019-08-25] MEDS: Gabapentin 800 MG TAB PO ×2 (08:22→23:14)
[2019-08-25] MEDS: Pantoprazole 40 MG TABCR PO (08:23)
[2019-08-25] MEDS: Docusate Sodium 100 MG CAP PO ×2 (08:23→23:15)
[2019-08-25] MEDS: Enoxaparin 40 MG/0.4 ML SYR SC (08:23)
--- NOTE | 2019-08-25 09:43 | PDOC.CMPRO ---
Care Management Progress Note S/O: Due to increased agitation, pulmonary edema, CIWA scoring labs, vitals and presentation, transferred Allen to ICU. He continues to be closely monitored at this time. CM continues to follow; anticipate he will remain inpatient for at least a few more days during withdrawal and while receiving treatment for CHF and COPD. CM will continue to follow and support discharge planning considerations. A: Allen is a 53 year old male admitted to [facility] on 08/22/19 with COPD, CHF, Cellulitis. P: Anticipate Allen will return home when medically cleared. He will follow up with his PCP, and plan of care as recommended. assistant basketball coach will be contacted to consult with Allen prior to discharge. CM will review additional options for support and review community based services. Allen will transport via [facility] private vehicle, coordinated by CORNELIA.
[2019-08-25] MEDS: Methadone Liquid 10 MG/ML 130 MG PO (10:13)
--- NOTE | 2019-08-25 11:45 | DI.RAD_ITS ---
EXAM: XR PORTABLE CHEST AP INDICATION: Dyspnea. COMPARISON: XR FOOT LT COMPLETE from 08/22/2019 XR PORTABLE CHEST AP from 08/22/2019 TECHNIQUE: 2D digital imaging was performed. FINDINGS: The exam is limited by poor pulmonary inflation and mild respiratory motion. Heart size is normal. There is vascular crowding secondary to hypoinflation. There are streaky basilar densities likely r epresenting atelectasis. IMPRESSION: Limited exam. Basilar atelectasis. Infiltrates cannot be excluded. DATA REPOSITORY: RADIATION DOSE DELIVERED:
[2019-08-25] MEDS: Furosemide 100 MG/10 ML VIAL 80 MG IVP (12:17)
--- NOTE | 2019-08-25 12:41 | W.PM.PROGNOT ---
Date of Service Date of service: 08/25/19 Time of Service: 12:42 Subjective Subjective Interval history since last seen: I was called to see the patient urgently because the patient allegedly stated these go to leave AMA and put a bullet to his head. When I saw the patient he denied ever saying such things. However I do believe that he is going through acute alcohol withdrawal. His main concern is that he cannot breathe he said he had a rough night last night unable to lie down to sleep. He has been having his sit upright. He denies any chest pain or pressure. Objective Objective Clinical Data: Abnormal lab results 08/25/19 08/25/19 Range/Units 05:57 05:57 WBC 4.05 L (4.4-10.8) k/cumm RBC 4.44 L (4.50-6.00) m/cumm Hgb 13.2 L (13.5-17.5) g/dL Hct 39.5 L (40.0-50.0) % RDW 15.0 H (11.8-14.1) % Absolute Lymphocytes 0.28 L (1.2-3.4) k/cumm Sodium 132 L (136-145) mmol/L Chloride 95 L (98-107) mmol/L Glucose 189 H (74-106) mg/dL Calcium 8.2 L (8.5-10.1) mg/dL C-Reactive Protein 2.16 H (0.0-0.3) mg/dL Vital Signs Temperature 36.9 C 08/25/19 07:57 Temperature Source Tympanic 08/25/19 07:57 Pulse 110 H 08/25/19 11:10 Pulse Rhythm Regular 08/25/19 00:29 Pulse 106 H 08/22/19 08:24 Respiratory Rate 20 08/25/19 11:10 Respiratory Effort 08/25/19 07:47 Respiratory Depth Shallow 08/25/19 07:47 Respiratory Pattern Normal 08/25/19 07:47 Blood Pressure 147/94 H 08/25/19 07:57 Blood Pressure Mean 90 08/22/19 08:24 Blood Pressure Position Sitting 08/22/19 05:41 Pulse Oximetry 98 08/25/19 11:10 Oxygen Delivery Method Nasal Cannula 08/25/19 11:08 Oxygen Flow Rate 4 08/25/19 11:08 Pain Level 7 08/25/19 07:57 Comment 08/25/19 07:57 Intake & Output 08/24/19 08/25/19 08/25/19 23:59 11:59 23:59 Intake Total 1440 / 2430 3460 / 3460 Output Total 2150 / 2150 Balance 1440 / 2430 1310 / 1310 Intake: IV 720 / 1470 660 / 660 Oral 720 / 960 2800 / 2800 Output: Urine 2149 / 0 Other: Urine Color Pale Urine Appearance Clear Urine Odor Normal Voiding Methods Toilet Urinal Laboratory Results WBC 4.05 k/cumm (4.4-10.8) L 08/25/19 05:57 RBC 4.44 m/cumm (4.50-6.00) L 08/25/19 05:57 Hgb 13.2 g/dL (13.5-17.5) L 08/25/19 05:57 Hct 39.5 % (40.0-50.0) L 08/25/19 05:57 MCV 89.0 fL (80-95) 08/25/19 05:57 MCH 29.7 pg (27.0-33.0) 08/25/19 05:57 MCHC 33.4 g/dL (32.0-36.0) 08/25/19 05:57 RDW 15.0 % (11.8-14.1) H 08/25/19 05:57 Plt Count 136 x1000/uL (130-400) 08/25/19 05:57 MPV 10.0 fL (8.0-11.0) 08/25/19 05:57 Immature Gran % 1.0 % 08/25/19 05:57 Neutrophils % 85.9 08/25/19 05:57 Band Neutrophils % Not Applicable 08/24/19 06:15 Lymphocytes % 6.9 08/25/19 05:57 Monocytes % 6.2 08/25/19 05:57 Eosinophils % 0.0 08/25/19 05:57 Basophils % 0.0 08/25/19 05:57 Metamyelocytes % 3.0 % 08/22/19 05:56 Myelocytes % 3.0 % 08/22/19 05:56 Absolute Neutrophils 3.48 k/cumm (1.2-6.7) 08/25/19 05:57 Absolute Lymphocytes 0.28 k/cumm (1.2-3.4) L 08/25/19 05:57 Absolute Monocytes 0.25 k/cumm (0.11-0.7) 08/25/19 05:57 Absolute Eosinophils 0.00 k/cumm (0.0-0.7) 08/25/19 05:57 Absolute Basophils 0.00 k/cumm (0.0-0.2) 08/25/19 05:57 Differential Comment Manual differential 08/22/19 05:56 RBC Morphology See below 08/22/19 05:56 Anisocytosis 1+ 08/22/19 05:56 ESR 21 mm/hr (1-20) H 08/22/19 05:56 PT 10.9 sec (9.3-11.0) 08/22/19 05:56 INR 1.1 (0.9-1.1) 08/22/19 05:56 APTT 22.8 sec (21.0-31.4) 08/22/19 05:56 VBG pH 7.37 (7.35-7.45) 08/22/19 05:56 VBG pCO2 58 mm/Hg (34-47) H 08/22/19 05:56 VBG pO2 34 mm/Hg (28-44) 08/22/19 05:56 VBG HCO3 34 mmol/L (22-28) H 08/22/19 05:56 VBG Total CO2 30 mmol/L (22-29) H 08/22/19 05:56 VBG O2 Saturation 60 % (70-80) L 08/22/19 05:56 VBG Base Excess 8.5 mmol/L (-3-3) H 08/22/19 05:56 Sodium 132 mmol/L (136-145) L 08/25/19 05:57 Potassium 4.3 mmol/L (3.5-5.1) 08/25/19 05:57 Chloride 95 mmol/L (98-107) L 08/25/19 05:57 Carbon Dioxide 30.8 mmol/L (21.0-32.0) 08/25/19 05:57 Anion Gap 6.2 mmol/L (3-11) 08/25/19 05:57 BUN 13 mg/dL (7-18) 08/25/19 05:57 Creatinine 0.88 mg/dL (0.70-1.30) 08/25/19 05:57 Estimated GFR/1.73 m2 >= 60.00 (mL/min/1.73m2) 08/25/19 05:57 Glucose 189 mg/dL (74-106) H 08/25/19 05:57 Lactate 1.9 mmol/L (0.6-1.4) H 08/23/19 07:41 Calcium 8.2 mg/dL (8.5-10.1) L 08/25/19 05:57 Magnesium 1.9 mg/dL (1.8-2.4) 08/22/19 05:56 Total Bilirubin 0.5 mg/dL (0.2-1.0) 08/22/19 05:56 AST 45 U/L (15-37) H 08/22/19 05:56 ALT 102 U/L (16-63) H 08/22/19 05:56 Alkaline Phosphatase 92 U/L (46-116) 08/22/19 05:56 Troponin I 0.05 ng/Ml (<0.06) 08/22/19 10:15 C-Reactive Protein 2.16 mg/dL (0.0-0.3) H 08/25/19 05:57 NT-Pro-B Natriuret Pep 220 pg/mL (<300) 08/22/19 05:56 Total Protein 7.3 g/dL (6.4-8.2) 08/22/19 05:56 Albumin 3.1 g/dL (3.4-5.0) L 08/22/19 05:56 Procalcitonin 0.2 ng/mL 08/22/19 05:56 Vancomycin Trough 14.7 ug/mL (10.0-20.0) 08/24/19 15:30 Ethyl Alcohol < 3.0 mg/dL (<3) 08/22/19 05:56
[2019-08-25 13:10] LABS: NT-proBNP 425 pg/mL (<300); Troponin I < 0.05 ng/Ml (<0.06)
[2019-08-25] MEDS: diazePAM 10 MG/2 ML SYR IVP ×6 (13:23→20:37)
--- NOTE | 2019-08-25 15:25 | W.PM.PROGNOT ---
Date of Service Date of service: 08/25/19 Time of Service: 12:01 Assessment and Plan Assessment and plan (1) Acute respiratory failure: Status: Acute Assessment and plan: Appears to be multifactorial in origin including underlying COPD with healthcare acquired pneumonia and superimposed CHF. Presumably CHF is diastolic in nature possibly due to some underlying untreated ELLIOT. However ACS is being ruled out. Plan is to transfer patient to the intensive care unit with continued supportive care with BiPAP. Begin a Lasix drip and check serial troponin levels and get an echocardiogram in the morning when the instructional technologist is available. Qualifiers: Respiratory failure complication: hypoxia Qualified Code(s): J96.01 - Acute respiratory failure with hypoxia (2) HCAP (healthcare-associated pneumonia): Status: Acute Assessment and plan: Continue with IV Zosyn and vancomycin along w/ aerosolized bronchodilators, and iv corticosteroids. Support w/ NIPPV/; if he fails this then he will need intubation and mechanical ventilation. (3) Cellulitis of left lower extremity: Status: Acute Assessment and plan: continues to improve on current antibiotics. continue Vancomycin and Clindamycin and Zosyn. (4) COPD with acute exacerbation: Status: Acute Assessment and plan: As above (5) DMII (diabetes mellitus, type 2): Status: Acute Assessment and plan: hold scheduled basal insulin while NPO Qualifiers: Diabetes mellitus complication status: without complication Diabetes mellitus nursing home insulin use: without nursing home use Qualified Code(s): E11.9 - Type 2 diabetes mellitus without complications (6) EtOH dependence: Status: Acute Assessment and plan: Now in withdrawal. Patient moved to ICU d/t acute respiratory failure but will need ICU care for alcohol withdrawal and parenteral benzodiazepines. Qualifiers: Substance use status: uncomplicated Qualified Code(s): F10.20 - Alcohol dependence, uncomplicated (7) Obstructive sleep apnea: Status: Suspected Assessment and plan: Patient apparently was supposed to be referred for polysomnogram but this has not been worked up yet. (8) Opioid dependence: Status: Chronic Assessment and plan: We will continue his usual dose of methadone which was confirmed by nursing staff per their discussion with [facility]EE Qualifiers: Substance use status: uncomplicated Qualified Code(s): F11.20 - Opioid dependence, uncomplicated Subjective Subjective Interval history since last seen: I was called to see the patient urgently because the patient allegedly stated these go to leave AMA and put a bullet to his head. When I saw the patient he denied ever saying such things. However I do believe that he is going through acute alcohol withdrawal. His main concern is that he cannot breathe he said he had a rough night last night unable to lie down to sleep. He has been having his sit upright. He denies any chest pain or pressure. Patient was in a panic sitting up to breath with audible rales heard without a stethoscope. He is tachycardic and diaphoretic. Patient reportedly had been threatening to go out of the hospital AGAINST MEDICAL ADVICE and threatening suicide. Patient appears to be in acute alcohol withdrawal and acute congestive heart failure. Exam Narrative Exam Narrative: Middle-age obese bearded male sitting up in bed diaphoretic short of breath tachypneic and tachycardia. Neck is obese difficult to discern JVD. Lungs with diffuse rales anteriorly and posteriorly to the apices. Heart is tachycardic no appreciable murmur rub Abdomen is obese with active bowel sounds soft and nondistended and nontender Lower extremities left leg cellulitis appears to be healing there is continued retreatment of the area of erythema over the pretibial surface. The edema in his left leg is gone down markedly. Objective Objective Clinical Data: Abnormal lab results 08/25/19 08/25/19 08/25/19 Range/Units 05:57 05:57 12:38 WBC 4.05 L (4.4-10.8) k/cumm RBC 4.44 L (4.50-6.00) m/cumm Hgb 13.2 L (13.5-17.5) g/dL Hct 39.5 L (40.0-50.0) % RDW 15.0 H (11.8-14.1) % Absolute Lymphocytes 0.28 L (1.2-3.4) k/cumm Sodium 132 L (136-145) mmol/L Chloride 95 L (98-107) mmol/L Glucose 189 H (74-106) mg/dL Calcium 8.2 L (8.5-10.1) mg/dL C-Reactive Protein 2.16 H (0.0-0.3) mg/dL NT-Pro-B Natriuret Pep 425 H (<300) pg/mL Vital Signs Temperature 37.0 C 08/25/19 11:08 Temperature Source Tympanic 08/25/19 11:08 Pulse 121 H 08/25/19 13:41 Pulse Rhythm Regular 08/25/19 00:29 Pulse 106 H 08/22/19 08:24 Respiratory Rate 21 08/25/19 13:41 Respiratory Effort 08/25/19 07:47 Respiratory Depth Shallow 08/25/19 07:47 Respiratory Pattern Normal 08/25/19 07:47 Blood Pressure 164/92 H 08/25/19 11:08 Blood Pressure Mean 90 08/22/19 08:24 Blood Pressure Position Sitting 08/22/19 05:41 Pulse Oximetry 94 L 08/25/19 13:41 Oxygen Delivery Method Nasal Cannula 08/25/19 11:08 Oxygen Flow Rate 3 08/25/19 11:08 Fraction of Inspired Oxygen (FIO2) 40 08/25/19 13:41 Pain Level 8 08/25/19 11:08 Comment 08/25/19 07:57 Intake & Output 08/24/19 08/25/19 08/25/19 23:59 11:59 23:59 Intake Total 1440 / 2430 3560 / 3560 Output Total 3300 / 4400 1100 / 4400 Balance 1440 / 2430 260 / -840 -1100 / -840 Weight 118 kg Intake: IV 720 / 1470 760 / 760 Oral 720 / 960 2800 / 2800 Output: Urine 3300 / 4400 1100 / 4400 Other: Urine Color Straw Straw Urine Appearance Clear Clear Urine Odor None None Voiding Methods Toilet Urinal Urinal Laboratory Results WBC 4.05 k/cumm (4.4-10.8) L 08/25/19 05:57 RBC 4.44 m/cumm (4.50-6.00) L 08/25/19 05:57 Hgb 13.2 g/dL (13.5-17.5) L 08/25/19 05:57 Hct 39.5 % (40.0-50.0) L 08/25/19 05:57 MCV 89.0 fL (80-95) 08/25/19 05:57 MCH 29.7 pg (27.0-33.0) 08/25/19 05:57 MCHC 33.4 g/dL (32.0-36.0) 08/25/19 05:57 RDW 15.0 % (11.8-14.1) H 08/25/19 05:57 Plt Count 136 x1000/uL (130-400) 08/25/19 05:57 MPV 10.0 fL (8.0-11.0) 08/25/19 05:57 Immature Gran % 1.0 % 08/25/19 05:57 Neutrophils % 85.9 08/25/19 05:57 Band Neutrophils % Not Applicable 08/24/19 06:15 Lymphocytes % 6.9 08/25/19 05:57 Monocytes % 6.2 08/25/19 05:57 Eosinophils % 0.0 08/25/19 05:57 Basophils % 0.0 08/25/19 05:57 Metamyelocytes % 3.0 % 08/22/19 05:56 Myelocytes % 3.0 % 08/22/19 05:56 Absolute Neutrophils 3.48 k/cumm (1.2-6.7) 08/25/19 05:57 Absolute Lymphocytes 0.28 k/cumm (1.2-3.4) L 08/25/19 05:57 Absolute Monocytes 0.25 k/cumm (0.11-0.7) 08/25/19 05:57 Absolute Eosinophils 0.00 k/cumm (0.0-0.7) 08/25/19 05:57 Absolute Basophils 0.00 k/cumm (0.0-0.2) 08/25/19 05:57 Differential Comment Manual differential 08/22/19 05:56 RBC Morphology See below 08/22/19 05:56 Anisocytosis 1+ 08/22/19 05:56 ESR 21 mm/hr (1-20) H 08/22/19 05:56 PT 10.9 sec (9.3-11.0) 08/22/19 05:56 INR 1.1 (0.9-1.1) 08/22/19 05:56 APTT 22.8 sec (21.0-31.4) 08/22/19 05:56 VBG pH 7.37 (7.35-7.45) 08/22/19 05:56 VBG pCO2 58 mm/Hg (34-47) H 08/22/19 05:56 VBG pO2 34 mm/Hg (28-44) 08/22/19 05:56 VBG HCO3 34 mmol/L (22-28) H 08/22/19 05:56 VBG Total CO2 30 mmol/L (22-29) H 08/22/19 05:56 VBG O2 Saturation 60 % (70-80) L 08/22/19 05:56 VBG Base Excess 8.5 mmol/L (-3-3) H 08/22/19 05:56 Sodium 132 mmol/L (136-145) L 08/25/19 05:57 Potassium 4.3 mmol/L (3.5-5.1) 08/25/19 05:57 Chloride 95 mmol/L (98-107) L 08/25/19 05:57 Carbon Dioxide 30.8 mmol/L (21.0-32.0) 08/25/19 05:57 Anion Gap 6.2 mmol/L (3-11) 08/25/19 05:57 BUN 13 mg/dL (7-18) 08/25/19 05:57 Creatinine 0.88 mg/dL (0.70-1.30) 08/25/19 05:57 Estimated GFR/1.73 m2 >= 60.00 (mL/min/1.73m2) 08/25/19 05:57 Glucose 189 mg/dL (74-106) H 08/25/19 05:57 Lactate 1.9 mmol/L (0.6-1.4) H 08/23/19 07:41 Calcium 8.2 mg/dL (8.5-10.1) L 08/25/19 05:57 Magnesium 1.9 mg/dL (1.8-2.4) 08/22/19 05:56 Total Bilirubin 0.5 mg/dL (0.2-1.0) 08/22/19 05:56 AST 45 U/L (15-37) H 08/22/19 05:56 ALT 102 U/L (16-63) H 08/22/19 05:56 Alkaline Phosphatase 92 U/L (46-116) 08/22/19 05:56 Troponin I < 0.05 ng/Ml (<0.06) 08/25/19 12:38 C-Reactive Protein 2.16 mg/dL (0.0-0.3) H 08/25/19 05:57 NT-Pro-B Natriuret Pep 425 pg/mL (<300) H 08/25/19 12:38 Total Protein 7.3 g/dL (6.4-8.2) 08/22/19 05:56 Albumin 3.1 g/dL (3.4-5.0) L 08/22/19 05:56 Procalcitonin 0.2 ng/mL 08/22/19 05:56 Vancomycin Trough 14.7 ug/mL (10.0-20.0) 08/24/19 15:30 Ethyl Alcohol < 3.0 mg/dL (<3) 08/22/19 05:56 Objective Narrative Objective Narrative: [id number] ultrasound of his lungs demonstrated diffuse bilateral B-lines from apices to the bases. I did not see pleural effusion nor was there visible lobar consolidation. [id number] echocardiogram was attempted however because of his COPD and obesity I could not get good windows. The best window I could obtain was an apical four-chamber which was marginal at best. LV appears to be enlarged and lateral wall appears to be slightly hyokinetic, however images are poor at best.
[2019-08-25 17:00] LABS: Troponin I < 0.05 ng/Ml (<0.06)
[2019-08-25 17:46] LABS: BE 13.1 mmol/L (-3-3); HCO3 37 mmol/L (22-28); pCO2 54 mmHg (34-47); pH 7.45 (7.35-7.45); pO2 87 mmHg (83-108); sO2 97 % (94-98); tCO2 32 mmol/L (22-29)
[2019-08-25 17:49] LABS: Site Left Radial
[2019-08-25 17:50] LABS: FIO2 50 %
[2019-08-25 21:10] LABS: Troponin I < 0.05 ng/Ml (<0.06)
[2019-08-25] MEDS: methylPREDNISolone SUCC 125 MG VIAL 40 MG IVP (23:16)
[2019-08-25] MEDS: Nystatin 500000 UNITS/5 ML SUSP 5ML CUP PO (23:55)
[2019-08-26] VITALS (55 sets, daily range): BP systolic 100–168; BP diastolic 72–125; PULSE 68–123; RESP 2–30; TEMP 30–37.2; O2SAT 87–96
[2019-08-26] MEDS: CLINDAMYCIN 900 MG/50 ML BAG 50 MG IVPB ×3 (04:53→19:52)
[2019-08-26] MEDS: PIPERACILLIN/TAZO 4.5 GM in Normal Saline 100 ML IVPB ×3 (04:54→21:57)
[2019-08-26] MEDS: methylPREDNISolone SUCC 125 MG VIAL 40 MG IVP ×3 (05:10→21:57)
[2019-08-26] MEDS: Normal Saline Flush 10 ML SYR IVP ×3 (05:14→22:02)
[2019-08-26] MEDS: Albuterol/Ipratropium 3 ML UPD VIAL UPD ×3 (05:15→19:22)
[2019-08-26] MEDS: Insulin Aspart 300 UNITS/3 ML PEN SC ×4 (05:27→22:17)
[2019-08-26] MEDS: Pantoprazole 40 MG TABCR PO (06:05)
[2019-08-26] MEDS: Nystatin 500000 UNITS/5 ML SUSP 5ML CUP PO ×5 (06:05→21:58)
--- NOTE | 2019-08-26 06:45 | DI.RAD_ITS ---
EXAM: XR PORTABLE CHEST AP INDICATION: Dyspnea. COMPARISON: XR PORTABLE CHEST AP from 08/25/2019 TECHNIQUE: 2D digital imaging was performed. FINDINGS: Lungs are not well inflated. There are increased densities at the lung bases could represent atelect asis. Pneumonia cannot be excluded. No gross effusions are seen. The heart size is normal. IMPRESSION: Severely limited exam. Bibasilar infiltrates versus atelectasis. DATA REPOSITORY: RADIATION DOSE DELIVERED:
[2019-08-26 07:35] LABS: HCT 41.5 % (40.0-50.0); Mean Corp. HGB Concentration 33.7 g/dL (32.0-36.0); Mean Corpuscular Hemoglobin 29.7 pg (27.0-33.0); Mean Corpuscular Volume 88.1 fL (80-95); Platelet Count 119 x1000/uL (130-400); RBC 4.71 m/cumm (4.50-6.00); RBC Distribution Width 15.5 % (11.8-14.1); White Blood Cell Count 3.46 k/cumm (4.4-10.8)
--- NOTE | 2019-08-26 07:37 | DI.VRAD_ITS ---
PROCEDURE INFORMATION: Exam: XR Chest, 1 View Exam date and time: 08/26/2019 6:50 AM Age: 53 years old Clinical indication: Dyspnea; Additional info: Patient had a hard time taking in a deep breath. TECHNIQUE: Imaging protocol: XR of the chest Views: 1 view. COMPARISON: CR XR PORTABLE CHEST AP 08/25/2019 12:39 PM FINDINGS: Lungs: Low lung volumes. Streaky perihilar opacities, increased from prior study. Irregular opacities projecting over the left upper lung and left lung base, better seen than on prior study. Stable right basilar density. Pleural space: New blunting of the costophrenic angles suggesting pleural effusions. Heart/Mediastinum: Cardiomediastinal silhouette magnified by AP technique and low lung volumes. IMPRESSION: 1. Suspect pleural effusions. 2. Bilateral perihilar opacities, could reflect edema or infection. 3. Irregular opacities projecting over the left upper lung and left lung base, could reflect infection. Underlying lesion/neoplasm not excluded. Follow up advised. Dictated and Authenticated by: Jewell Borges MD. Ordering:[facility] Sondra Zhu MD
[2019-08-26 07:41] LABS: Anion Gap 5.5 mmol/L (3-11); BUN 19 mg/dL (7-18); CO2 34.5 mmol/L (21.0-32.0); CREATININE 1.19 mg/dL (0.70-1.30); Calcium 7.8 mg/dL (8.5-10.1); Chloride 90 mmol/L (98-107); Glucose 159 mg/dL (74-106); PHOSPHORUS 6.1 mg/dL (2.6-4.7); Potassium 4.1 mmol/L (3.5-5.1); Sodium 130 mmol/L (136-145)
[2019-08-26 07:49] LABS: Magnesium 2.3 mg/dL (1.8-2.4); NT-proBNP 168 pg/mL (<300)
[2019-08-26 07:50] LABS: Vancomycin, Trough 23.3 ug/mL (10.0-20.0)
[2019-08-26] MEDS: Gabapentin 800 MG TAB PO ×3 (08:12→19:23)
[2019-08-26] MEDS: Magnesium Oxide 400 MG TAB PO ×2 (08:12→19:23)
[2019-08-26] MEDS: Thiamine 100 MG TAB PO (08:13)
[2019-08-26] MEDS: Docusate Sodium 100 MG CAP PO ×2 (08:13→19:23)
[2019-08-26] MEDS: guaiFENesin 600 MG TABCR PO ×2 (08:13→19:23)
[2019-08-26] MEDS: Acetaminophen 325 MG TAB 650 MG PO ×2 (08:14→12:42)
[2019-08-26] MEDS: Enoxaparin 40 MG/0.4 ML SYR SC (08:14)
[2019-08-26] MEDS: Budesonide/Formoterol 160/4.5 6 GM 60 PUFF INH IH ×2 (08:37→20:10)
--- NOTE | 2019-08-26 08:42 | PGE_ITS ---
Date of Service Date of service: 08/26/19 Time of Service: 08:42 Assessment and Plan Assessment and plan (1) Acute respiratory failure: Status: Acute Assessment and plan: Market improvement in his respiratory status overnight. He diuresed 2600 cc. Echocardiogram is pending at this time to evaluate LV and RV function. I think his underlying respiratory failure is multifactorial in origin including underlying COPD with superimposed H CAP and CHF from volume overload. Qualifiers: Respiratory failure complication: hypoxia Qualified Code(s): J96.01 - Acute respiratory failure with hypoxia (2) HCAP (healthcare-associated pneumonia): Status: Acute Assessment and plan: Continue with IV Zosyn and vancomycin along w/ aerosolized bronchodilators, and iv corticosteroids. I have reduced his corticosteroid dose as this may have been contributing to his acute delirium (3) Cellulitis of left lower extremity: Status: Acute Assessment and plan: continues to improve on current antibiotics. continue Vancomycin and Clindamycin and Zosyn. (4) COPD with acute exacerbation: Status: Acute Assessment and plan: As above (5) DMII (diabetes mellitus, type 2): Status: Acute Assessment and plan: Resume basal insulin. He should continue to receive NPH was receiving IV corticosteroids. I reduced his corticosteroids in half last night to 40 mg IV every 8 hours. I will subsequently decrease his NPH to 20 units subcutaneous every 8 hours to correspond with his Solu-Medrol Qualifiers: Diabetes mellitus superintendent container terminal insulin use: without group home use Diabetes mellitus complication status: without complication Qualified Code(s): E11.9 - Type 2 diabetes mellitus without complications (6) EtOH dependence: Status: Acute Assessment and plan: Continue monitor with CIWA protocol. I am to put her on program dose of Librium for the next 48 hours. With parameters to hold for sedation Qualifiers: Substance use status: uncomplicated Qualified Code(s): F10.20 - Alcohol dependence, uncomplicated (7) Obstructive sleep apnea: Status: Suspected Assessment and plan: Patient apparently was supposed to be referred for polysomnogram but this has not been worked up yet. (8) Opioid dependence: Status: Chronic Assessment and plan: We will continue his usual dose of methadone which was confirmed by nursing staff per their discussion with [facility] Qualifiers: Substance use status: uncomplicated Qualified Code(s): F11.20 - Opioid dependence, uncomplicated Subjective Subjective Interval history since last seen: Patient is doing markedly better this morning. He has been weaned off the BiPAP mask is on a high flow nasal cannula 15 L/min. Oxygen saturation is in the low 90s. Heart rate is much improved he is no longer tachycardic. Heart rate is in the 90s sinus rhythm. Blood pressure stable at 120/84. Respirations are nonlabored. He diuresed 2600 cc overnight. His weight is down to 115.4 kg. This represents a 2.6 kg decrease over the last 24 hours. His proBNP is down to normal at 168. Chest x-ray demonstrates perihilar opacities suggestive of CHF and he has bilateral pleural effusions on his chest x-ray. This point organ to discontinue his Lasix drip and treated with IV Lasix 40 mg twice a day. Echocardiogram is pending at this time. I am to put him on program doses of Librium for the next 48 hours. His CIWA scores were 12 and 13 last night. Nursing has not assigned a score yet this morning but the patient is much calmer. He is not hallucinating and has no tremors. Exam Narrative Exam Narrative: Middle-age male sitting up in a chair drinking couple coffee. Is wearing high flow nasal cannula. No accessory respiratory muscle use. Lungs reveal scattered expiratory wheezes and rhonchi. Heart is regular rate and rhythm without audible murmur or gallop. Abdomen is obese soft and nontender. Lower extremities show market improvement in his edema. Left leg has chronic venous stasis skin changes. Area of cellulitis over his left pretibial surface is markedly improved and has faded to a purplish/dark reddish. There is no edema of his thigh or his left calf and pretibial surface. Neurologic exam is markedly improved he is alert and answering questions appropriately. Objective Objective Clinical Data: Abnormal lab results 08/25/19 08/25/19 08/26/19 Range/Units 12:38 17:40 07:15 WBC (4.4-10.8) k/cumm RDW (11.8-14.1) % Plt Count (130-400) x1000/uL ABG pCO2 54 H (34-47) mmHg ABG HCO3 37 H (22-28) mmol/L ABG Total CO2 32 H (22-29) mmol/L ABG Base Excess 13.1 H (-3-3) mmol/L Sodium (136-145) mmol/L Chloride (98-107) mmol/L Carbon Dioxide (21.0-32.0) mmol/L BUN (7-18) mg/dL Glucose (74-106) mg/dL Calcium (8.5-10.1) mg/dL Phosphorus (2.6-4.7) mg/dL NT-Pro-B Natriuret Pep 425 H (<300) pg/mL Vancomycin Trough 23.3 H* (10.0-20.0) ug/mL 08/26/19 08/26/19 Range/Units 07:15 07:15 WBC 3.46 L (4.4-10.8) k/cumm RDW 15.5 H (11.8-14.1) % Plt Count 119 L (130-400) x1000/uL ABG pCO2 (34-47) mmHg ABG HCO3 (22-28) mmol/L ABG Total CO2 (22-29) mmol/L ABG Base Excess (-3-3) mmol/L Sodium 130 L (136-145) mmol/L Chloride 90 L (98-107) mmol/L Carbon Dioxide 34.5 H (21.0-32.0) mmol/L BUN 19 H D (7-18) mg/dL Glucose 159 H (74-106) mg/dL Calcium 7.8 L (8.5-10.1) mg/dL Phosphorus 6.1 H (2.6-4.7) mg/dL NT-Pro-B Natriuret Pep (<300) pg/mL Vancomycin Trough (10.0-20.0) ug/mL Vital Signs Temperature 36.2 C L 08/26/19 07:52 Temperature Source Tympanic 08/26/19 07:52 Pulse 87 08/26/19 07:52 Pulse Rhythm Regular 08/25/19 08:20 Pulse 82 08/26/19 07:00 Respiratory Rate 28 H 08/26/19 07:52 Respiratory Effort 08/26/19 07:52 Respiratory Depth Normal 08/26/19 07:52 Respiratory Pattern Normal 08/26/19 07:52 Blood Pressure 117/79 08/26/19 07:00 Blood Pressure Mean 86 08/26/19 07:00 Blood Pressure Position Supine 08/26/19 07:52 Pulse Oximetry 91 L 08/26/19 07:52 Oxygen Delivery Method Nasal Cannula 08/26/19 07:52 Oxygen Flow Rate 6 08/26/19 07:52 Fraction of Inspired Oxygen (FIO2) 40 08/26/19 03:32 Pain Level 0 08/26/19 03:32 Comment 08/25/19 07:57 Intake & Output 08/25/19 08/25/19 08/26/19 11:59 23:59 11:59 Intake Total 3560 / 4922.833 1362.833 / 4922.833 1217.417 / 1217.417 Output Total 3300 / 7175 3875 / 7175 2243 / 2243 Balance 260 / -2252.167 -2512.167 / -2252.167 -1025.583 / -1025.583 Weight 118 kg 118 kg 115.4 kg Intake: IV 760 / 1522.833 762.833 / 1522.833 677.417 / 677.417 Oral 2800 / 3400 600 / 3400 540 / 540 Output: Urine 3300 / 7175 3875 / 7175 2243 / 2243 Stool 0 / 0 Other: Urine Color Straw Yellow Yellow Urine Appearance Clear Clear Clear Urine Odor None None Comment Kumari catheter intact and draining clear yellow urine. Kumari catheter intact and draining clear yellow urine. Voiding Methods Urinal Urinal Indwelling Catheter Laboratory Results WBC 3.46 k/cumm (4.4-10.8) L 08/26/19 07:15 RBC 4.71 m/cumm (4.50-6.00) 08/26/19 07:15 Hgb 14.0 g/dL (13.5-17.5) 08/26/19 07:15 Hct 41.5 % (40.0-50.0) 08/26/19 07:15 MCV 88.1 fL (80-95) 08/26/19 07:15 MCH 29.7 pg (27.0-33.0) 08/26/19 07:15 MCHC 33.7 g/dL (32.0-36.0) 08/26/19 07:15 RDW 15.5 % (11.8-14.1) H 08/26/19 07:15 Plt Count 119 x1000/uL (130-400) L 08/26/19 07:15 MPV 10.0 fL (8.0-11.0) 08/26/19 07:15 Immature Gran % 1.0 % 08/25/19 05:57 Neutrophils % 85.9 08/25/19 05:57 Band Neutrophils % Not Applicable 08/24/19 06:15 Lymphocytes % 6.9 08/25/19 05:57 Monocytes % 6.2 08/25/19 05:57 Eosinophils % 0.0 08/25/19 05:57 Basophils % 0.0 08/25/19 05:57 Metamyelocytes % 3.0 % 08/22/19 05:56 Myelocytes % 3.0 % 08/22/19 05:56 Absolute Neutrophils 3.48 k/cumm (1.2-6.7) 08/25/19 05:57 Absolute Lymphocytes 0.28 k/cumm (1.2-3.4) L 08/25/19 05:57 Absolute Monocytes 0.25 k/cumm (0.11-0.7) 08/25/19 05:57 Absolute Eosinophils 0.00 k/cumm (0.0-0.7) 08/25/19 05:57 Absolute Basophils 0.00 k/cumm (0.0-0.2) 08/25/19 05:57 Differential Comment Manual differential 08/22/19 05:56 RBC Morphology See below 08/22/19 05:56 Anisocytosis 1+ 08/22/19 05:56 ESR 21 mm/hr (1-20) H 08/22/19 05:56 PT 10.9 sec (9.3-11.0) 08/22/19 05:56 INR 1.1 (0.9-1.1) 08/22/19 05:56 APTT 22.8 sec (21.0-31.4) 08/22/19 05:56 ABG Sample Site Left radial 08/25/19 17:40 ABG pH 7.45 (7.35-7.45) 08/25/19 17:40 ABG pCO2 54 mmHg (34-47) H 08/25/19 17:40 ABG pO2 87 mmHg (83-108) 08/25/19 17:40 ABG HCO3 37 mmol/L (22-28) H 08/25/19 17:40 ABG Total CO2 32 mmol/L (22-29) H 08/25/19 17:40 ABG O2 Saturation 97 % (94-98) 08/25/19 17:40 ABG Base Excess 13.1 mmol/L (-3-3) H 08/25/19 17:40 VBG pH 7.37 (7.35-7.45) 08/22/19 05:56 VBG pCO2 58 mm/Hg (34-47) H 08/22/19 05:56 VBG pO2 34 mm/Hg (28-44) 08/22/19 05:56 VBG HCO3 34 mmol/L (22-28) H 08/22/19 05:56 VBG Total CO2 30 mmol/L (22-29) H 08/22/19 05:56 VBG O2 Saturation 60 % (70-80) L 08/22/19 05:56 VBG Base Excess 8.5 mmol/L (-3-3) H 08/22/19 05:56 FiO2 50 % 08/25/19 17:40 Sodium 130 mmol/L (136-145) L 08/26/19 07:15 Potassium 4.1 mmol/L (3.5-5.1) 08/26/19 07:15 Chloride 90 mmol/L (98-107) L 08/26/19 07:15 Carbon Dioxide 34.5 mmol/L (21.0-32.0) H 08/26/19 07:15 Anion Gap 5.5 mmol/L (3-11) 08/26/19 07:15 BUN 19 mg/dL (7-18) H D 08/26/19 07:15 Creatinine 1.19 mg/dL (0.70-1.30) 08/26/19 07:15 Estimated GFR/1.73 m2 >= 60.00 (mL/min/1.73m2) 08/26/19 07:15 Glucose 159 mg/dL (74-106) H 08/26/19 07:15 Lactate 1.9 mmol/L (0.6-1.4) H 08/23/19 07:41 Calcium 7.8 mg/dL (8.5-10.1) L 08/26/19 07:15 Phosphorus 6.1 mg/dL (2.6-4.7) H 08/26/19 07:15 Magnesium 2.3 mg/dL (1.8-2.4) 08/26/19 07:15 Total Bilirubin 0.5 mg/dL (0.2-1.0) 08/22/19 05:56 AST 45 U/L (15-37) H 08/22/19 05:56 ALT 102 U/L (16-63) H 08/22/19 05:56 Alkaline Phosphatase 92 U/L (46-116) 08/22/19 05:56 Troponin I < 0.05 ng/Ml (<0.06) 08/25/19 20:05 C-Reactive Protein 2.16 mg/dL (0.0-0.3) H 08/25/19 05:57 NT-Pro-B Natriuret Pep 168 pg/mL (<300) 08/26/19 07:15 Total Protein 7.3 g/dL (6.4-8.2) 08/22/19 05:56 Albumin 3.1 g/dL (3.4-5.0) L 08/22/19 05:56 Procalcitonin 0.2 ng/mL 08/22/19 05:56 Vancomycin Trough 23.3 ug/mL (10.0-20.0) H* 08/26/19 07:15 Ethyl Alcohol < 3.0 mg/dL (<3) 08/22/19 05:56
[2019-08-26] MEDS: Methadone Liquid 10 MG/ML 130 MG PO (08:53)
[2019-08-26] MEDS: Insulin NPH-Human 300 UNITS/3 ML PEN 20 UNIT SC ×3 (09:04→22:16)
[2019-08-26] MEDS: Multivitamin TAB 1 TAB PO (09:20)
[2019-08-26] MEDS: Folic Acid 1 MG TAB PO (09:20)
[2019-08-26] MEDS: Furosemide 40 MG/4 ML VIAL IVP ×2 (09:21→16:23)
--- NOTE | 2019-08-26 10:23 | CMPROGNOTE_ITS ---
- If Service Date Differs Date of service: 08/26/19 Time of Service: 10:23 Care Management Progress Note S/O: Allen was sitting up in his chair when CM met with him. Yesterday he was transferred to ICU level of care due to acute respiratory failure. He reported that he is feeling better today, but still not well. Per provider, he has been taken off BiPAP and is now on high flow nasal cannula, which he is tolerating with O2 in the low 90's. CORNELIA contacted the cost recovery technician, Jo Ann, and introduced her to Allen. Per Jo Ann, he was receptive to discussing quitting drinking. CM will continue to follow. A: Allen is a 53 year old male admitted to [facility] on 08/22/19 with COPD, CHF, Cellulitis. P: Anticipate Allen will return home when medically cleared. He will follow up with his PCP, and plan of care as recommended. assistant women's soccer coach will be contacted to consult with Allen prior to discharge. CM will review additional options for support and review community based services. Allen will transport via [facility] private vehicle, coordinated by CORNELIA.
[2019-08-26] MEDS: Normal Saline 500 ML 30 ML IV (11:34)
[2019-08-26] MEDS: chlordiazePOXIDE 25 MG CAP PO ×3 (12:09→19:23)
--- NOTE | 2019-08-26 13:43 | W.NUTRFU ---
Date of service: 08/26/19 Time of Service: 13:43 Nutritional Follow up NOTE: Allen has returned to Regular Diet 08/26/19 at breakfast after 3 days of poor intake. No new nutritional recommendations at this time. Will continue to follow. Time Spent in Nutritional Counseling and Treatment: 0 time spent face to face
[2019-08-27] VITALS (46 sets, daily range): BP systolic 98–143; BP diastolic 67–114; PULSE 73–126; RESP 4–30; TEMP 31–37.2; O2SAT 80–94
[2019-08-27] MEDS: CLINDAMYCIN 900 MG/50 ML BAG 50 MG IVPB ×3 (03:40→20:17)
[2019-08-27] MEDS: methylPREDNISolone SUCC 125 MG VIAL 40 MG IVP ×3 (06:48→21:37)
[2019-08-27] MEDS: PIPERACILLIN/TAZO 4.5 GM in Normal Saline 100 ML IVPB ×3 (06:48→21:37)
[2019-08-27] MEDS: Insulin NPH-Human 300 UNITS/3 ML PEN 20 UNIT SC ×3 (06:49→20:18)
[2019-08-27] MEDS: Albuterol/Ipratropium 3 ML UPD VIAL UPD ×3 (06:49→18:09)
[2019-08-27] MEDS: Nystatin 500000 UNITS/5 ML SUSP 5ML CUP PO ×5 (06:49→21:38)
[2019-08-27 06:56] LABS: Abs Immature Grans 0.04 k/cumm (0.0-0.09); Absolute Basophil Count 0.01 k/cumm (0.0-0.2); Absolute Lymphocyte Count 0.43 k/cumm (1.2-3.4); Absolute Neutrophil Count 2.32 k/cumm (1.2-6.7); Basophils % 0.3; HCT 39.6 % (40.0-50.0); HGB 13.4 g/dL (13.5-17.5); Immature Grans % 1.3 %; Lymphocytes % 14.3; Mean Corp. HGB Concentration 33.8 g/dL (32.0-36.0); Mean Corpuscular Hemoglobin 29.6 pg (27.0-33.0); Mean Corpuscular Volume 87.4 fL (80-95); Mean Platelet Volume 10.3 fL (8.0-11.0); Monocytes % 6.7; Neutrophils % 77.4; Platelet Count 119 x1000/uL (130-400); RBC 4.53 m/cumm (4.50-6.00); RBC Distribution Width 14.9 % (11.8-14.1)
[2019-08-27 07:27] LABS: Anion Gap 3.2 mmol/L (3-11); BUN 22 mg/dL (7-18); C-Reactive Protein 3.07 mg/dL (0.0-0.3); CO2 35.8 mmol/L (21.0-32.0); CREATININE 1.06 mg/dL (0.70-1.30); Calcium 7.7 mg/dL (8.5-10.1); Chloride 94 mmol/L (98-107); Glucose 150 mg/dL (74-106); Magnesium 2.4 mg/dL (1.8-2.4); NT-proBNP 53 pg/mL (<300); Potassium 3.8 mmol/L (3.5-5.1); Sodium 133 mmol/L (136-145)
[2019-08-27] MEDS: Budesonide/Formoterol 160/4.5 6 GM 60 PUFF INH IH ×2 (08:34→20:16)
--- NOTE | 2019-08-27 08:34 | PGE_ITS ---
Date of Service Date of service: 08/27/19 Time of Service: 08:34 Assessment and Plan Assessment and plan (1) Acute on chronic respiratory failure with hypoxia and hypercapnia: Status: Acute Assessment and plan: Multifactorial, due to HCAP, acute exacerbation of COPD, and acute on chronic diastolic CHF. Improved. Currently requiring humidified heated high flow O2. Continue to wean O2 while diuresing, treating PNA, and providing nebulizer treatments as below. (2) HCAP (healthcare-associated pneumonia): Status: Acute Assessment and plan: Improving. Continue vancomycin, zosyn, clindamycin. Would consider d/c'ing vancomycin if/when CRP improves. (3) Acute on chronic diastolic CHF (congestive heart failure), NYHA class 1: Status: Acute Assessment and plan: Monitor I/O's while on lasix boluses. (4) COPD with acute exacerbation: Status: Acute Assessment and plan: Improving. Continue steroid taper, scheduled/prn nebs, symbicort, abx as above. Wean O2 as tolerated. (5) Cellulitis of left lower extremity: Status: Acute Assessment and plan: Improving. Continue Vancomycin, clindamycin, zosyn. (6) DMII (diabetes mellitus, type 2): Status: Acute Assessment and plan: with steroid-induced hyperglycemia. Continue basal bolus insulin with NPH insulin timed with steroid doses. Qualifiers: Diabetes mellitus long term care phlebotomist insulin use: without long term care phlebotomist use Diabetes mellitus complication status: without complication Qualified Code(s): E11.9 - Type 2 diabetes mellitus without complications (7) EtOH dependence: Status: Acute Assessment and plan: Continue scheduled librium with monitoring on CIWA. Met with a power and recovery superintendent. Currently, withdrawal sx are controlled. Qualifiers: Substance use status: uncomplicated Qualified Code(s): F10.20 - Alcohol dependence, uncomplicated (8) Obstructive sleep apnea: Status: Suspected Assessment and plan: Will need outpatient sleep study. (9) Opioid dependence: Status: Chronic Assessment and plan: Continue methadone (normally gets it through [facility]. Qualifiers: Substance use status: uncomplicated Qualified Code(s): F11.20 - Opioid dependence, uncomplicated (10) Diarrhea: Status: Acute Assessment and plan: Check for C.diff. Hold bowel regimen. Start probiotics. (11) DVT prophylaxis: Status: Acute Assessment and plan: SC lovenox (12) Discharge planning issues: Status: Acute Assessment and plan: Full code Keep in ICU as still hypoxic to 70's overnight Subjective Subjective Interval history since last seen: States breathing is a little bit better, but not the best. Denies dizziness, chest pain, nausea, vomiting. Had liquid BM. States had diarrhea at home as well. Calm, cooperative, afebrile. L Foot hurts. Afebrile. On humidified heated high flow at 45 L/46% FiO2, O2 sats 90's at rest; 80's with activity now, 70's at night. Weaned off of BiPAP yesterday am because he was pulling it. CIWA 0-1. Not agitated. Anxious. No longer on lasix gtt. Exam Narrative Exam Narrative: General: Pleasant middle-aged male, laying comfortably in bed, A&Ox3, mildly anxious, not tremulous HEENT: EOMI, MMM Heart: RRR, no m/r/g Lungs: expiratory wheezing B Abdomen: soft, nontender, nondistended Extremities: trace edema LLE with significantly improved erythema; no c/c. Objective Objective Clinical Data: Abnormal lab results 08/27/19 08/27/19 Range/Units 06:18 06:18 WBC 3.00 L (4.4-10.8) k/cumm Hgb 13.4 L (13.5-17.5) g/dL Hct 39.6 L (40.0-50.0) % RDW 14.9 H (11.8-14.1) % Plt Count 119 L (130-400) x1000/uL Absolute Lymphocytes 0.43 L (1.2-3.4) k/cumm Sodium 133 L (136-145) mmol/L Chloride 94 L (98-107) mmol/L Carbon Dioxide 35.8 H (21.0-32.0) mmol/L BUN 22 H (7-18) mg/dL Glucose 150 H (74-106) mg/dL Calcium 7.7 L (8.5-10.1) mg/dL C-Reactive Protein 3.07 H (0.0-0.3) mg/dL Vital Signs Temperature 36.6 C 08/27/19 03:37 Temperature Source Temporal Artery Scan 08/27/19 03:37 Pulse 81 08/27/19 06:00 Pulse Rhythm Regular 08/25/19 08:20 Pulse 83 08/27/19 06:00 Respiratory Rate 20 08/27/19 06:00 Respiratory Effort 08/27/19 03:37 Respiratory Depth Normal 08/27/19 03:37 Respiratory Pattern Normal 08/27/19 03:37 Blood Pressure 131/81 08/27/19 06:00 Blood Pressure Mean 91 08/27/19 06:00 Blood Pressure Position Sitting 08/27/19 03:37 Pulse Oximetry 92 L 08/27/19 06:00 Oxygen Delivery Method Hi Flow Nasal Cannula 08/27/19 03:37 Oxygen Flow Rate 40 08/27/19 03:37 Fraction of Inspired Oxygen (FIO2) 45 08/27/19 03:37 Pain Level 2 08/27/19 03:37 Comment 08/25/19 07:57 Intake & Output 08/26/19 08/26/19 08/27/19 11:59 23:59 11:59 Intake Total 1351.667 / 3601.667 2250 / 3601.667 100 / 100 Output Total 2668 / 4403 1735 / 4403 800 / 800 Balance -1316.333 / -801.333 515 / -801.333 -700 / -700 Weight 115.4 kg Intake: IV 811.667 / 1361.667 550 / 1361.667 100 / 100 Oral 540 / 2240 1700 / 2240 Output: Urine 2668 / 4403 1735 / 4403 700 / 700 Stool 0 / 0 100 / 100 Other: Urine Color Yellow Yellow Yellow Urine Appearance Clear Clear Urine Odor Normal Comment Kumari catheter intact and draining clear yellow urine. pt just voided 650ml clear yellow. voids to urinal at bedside. Stool Occult Blood Negative Negative Negative Stool Size Moderate Moderate Moderate Stool Characteristics Soft Soft Liquid Formed Brown Voiding Methods Indwelling Catheter Urinal Laboratory Results WBC 3.00 k/cumm (4.4-10.8) L 08/27/19 06:18 RBC 4.53 m/cumm (4.50-6.00) 08/27/19 06:18 Hgb 13.4 g/dL (13.5-17.5) L 08/27/19 06:18 Hct 39.6 % (40.0-50.0) L 08/27/19 06:18 MCV 87.4 fL (80-95) 08/27/19 06:18 MCH 29.6 pg (27.0-33.0) 08/27/19 06:18 MCHC 33.8 g/dL (32.0-36.0) 08/27/19 06:18 RDW 14.9 % (11.8-14.1) H 08/27/19 06:18 Plt Count 119 x1000/uL (130-400) L 08/27/19 06:18 MPV 10.3 fL (8.0-11.0) 08/27/19 06:18 Immature Gran % 1.3 % 08/27/19 06:18 Neutrophils % 77.4 08/27/19 06:18 Band Neutrophils % Not Applicable 08/24/19 06:15 Lymphocytes % 14.3 08/27/19 06:18 Monocytes % 6.7 08/27/19 06:18 Eosinophils % 0.0 08/27/19 06:18 Basophils % 0.3 08/27/19 06:18 Metamyelocytes % 3.0 % 08/22/19 05:56 Myelocytes % 3.0 % 08/22/19 05:56 Absolute Neutrophils 2.32 k/cumm (1.2-6.7) 08/27/19 06:18 Absolute Lymphocytes 0.43 k/cumm (1.2-3.4) L 08/27/19 06:18 Absolute Monocytes 0.20 k/cumm (0.11-0.7) 08/27/19 06:18 Absolute Eosinophils 0.00 k/cumm (0.0-0.7) 08/27/19 06:18 Absolute Basophils 0.01 k/cumm (0.0-0.2) 08/27/19 06:18 Differential Comment Manual differential 08/22/19 05:56 RBC Morphology See below 08/22/19 05:56 Anisocytosis 1+ 08/22/19 05:56 ESR 21 mm/hr (1-20) H 08/22/19 05:56 PT 10.9 sec (9.3-11.0) 08/22/19 05:56 INR 1.1 (0.9-1.1) 08/22/19 05:56 APTT 22.8 sec (21.0-31.4) 08/22/19 05:56 ABG Sample Site Left radial 08/25/19 17:40 ABG pH 7.45 (7.35-7.45) 08/25/19 17:40 ABG pCO2 54 mmHg (34-47) H 08/25/19 17:40 ABG pO2 87 mmHg (83-108) 08/25/19 17:40 ABG HCO3 37 mmol/L (22-28) H 08/25/19 17:40 ABG Total CO2 32 mmol/L (22-29) H 08/25/19 17:40 ABG O2 Saturation 97 % (94-98) 08/25/19 17:40 ABG Base Excess 13.1 mmol/L (-3-3) H 08/25/19 17:40 VBG pH 7.37 (7.35-7.45) 08/22/19 05:56 VBG pCO2 58 mm/Hg (34-47) H 08/22/19 05:56 VBG pO2 34 mm/Hg (28-44) 08/22/19 05:56 VBG HCO3 34 mmol/L (22-28) H 08/22/19 05:56 VBG Total CO2 30 mmol/L (22-29) H 08/22/19 05:56 VBG O2 Saturation 60 % (70-80) L 08/22/19 05:56 VBG Base Excess 8.5 mmol/L (-3-3) H 08/22/19 05:56 FiO2 50 % 08/25/19 17:40 Sodium 133 mmol/L (136-145) L 08/27/19 06:18 Potassium 3.8 mmol/L (3.5-5.1) 08/27/19 06:18 Chloride 94 mmol/L (98-107) L 08/27/19 06:18 Carbon Dioxide 35.8 mmol/L (21.0-32.0) H 08/27/19 06:18 Anion Gap 3.2 mmol/L (3-11) 08/27/19 06:18 BUN 22 mg/dL (7-18) H 08/27/19 06:18 Creatinine 1.06 mg/dL (0.70-1.30) 08/27/19 06:18 Estimated GFR/1.73 m2 >= 60.00 (mL/min/1.73m2) 08/27/19 06:18 Glucose 150 mg/dL (74-106) H 08/27/19 06:18 Lactate 1.9 mmol/L (0.6-1.4) H 08/23/19 07:41 Calcium 7.7 mg/dL (8.5-10.1) L 08/27/19 06:18 Phosphorus 6.1 mg/dL (2.6-4.7) H 08/26/19 07:15 Magnesium 2.4 mg/dL (1.8-2.4) 08/27/19 06:18 Total Bilirubin 0.5 mg/dL (0.2-1.0) 08/22/19 05:56 AST 45 U/L (15-37) H 08/22/19 05:56 ALT 102 U/L (16-63) H 08/22/19 05:56 Alkaline Phosphatase 92 U/L (46-116) 08/22/19 05:56 Troponin I < 0.05 ng/Ml (<0.06) 08/25/19 20:05 C-Reactive Protein 3.07 mg/dL (0.0-0.3) H 08/27/19 06:18 NT-Pro-B Natriuret Pep 53 pg/mL (<300) 08/27/19 06:18 Total Protein 7.3 g/dL (6.4-8.2) 08/22/19 05:56 Albumin 3.1 g/dL (3.4-5.0) L 08/22/19 05:56 Procalcitonin 0.2 ng/mL 08/22/19 05:56 Vancomycin Trough 23.3 ug/mL (10.0-20.0) H* 08/26/19 07:15 Ethyl Alcohol < 3.0 mg/dL (<3) 08/22/19 05:56
[2019-08-27] MEDS: Magnesium Oxide 400 MG TAB PO ×2 (08:59→20:17)
[2019-08-27] MEDS: Multivitamin TAB 1 TAB PO (08:59)
[2019-08-27] MEDS: chlordiazePOXIDE 25 MG CAP PO ×4 (08:59→20:17)
[2019-08-27] MEDS: Folic Acid 1 MG TAB PO (08:59)
[2019-08-27] MEDS: Thiamine 100 MG TAB PO (08:59)
[2019-08-27] MEDS: Pantoprazole 40 MG TABCR PO (08:59)
[2019-08-27] MEDS: guaiFENesin 600 MG TABCR PO ×2 (09:00→20:16)
[2019-08-27] MEDS: Enoxaparin 40 MG/0.4 ML SYR SC (09:00)
[2019-08-27] MEDS: Gabapentin 800 MG TAB PO ×3 (09:00→20:16)
[2019-08-27] MEDS: Furosemide 40 MG/4 ML VIAL IVP ×2 (09:01→16:33)
[2019-08-27] MEDS: Methadone Liquid 10 MG/ML 130 MG PO (09:01)
[2019-08-27] MEDS: Silver sulfaDIAZINE 1% 25 GM TUBE TP ×2 (09:51→20:16)
--- NOTE | 2019-08-27 10:18 | PDOC.CMPRO ---
- If Service Date Differs Date of service: 08/27/19 Time of Service: 10:18 Care Management Progress Note S/O: Mario was sitting up in his bed when CM met with him. He reported that he was feeling much better today. He stated that, per provider, he may be ready to return home as early as tomorrow. CM asked how his conversation went with Bridgette, the recovery collector. Mario stated that it went ok, but that he is not interested in talking more about it at this time. CM offered additional support with resources for alcohol cessation, if requested. Mario declined at this time. CM will continue to follow. A: Allen is a 53 year old male admitted to [facility] on 08/22/19 with COPD, CHF, Cellulitis. P: Anticipate Allen will return home when medically cleared. He will follow up with his PCP, and plan of care as recommended. assistant women's soccer coach will be contacted to consult with Allen prior to discharge. CM will review additional options for support and review community based services. Allen will transport via [facility] private vehicle, coordinated by CORNELIA.
[2019-08-27] MEDS: Insulin Aspart 300 UNITS/3 ML PEN SC ×3 (12:18→21:38)
--- NOTE | 2019-08-27 12:49 | DI.US_ITS ---
APPROVED REPORT EXAM: Comprehensive 2D, Doppler, and color-flow Echocardiogram Patient Location: In-Patient Room/Bed: 221A ICU Indications: CHF, Dyspnea, Evaluate LV and RV Conclusion This is a technically limited study. Left Ventricle : The left ventricle is normal size. The left ventricular systolic function appears n ormal. There is normal left ventricular wall thickness. This study is inadequate for full evaluation of wall motion but appears normal. This study is inadequate to evaluate diastolic function. Ejection fraction is estimated to be 50-60%. Right Ventricle : Right ventricle is not well visualized. Atria : The left atrium size is normal. The right atrium size is normal. Valves: There are no significant valvular lesions. Great Vessels : The IVC was not visualized. Compared to echocardiogram dated 05/13/2019: There is no significant change. Wall motion Left Ventricle The left ventricle is normal size. The left ventricular systolic function appears normal. There is no rmal left ventricular wall thickness. This study is inadequate for full evaluation of wall motion but appears normal. This study is inadequate to evaluate diastolic function. Ejection fraction is estima jodi to be 50-60%. Right Ventricle Right ventricle is not well visualized. Atria The left atrium size is normal. The right atrium size is normal. Aortic Valve The aortic valve is not well visualized. There is no aortic valvular stenosis. No aortic regurgitatio n is present. Mitral Valve The mitral valve is normal in structure. No evidence of mitral valve stenosis. Trace mitral regurgita tion. Tricuspid Valve The tricuspid valve is normal in structure. There is no tricuspid valve stenosis. Trace tricuspid reg urgitation. Pulmonic Valve Pulmonic valve is not well visualized. There is no pulmonic valvular stenosis. There is no pulmonic v alvular regurgitation. Great Vessels The aortic root is normal in size. The IVC was not visualized. 2D Dimensions IVSD d PLAX 0.85 cm M: 0.6-1.2 LVPW d PLAX 0.86 cm M: 0.6 - 1.2 LVID d PLAX 4.09 cm M: 4.2 - 5.8 LVDs 3.10 cm M: 2.5 - 4.0 Ao Root d 3.24 cm M: 3.1 - 3.7 LV EF Teichholz 46.7 % FS 23.05 % LV Diastology E/A Ratio 0.8 MV E Vmax 0.52 (0.4-1.3 m/s) MV A Vmax 0.65 (0.4-1.3 m/s) MV E/A Ratio 0.75 Aortic Valve LVOT Area 3.81 cm2 AoV Area Vmax 4.20 cm2 LVOT Vmax 1.12 m/s AoV Area/ BSA (Vmax) 1.76 cm2/m2 LVOT Mean Marcel. 0.73 m/s VARSHA Mean Marcel. 3.56 cm2 LVOT Peak Grad 5.1 mmHg VARSHA Mean Marcel. Index 1.49 cm2/m2 LVOT Mean Grad 2.5 mmHg LVOT VTI 0.163 m LVOT Diam s 2.20 cm (M/F) 1.5-2.5 AoV Vmax 1.02 (0.5-1.3 m/s) Velocity Ratio 1.09 AoV Mean Marcel. 0.78 m/s AoV Peak Grad 4.2 mmHg LVOT SV 62.29 mL AoV Mean Grad 2.6 (<5 mmHg) AoV VTI 0.136 (0.18-0.25 m) AoV Area VTI 4.57 (2.5-4.5 cm2) AoV Area/ BSA (VTI) 1.92 cm/m2 Mitral Valve MV DT 373 (160-240 msec) MV PHT 108 msec MV Area PHT 2.03 cm2 Pulmonary Valve PV Vmax 0.85 (0.5-1.5 m/s) PV Peak Grad 2.9 mmHg PV Mean Grad 1.5 mmHg PV VTI 0.103 m
[2019-08-27] MEDS: Normal Saline Flush 10 ML SYR IVP (16:33)
[2019-08-27 17:24] LABS: Vancomycin, Trough 18.7 ug/mL (10.0-20.0)
[2019-08-27] MEDS: Normal Saline 500 ML 30 ML IV (18:10)
[2019-08-27] MEDS: LORazepam 1 MG TAB PO/SL (18:39)
--- NOTE | 2019-08-27 19:18 | NUR.NOTE ---
called to report vanco trough to pharm. pharm states okay to give next doseNursing Note:
[2019-08-28] VITALS (28 sets, daily range): BP systolic 103–122; BP diastolic 67–80; PULSE 63–102; RESP 7–24; TEMP 31–36.6; O2SAT 85–97
[2019-08-28] MEDS: CLINDAMYCIN 900 MG/50 ML BAG 50 MG IVPB ×3 (03:35→21:35)
[2019-08-28] MEDS: PIPERACILLIN/TAZO 4.5 GM in Normal Saline 100 ML IVPB ×3 (06:29→23:05)
[2019-08-28] MEDS: Nystatin 500000 UNITS/5 ML SUSP 5ML CUP PO ×4 (06:29→17:54)
[2019-08-28] MEDS: Insulin NPH-Human 300 UNITS/3 ML PEN 20 UNIT SC ×2 (06:30→21:48)
[2019-08-28] MEDS: methylPREDNISolone SUCC 125 MG VIAL 40 MG IVP (06:30)
[2019-08-28] MEDS: Albuterol/Ipratropium 3 ML UPD VIAL UPD ×3 (06:30→17:56)
[2019-08-28 06:55] LABS: Abs Immature Grans 0.04 k/cumm (0.0-0.09); Absolute Basophil Count 0.01 k/cumm (0.0-0.2); Absolute Lymphocyte Count 0.49 k/cumm (1.2-3.4); Absolute Monocyte Count 0.24 k/cumm (0.11-0.7); Absolute Neutrophil Count 1.82 k/cumm (1.2-6.7); Basophils % 0.4; HCT 38.6 % (40.0-50.0); HGB 12.7 g/dL (13.5-17.5); Immature Grans % 1.5 %; Lymphocytes % 18.8; Mean Corp. HGB Concentration 32.9 g/dL (32.0-36.0); Mean Corpuscular Hemoglobin 29.2 pg (27.0-33.0); Mean Corpuscular Volume 88.7 fL (80-95); Mean Platelet Volume 10.5 fL (8.0-11.0); Monocytes % 9.2; Neutrophils % 70.1; Platelet Count 115 x1000/uL (130-400); RBC 4.35 m/cumm (4.50-6.00); RBC Distribution Width 14.7 % (11.8-14.1)
[2019-08-28 07:07] LABS: Anion Gap 3.3 mmol/L (3-11); BUN 18 mg/dL (7-18); C-Reactive Protein 1.62 mg/dL (0.0-0.3); CO2 36.7 mmol/L (21.0-32.0); CREATININE 0.97 mg/dL (0.70-1.30); Calcium 8.1 mg/dL (8.5-10.1); Chloride 96 mmol/L (98-107); Glucose 205 mg/dL (74-106); Magnesium 2.4 mg/dL (1.8-2.4); Potassium 4.1 mmol/L (3.5-5.1); Sodium 136 mmol/L (136-145)
[2019-08-28 08:07] LABS: Procalcitonin 0.1 ng/mL
[2019-08-28] MEDS: Gabapentin 800 MG TAB PO ×3 (08:09→19:03)
[2019-08-28] MEDS: Normal Saline Flush 10 ML SYR IVP ×4 (08:10→20:44)
[2019-08-28] MEDS: Thiamine 100 MG TAB PO (08:10)
[2019-08-28] MEDS: Multivitamin TAB 1 TAB PO (08:10)
[2019-08-28] MEDS: Folic Acid 1 MG TAB PO (08:10)
[2019-08-28] MEDS: Magnesium Oxide 400 MG TAB PO ×2 (08:10→19:03)
[2019-08-28] MEDS: Pantoprazole 40 MG TABCR PO (08:10)
[2019-08-28] MEDS: guaiFENesin 600 MG TABCR PO ×2 (08:10→19:03)
[2019-08-28] MEDS: Enoxaparin 40 MG/0.4 ML SYR SC (08:10)
[2019-08-28] MEDS: Methadone Liquid 10 MG/ML 130 MG PO (08:11)
[2019-08-28] MEDS: Furosemide 40 MG/4 ML VIAL IVP (08:11)
--- NOTE | 2019-08-28 08:31 | W.PM.PROGNOT ---
Date of Service Date of service: 08/28/19 Time of Service: 10:43 Assessment and Plan Assessment and plan (1) Acute on chronic respiratory failure with hypoxia and hypercapnia: Status: Acute Assessment and plan: Multifactorial, due to HCAP, acute exacerbation of COPD, and acute on chronic diastolic CHF. It is not clear what happened last night that warranted a change in patient's humidified heated high flow oxygen and who made the changes. ABG unsuccessful this morning. Clinically and radiographically improved. Wean O2 as tolerated. Continue to wean O2 while diuresing, treating PNA, and providing nebulizer treatments as below. (2) HCAP (healthcare-associated pneumonia): Status: Acute Assessment and plan: Improving. Continue vancomycin, zosyn, clindamycin. D/c vancomycin today. (3) Acute on chronic diastolic CHF (congestive heart failure), NYHA class 1: Status: Acute Assessment and plan: Switch lasix to PO. Monitor I/O's, Cr, daily weights. (4) COPD with acute exacerbation: Status: Acute Assessment and plan: Improving. Continue steroid taper, scheduled/prn nebs, symbicort, abx as above. Wean O2 as tolerated. (5) Cellulitis of left lower extremity: Status: Acute Assessment and plan: Improving. Continue clindamycin, zosyn. D/c vanco (6) DMII (diabetes mellitus, type 2): Status: Acute Assessment and plan: with steroid-induced hyperglycemia. Continue basal bolus insulin with NPH insulin timed with steroid doses. Qualifiers: Diabetes mellitus intermediate project manager insulin use: without intermediate project manager use Diabetes mellitus complication status: without complication Qualified Code(s): E11.9 - Type 2 diabetes mellitus without complications (7) EtOH dependence: Status: Acute Assessment and plan: Continue scheduled librium with monitoring on CIWA. Met with a recovery collector. Currently, withdrawal sx are controlled. Qualifiers: Substance use status: uncomplicated Qualified Code(s): F10.20 - Alcohol dependence, uncomplicated (8) Obstructive sleep apnea: Status: Suspected Assessment and plan: Will need outpatient sleep study. (9) Opioid dependence: Status: Chronic Assessment and plan: Continue methadone (normally gets it through [facility]). Qualifiers: Substance use status: uncomplicated Qualified Code(s): F11.20 - Opioid dependence, uncomplicated (10) Diarrhea: Status: Acute Assessment and plan: C. diff ruled out. Offer prn loperamide. Hold bowel regimen. Continue probiotics. (11) DVT prophylaxis: Status: Acute Assessment and plan: SC lovenox (12) Discharge planning issues: Status: Acute Assessment and plan: Full code Consider transfer out of ICU Subjective Subjective Interval history since last seen: The patient states he feels a little better, but he is anxious. Denies dizziness, chest pain, states breathing is better, denies nausea/vomiting. Anxious last night, CIWA 0. Overnight, settings on humidified heated high flow changed - FiO2 increased - we are unable to find We are going to try to wean. UOP overnight 1 L. Exam Narrative Exam Narrative: General: Pleasant middle-aged male, laying comfortably in bed, looks better, but still rather anxious, A&Ox3, not tremulous HEENT: EOMI, MMM Heart: RRR, no m/r/g Lungs: expiratory wheezing B - better today Abdomen: soft, nontender, nondistended Extremities: no edema BLE's today Objective Objective Clinical Data: Abnormal lab results 08/28/19 08/28/19 Range/Units 06:20 06:20 WBC 2.60 L (4.4-10.8) k/cumm RBC 4.35 L (4.50-6.00) m/cumm Hgb 12.7 L (13.5-17.5) g/dL Hct 38.6 L (40.0-50.0) % RDW 14.7 H (11.8-14.1) % Plt Count 115 L (130-400) x1000/uL Absolute Lymphocytes 0.49 L (1.2-3.4) k/cumm Chloride 96 L (98-107) mmol/L Carbon Dioxide 36.7 H (21.0-32.0) mmol/L Glucose 205 H (74-106) mg/dL Calcium 8.1 L (8.5-10.1) mg/dL C-Reactive Protein 1.62 H (0.0-0.3) mg/dL Vital Signs Temperature 36.4 C L 08/28/19 03:25 Temperature Source Tympanic 08/28/19 03:25 Pulse 74 08/28/19 04:02 Pulse Rhythm Regular 08/25/19 08:20 Pulse 74 08/28/19 04:02 Respiratory Rate 22 08/28/19 04:02 Respiratory Effort 08/28/19 03:25 Respiratory Depth Normal 08/28/19 03:25 Respiratory Pattern Normal 08/28/19 03:25 Blood Pressure 121/79 08/28/19 04:02 Blood Pressure Mean 90 08/28/19 04:02 Blood Pressure Position Supine 08/28/19 03:25 Pulse Oximetry 95 08/28/19 04:02 Oxygen Delivery Method Hi Flow Nasal Cannula 08/28/19 03:25 Oxygen Flow Rate 35 08/28/19 07:57 Fraction of Inspired Oxygen (FIO2) 53 08/28/19 07:57 Pain Level 0 08/28/19 03:25 Comment 08/25/19 07:57 Intake & Output 08/27/19 08/27/19 08/28/19 11:59 23:59 11:59 Intake Total 750 / 3424 2674 / 3424 1000 / 1000 Output Total 2175 / 5025 2850 / 5025 1250 / 1250 Balance -1425 / -1601 -176 / -1601 -250 / -250 Weight 112.3 kg Intake: IV 510 / 1294 784 / 1294 100 / 100 Oral 240 / 2130 1890 / 2130 900 / 900 Output: Urine 2075 / 4625 2550 / 4625 1250 / 1250 Stool 100 / 400 300 / 400 Other: Urine Color Yellow Pale Yellow Yellow Urine Appearance Clear Clear Clear Urine Odor None Normal Normal Comment Wearing an incont. pant at this time but this is dry. Voided with stool. Liquid output 550 cc. Has voided clear, yellow urine in large amts during the day. (2525 cc) Stool Occult Blood Negative Stool Size Moderate Small Stool Characteristics Liquid Liquid Brown Voiding Methods Urinal Urinal Laboratory Results WBC 2.60 k/cumm (4.4-10.8) L 08/28/19 06:20 RBC 4.35 m/cumm (4.50-6.00) L 08/28/19 06:20 Hgb 12.7 g/dL (13.5-17.5) L 08/28/19 06:20 Hct 38.6 % (40.0-50.0) L 08/28/19 06:20 MCV 88.7 fL (80-95) 08/28/19 06:20 MCH 29.2 pg (27.0-33.0) 08/28/19 06:20 MCHC 32.9 g/dL (32.0-36.0) 08/28/19 06:20 RDW 14.7 % (11.8-14.1) H 08/28/19 06:20 Plt Count 115 x1000/uL (130-400) L 08/28/19 06:20 MPV 10.5 fL (8.0-11.0) 08/28/19 06:20 Immature Gran % 1.5 % 08/28/19 06:20 Neutrophils % 70.1 08/28/19 06:20 Band Neutrophils % Not Applicable 08/24/19 06:15 Lymphocytes % 18.8 08/28/19 06:20 Monocytes % 9.2 08/28/19 06:20 Eosinophils % 0.0 08/28/19 06:20 Basophils % 0.4 08/28/19 06:20 Metamyelocytes % 3.0 % 08/22/19 05:56 Myelocytes % 3.0 % 08/22/19 05:56 Absolute Neutrophils 1.82 k/cumm (1.2-6.7) 08/28/19 06:20 Absolute Lymphocytes 0.49 k/cumm (1.2-3.4) L 08/28/19 06:20 Absolute Monocytes 0.24 k/cumm (0.11-0.7) 08/28/19 06:20 Absolute Eosinophils 0.00 k/cumm (0.0-0.7) 08/28/19 06:20 Absolute Basophils 0.01 k/cumm (0.0-0.2) 08/28/19 06:20 Differential Comment Manual differential 08/22/19 05:56 RBC Morphology See below 08/22/19 05:56 Anisocytosis 1+ 08/22/19 05:56 ESR 21 mm/hr (1-20) H 08/22/19 05:56 PT 10.9 sec (9.3-11.0) 08/22/19 05:56 INR 1.1 (0.9-1.1) 08/22/19 05:56 APTT 22.8 sec (21.0-31.4) 08/22/19 05:56 ABG Sample Site Left radial 08/25/19 17:40 ABG pH 7.45 (7.35-7.45) 08/25/19 17:40 ABG pCO2 54 mmHg (34-47) H 08/25/19 17:40 ABG pO2 87 mmHg (83-108) 08/25/19 17:40 ABG HCO3 37 mmol/L (22-28) H 08/25/19 17:40 ABG Total CO2 32 mmol/L (22-29) H 08/25/19 17:40 ABG O2 Saturation 97 % (94-98) 08/25/19 17:40 ABG Base Excess 13.1 mmol/L (-3-3) H 08/25/19 17:40 VBG pH 7.37 (7.35-7.45) 08/22/19 05:56 VBG pCO2 58 mm/Hg (34-47) H 08/22/19 05:56 VBG pO2 34 mm/Hg (28-44) 08/22/19 05:56 VBG HCO3 34 mmol/L (22-28) H 08/22/19 05:56 VBG Total CO2 30 mmol/L (22-29) H 08/22/19 05:56 VBG O2 Saturation 60 % (70-80) L 08/22/19 05:56 VBG Base Excess 8.5 mmol/L (-3-3) H 08/22/19 05:56 FiO2 50 % 08/25/19 17:40 Sodium 136 mmol/L (136-145) 08/28/19 06:20 Potassium 4.1 mmol/L (3.5-5.1) 08/28/19 06:20 Chloride 96 mmol/L (98-107) L 08/28/19 06:20 Carbon Dioxide 36.7 mmol/L (21.0-32.0) H 08/28/19 06:20 Anion Gap 3.3 mmol/L (3-11) 08/28/19 06:20 BUN 18 mg/dL (7-18) 08/28/19 06:20 Creatinine 0.97 mg/dL (0.70-1.30) 08/28/19 06:20 Estimated GFR/1.73 m2 >= 60.00 (mL/min/1.73m2) 08/28/19 06:20 Glucose 205 mg/dL (74-106) H 08/28/19 06:20 Lactate 1.9 mmol/L (0.6-1.4) H 08/23/19 07:41 Calcium 8.1 mg/dL (8.5-10.1) L 08/28/19 06:20 Phosphorus 6.1 mg/dL (2.6-4.7) H 08/26/19 07:15 Magnesium 2.4 mg/dL (1.8-2.4) 08/28/19 06:20 Total Bilirubin 0.5 mg/dL (0.2-1.0) 08/22/19 05:56 AST 45 U/L (15-37) H 08/22/19 05:56 ALT 102 U/L (16-63) H 08/22/19 05:56 Alkaline Phosphatase 92 U/L (46-116) 08/22/19 05:56 Troponin I < 0.05 ng/Ml (<0.06) 08/25/19 20:05 C-Reactive Protein 1.62 mg/dL (0.0-0.3) H 08/28/19 06:20 NT-Pro-B Natriuret Pep 53 pg/mL (<300) 08/27/19 06:18 Total Protein 7.3 g/dL (6.4-8.2) 08/22/19 05:56 Albumin 3.1 g/dL (3.4-5.0) L 08/22/19 05:56 Procalcitonin 0.1 ng/mL 08/28/19 06:20 Vancomycin Trough 18.7 ug/mL (10.0-20.0) 08/27/19 17:01 Ethyl Alcohol < 3.0 mg/dL (<3) 08/22/19 05:56 Echo: official read pending. CXR: official read pending. Per my read, improvement in [id number] infiltrate and B atelectasis.
[2019-08-28] MEDS: Insulin Aspart 300 UNITS/3 ML PEN SC ×4 (09:16→21:52)
[2019-08-28] MEDS: Budesonide/Formoterol 160/4.5 6 GM 60 PUFF INH IH ×2 (10:01→20:44)
[2019-08-28] MEDS: Silver sulfaDIAZINE 1% 25 GM TUBE TP ×2 (11:02→19:07)
[2019-08-28] MEDS: LORazepam 1 MG TAB PO ×4 (11:02→23:40)
--- NOTE | 2019-08-28 11:41 | DI.RAD_ITS ---
EXAM: XR PORTABLE CHEST AP INDICATION: follow up PNA/CHF. COMPARISON: XR PORTABLE CHEST AP from 08/26/2019 TECHNIQUE: 2D digital imaging was performed. FINDINGS: The exam is again noted to be limited due to lack of pulmonary inflation. Streaky densities are see n above the right diaphragm. No definite focal consolidation is seen. No effusions are visible. Th e heart size is normal. IMPRESSION: Limited exam. Right basilar atelectasis versus infiltrate. DATA REPOSITORY: RADIATION DOSE DELIVERED:
--- NOTE | 2019-08-28 13:05 | DI.VRAD_ITS ---
PROCEDURE INFORMATION: Exam: XR Chest, 1 View Exam date and time: 08/28/2019 11:41 AM Age: 53 years old Clinical indication: Other: F/u pnuemonia TECHNIQUE: Imaging protocol: XR of the chest Views: 1 view. COMPARISON: XR PORTABLE CHEST AP 08/26/2019 6:41 AM FINDINGS: Lungs: Prominence of the pulmonary vasculature. Bilateral peribronchial thickening and perihilar infiltrates. Patchy airspace opacities seen on the 08/26/2019 exam scattered in the left lung have diminished or resolved. Persistent elevation the right hemidiaphragm with right basilar atelectasis. Pleural space: Unremarkable. No pleural effusion. No pneumothorax. Heart/Mediastinum: Unremarkable. No cardiomegaly. Bones/joints: Unremarkable. Other findings: Interposition of colon between the right hemidiaphragm and the liver. IMPRESSION: 1. Peribronchial thickening and perihilar infiltrates may represent a combination of pulmonary edema and atelectasis. Underlying infection is not excluded. 2. Patchy airspace opacities in the left lung have have diminished or resolved resolved. Dictated and Authenticated by: Nicole Rand MD. Ordering:KALEB Nguyen MD
[2019-08-28] MEDS: Furosemide 40 MG TAB PO (15:23)
--- NOTE | 2019-08-28 18:28 | CMPROGNOTE_ITS ---
- If Service Date Differs Date of service: 08/28/19 Time of Service: 18:28 Care Management Progress Note S/O: Mario was sitting up eating lunch when CM met with him. He reported that he is slowly improving. He is still being monitored at ICU level of care. Mario's primary RN reported that he had asked about resources for him to go somewhere other than his home when discharged from [facility]. The cross country/track and field coach has met with Mario during this admission. CM, with the support of the cross country/track and field coach, will discuss options with Mario including rehab and other transitional housing in order to determine what his preferences are. CM will continue to follow. A: Allen is a 53 year old male admitted to [facility] on 08/22/19 with COPD, CHF, Cellulitis. P: Anticipate Allen will return home when medically cleared. He will follow up with his PCP, and plan of care as recommended. jv baseball coach will be contacted to consult with Allen prior to discharge. CM will review additional options for support and review community based services. Allen will transport via [facility] private vehicle, coordinated by CORNELIA.
--- NOTE | 2019-08-28 21:03 | NUR.NOTE ---
Addendum entered by Heather Morrison 08/28/19 21:04: 1800 Right wrist IV infiltrated. Nine attempts at gaining new access unsuccessful, the last four of which were with ultrasound guidance. 2030 Dr Stewart notified and he recommended requesting assistance from Anesthesia configuration management architect. Original Note: Nursing Note:
[2019-08-28] MEDS: methylPREDNISolone SUCC 40 MG VIAL IVP (21:33)
[2019-08-29] VITALS (44 sets, daily range): BP systolic 109–147; BP diastolic 69–89; PULSE 71–108; RESP 2–26; TEMP 31–36.5; O2SAT 82–96
--- NOTE | 2019-08-29 | DI.CT_ITS ---
EXAM: CT CHEST PE CTA CLINICAL HISTORY: persistent hypoxia; question of PE, PNA, CHF TECHNIQUE: Post IV contrast according to the pulmonary embolism protocol. COMPARISON: CT CHEST PE CTA from 05/12/2019 CT CHEST PE CTA from 05/12/2019 XR PORTABLE CHEST AP from 08/28/2019 FINDINGS: The pulmonary arteries are well opacified with IV contrast. No emboli are seen. There is no eviden ce aortic dissection. The heart size is normal. There are no pleural or pericardial effusions. The liver is again noted to be enlarged and shows fatty and extreme fatty infiltration. There is elevati on of the right diaphragm. The lungs are suboptimally evaluated due to respiratory motion and poor i nspiration. There are bilateral areas of infiltration in the upper lobes. Mild atelectasis or scarr ing is seen at the right lung base. IMPRESSION: Bilateral upper lobe infiltrates. No evidence of pulmonary emboli.
[2019-08-29] MEDS: CLINDAMYCIN 900 MG/50 ML BAG 50 MG IVPB ×3 (04:01→19:26)
[2019-08-29] MEDS: Albuterol/Ipratropium 3 ML UPD VIAL UPD ×4 (05:57→23:44)
[2019-08-29] MEDS: Nystatin 500000 UNITS/5 ML SUSP 5ML CUP PO ×2 (05:57→21:55)
[2019-08-29] MEDS: methylPREDNISolone SUCC 40 MG VIAL IVP ×2 (05:57→17:34)
[2019-08-29] MEDS: Insulin NPH-Human 300 UNITS/3 ML PEN 20 UNIT SC ×2 (05:58→17:35)
[2019-08-29] MEDS: PIPERACILLIN/TAZO 4.5 GM in Normal Saline 100 ML IVPB ×3 (06:06→19:26)
[2019-08-29 06:54] LABS: Abs Immature Grans 0.04 k/cumm (0.0-0.09); Absolute Basophil Count 0.01 k/cumm (0.0-0.2); Absolute Eosinophil Count 0.01 k/cumm (0.0-0.7); Absolute Lymphocyte Count 0.73 k/cumm (1.2-3.4); Absolute Monocyte Count 0.24 k/cumm (0.11-0.7); Absolute Neutrophil Count 2.69 k/cumm (1.2-6.7); Basophils % 0.3; Eosinophils % 0.3; HCT 41.4 % (40.0-50.0); HGB 13.9 g/dL (13.5-17.5); Immature Grans % 1.1 %; Lymphocytes % 19.6; Mean Corp. HGB Concentration 33.6 g/dL (32.0-36.0); Mean Corpuscular Hemoglobin 29.8 pg (27.0-33.0); Mean Corpuscular Volume 88.8 fL (80-95); Monocytes % 6.5; Neutrophils % 72.2; Platelet Count 146 x1000/uL (130-400); RBC 4.66 m/cumm (4.50-6.00); RBC Distribution Width 14.9 % (11.8-14.1); White Blood Cell Count 3.72 k/cumm (4.4-10.8)
[2019-08-29 07:02] LABS: Anion Gap 4.1 mmol/L (3-11); BUN 17 mg/dL (7-18); CO2 35.9 mmol/L (21.0-32.0); CREATININE 1.14 mg/dL (0.70-1.30); Calcium 8.5 mg/dL (8.5-10.1); Chloride 96 mmol/L (98-107); Glucose 211 mg/dL (74-106); Magnesium 2.3 mg/dL (1.8-2.4); Potassium 4.5 mmol/L (3.5-5.1); Sodium 136 mmol/L (136-145)
[2019-08-29] MEDS: Enoxaparin 40 MG/0.4 ML SYR SC (07:45)
[2019-08-29] MEDS: Magnesium Oxide 400 MG TAB PO ×2 (07:46→19:25)
[2019-08-29] MEDS: Pantoprazole 40 MG TABCR PO (07:46)
[2019-08-29] MEDS: Gabapentin 800 MG TAB PO ×3 (07:46→19:25)
[2019-08-29] MEDS: guaiFENesin 600 MG TABCR PO ×2 (07:47→19:25)
[2019-08-29] MEDS: Thiamine 100 MG TAB PO (07:47)
[2019-08-29] MEDS: Furosemide 40 MG TAB PO ×2 (07:47→16:24)
[2019-08-29] MEDS: Folic Acid 1 MG TAB PO (07:47)
[2019-08-29] MEDS: Multivitamin TAB 1 TAB PO (07:47)
[2019-08-29] MEDS: Methadone Liquid 10 MG/ML 130 MG PO (07:47)
[2019-08-29] MEDS: LORazepam 1 MG TAB PO/SL ×3 (07:56→17:45)
[2019-08-29] MEDS: Insulin Aspart 300 UNITS/3 ML PEN SC ×4 (08:05→22:03)
[2019-08-29] MEDS: Budesonide/Formoterol 160/4.5 6 GM 60 PUFF INH IH ×2 (08:24→19:26)
--- NOTE | 2019-08-29 08:26 | PGE_ITS ---
Date of Service Date of service: 08/29/19 Time of Service: 10:23 Assessment and Plan Assessment and plan (1) Acute on chronic respiratory failure with hypoxia and hypercapnia: Status: Acute Assessment and plan: Multifactorial, due to HCAP, acute exacerbation of COPD, and acute on chronic diastolic CHF. However, despite therapy, still quite hypoxemic. Obtain CTA chest to have a better look - ?PE, ?PNA. Wean O2 as tolerated. May require increase in diuresis; continue treating PNA, and providing nebulizer treatments as below. (2) HCAP (healthcare-associated pneumonia): Status: Acute Assessment and plan: As above - obtain CT chest to ensure no worsening of infiltrate. On zosyn/clinda. (3) Acute on chronic diastolic CHF (congestive heart failure), NYHA class 1: Status: Acute Assessment and plan: Await CT chest - may require increase in lasix. CXR inconclusive, unfortunately. Monitor I/O's, Cr, daily weights. (4) COPD with acute exacerbation: Status: Acute Assessment and plan: Progress stalled. As above - obtain CT/CTA chest to ensure there is not something that CXR did not reveal that is contributing to sx. Continue steroid taper, scheduled/prn nebs, symbicort, abx as above. Wean O2 as tolerated. (5) Cellulitis of left lower extremity: Status: Acute Assessment and plan: Improving. Continue clindamycin, zosyn. Monitor off vanco. (6) DMII (diabetes mellitus, type 2): Status: Acute Assessment and plan: with steroid-induced hyperglycemia. Continue basal bolus insulin with NPH insulin timed with steroid doses. Qualifiers: Diabetes mellitus terminal press operator insulin use: without assisted use Diabetes mellitus complication status: without complication Qualified Code(s): E11.9 - Type 2 diabetes mellitus without complications (7) EtOH dependence: Status: Acute Assessment and plan: Continue scheduled librium with monitoring on CIWA. Met with a head boys tennis coach. Currently, withdrawal sx are controlled. Qualifiers: Substance use status: uncomplicated Qualified Code(s): F10.20 - Alcohol dependence, uncomplicated (8) Obstructive sleep apnea: Status: Suspected Assessment and plan: Will need outpatient sleep study. (9) Opioid dependence: Status: Chronic Assessment and plan: Continue methadone (normally gets it through [facility]). Qualifiers: Substance use status: uncomplicated Qualified Code(s): F11.20 - Opioid dependence, uncomplicated (10) Diarrhea: Status: Acute Assessment and plan: C. diff ruled out. Continue prn loperamide. Hold bowel regimen. Continue probiotics. (11) DVT prophylaxis: Status: Acute Assessment and plan: SC lovenox (12) Discharge planning issues: Status: Acute Assessment and plan: Full code Keep in ICU Subjective Subjective Interval history since last seen: Went for a walk - O2 sat 83% on 6L ambulating, though the patient was asymptomatic from breathing stand point. Cough nonproductive, leg swelling completely resolved. Denies dizziness, chest pain, nausea. Continues to have diarrhea. States legs felt weak when walking. Now transitioned to humidified heated high flow O2. CIWA score of 5 (anxiety, mild tremors). Given ativan PO. Chest pressure - normal for him in am. Resolved. Exam Narrative Exam Narrative: General: Pleasant middle-aged male, laying comfortably in bed, anxious, A&Ox3, not tremulous HEENT: EOMI, MMM Heart: RRR, no m/r/g Lungs: rhonchi are worse today Abdomen: soft, nontender, nondistended Extremities: no edema BLE's today, LLE unwrapped - some skin sloughing; mild residual erythema LLE Objective Objective Clinical Data: Abnormal lab results 08/29/19 08/29/19 Range/Units 06:45 06:45 WBC 3.72 L D (4.4-10.8) k/cumm RDW 14.9 H (11.8-14.1) % Absolute Lymphocytes 0.73 L (1.2-3.4) k/cumm Chloride 96 L (98-107) mmol/L Carbon Dioxide 35.9 H (21.0-32.0) mmol/L Glucose 211 H (74-106) mg/dL Vital Signs Temperature 36.5 C 08/29/19 07:28 Temperature Source Temporal Artery Scan 08/29/19 07:28 Pulse 76 08/29/19 07:28 Pulse Rhythm Regular 08/25/19 08:20 Pulse 78 08/29/19 07:26 Respiratory Rate 16 08/29/19 07:28 Respiratory Effort Non-Labored 08/29/19 07:28 Respiratory Depth Normal 08/29/19 07:28 Respiratory Pattern Normal 08/29/19 07:28 Blood Pressure 147/81 H 08/29/19 07:28 Blood Pressure Mean 103 08/29/19 07:28 Blood Pressure Position Supine 08/29/19 07:28 Pulse Oximetry 90 L 08/29/19 08:00 Oxygen Delivery Method Nasal Cannula 08/29/19 08:00 Oxygen Flow Rate 4 08/29/19 08:00 Fraction of Inspired Oxygen (FIO2) 53 08/28/19 13:20 Pain Level 6 08/29/19 07:28 Comment 08/25/19 07:57 Intake & Output 08/28/19 08/28/19 08/29/19 11:59 23:59 11:59 Intake Total 2295 / 3735 1440 / 3735 150 / 150 Output Total 2350 / 4150 1800 / 4150 900 / 900 Balance -55 / -415 -360 / -415 -750 / -750 Intake: IV 895 / 1095 200 / 1095 150 / 150 Oral 1400 / 2640 1240 / 2640 Output: Urine 2350 / 4150 1800 / 4150 900 / 900 Other: Urine Color Yellow Yellow Yellow Urine Appearance Clear Clear Clear Urine Odor Normal Normal Normal Comment mixed with stool Voiding in urinal. Voiding in urinal. Stool Size Small Small Stool Characteristics Soft Soft Liquid Brown Brown Voiding Methods Bedside Commode Urinal Laboratory Results WBC 3.72 k/cumm (4.4-10.8) L D 08/29/19 06:45 RBC 4.66 m/cumm (4.50-6.00) 08/29/19 06:45 Hgb 13.9 g/dL (13.5-17.5) 08/29/19 06:45 Hct 41.4 % (40.0-50.0) 08/29/19 06:45 MCV 88.8 fL (80-95) 08/29/19 06:45 MCH 29.8 pg (27.0-33.0) 08/29/19 06:45 MCHC 33.6 g/dL (32.0-36.0) 08/29/19 06:45 RDW 14.9 % (11.8-14.1) H 08/29/19 06:45 Plt Count 146 x1000/uL (130-400) 08/29/19 06:45 MPV 10.0 fL (8.0-11.0) 08/29/19 06:45 Immature Gran % 1.1 % 08/29/19 06:45 Neutrophils % 72.2 08/29/19 06:45 Band Neutrophils % Not Applicable 08/24/19 06:15 Lymphocytes % 19.6 08/29/19 06:45 Monocytes % 6.5 08/29/19 06:45 Eosinophils % 0.3 08/29/19 06:45 Basophils % 0.3 08/29/19 06:45 Metamyelocytes % 3.0 % 08/22/19 05:56 Myelocytes % 3.0 % 08/22/19 05:56 Absolute Neutrophils 2.69 k/cumm (1.2-6.7) 08/29/19 06:45 Absolute Lymphocytes 0.73 k/cumm (1.2-3.4) L 08/29/19 06:45 Absolute Monocytes 0.24 k/cumm (0.11-0.7) 08/29/19 06:45 Absolute Eosinophils 0.01 k/cumm (0.0-0.7) 08/29/19 06:45 Absolute Basophils 0.01 k/cumm (0.0-0.2) 08/29/19 06:45 Differential Comment Manual differential 08/22/19 05:56 RBC Morphology See below 08/22/19 05:56 Anisocytosis 1+ 08/22/19 05:56 ESR 21 mm/hr (1-20) H 08/22/19 05:56 PT 10.9 sec (9.3-11.0) 08/22/19 05:56 INR 1.1 (0.9-1.1) 08/22/19 05:56 APTT 22.8 sec (21.0-31.4) 08/22/19 05:56 ABG Sample Site Cancelled 08/28/19 08:34 ABG pH Cancelled 08/28/19 08:34 ABG pCO2 Cancelled 08/28/19 08:34 ABG pO2 Cancelled 08/28/19 08:34 ABG HCO3 Cancelled 08/28/19 08:34 ABG Total CO2 Cancelled 08/28/19 08:34 ABG O2 Saturation Cancelled 08/28/19 08:34 ABG Base Excess Cancelled 08/28/19 08:34 VBG pH 7.37 (7.35-7.45) 08/22/19 05:56 VBG pCO2 58 mm/Hg (34-47) H 08/22/19 05:56 VBG pO2 34 mm/Hg (28-44) 08/22/19 05:56 VBG HCO3 34 mmol/L (22-28) H 08/22/19 05:56 VBG Total CO2 30 mmol/L (22-29) H 08/22/19 05:56 VBG O2 Saturation 60 % (70-80) L 08/22/19 05:56 VBG Base Excess 8.5 mmol/L (-3-3) H 08/22/19 05:56 Oxygen Liter Flow Cancelled 08/28/19 08:34 FiO2 Cancelled 08/28/19 08:34 Sodium 136 mmol/L (136-145) 08/29/19 06:45 Potassium 4.5 mmol/L (3.5-5.1) 08/29/19 06:45 Chloride 96 mmol/L (98-107) L 08/29/19 06:45 Carbon Dioxide 35.9 mmol/L (21.0-32.0) H 08/29/19 06:45 Anion Gap 4.1 mmol/L (3-11) 08/29/19 06:45 BUN 17 mg/dL (7-18) 08/29/19 06:45 Creatinine 1.14 mg/dL (0.70-1.30) 08/29/19 06:45 Estimated GFR/1.73 m2 >= 60.00 (mL/min/1.73m2) 08/29/19 06:45 Glucose 211 mg/dL (74-106) H 08/29/19 06:45 Lactate 1.9 mmol/L (0.6-1.4) H 08/23/19 07:41 Calcium 8.5 mg/dL (8.5-10.1) 08/29/19 06:45 Phosphorus 6.1 mg/dL (2.6-4.7) H 08/26/19 07:15 Magnesium 2.3 mg/dL (1.8-2.4) 08/29/19 06:45 Total Bilirubin 0.5 mg/dL (0.2-1.0) 08/22/19 05:56 AST 45 U/L (15-37) H 08/22/19 05:56 ALT 102 U/L (16-63) H 08/22/19 05:56 Alkaline Phosphatase 92 U/L (46-116) 08/22/19 05:56 Troponin I < 0.05 ng/Ml (<0.06) 08/25/19 20:05 C-Reactive Protein 1.62 mg/dL (0.0-0.3) H 08/28/19 06:20 NT-Pro-B Natriuret Pep 53 pg/mL (<300) 08/27/19 06:18 Total Protein 7.3 g/dL (6.4-8.2) 08/22/19 05:56 Albumin 3.1 g/dL (3.4-5.0) L 08/22/19 05:56 Procalcitonin 0.1 ng/mL 08/28/19 06:20 Vancomycin Trough 18.7 ug/mL (10.0-20.0) 08/27/19 17:01 Ethyl Alcohol < 3.0 mg/dL (<3) 08/22/19 05:56 CXR: Right basilar atelectasis versus infiltrate.
[2019-08-29] MEDS: Omnipaque 350 MG/ML 100 ML BTL IJ (11:28)
--- NOTE | 2019-08-29 14:07 | W.NUTRFU ---
Date of service: 08/29/19 Time of Service: 14:07 Nutritional Follow up NOTE: Allen continues to meeting nutrient/fluid needs for optimal healing. He is not taking Stewart as did not like, he is , however, eating two servings of protein at meals to meet 100% nutrient needs as nutrient needs increased in view of skin breakdown. Medical Chart review indicates weight loss of 44 lbs from 08/15 to present. Weight loss related to fluid loss (on lasix 40 mg) and beneficial in view of high BMI and medical conditions. Time Spent in Nutritional Counseling and Treatment: 15 min spent face to face
--- NOTE | 2019-08-29 14:15 | PDOC.CMPRO ---
- If Service Date Differs Date of service: 08/29/19 Time of Service: 14:18 Care Management Progress Note S/O: Mario was sitting up on the edge of his bed when CM met with him. He stated that he is still alive. Per report, Mario went for an ambulatory pulse ox today. His oxygen saturation was 83% on 6L. He was placed on humidified heated high flow O2 today. CM asked him about his concerns regarding returning home. He stated that he is worried about his drinking with him there, as he is aware that he needs to quit drinking. He stated that he spoke with his , who reported that she will be going to [place] later this week. He also stated that he can stay with his father if he needs a place to go. He expressed the desire to return home. CM will continue to follow. A: Allen is a 53 year old male admitted to [facility] on 08/22/19 with COPD, CHF, Cellulitis. P: Anticipate Allen will return home when medically cleared. He will follow up with his PCP, and plan of care as recommended. swimming coach or instructor will be contacted to consult with Allen prior to discharge. CM will review additional options for support and review community based services. Allen will transport via [facility] private vehicle, coordinated by [facility].
[2019-08-29] MEDS: LORazepam 1 MG TAB PO ×2 (14:42→19:37)
--- NOTE | 2019-08-29 14:50 | W.INDIABCONS ---
Date of service: 08/29/19 Time of Service: 14:50 Diabetes Inpatient Consult DESCRIPTION/ASSESSMENT: Follow up diabetres consult for Mr. Maria. See previous note. A1c 6.7 indicating reasonable diabetes management at home. Blood sugars remain around 200 today, a bit higher yesterday taking 20u NPH 600 and 2100 and sensitive insulin correction. He is eating 50-100% of meals. Met with Mr. Maria. He is able to identify his diabetes medication of Metformin. He states he knows what to eat for diabetes and describes salt as being bad for diabetes. INTERVENTION: Given his blood sugars hover around 200 or more most meals on his 40u basal insulin and sensitive correction, suggest increasing correction to moderate or resistant so his blood sugars actually correct. At this time it appears the insulin correction is just covering his food. Reviewed with him the basics of food choices. He is aware he cannot have salt with his current diet order, however that is unrelated to diabetes management PLAN: Will follow up prior to discharge as able Suggest increasing mealtime insulin to higher sensitivity factor Time Spent in Nutritional Counseling and Treatment: 8 minutes face to face
--- NOTE | 2019-08-29 15:59 | PT.INIE ---
Date of service: 08/29/19 Time of Service: 15:58 PT Notes Visit Reasons: COPD, CHF, CELLULITIS Physical Therapy Inpatient Initial Evaluation Date: 08/29/2019 Referring Doctor: Wendy Robledo MD PT Orders: PT CONSULT: Extended-stay weakness. Precautions: Fall. Standard. Activity as tolerated. Patient Profile/Admitting Diagnosis: Patient is a 53-year-old male who presented to the ED on 08/22/2019 with chief presentation of increased redness, swelling, and discomfort in the left lower extremity accompanied with shortness of breath. Patient is diagnosed with cellulitis of left lower extremity, acute on chronic respiratory failure with hypoxia and hypercapnia, healthcare acquired pneumonia, acute on chronic CHF, COPD exacerbation, diabetes mellitus type 2, EtOH dependence, and diarrhea. Referral to physical therapy was made in order to address complications of prolonged immobility and weakness from extended stay. 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 Patient is independent with all aspects of ADLs without the need for an assistive ambulatory device nor adaptive equipment. Equipment Owned/DME: None Subjective: Patient reports being fatigued from this day's activity and initially was not fully agreeable to doing mobility assessment but eventually did so with explanation of the rationale for PT evaluation in relation to discharge planning. Objective: General Observation: Patient seen resting in bed. IV in the left UE. Telemetry monitoring in place. Was initially on high flow rate oxygen as ordered by RT. Mental Status: Alert and oriented as to person, place, time, and purpose Pain: 0/10 ROM: Right Upper Extremity: Shoulder Flexion WFL. Shoulder abduction WFL. Elbow flexion WFL. Wrist flexion WFL. Opening and closing of hand WFL. Left Upper Extremity: Shoulder Flexion WFL. Shoulder abduction WFL. Elbow flexion WFL. Wrist flexion WFL. Opening and closing of hand WFL. Right Lower Extremity: Hip flexion WFL. Hip abduction WFL. Knee flexion WFL. Ankle dorsiflexion WFL. Ankle plantarflexion WFL. Left Lower Extremity: Hip flexion WFL. Hip abduction WFL. Knee flexion WFL. Ankle dorsiflexion WFL. Ankle plantarflexion WFL. Strength: Right Upper Extremity: Shoulder flexors 5/5. Shoulder abductors 5/5. Elbow flexors 5/5. Elbow extensors 5/5. Business Professor strong. Left Upper Extremity: Shoulder flexors 5/5. Shoulder abductors 5/5. Elbow flexors 5/5. Elbow extensors 5/5. Business Professor strong. Right Lower Extremity: Hip flexors 5/5. Hip abductors 5/5. Knee flexors 5/5. Knee extensors 5/5. Ankle dorsiflexors 5/5. Ankle plantarflexors 5/5. Left Lower Extremity:Hip flexors 5/5. Hip abductors 5/5. Knee flexors 5/5. Knee extensors 5/5. Ankle dorsiflexors 5/5. Ankle plantarflexors 5/5. Sensation: Intact as to pain and pressure on bilateral lower extremities. Bed Mobility/Transfers: Rolling supervision Supine to sit supervision Sit to supine supervision Sit to stand supervision Stand to sit supervision Bed to chair supervision Chair to bed supervision Gait: Patient tolerated level surface ambulation of 200 feet without an assistive device with full weightbearing and reciprocal step through gait pattern with only minimal shortness of breath noted. Oxygen oxygen saturation ranged from 87% to 88% throughout gait activity. Balance: Static Sitting: Normal Dynamic Sitting: Normal Static Standing: Good Dynamic Standing: Good Special Tests: Mobility Limitations Standardized Measure [facility] AM-PAC 6 clicks Basic Mobility Inpatient Short Form: Raw Score: 22 CMS Score: 21% deficit Informed Consent/Education: Patient instructed in purpose of PT consult and plan of care. Assessment: Patient is a 53-year-old male who presented to the ED on 08/22/2019 with a chief presentation of increased redness, swelling, and discomfort in the left lower extremity accompanied with shortness of breath. Patient is diagnosed with cellulitis of left lower extremity, acute on chronic respiratory failure with hypoxia and hypercapnia, healthcare acquired pneumonia, acute on chronic CHF, COPD exacerbation, diabetes mellitus type 2, EtOH dependence, and diarrhea. Referral to physical therapy was made in order to address complications of prolonged immobility and weakness from extended stay. Patient presents with clinical signs and symptoms consistent with current/admitting diagnoses that have resulted to mobility limitations, gait instability, generalized weakness, and impairment of motor control as demonstrated by the following impairment level findings: 1. Impaired activity tolerance 2. Mild SOB with ambulation activity Impairments are contributing to the following functional limitations: 1. Increase completion time for mobility ADL performance 2. Increased fall risk 3. Inability to negotiate steps alone safely Patient is assessed as a 19014 moderate complexity based on the following: History: 53-year-old male with impairment level findings, functional limitations, and past medical history as indicated above Examination: Demonstrable impairment in strength, balance, and range of motion with underlying impairments and functional limitations as documented above Presentation: Evolving Decision Makin moderate complexity Goals: Goals X1 week 1. Supine-Sit independent 2. Sit-Supine independent 3. Sit-Stand independent 4. Stand-Sit independent 5. Bed-Chair independent 6. Chair-Bed independent 7. Independent gait on level surface with out the use of assistive device for at least 300 feet without report of pain nor dyspnea 8. Independent stair negotiation while holding onto bilateral rails for at least 5 steps without report of pain nor dyspnea 9. Independent with home exercise program 10. Good static and dynamic standing balance/tolerance Plan of Care/Treatment Plan: 1-2x/day, 7 days/week x 1 week. Plan of care has been reviewed with the REEL AND REWINDER OPERATOR providing the service under Physical Therapy direction. Initiate Physical Therapy intervention for strengthening, bed mobility, transfers, gait, stairs, balance training, use of assistive device. DISCHARGE RECOMMENDATIONS: Patient will benefit from home health PT services in order to progress mobility level using least restrictive assistive ambulatory device, assess home safety, identify additional equipment needs, and establish a functional maintenance program that will increase ability of patient to remain at home. TREATMENT CODE/TIME: 58140 x 22 minutes beginning at 15:58 PM. Thank you very much for this referral. Rukhsana Bonilla PT, DPT, CLT [facility], [place]
[2019-08-29] MEDS: DOXYCYCLINE 100 MG in Normal Saline 100 ML IVPB (16:24)
[2019-08-29] MEDS: Normal Saline 500 ML 30 ML IV (17:36)
[2019-08-29] MEDS: Normal Saline Flush 10 ML SYR IVP (17:40)
[2019-08-29] MEDS: Docusate Sodium 100 MG CAP PO (19:25)
[2019-08-29] MEDS: Silver sulfaDIAZINE 1% 25 GM TUBE TP (21:55)
[2019-08-30] VITALS (25 sets, daily range): BP systolic 115–148; BP diastolic 71–93; PULSE 68–108; RESP 2–33; TEMP 36.4–37.4; O2SAT 88–97
[2019-08-30] MEDS: Normal Saline Flush 10 ML SYR IVP ×10 (00:21→19:58)
[2019-08-30] MEDS: LORazepam 1 MG TAB PO/SL ×2 (00:35→18:42)
[2019-08-30] MEDS: PIPERACILLIN/TAZO 4.5 GM in Normal Saline 100 ML IVPB ×4 (00:57→19:58)
[2019-08-30] MEDS: CLINDAMYCIN 900 MG/50 ML BAG 50 MG IVPB ×3 (04:16→20:06)
[2019-08-30] MEDS: DOXYCYCLINE 100 MG in Normal Saline 100 ML IVPB ×2 (04:58→16:56)
[2019-08-30] MEDS: Nystatin 500000 UNITS/5 ML SUSP 5ML CUP PO ×4 (04:59→21:26)
[2019-08-30] MEDS: methylPREDNISolone SUCC 40 MG VIAL IVP ×2 (04:59→18:05)
[2019-08-30] MEDS: Albuterol/Ipratropium 3 ML UPD VIAL UPD ×3 (05:00→18:01)
[2019-08-30] MEDS: Insulin NPH-Human 300 UNITS/3 ML PEN 20 UNIT SC ×2 (05:11→17:59)
[2019-08-30 07:18] LABS: Anion Gap 3.1 mmol/L (3-11); BUN 14 mg/dL (7-18); CO2 33.9 mmol/L (21.0-32.0); CREATININE 1.04 mg/dL (0.70-1.30); Calcium 8.2 mg/dL (8.5-10.1); Chloride 99 mmol/L (98-107); Glucose 190 mg/dL (74-106); Magnesium 2.1 mg/dL (1.8-2.4); Potassium 3.9 mmol/L (3.5-5.1); Sodium 136 mmol/L (136-145)
[2019-08-30 07:53] LABS: Abs Immature Grans 0.05 k/cumm (0.0-0.09); Absolute Eosinophil Count 0.01 k/cumm (0.0-0.7); Absolute Lymphocyte Count 0.42 k/cumm (1.2-3.4); Absolute Monocyte Count 0.21 k/cumm (0.11-0.7); Absolute Neutrophil Count 2.57 k/cumm (1.2-6.7); Eosinophils % 0.3; HCT 36.9 % (40.0-50.0); HGB 12.3 g/dL (13.5-17.5); Immature Grans % 1.5 %; Lymphocytes % 12.9; Mean Corp. HGB Concentration 33.3 g/dL (32.0-36.0); Mean Corpuscular Hemoglobin 29.6 pg (27.0-33.0); Mean Corpuscular Volume 88.9 fL (80-95); Mean Platelet Volume 10.5 fL (8.0-11.0); Monocytes % 6.4; Neutrophils % 78.9; Platelet Count 126 x1000/uL (130-400); RBC 4.15 m/cumm (4.50-6.00); RBC Distribution Width 14.7 % (11.8-14.1); White Blood Cell Count 3.26 k/cumm (4.4-10.8)
[2019-08-30] MEDS: Methadone Liquid 10 MG/ML 130 MG PO (07:55)
[2019-08-30] MEDS: guaiFENesin 600 MG TABCR PO ×2 (07:55→20:04)
[2019-08-30] MEDS: Gabapentin 800 MG TAB PO ×3 (07:56→20:04)
[2019-08-30] MEDS: Multivitamin TAB 1 TAB PO (07:56)
[2019-08-30] MEDS: Docusate Sodium 100 MG CAP PO (07:56)
[2019-08-30] MEDS: Pantoprazole 40 MG TABCR PO (07:56)
[2019-08-30] MEDS: Folic Acid 1 MG TAB PO (07:56)
[2019-08-30] MEDS: Magnesium Oxide 400 MG TAB PO ×2 (07:56→20:04)
[2019-08-30] MEDS: Enoxaparin 40 MG/0.4 ML SYR SC (07:56)
[2019-08-30] MEDS: Furosemide 40 MG TAB PO (07:56)
[2019-08-30] MEDS: Thiamine 100 MG TAB PO (07:59)
[2019-08-30] MEDS: Insulin Aspart 300 UNITS/3 ML PEN SC ×3 (08:06→21:27)
[2019-08-30] MEDS: Silver sulfaDIAZINE 1% 25 GM TUBE TP ×2 (08:15→20:05)
--- NOTE | 2019-08-30 08:18 | PGE_ITS ---
Date of Service Date of service: 08/30/19 Time of Service: 11:56 Assessment and Plan Assessment and plan (1) Acute on chronic respiratory failure with hypoxia and hypercapnia: Status: Acute Assessment and plan: Multifactorial, due to HCAP, acute exacerbation of COPD, and acute on chronic diastolic CHF. Better today - on 3L, no desaturation recorder overnight. Clinically, fluid overload seems to be the biggest component - go back to IV lasix. CTA chest ruled out PE, did show BUL infiltrates, initiated on doxycycline. Continue to wean O2 as tolerated. Transfer out of ICU. (2) HCAP (healthcare-associated pneumonia): Status: Acute Assessment and plan: BUL infiltrates on CT chest yesterday. On zosyn/clinda/doxycycline (day 2). (3) Acute on chronic diastolic CHF (congestive heart failure), NYHA class 1: Status: Acute Assessment and plan: Switch lasix back to IV, effectively increasing dose. Monitor I/O's, Cr, daily weights. (4) COPD with acute exacerbation: Status: Acute Assessment and plan: Keep current steroid dose. Continue scheduled/prn nebs, symbicort, abx as above. Wean O2 as tolerated. (5) Cellulitis of left lower extremity: Status: Acute Assessment and plan: Nearly resolved. Will d/c clindamycin tomorrow. Continue zosyn. (6) DMII (diabetes mellitus, type 2): Status: Acute Assessment and plan: with steroid-induced hyperglycemia. Continue basal bolus insulin with NPH insulin timed with steroid doses. Qualifiers: Diabetes mellitus complication status: without complication Diabetes mellitus moth exterminator insulin use: without fdc use Qualified Code(s): E11.9 - Type 2 diabetes mellitus without complications (7) EtOH dependence: Status: Acute Assessment and plan: Continue scheduled librium with monitoring on CIWA. Met with a power and recovery supervisor. Currently, withdrawal sx are controlled. Qualifiers: Substance use status: uncomplicated Qualified Code(s): F10.20 - Alcohol dependence, uncomplicated (8) Obstructive sleep apnea: Status: Suspected Assessment and plan: Will need outpatient sleep study. (9) Opioid dependence: Status: Chronic Assessment and plan: Continue methadone (normally gets it through [facility]). Qualifiers: Substance use status: uncomplicated Qualified Code(s): F11.20 - Opioid dependence, uncomplicated (10) Diarrhea: Status: Acute Assessment and plan: C. diff ruled out. Continue prn loperamide. Hold bowel regimen. Continue probiotics. (11) DVT prophylaxis: Status: Acute Assessment and plan: SC lovenox (12) Discharge planning issues: Status: Acute Assessment and plan: Full code Transfer out of ICU Subjective Subjective Interval history since last seen: Feels better. Denies any shortness of breath today. Denies dizziness, chest pain, nausea. Expresses concerns about going home into his prior environment. His aunt is there to echo that concern. They are interested in discussing this with care management. Got ativan (3 mg overnight total), sleepy, easily arousable for anxiety/tremors. On NC @ 3L >90%. UOP 3L overnight + 600 this am. Down 2 kg from yesterday. No more chest pressure. BG 167 this am. Exam Narrative Exam Narrative: General: Pleasant middle-aged male, sitting up in a chair, looks better, not tremulous HEENT: EOMI, MMM Heart: RRR, no m/r/g Lungs: rhonchi and rales about the same as yesterday Abdomen: soft, nontender, nondistended Extremities: no edema BLE's today, LLE now appears to have hyperpigmentation of chronic venous stasis. No erythema seen. Objective Objective Clinical Data: Abnormal lab results 08/30/19 08/30/19 Range/Units 06:30 06:30 WBC 3.26 L (4.4-10.8) k/cumm RBC 4.15 L (4.50-6.00) m/cumm Hgb 12.3 L (13.5-17.5) g/dL Hct 36.9 L (40.0-50.0) % RDW 14.7 H (11.8-14.1) % Plt Count 126 L (130-400) x1000/uL Absolute Lymphocytes 0.42 L (1.2-3.4) k/cumm Carbon Dioxide 33.9 H (21.0-32.0) mmol/L Glucose 190 H (74-106) mg/dL Calcium 8.2 L (8.5-10.1) mg/dL Vital Signs Temperature 36.7 C 08/30/19 03:58 Temperature Source Temporal Artery Scan 08/30/19 03:58 Pulse 69 08/30/19 04:00 Pulse Rhythm Regular 08/25/19 08:20 Pulse 73 08/30/19 04:01 Respiratory Rate 28 H 08/30/19 04:01 Respiratory Effort Incrsd Work of Breathing 08/30/19 03:58 Respiratory Depth Normal 08/30/19 03:58 Respiratory Pattern Normal 08/30/19 03:58 Blood Pressure 116/82 08/30/19 04:00 Blood Pressure Mean 89 08/30/19 04:00 Blood Pressure Position Supine 08/30/19 03:58 Pulse Oximetry 97 08/30/19 04:01 Oxygen Delivery Method Nasal Cannula 08/30/19 03:58 Oxygen Flow Rate 3 08/30/19 03:58 Fraction of Inspired Oxygen (FIO2) 45 08/29/19 16:10 Pain Level 0 08/30/19 03:58 Comment 08/25/19 07:57 Intake & Output 08/29/19 08/29/19 08/30/19 11:59 23:59 11:59 Intake Total 250 / 6626.130 9446.000 / 1487.000 730 / 730 Output Total 2000 / 3200 1200 / 3200 1750 / 1750 Balance -1750 / -1713.000 37.000 / -1713.000 -1020 / -1020 Weight 110.8 kg 107.9 kg Intake: IV 250 / 767.000 517.000 / 767.000 250 / 250 Oral 720 / 720 480 / 480 Output: Urine 2000 / 3200 1200 / 3200 1750 / 1750 Other: Urine Color Yellow Pale Pale Urine Appearance Clear Clear Clear Urine Odor None None None Comment Voiding in urinal. Stool Size Small Stool Characteristics Soft Brown Voiding Methods Urinal Urinal Urinal Laboratory Results WBC 3.26 k/cumm (4.4-10.8) L 08/30/19 06:30 RBC 4.15 m/cumm (4.50-6.00) L 08/30/19 06:30 Hgb 12.3 g/dL (13.5-17.5) L 08/30/19 06:30 Hct 36.9 % (40.0-50.0) L 08/30/19 06:30 MCV 88.9 fL (80-95) 08/30/19 06:30 MCH 29.6 pg (27.0-33.0) 08/30/19 06:30 MCHC 33.3 g/dL (32.0-36.0) 08/30/19 06:30 RDW 14.7 % (11.8-14.1) H 08/30/19 06:30 Plt Count 126 x1000/uL (130-400) L 08/30/19 06:30 MPV 10.5 fL (8.0-11.0) 08/30/19 06:30 Immature Gran % 1.5 % 08/30/19 06:30 Neutrophils % 78.9 08/30/19 06:30 Band Neutrophils % Not Applicable 08/24/19 06:15 Lymphocytes % 12.9 08/30/19 06:30 Monocytes % 6.4 08/30/19 06:30 Eosinophils % 0.3 08/30/19 06:30 Basophils % 0.0 08/30/19 06:30 Metamyelocytes % 3.0 % 08/22/19 05:56 Myelocytes % 3.0 % 08/22/19 05:56 Absolute Neutrophils 2.57 k/cumm (1.2-6.7) 08/30/19 06:30 Absolute Lymphocytes 0.42 k/cumm (1.2-3.4) L 08/30/19 06:30 Absolute Monocytes 0.21 k/cumm (0.11-0.7) 08/30/19 06:30 Absolute Eosinophils 0.01 k/cumm (0.0-0.7) 08/30/19 06:30 Absolute Basophils 0.00 k/cumm (0.0-0.2) 08/30/19 06:30 Differential Comment Manual differential 08/22/19 05:56 RBC Morphology See below 08/22/19 05:56 Anisocytosis 1+ 08/22/19 05:56 ESR 21 mm/hr (1-20) H 08/22/19 05:56 PT 10.9 sec (9.3-11.0) 08/22/19 05:56 INR 1.1 (0.9-1.1) 08/22/19 05:56 APTT 22.8 sec (21.0-31.4) 08/22/19 05:56 ABG Sample Site Cancelled 08/28/19 08:34 ABG pH Cancelled 08/28/19 08:34 ABG pCO2 Cancelled 08/28/19 08:34 ABG pO2 Cancelled 08/28/19 08:34 ABG HCO3 Cancelled 08/28/19 08:34 ABG Total CO2 Cancelled 08/28/19 08:34 ABG O2 Saturation Cancelled 08/28/19 08:34 ABG Base Excess Cancelled 08/28/19 08:34 VBG pH 7.37 (7.35-7.45) 08/22/19 05:56 VBG pCO2 58 mm/Hg (34-47) H 08/22/19 05:56 VBG pO2 34 mm/Hg (28-44) 08/22/19 05:56 VBG HCO3 34 mmol/L (22-28) H 08/22/19 05:56 VBG Total CO2 30 mmol/L (22-29) H 08/22/19 05:56 VBG O2 Saturation 60 % (70-80) L 08/22/19 05:56 VBG Base Excess 8.5 mmol/L (-3-3) H 08/22/19 05:56 Oxygen Liter Flow Cancelled 08/28/19 08:34 FiO2 Cancelled 08/28/19 08:34 Sodium 136 mmol/L (136-145) 08/30/19 06:30 Potassium 3.9 mmol/L (3.5-5.1) 08/30/19 06:30 Chloride 99 mmol/L (98-107) 08/30/19 06:30 Carbon Dioxide 33.9 mmol/L (21.0-32.0) H 08/30/19 06:30 Anion Gap 3.1 mmol/L (3-11) 08/30/19 06:30 BUN 14 mg/dL (7-18) 08/30/19 06:30 Creatinine 1.04 mg/dL (0.70-1.30) 08/30/19 06:30 Estimated GFR/1.73 m2 >= 60.00 (mL/min/1.73m2) 08/30/19 06:30 Glucose 190 mg/dL (74-106) H 08/30/19 06:30 Lactate 1.9 mmol/L (0.6-1.4) H 08/23/19 07:41 Calcium 8.2 mg/dL (8.5-10.1) L 08/30/19 06:30 Phosphorus 6.1 mg/dL (2.6-4.7) H 08/26/19 07:15 Magnesium 2.1 mg/dL (1.8-2.4) 08/30/19 06:30 Total Bilirubin 0.5 mg/dL (0.2-1.0) 08/22/19 05:56 AST 45 U/L (15-37) H 08/22/19 05:56 ALT 102 U/L (16-63) H 08/22/19 05:56 Alkaline Phosphatase 92 U/L (46-116) 08/22/19 05:56 Troponin I < 0.05 ng/Ml (<0.06) 08/25/19 20:05 C-Reactive Protein 1.62 mg/dL (0.0-0.3) H 08/28/19 06:20 NT-Pro-B Natriuret Pep 53 pg/mL (<300) 08/27/19 06:18 Total Protein 7.3 g/dL (6.4-8.2) 08/22/19 05:56 Albumin 3.1 g/dL (3.4-5.0) L 08/22/19 05:56 Procalcitonin 0.1 ng/mL 08/28/19 06:20 Vancomycin Trough 18.7 ug/mL (10.0-20.0) 08/27/19 17:01 Ethyl Alcohol < 3.0 mg/dL (<3) 08/22/19 05:56
[2019-08-30] MEDS: Budesonide/Formoterol 160/4.5 6 GM 60 PUFF INH IH ×2 (08:21→20:04)
--- NOTE | 2019-08-30 08:52 | CMPROGNOTE_ITS ---
Care Management Progress Note S/O: Allen continues to score low on CIWA and is being monitored per protocol and treated appropriately. His oxygen saturation dropped when ambulating and he transitioned to humidified high flow O2. He was ambulating outside of the ICU with RT and PT today. He remains pleasant, and anxious. CM continues to follow. A: Allen is a 53 year old male admitted to [facility] on 08/22/19 with COPD, CHF, Cellulitis. P: Anticipate Allen will return home when medically cleared. He will follow up with his PCP, and plan of care as recommended. defensive secondary coach will be has met with Allen, per report. CM will review additional options for support and review community based services. Allen will transport via [facility] private vehicle, coordinated by CM.
[2019-08-30] MEDS: LORazepam 1 MG TAB PO ×2 (10:06→14:58)
--- NOTE | 2019-08-30 11:16 | PTTR_ITS ---
Date of service: 08/30/19 Time of Service: 11:16 PT Notes Visit Reasons: COPD, CHF, CELLULITIS 08/30/2019 SUBJECTIVE: Allen stating that his legs feel very weak from being inactive for over a week. He notes he has two flights of stairs to get into his apartment and they usually make him very SOB at baseline. OBJECTIVE: Seated in his chair. Agreeable to PT treatment. RT present during gait assessment today. VITALS: 86-92% Sa02 throughout. TRANSFERS Sit to stand: S Stand to sit: S GAIT Device: No Device Weight bearing: Full Assist: SBA Distance: 260' Deviation: 1 stand rest break ASSESSMENT: Pt tolerating increase in gait distance today. He does note increasing SOB and fatigue with greater distance walked. Pt will benefit from continued PT services to increase his activity tolerance and assess stairs. PLAN: Continue current POC. Treatment time: 20' [id number] Iveth Julio, ROLLOFF TRUCK DRIVER
[2019-08-30] MEDS: Acetaminophen 325 MG TAB 650 MG PO (11:22)
--- NOTE | 2019-08-30 14:18 | PTTR_ITS ---
Date of service: 08/30/19 Time of Service: 14:18 PT Notes Visit Reasons: COPD, CHF, CELLULITIS 08/30/2019 SUBJECTIVE: Pt feeling tired this afternoon. He is agreeable to short walk. Pt is being transferred to [facility]. OBJECTIVE: Seated in his chair. Agreeable to PT treatment. TRANSFERS Sit to stand: S Stand to sit: S GAIT Device: No device Weight bearing: Full Assist: SBA Distance: 50'x2 Deviation: 6 L NC, 1 sit rest break STAIRS: 6-4, 4-6 steps, 1 rail, step over pattern, SBA VITALS: 78-92% throughout. 6 L NC. Nursing aware. Pt does not feel that SOB. ASSESSMENT: Pt is more fatigued this afternoon. He does well with straight plane ambulation and stair management although demonstrated decreased activity tolerance at this time. PLAN: Continue current POC. Treatment time: 15 minutes [id number] Iveth Julio, MOTORCYCLE SUBASSEMBLY REPAIRER
--- NOTE | 2019-08-30 15:48 | NUR.NOTE ---
Nursing Note: Pt transferred to room 225 from ICU. VSS. Pt A&Ox3. pleasant and polite. On 3L O2 via NC. LLE purple, skin peeling. LS diminished. reports anxiety, requesting ativan. Oriented to room and call light system.
[2019-08-30] MEDS: Furosemide 40 MG/4 ML VIAL IVP (15:58)
[2019-08-31] VITALS (12 sets, daily range): BP systolic 107–118; BP diastolic 73–81; PULSE 78–106; RESP 2–24; TEMP 36.4–36.7; O2SAT 88–98
[2019-08-31] MEDS: Albuterol/Ipratropium 3 ML UPD VIAL UPD ×4 (00:29→17:59)
[2019-08-31] MEDS: PIPERACILLIN/TAZO 4.5 GM in Normal Saline 100 ML IVPB ×4 (02:23→20:50)
[2019-08-31] MEDS: Normal Saline Flush 10 ML SYR IVP ×4 (02:24→17:10)
[2019-08-31] MEDS: CLINDAMYCIN 900 MG/50 ML BAG 50 MG IVPB (04:20)
[2019-08-31] MEDS: DOXYCYCLINE 100 MG in Normal Saline 100 ML IVPB ×2 (05:25→17:11)
[2019-08-31] MEDS: Nystatin 500000 UNITS/5 ML SUSP 5ML CUP PO ×5 (06:48→22:00)
[2019-08-31] MEDS: methylPREDNISolone SUCC 40 MG VIAL IVP (06:48)
[2019-08-31] MEDS: Insulin NPH-Human 300 UNITS/3 ML PEN 20 UNIT SC (06:55)
[2019-08-31 07:37] LABS: Abs Immature Grans 0.23 k/cumm (0.0-0.09); HCT 37.1 % (40.0-50.0); HGB 12.3 g/dL (13.5-17.5); Mean Corp. HGB Concentration 33.2 g/dL (32.0-36.0); Mean Corpuscular Hemoglobin 29.4 pg (27.0-33.0); Mean Corpuscular Volume 88.5 fL (80-95); Mean Platelet Volume 10.4 fL (8.0-11.0); Platelet Count 153 x1000/uL (130-400); RBC 4.19 m/cumm (4.50-6.00); RBC Distribution Width 14.6 % (11.8-14.1); White Blood Cell Count 5.14 k/cumm (4.4-10.8)
[2019-08-31] MEDS: Budesonide/Formoterol 160/4.5 6 GM 60 PUFF INH IH ×2 (08:15→20:50)
[2019-08-31] MEDS: Enoxaparin 40 MG/0.4 ML SYR SC (08:20)
[2019-08-31 08:21] LABS: RBC Morphology Normal
[2019-08-31 08:22] LABS: Absolute Lymphocyte Count 1.08 k/cumm (1.2-3.4); Absolute Monocyte Count 0.36 k/cumm (0.11-0.7); Diff Comment Manual Differential
[2019-08-31] MEDS: Pantoprazole 40 MG TABCR PO (08:22)
[2019-08-31] MEDS: Methadone Liquid 10 MG/ML 130 MG PO (08:22)
[2019-08-31] MEDS: Gabapentin 800 MG TAB PO ×3 (08:22→20:51)
[2019-08-31] MEDS: Multivitamin TAB 1 TAB PO (08:22)
[2019-08-31] MEDS: Furosemide 40 MG/4 ML VIAL IVP ×2 (08:22→15:59)
[2019-08-31] MEDS: guaiFENesin 600 MG TABCR PO ×2 (08:22→20:51)
[2019-08-31] MEDS: Magnesium Oxide 400 MG TAB PO ×2 (08:22→20:51)
[2019-08-31] MEDS: Folic Acid 1 MG TAB PO (08:22)
[2019-08-31] MEDS: LORazepam 1 MG TAB PO ×3 (08:22→18:28)
[2019-08-31] MEDS: Thiamine 100 MG TAB PO (08:22)
[2019-08-31 08:30] LABS: Anion Gap 3.2 mmol/L (3-11); BUN 16 mg/dL (7-18); C-Reactive Protein 0.64 mg/dL (0.0-0.3); CO2 34.8 mmol/L (21.0-32.0); CREATININE 1.16 mg/dL (0.70-1.30); Calcium 8.1 mg/dL (8.5-10.1); Chloride 98 mmol/L (98-107); Glucose 136 mg/dL (74-106); Magnesium 2.3 mg/dL (1.8-2.4); Potassium 3.8 mmol/L (3.5-5.1); Sodium 136 mmol/L (136-145)
[2019-08-31 08:50] LABS: Procalcitonin < 0.1 ng/mL
[2019-08-31] MEDS: Insulin Aspart 300 UNITS/3 ML PEN SC ×3 (12:19→22:00)
--- NOTE | 2019-08-31 15:15 | PDOC.CMPRO ---
- If Service Date Differs Date of service: 08/31/19 Time of Service: 15:15 Care Management Progress Note S/O: Mario was lying in bed when CM met with him. He reported that he is worried about not being able to work upon discharge as his breathing has declined. CM contacted [facility] to coordinate a visit/phone call prior to Mario returning home. He lives in [place] and does not have a vehicle, so transportation will be difficult for him to coordinate, although he does use [employer]. CM discussed Mario meeting with Palliative regarding goals of care, which he was receptive to. CM will continue to follow. A: Allen is a 53 year old male admitted to [facility] on 08/22/19 with COPD, CHF, Cellulitis. P: Anticipate Allen will return home when medically cleared. He will follow up with his PCP, and plan of care as recommended. 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 Mario will follow up with [facility] outpatient, regarding disability. CM will review additional options for support and review community based services. Allen will transport via [employer] private vehicle, coordinated by CM.
--- NOTE | 2019-08-31 16:48 | PGE_ITS ---
Date of Service Date of service: 08/31/19 Time of Service: 16:48 Assessment and Plan Assessment and plan (1) Acute on chronic respiratory failure with hypoxia and hypercapnia: Status: Acute Assessment and plan: Multifactorial, due to HCAP, acute exacerbation of COPD, and acute on chronic diastolic CHF. Fluid overload seems to be the predominant issue. Place back on lasix gtt. CTA chest ruled out PE, did show BUL infiltrates, on doxy/zosyn. Continue to wean O2 as tolerated. (2) HCAP (healthcare-associated pneumonia): Status: Acute Assessment and plan: BUL infiltrates on CT chest yesterday. On zosyn/doxycycline (day 3). D/c clindamycin. (3) Acute on chronic diastolic CHF (congestive heart failure), NYHA class 1: Status: Acute Assessment and plan: Place back on lasix gtt. Refuses braga. Monitor I/O's, Cr, daily weights. (4) COPD with acute exacerbation: Status: Acute Assessment and plan: Taper steroids. Continue scheduled/prn nebs, symbicort, abx as above. Wean O2 as tolerated. (5) Cellulitis of left lower extremity: Status: Acute Assessment and plan: Nearly resolved. D/c clindamycin. Continue zosyn. (6) DMII (diabetes mellitus, type 2): Status: Acute Assessment and plan: with steroid-induced hyperglycemia. Continue basal bolus insulin. D/c NPH. Qualifiers: Diabetes mellitus termite treater helper insulin use: without termite treater helper use Diabetes mellitus complication status: without complication Qualified Code(s): E11.9 - Type 2 diabetes mellitus without complications (7) EtOH dependence: Status: Acute Assessment and plan: Continue scheduled librium with monitoring on CIWA. Met with a manager disaster recovery. Currently, withdrawal sx are controlled. Qualifiers: Substance use status: uncomplicated Qualified Code(s): F10.20 - Alcohol dependence, uncomplicated (8) Obstructive sleep apnea: Status: Suspected Assessment and plan: Will need outpatient sleep study. (9) Opioid dependence: Status: Chronic Assessment and plan: Continue methadone (normally gets it through [facility]). Qualifiers: Substance use status: uncomplicated Qualified Code(s): F11.20 - Opioid dependence, uncomplicated (10) Diarrhea: Status: Acute Assessment and plan: C. diff ruled out. Continue prn loperamide. Hold bowel regimen. Continue probiotics. (11) DVT prophylaxis: Status: Acute Assessment and plan: SC lovenox (12) Discharge planning issues: Status: Acute Assessment and plan: Full code Subjective Subjective Interval history since last seen: Complains of shortness of breath with ambulation, even to the bathroom. Requiring 6L with exertion, 1-2 L with rest. Otherwise, feels better. Denies dizziness, chest pain, nausea. Exam Narrative Exam Narrative: General: Pleasant middle-aged male, sitting up in bed, looks better, mildly tremulous HEENT: EOMI, MMM Heart: RRR, no m/r/g Lungs: more rales, fewer rhonchi than yesterday Abdomen: soft, nontender, nondistended Extremities: trace edema BLE's today, LLE now appears to have hyperpigmentation of chronic venous stasis. No erythema seen. Objective Objective Clinical Data: Abnormal lab results 08/31/19 08/31/19 Range/Units 08:00 08:00 RBC 4.19 L (4.50-6.00) m/cumm Hgb 12.3 L (13.5-17.5) g/dL Hct 37.1 L (40.0-50.0) % RDW 14.6 H (11.8-14.1) % Absolute Lymphocytes 1.08 L (1.2-3.4) k/cumm Carbon Dioxide 34.8 H (21.0-32.0) mmol/L Glucose 136 H (74-106) mg/dL Calcium 8.1 L (8.5-10.1) mg/dL C-Reactive Protein 0.64 H (0.0-0.3) mg/dL Vital Signs Temperature 36.7 C 08/31/19 11:15 Temperature Source Tympanic 08/31/19 11:15 Pulse 88 08/31/19 12:44 Pulse Rhythm Regular 08/31/19 08:35 Pulse 99 H 08/30/19 11:05 Respiratory Rate 14 08/31/19 12:44 Respiratory Effort 08/31/19 08:35 Respiratory Depth Normal 08/31/19 08:35 Respiratory Pattern Normal 08/31/19 08:35 Blood Pressure 118/81 08/31/19 11:15 Blood Pressure Mean 83 08/30/19 11:05 Blood Pressure Position Supine 08/30/19 09:17 Pulse Oximetry 98 08/31/19 12:44 Oxygen Delivery Method Nasal Cannula 08/31/19 12:42 Oxygen Flow Rate 1 08/31/19 12:42 Fraction of Inspired Oxygen (FIO2) 45 08/29/19 16:10 Pain Level 0 08/31/19 11:15 Comment 08/30/19 19:02 Intake & Output 08/30/19 08/31/19 08/31/19 23:59 11:59 23:59 Intake Total 1480 / 3360 1160 / 1500 340 / 1500 Output Total 3300 / 6050 3175 / 3175 Balance -1820 / -2690 -2014 / -1675 340 / -1675 Weight 110.5 kg Intake: IV 500 / 850 280 / 380 100 / 380 Oral 980 / 2510 880 / 1120 240 / 1120 Output: Urine 3300 / 6050 3175 / 3175 Other: Urine Color Yellow Yellow Urine Appearance Clear Clear Urine Odor None Normal Voiding Methods Urinal Urinal Laboratory Results WBC 5.14 k/cumm (4.4-10.8) D 08/31/19 08:00 RBC 4.19 m/cumm (4.50-6.00) L 08/31/19 08:00 Hgb 12.3 g/dL (13.5-17.5) L 08/31/19 08:00 Hct 37.1 % (40.0-50.0) L 08/31/19 08:00 MCV 88.5 fL (80-95) 08/31/19 08:00 MCH 29.4 pg (27.0-33.0) 08/31/19 08:00 MCHC 33.2 g/dL (32.0-36.0) 08/31/19 08:00 RDW 14.6 % (11.8-14.1) H 08/31/19 08:00 Plt Count 153 x1000/uL (130-400) 08/31/19 08:00 MPV 10.4 fL (8.0-11.0) 08/31/19 08:00 Immature Gran % 0.0 % 08/31/19 08:00 Neutrophils % 72.0 08/31/19 08:00 Band Neutrophils % Not Applicable 08/24/19 06:15 Lymphocytes % 21.0 08/31/19 08:00 Monocytes % 7.0 08/31/19 08:00 Eosinophils % 0.0 08/31/19 08:00 Basophils % 0.0 08/31/19 08:00 Metamyelocytes % 3.0 % 08/22/19 05:56 Myelocytes % 3.0 % 08/22/19 05:56 Absolute Neutrophils 3.70 k/cumm (1.2-6.7) 08/31/19 08:00 Absolute Lymphocytes 1.08 k/cumm (1.2-3.4) L 08/31/19 08:00 Absolute Monocytes 0.36 k/cumm (0.11-0.7) 08/31/19 08:00 Absolute Eosinophils 0.00 k/cumm (0.0-0.7) 08/31/19 08:00 Absolute Basophils 0.00 k/cumm (0.0-0.2) 08/31/19 08:00 Differential Comment Manual differential 08/31/19 08:00 RBC Morphology Normal 08/31/19 08:00 Anisocytosis 1+ 08/22/19 05:56 ESR 21 mm/hr (1-20) H 08/22/19 05:56 PT 10.9 sec (9.3-11.0) 08/22/19 05:56 INR 1.1 (0.9-1.1) 08/22/19 05:56 APTT 22.8 sec (21.0-31.4) 08/22/19 05:56 ABG Sample Site Cancelled 08/28/19 08:34 ABG pH Cancelled 08/28/19 08:34 ABG pCO2 Cancelled 08/28/19 08:34 ABG pO2 Cancelled 08/28/19 08:34 ABG HCO3 Cancelled 08/28/19 08:34 ABG Total CO2 Cancelled 08/28/19 08:34 ABG O2 Saturation Cancelled 08/28/19 08:34 ABG Base Excess Cancelled 08/28/19 08:34 VBG pH 7.37 (7.35-7.45) 08/22/19 05:56 VBG pCO2 58 mm/Hg (34-47) H 08/22/19 05:56 VBG pO2 34 mm/Hg (28-44) 08/22/19 05:56 VBG HCO3 34 mmol/L (22-28) H 08/22/19 05:56 VBG Total CO2 30 mmol/L (22-29) H 08/22/19 05:56 VBG O2 Saturation 60 % (70-80) L 08/22/19 05:56 VBG Base Excess 8.5 mmol/L (-3-3) H 08/22/19 05:56 Oxygen Liter Flow Cancelled 08/28/19 08:34 FiO2 Cancelled 08/28/19 08:34 Sodium 136 mmol/L (136-145) 08/31/19 08:00 Potassium 3.8 mmol/L (3.5-5.1) 08/31/19 08:00 Chloride 98 mmol/L (98-107) 08/31/19 08:00 Carbon Dioxide 34.8 mmol/L (21.0-32.0) H 08/31/19 08:00 Anion Gap 3.2 mmol/L (3-11) 08/31/19 08:00 BUN 16 mg/dL (7-18) 08/31/19 08:00 Creatinine 1.16 mg/dL (0.70-1.30) 08/31/19 08:00 Estimated GFR/1.73 m2 >= 60.00 (mL/min/1.73m2) 08/31/19 08:00 Glucose 136 mg/dL (74-106) H 08/31/19 08:00 Lactate 1.9 mmol/L (0.6-1.4) H 08/23/19 07:41 Calcium 8.1 mg/dL (8.5-10.1) L 08/31/19 08:00 Phosphorus 6.1 mg/dL (2.6-4.7) H 08/26/19 07:15 Magnesium 2.3 mg/dL (1.8-2.4) 08/31/19 08:00 Total Bilirubin 0.5 mg/dL (0.2-1.0) 08/22/19 05:56 AST 45 U/L (15-37) H 08/22/19 05:56 ALT 102 U/L (16-63) H 08/22/19 05:56 Alkaline Phosphatase 92 U/L (46-116) 08/22/19 05:56 Troponin I < 0.05 ng/Ml (<0.06) 08/25/19 20:05 C-Reactive Protein 0.64 mg/dL (0.0-0.3) H 08/31/19 08:00 NT-Pro-B Natriuret Pep 53 pg/mL (<300) 08/27/19 06:18 Total Protein 7.3 g/dL (6.4-8.2) 08/22/19 05:56 Albumin 3.1 g/dL (3.4-5.0) L 08/22/19 05:56 Procalcitonin < 0.1 ng/mL 08/31/19 08:00 Vancomycin Trough 18.7 ug/mL (10.0-20.0) 08/27/19 17:01 Ethyl Alcohol < 3.0 mg/dL (<3) 08/22/19 05:56
[2019-08-31] MEDS: Normal Saline Flush 10 ML SYR 20 ML IVP (20:51)
[2019-08-31] MEDS: predniSONE 20 MG TAB PO (20:51)
[2019-08-31] MEDS: Silver sulfaDIAZINE 1% 25 GM TUBE TP (20:55)
[2019-08-31] MEDS: LORazepam 1 MG TAB PO/SL (22:29)
[2019-09-01] VITALS (11 sets, daily range): BP systolic 108–125; BP diastolic 65–86; PULSE 50–113; RESP 5–22; TEMP 36–36.9; O2SAT 89–94
[2019-09-01] MEDS: PIPERACILLIN/TAZO 4.5 GM in Normal Saline 100 ML IVPB ×3 (01:28→14:32)
[2019-09-01] MEDS: Albuterol/Ipratropium 3 ML UPD VIAL UPD ×3 (05:21→17:46)
[2019-09-01] MEDS: DOXYCYCLINE 100 MG in Normal Saline 100 ML IVPB (05:21)
[2019-09-01] MEDS: Nystatin 500000 UNITS/5 ML SUSP 5ML CUP PO ×5 (05:22→21:35)
--- NOTE | 2019-09-01 07:00 | HOME_ITS ---
Home Oxygen Equipment: Home care [employer] Home oxygen qualifier: Sleep Qualifying SaO2: Date: 09/01/19 LPM: 2.5 Useage (hours/day) Portability: Comments: ELLIOT
[2019-09-01 07:33] LABS: Abs Immature Grans 0.39 k/cumm (0.0-0.09); HCT 40.5 % (40.0-50.0); HGB 13.7 g/dL (13.5-17.5); Mean Corp. HGB Concentration 33.8 g/dL (32.0-36.0); Mean Corpuscular Hemoglobin 29.3 pg (27.0-33.0); Mean Corpuscular Volume 86.7 fL (80-95); Mean Platelet Volume 10.3 fL (8.0-11.0); Platelet Count 162 x1000/uL (130-400); RBC 4.67 m/cumm (4.50-6.00); RBC Distribution Width 14.8 % (11.8-14.1); White Blood Cell Count 6.97 k/cumm (4.4-10.8)
[2019-09-01 07:44] LABS: Anion Gap 6.7 mmol/L (3-11); BUN 20 mg/dL (7-18); CO2 32.3 mmol/L (21.0-32.0); CREATININE 1.13 mg/dL (0.70-1.30); Calcium 8.6 mg/dL (8.5-10.1); Chloride 96 mmol/L (98-107); Glucose 202 mg/dL (74-106); Potassium 3.6 mmol/L (3.5-5.1); Sodium 135 mmol/L (136-145)
[2019-09-01 07:54] LABS: Absolute Neutrophil Count 5.37 k/cumm (1.2-6.7)
[2019-09-01 07:55] LABS: Absolute Lymphocyte Count 0.84 k/cumm (1.2-3.4); Absolute Monocyte Count 0.49 k/cumm (0.11-0.7); Atypical Lymphocytes % 2; Diff Comment Manual Differential; RBC Morphology Normal
[2019-09-01] MEDS: Budesonide/Formoterol 160/4.5 6 GM 60 PUFF INH IH ×2 (08:02→19:51)
[2019-09-01] MEDS: Magnesium Oxide 400 MG TAB PO ×2 (08:10→19:51)
[2019-09-01] MEDS: Folic Acid 1 MG TAB PO (08:10)
[2019-09-01] MEDS: predniSONE 20 MG TAB 60 MG PO ×2 (08:11→19:51)
[2019-09-01] MEDS: Pantoprazole 40 MG TABCR PO (08:12)
[2019-09-01] MEDS: Multivitamin TAB 1 TAB PO (08:13)
[2019-09-01] MEDS: guaiFENesin 600 MG TABCR PO ×2 (08:13→19:50)
[2019-09-01] MEDS: Thiamine 100 MG TAB PO (08:13)
[2019-09-01] MEDS: Gabapentin 800 MG TAB PO ×3 (08:14→19:50)
[2019-09-01] MEDS: Enoxaparin 40 MG/0.4 ML SYR SC (08:14)
[2019-09-01] MEDS: LORazepam 1 MG TAB PO ×4 (08:14→21:35)
[2019-09-01] MEDS: Normal Saline Flush 10 ML SYR IVP (08:15)
[2019-09-01] MEDS: Insulin Aspart 300 UNITS/3 ML PEN SC ×4 (08:17→21:36)
[2019-09-01] MEDS: Methadone Liquid 10 MG/ML 130 MG PO (08:19)
--- NOTE | 2019-09-01 10:18 | PTTR_ITS ---
Date of service: 09/01/19 Time of Service: 10:17 PT Notes Visit Reasons: COPD, CHF, CELLULITIS Physical Therapy Inpatient Treatment Note 09/01/2019 SUBJECTIVE: Patient continues to feel weak in his legs specially after walking activity. He does report considerable improvement compared to how he was on the day of admission. He admits to not feeling too out-of breath easy as he did initially. OBJECTIVE: Seated in his chair. Agreeable to PT treatment. Oxygen supplementation at 2 L/min via NC. IV in right UE. BED MOBILITY LEVELS/TRANSFERS: Rolling independent Supine to sit independent Sit to supine independent Sit to stand independent Stand to sit independent Bed to chair independent Chair to bed independent GAIT Device: No device Weight bearing: Full Assist: SBA Distance: 260 feet x 2 Deviation: 2 L of oxygen via NC. Reciprocal step through gait pattern. VITALS: Desaturated to 89% on 2 L of oxygen per minute after each loop of 260 feet but re-saturated back to 90 to 91% with rest after about a minute or 2 for both attempts. ASSESSMENT: Patient demonstrates increase tolerance to ambulation activity with no significant desaturation episode for both attempts at performing 2 loops of 200 feet each. He does continue to complain of his legs getting weak on him towards the end of each attempt. He does report that the ache subsided with rest. PLAN: Continue current POC. Patient will benefit from home health PT services in order to progress mobility level using least restrictive assistive ambulatory device, assess home safety, identify additional equipment needs, and establish a functional maintenance program that will increase ability of patient to remain at home. Treatment time: [id number] 25 minutes beginning at 10:17 AM. Rukhsana Bonilla PT, DPT, CLT [facility] Inpatient PT at [facility]
[2019-09-01] MEDS: Acetaminophen 325 MG TAB 650 MG PO (11:16)
--- NOTE | 2019-09-01 12:05 | PT.INTREAT ---
PT Notes Visit Reasons: COPD, CHF, CELLULITIS Inpatient Physical Therapy Treatment Note [facility] Date: 08/31/2019 SUBJECTIVE: Mario reports that he has no endurance. He denies SOB. OBJECTIVE: [] BED MOBILITY/TRANSFERS Rolling L/R: I Supine-sit: I Sit-supine:I Sit-stand: I Stand-sit: I GAIT Assistive Device: none Weight bearing: full Assist: SBA Distance: 120' in am/ 200' in pm Deviation: various levels of O2 in am (with RT) 6L of O2 in pm. THEREX: he did perform a brief ther ex routine global LE strength/conditioning. See flowsheet for details. ASSESSMENT: tolerates session well. He does de-sat quickly, but able to recover within 1 min. See flowsheet for specific sat numbers. PLAN: continue to progress his endurance, per PT POC> TREATMENT CODE/TIME: 25 min in am. [id number], [id number] x1 20 min in pm. [id number]
--- NOTE | 2019-09-01 15:43 | PTTR_ITS ---
Date of service: 09/01/19 Time of Service: 15:46 PT Notes Visit Reasons: COPD, CHF, CELLULITIS 09/01/2019 SUBJECTIVE: Mario stating that he is not feeling good this afternoon. He cannot tell me what exactly doesn't feel good. He notes frustration with how he is feeling. OBJECTIVE: Pt seated at EOB. Agreeable to PT treatment. TRANSFERS Sit to stand: I Stand to sit: I GAIT Device: No device Weight bearing: Full Assist: S Distance: 260' Deviation: Treatment in conjunction with RT. Pt pushes IV pole VITALS: 2-4 L NC throughout adjusted per RT. 87-93 % throughout, 107-117 b.m. ASSESSMENT: Pt is not feeling well this afternoon per subjective report. He ambulates without assistive device, no LOB or path deviations. Complains of minor SOB. PLAN: Continue per POC. Treatment time: Iveth Julio, RN TELEHEALTH
--- NOTE | 2019-09-01 15:43 | CMPROGNOTE_ITS ---
- If Service Date Differs Date of service: 09/01/19 Time of Service: 15:45 Care Management Progress Note S/O: Mario was sitting up eating his lunch when CM met with him. CM discussed the process for him to obtain Disability. He will need to work with [facility] and have them assess his needs. CM asked [facility] if they could visit him while inpatient vs phone conversation while at [facility]. CM is still waiting for a response, but will reach out again to inquire. CM offered Mario a blank copy of [place] AD, as requested. CM will continue to follow. A: Allen is a 53 year old male admitted to [facility] on 08/22/19 with COPD, CHF, Cellulitis. P: Anticipate Allen will return home when medically cleared. He will follow up with his PCP, and plan of care as recommended. dramatic coach has met with Allen, per report. Mario will follow up with [facility] outpatient, regarding disability. CM will review additional options for support and review community based services. Allen will transport via [facility] private vehicle, coordinated by CM.
--- NOTE | 2019-09-01 16:49 | PGE_ITS ---
Date of Service Date of service: 09/01/19 Time of Service: 16:49 Assessment and Plan Assessment and plan (1) Acute on chronic respiratory failure with hypoxia and hypercapnia: Status: Acute Assessment and plan: Multifactorial, due to HCAP, acute exacerbation of COPD, and acute on chronic diastolic CHF. Doing better as far as diuresis, but would benefit from ongoing lasix drip. Will increase steroids as more bronchospastic today. CTA chest ruled out PE, did show BUL infiltrates. D/c antibiotics as procalcitonin has normalized and cough is nonproductive. (2) HCAP (healthcare-associated pneumonia): Status: Resolved Assessment and plan: BUL infiltrates on CT chest. However, cough now nonproductive, and procalcitonin normalized. D/c abx and monitor. (3) Acute on chronic diastolic CHF (congestive heart failure), NYHA class 1: Status: Acute Assessment and plan: Continue lasix gtt. Refuses braga. Monitor I/O's, Cr, daily weights. (4) COPD with acute exacerbation: Status: Acute Assessment and plan: Increase steroids as more bronchospastic today. Continue scheduled/prn nebs, symbicort, abx as above. Wean O2 as tolerated. (5) Cellulitis of left lower extremity: Status: Resolved Assessment and plan: D/c abx. (6) DMII (diabetes mellitus, type 2): Status: Acute Assessment and plan: with steroid-induced hyperglycemia. Continue basal bolus insulin. Qualifiers: Diabetes mellitus terminal worker insulin use: without detention use Diabetes mellitus complication status: without complication Qualified Code(s): E11.9 - Type 2 diabetes mellitus without complications (7) EtOH dependence: Status: Acute Assessment and plan: Continue monitoring on CIWA. No longer on scheduled librium. Met with a power and recovery supervisor. Currently, withdrawal sx are controlled. Qualifiers: Substance use status: uncomplicated Qualified Code(s): F10.20 - Alcohol dependence, uncomplicated (8) Obstructive sleep apnea: Status: Suspected Assessment and plan: Will need outpatient sleep study. (9) Opioid dependence: Status: Chronic Assessment and plan: Continue methadone (normally gets it through [facility]). Qualifiers: Substance use status: uncomplicated Qualified Code(s): F11.20 - Opioid dependence, uncomplicated (10) Diarrhea: Status: Acute Assessment and plan: C. diff ruled out. Continue prn loperamide. Hold bowel regimen. Continue probiotics. (11) DVT prophylaxis: Status: Acute Assessment and plan: SC lovenox (12) Discharge planning issues: Status: Acute Assessment and plan: Full code Nearing d/c. Consult palliative care Subjective Subjective Interval history since last seen: Not having a good day today, he states. Denies dizziness, chest pain, nausea, vomiting. States still short of breath and doesn't have the oomph. Exam Narrative Exam Narrative: General: Pleasant middle-aged male, sitting up in bed, looks tired. HEENT: EOMI, MMM Heart: RRR, no m/r/g Lungs: No rales, more expiratory wheezing today Abdomen: soft, nontender, nondistended Extremities: trace edema BLE's today, LLE now appears to have hyperpigmentation of chronic venous stasis. No erythema seen. Objective Objective Clinical Data: Abnormal lab results 09/01/19 09/01/19 Range/Units 07:25 07:25 RDW 14.8 H (11.8-14.1) % Absolute Lymphocytes 0.84 L (1.2-3.4) k/cumm Sodium 135 L (136-145) mmol/L Chloride 96 L (98-107) mmol/L Carbon Dioxide 32.3 H (21.0-32.0) mmol/L BUN 20 H (7-18) mg/dL Glucose 202 H (74-106) mg/dL Vital Signs Temperature 36 C L 09/01/19 16:34 Temperature Source Tympanic 09/01/19 16:34 Pulse 50 L 09/01/19 16:34 Pulse Rhythm Regular 09/01/19 09:34 Pulse 99 H 08/30/19 11:05 Respiratory Rate 17 09/01/19 16:34 Respiratory Effort 09/01/19 09:34 Respiratory Depth Shallow 09/01/19 09:34 Respiratory Pattern Normal 09/01/19 09:34 Blood Pressure 113/75 09/01/19 16:34 Blood Pressure Mean 83 08/30/19 11:05 Blood Pressure Position Supine 08/30/19 09:17 Pulse Oximetry 94 L 09/01/19 16:34 Oxygen Delivery Method Nasal Cannula 09/01/19 16:34 Oxygen Flow Rate 2 09/01/19 16:34 Fraction of Inspired Oxygen (FIO2) 45 08/29/19 16:10 Pain Level 3 09/01/19 16:34 Comment 08/31/19 16:50 Intake & Output 08/31/19 09/01/19 09/01/19 23:59 11:59 23:59 Intake Total 1120 / 2280 1850 / 2589 739 / 2589 Output Total 1350 / 4525 1300 / 1700 400 / 1700 Balance -230 / -2245 550 / 889 339 / 889 Weight 108.7 kg Intake: IV 400 / 680 300 / 300 Oral 720 / 1600 1550 / 2289 739 / 2289 Output: Urine 1350 / 4525 1300 / 1700 400 / 1700 Other: Urine Color Yellow Straw Yellow Urine Appearance Clear Clear Clear Urine Odor Normal Normal None Comment found emptying urinal - reminded her that the amount of urine must be reported to nursing Voiding Methods Urinal Toilet Urinal Laboratory Results WBC 6.97 k/cumm (4.4-10.8) D 09/01/19 07:25 RBC 4.67 m/cumm (4.50-6.00) 09/01/19 07:25 Hgb 13.7 g/dL (13.5-17.5) 09/01/19 07:25 Hct 40.5 % (40.0-50.0) 09/01/19 07:25 MCV 86.7 fL (80-95) 09/01/19 07:25 MCH 29.3 pg (27.0-33.0) 09/01/19 07:25 MCHC 33.8 g/dL (32.0-36.0) 09/01/19 07:25 RDW 14.8 % (11.8-14.1) H 09/01/19 07:25 Plt Count 162 x1000/uL (130-400) 09/01/19 07:25 MPV 10.3 fL (8.0-11.0) 09/01/19 07:25 Immature Gran % See Differential 09/01/19 07:25 Neutrophils % 77.0 09/01/19 07:25 Band Neutrophils % Not Applicable 08/24/19 06:15 Lymphocytes % 10.0 09/01/19 07:25 Atypical Lymphs % 2 09/01/19 07:25 Monocytes % 7.0 09/01/19 07:25 Eosinophils % 0.0 09/01/19 07:25 Basophils % 0.0 09/01/19 07:25 Metamyelocytes % 3.0 % 09/01/19 07:25 Myelocytes % 1.0 % 09/01/19 07:25 Absolute Neutrophils 5.37 k/cumm (1.2-6.7) 09/01/19 07:25 Absolute Lymphocytes 0.84 k/cumm (1.2-3.4) L 09/01/19 07:25 Absolute Monocytes 0.49 k/cumm (0.11-0.7) 09/01/19 07:25 Absolute Eosinophils 0.00 k/cumm (0.0-0.7) 09/01/19 07:25 Absolute Basophils 0.00 k/cumm (0.0-0.2) 09/01/19 07:25 Differential Comment Manual differential 09/01/19 07:25 RBC Morphology Normal 09/01/19 07:25 Anisocytosis 1+ 08/22/19 05:56 ESR 21 mm/hr (1-20) H 08/22/19 05:56 PT 10.9 sec (9.3-11.0) 08/22/19 05:56 INR 1.1 (0.9-1.1) 08/22/19 05:56 APTT 22.8 sec (21.0-31.4) 08/22/19 05:56 ABG Sample Site Cancelled 08/28/19 08:34 ABG pH Cancelled 08/28/19 08:34 ABG pCO2 Cancelled 08/28/19 08:34 ABG pO2 Cancelled 08/28/19 08:34 ABG HCO3 Cancelled 08/28/19 08:34 ABG Total CO2 Cancelled 08/28/19 08:34 ABG O2 Saturation Cancelled 08/28/19 08:34 ABG Base Excess Cancelled 08/28/19 08:34 VBG pH 7.37 (7.35-7.45) 08/22/19 05:56 VBG pCO2 58 mm/Hg (34-47) H 08/22/19 05:56 VBG pO2 34 mm/Hg (28-44) 08/22/19 05:56 VBG HCO3 34 mmol/L (22-28) H 08/22/19 05:56 VBG Total CO2 30 mmol/L (22-29) H 08/22/19 05:56 VBG O2 Saturation 60 % (70-80) L 08/22/19 05:56 VBG Base Excess 8.5 mmol/L (-3-3) H 08/22/19 05:56 Oxygen Liter Flow Cancelled 08/28/19 08:34 FiO2 Cancelled 08/28/19 08:34 Sodium 135 mmol/L (136-145) L 09/01/19 07:25 Potassium 3.6 mmol/L (3.5-5.1) 09/01/19 07:25 Chloride 96 mmol/L (98-107) L 09/01/19 07:25 Carbon Dioxide 32.3 mmol/L (21.0-32.0) H 09/01/19 07:25 Anion Gap 6.7 mmol/L (3-11) 09/01/19 07:25 BUN 20 mg/dL (7-18) H 09/01/19 07:25 Creatinine 1.13 mg/dL (0.70-1.30) 09/01/19 07:25 Estimated GFR/1.73 m2 >= 60.00 (mL/min/1.73m2) 09/01/19 07:25 Glucose 202 mg/dL (74-106) H 09/01/19 07:25 Lactate 1.9 mmol/L (0.6-1.4) H 08/23/19 07:41 Calcium 8.6 mg/dL (8.5-10.1) 09/01/19 07:25 Phosphorus 6.1 mg/dL (2.6-4.7) H 08/26/19 07:15 Magnesium 2.0 mg/dL (1.8-2.4) 09/01/19 07:25 Total Bilirubin 0.5 mg/dL (0.2-1.0) 08/22/19 05:56 AST 45 U/L (15-37) H 08/22/19 05:56 ALT 102 U/L (16-63) H 08/22/19 05:56 Alkaline Phosphatase 92 U/L (46-116) 08/22/19 05:56 Troponin I < 0.05 ng/Ml (<0.06) 08/25/19 20:05 C-Reactive Protein 0.64 mg/dL (0.0-0.3) H 08/31/19 08:00 NT-Pro-B Natriuret Pep 53 pg/mL (<300) 08/27/19 06:18 Total Protein 7.3 g/dL (6.4-8.2) 08/22/19 05:56 Albumin 3.1 g/dL (3.4-5.0) L 08/22/19 05:56 Procalcitonin < 0.1 ng/mL 08/31/19 08:00 Vancomycin Trough 18.7 ug/mL (10.0-20.0) 08/27/19 17:01 Ethyl Alcohol < 3.0 mg/dL (<3) 08/22/19 05:56
[2019-09-01] MEDS: Silver sulfaDIAZINE 1% 25 GM TUBE TP (19:52)
[2019-09-01] MEDS: Normal Saline Flush 10 ML SYR 20 ML IVP (19:58)
[2019-09-02] VITALS (15 sets, daily range): BP systolic 110–125; BP diastolic 75–84; PULSE 83–111; RESP 1–22; TEMP 31.6–37.6; O2SAT 89–98
[2019-09-02] MEDS: Albuterol/Ipratropium 3 ML UPD VIAL UPD ×5 (00:14→23:59)
[2019-09-02] MEDS: Normal Saline Flush 10 ML SYR IVP ×2 (01:34→06:32)
[2019-09-02] MEDS: Nystatin 500000 UNITS/5 ML SUSP 5ML CUP PO ×5 (06:30→22:40)
[2019-09-02 07:42] LABS: Anion Gap 9.9 mmol/L (3-11); BUN 22 mg/dL (7-18); CO2 27.1 mmol/L (21.0-32.0); CREATININE 1.06 mg/dL (0.70-1.30); Calcium 9.2 mg/dL (8.5-10.1); Chloride 97 mmol/L (98-107); Glucose 262 mg/dL (74-106); Magnesium 2.3 mg/dL (1.8-2.4); Potassium 4.2 mmol/L (3.5-5.1); Sodium 134 mmol/L (136-145)
[2019-09-02] MEDS: Budesonide/Formoterol 160/4.5 6 GM 60 PUFF INH IH ×2 (07:46→19:51)
[2019-09-02] MEDS: Normal Saline Flush 10 ML SYR 20 ML IVP ×2 (08:49→19:52)
[2019-09-02] MEDS: Insulin Aspart 300 UNITS/3 ML PEN SC ×4 (08:50→22:42)
[2019-09-02] MEDS: Silver sulfaDIAZINE 1% 25 GM TUBE TP ×2 (08:50→19:52)
[2019-09-02] MEDS: Magnesium Oxide 400 MG TAB PO ×2 (08:51→19:51)
[2019-09-02] MEDS: Enoxaparin 40 MG/0.4 ML SYR SC (08:51)
[2019-09-02] MEDS: predniSONE 20 MG TAB 60 MG PO (08:51)
[2019-09-02] MEDS: Pantoprazole 40 MG TABCR PO (08:52)
[2019-09-02] MEDS: Thiamine 100 MG TAB PO (08:52)
[2019-09-02] MEDS: guaiFENesin 600 MG TABCR PO ×2 (08:52→19:51)
[2019-09-02] MEDS: Gabapentin 800 MG TAB PO ×3 (08:52→19:51)
[2019-09-02] MEDS: Multivitamin TAB 1 TAB PO (08:52)
[2019-09-02] MEDS: Folic Acid 1 MG TAB PO (08:52)
[2019-09-02] MEDS: Methadone Liquid 10 MG/ML 130 MG PO (08:53)
[2019-09-02] MEDS: LORazepam 1 MG TAB PO ×2 (09:25→14:35)
--- NOTE | 2019-09-02 15:02 | PT.INTREAT ---
Date of service: 09/02/19 Time of Service: 15:02 PT Notes Visit Reasons: COPD, CHF, CELLULITIS 09/02/2019 SUBJECTIVE: Pt stating he is feeling better today overall. He is less short of breath. OBJECTIVE: Seen for PT treatment x 2 today. TRANSFERS Supine to sit: I Sit to supine: I Sit to stand: I Stand to sit: I GAIT Device: No device Weight bearing: Full Assist: I Distance: 260'x2 in the AM and PM VITALS: AM- rest on 1 L 90%. 2 L NC with ambulation 90-88%. 3 L NC with ambulation 92-93% PM- rest on RA 90%. 2 L NC with ambulation 88-92% throughout ASSESSMENT: Pt tolerating PT well today with increase in gait distance, less SOB noted and less oxygen required throughout. No LOB during gait. PLAN: Continue current POC. Treatment time: AM- 20 minutes 87500 PM- 15 minutes [id number] Iveth Julio, GORD[facility]
--- NOTE | 2019-09-02 16:06 | CMPROGNOTE_ITS ---
- If Service Date Differs Date of service: 09/02/19 Time of Service: 16:06 Care Management Progress Note S/O: Mario was lying in bed when CM met with him. He no longer was using the nasal canula at rest, which he was happy about. He stated that RT is trying to wean him down, and he feels that he is making progress. He stated that he is requiring less O2 walking as well. He again expressed his concern regarding being able to obtain Disability. CM reviewed the process with him, which is for him to follow up with [facility] out patient. CM asked if they would visit him while inpatient, with no response. CM will continue to follow. A: Allen is a 53 year old male admitted to [facility] on 08/22/19 with COPD, CHF, Cellulitis. P: Anticipate Allen will return home when medically cleared. He will follow up with his PCP, and plan of care as recommended. cross country/track and field coach has met with Allen, per report. Mario will follow up with [facility] outpatient, regarding disability. CM will review additional options for support and review community based services. Allen will transport via [facility] private vehicle, coordinated by CM.
--- NOTE | 2019-09-02 16:42 | PGE_ITS ---
Date of Service Date of service: 09/02/19 Time of Service: 16:43 Assessment and Plan Assessment and plan (1) Acute on chronic respiratory failure with hypoxia and hypercapnia: Status: Acute Assessment and plan: Multifactorial, due to HCAP, acute exacerbation of COPD, and acute on chronic diastolic CHF. Much better - continue lasix gtt at 10 mg/hr. Start to taper steroids again - 40 mg PO BID today. CTA chest ruled out PE, did show BUL infiltrates. Off antibiotics as procalcitonin has normalized and cough is nonproductive. (2) HCAP (healthcare-associated pneumonia): Status: Resolved Assessment and plan: BUL infiltrates on CT chest. However, cough now nonproductive, and procalcitonin normalized. Doing well off abx. Continue to monitor. (3) Acute on chronic diastolic CHF (congestive heart failure), NYHA class 1: Status: Acute Assessment and plan: Continue lasix gtt. Refuses braga. Monitor I/O's, Cr, daily weights. (4) COPD with acute exacerbation: Status: Acute Assessment and plan: Start to taper steroids again. Continue scheduled/prn nebs, symbicort, abx as above. Wean O2 as tolerated. (5) Cellulitis of left lower extremity: Status: Resolved Assessment and plan: Doing well off abx. (6) DMII (diabetes mellitus, type 2): Status: Chronic Assessment and plan: with steroid-induced hyperglycemia. Continue basal bolus insulin. Qualifiers: Diabetes mellitus nursing home insulin use: without long term care social worker use Diabetes mellitus complication status: without complication Qualified Code(s): E11.9 - Type 2 diabetes mellitus without complications (7) EtOH dependence: Status: Acute Assessment and plan: Continue monitoring on CIWA. No longer on scheduled librium. Met with a women's lacrosse coach. Currently, withdrawal sx are controlled. Qualifiers: Substance use status: uncomplicated Qualified Code(s): F10.20 - Alcohol dependence, uncomplicated (8) Obstructive sleep apnea: Status: Suspected Assessment and plan: Will need outpatient sleep study. (9) Opioid dependence: Status: Chronic Assessment and plan: Continue methadone (normally gets it through [facility]). Qualifiers: Substance use status: uncomplicated Qualified Code(s): F11.20 - Opioid dependence, uncomplicated (10) Diarrhea: Status: Acute Assessment and plan: C. diff ruled out. Continue prn loperamide. Hold bowel regimen. Continue probiotics. (11) DVT prophylaxis: Status: Acute Assessment and plan: SC lovenox (12) Discharge planning issues: Status: Acute Assessment and plan: Full code Nearing d/c. Palliative care consulted. Subjective Subjective Interval history since last seen: Mr Maria is feelign better today. He is less short of breath. He does not require oxygen at rest and needs 2L with ambulation. Denies dizziness, chest pain, nausea. Cough nonproductive. He does report anxiety and has received ativan x2. Exam Narrative Exam Narrative: General: Pleasant middle-aged male, sitting up at the edge of the bed, A&Ox3 HEENT: EOMI, MMM Heart: RRR, no m/r/g Lungs: No rales, +rhonchi B, sounds a little better than yesterday Abdomen: soft, nontender, nondistended Extremities: no edema BLE's, LLE appears to have hyperpigmentation of chronic venous stasis. No erythema seen. Objective Objective Clinical Data: Abnormal lab results 09/02/19 Range/Units 06:55 Sodium 134 L (136-145) mmol/L Chloride 97 L (98-107) mmol/L BUN 22 H (7-18) mg/dL Glucose 262 H (74-106) mg/dL Vital Signs Temperature 36.2 C L 09/02/19 16:28 Temperature Source Temporal Artery Scan 09/02/19 16:28 Pulse 101 H 09/02/19 16:28 Pulse Rhythm Regular 09/02/19 05:05 Pulse 99 H 08/30/19 11:05 Respiratory Rate 22 09/02/19 16:28 Respiratory Effort 09/02/19 05:05 Respiratory Depth Normal 09/02/19 05:05 Respiratory Pattern Normal 09/02/19 05:05 Blood Pressure 123/77 09/02/19 16:28 Blood Pressure Mean 83 08/30/19 11:05 Blood Pressure Position Supine 08/30/19 09:17 Pulse Oximetry 92 L 09/02/19 16:28 Oxygen Delivery Method Room Air 09/02/19 16:28 Oxygen Flow Rate 0 09/02/19 16:28 Fraction of Inspired Oxygen (FIO2) 45 08/29/19 16:10 Pain Level 3 09/02/19 16:28 Comment 08/31/19 16:50 Intake & Output 09/01/19 09/02/19 09/02/19 23:59 11:59 23:59 Intake Total 1079 / 2929 627.083 / 902.250 275.167 / 902.250 Output Total 1600 / 2900 1735 / 2155 420 / 2155 Balance -521 / 29 -1107.917 / -1252.750 -144.833 / -1252.750 Weight 108.6 kg Intake: IV 100 / 400 47.083 / 82.250 35.167 / 82.250 Oral 979 / 2529 580 / 820 240 / 820 Output: Urine 1600 / 2900 1735 / 2155 420 / 2155 Other: Urine Color Yellow Yellow Yellow Urine Appearance Clear Clear Clear Urine Odor Normal None None Comment lasix drip increased to 10 mg/hr Voiding Methods Urinal Urinal Urinal Laboratory Results WBC 6.97 k/cumm (4.4-10.8) D 09/01/19 07:25 RBC 4.67 m/cumm (4.50-6.00) 09/01/19 07:25 Hgb 13.7 g/dL (13.5-17.5) 09/01/19 07:25 Hct 40.5 % (40.0-50.0) 09/01/19 07:25 MCV 86.7 fL (80-95) 09/01/19 07:25 MCH 29.3 pg (27.0-33.0) 09/01/19 07:25 MCHC 33.8 g/dL (32.0-36.0) 09/01/19 07:25 RDW 14.8 % (11.8-14.1) H 09/01/19 07:25 Plt Count 162 x1000/uL (130-400) 09/01/19 07:25 MPV 10.3 fL (8.0-11.0) 09/01/19 07:25 Immature Gran % See Differential 09/01/19 07:25 Neutrophils % 77.0 09/01/19 07:25 Band Neutrophils % Not Applicable 08/24/19 06:15 Lymphocytes % 10.0 09/01/19 07:25 Atypical Lymphs % 2 09/01/19 07:25 Monocytes % 7.0 09/01/19 07:25 Eosinophils % 0.0 09/01/19 07:25 Basophils % 0.0 09/01/19 07:25 Metamyelocytes % 3.0 % 09/01/19 07:25 Myelocytes % 1.0 % 09/01/19 07:25 Absolute Neutrophils 5.37 k/cumm (1.2-6.7) 09/01/19 07:25 Absolute Lymphocytes 0.84 k/cumm (1.2-3.4) L 09/01/19 07:25 Absolute Monocytes 0.49 k/cumm (0.11-0.7) 09/01/19 07:25 Absolute Eosinophils 0.00 k/cumm (0.0-0.7) 09/01/19 07:25 Absolute Basophils 0.00 k/cumm (0.0-0.2) 09/01/19 07:25 Differential Comment Manual differential 09/01/19 07:25 RBC Morphology Normal 09/01/19 07:25 Anisocytosis 1+ 08/22/19 05:56 ESR 21 mm/hr (1-20) H 08/22/19 05:56 PT 10.9 sec (9.3-11.0) 08/22/19 05:56 INR 1.1 (0.9-1.1) 08/22/19 05:56 APTT 22.8 sec (21.0-31.4) 08/22/19 05:56 ABG Sample Site Cancelled 08/28/19 08:34 ABG pH Cancelled 08/28/19 08:34 ABG pCO2 Cancelled 08/28/19 08:34 ABG pO2 Cancelled 08/28/19 08:34 ABG HCO3 Cancelled 08/28/19 08:34 ABG Total CO2 Cancelled 08/28/19 08:34 ABG O2 Saturation Cancelled 08/28/19 08:34 ABG Base Excess Cancelled 08/28/19 08:34 VBG pH 7.37 (7.35-7.45) 08/22/19 05:56 VBG pCO2 58 mm/Hg (34-47) H 08/22/19 05:56 VBG pO2 34 mm/Hg (28-44) 08/22/19 05:56 VBG HCO3 34 mmol/L (22-28) H 08/22/19 05:56 VBG Total CO2 30 mmol/L (22-29) H 08/22/19 05:56 VBG O2 Saturation 60 % (70-80) L 08/22/19 05:56 VBG Base Excess 8.5 mmol/L (-3-3) H 08/22/19 05:56 Oxygen Liter Flow Cancelled 08/28/19 08:34 FiO2 Cancelled 08/28/19 08:34 Sodium 134 mmol/L (136-145) L 09/02/19 06:55 Potassium 4.2 mmol/L (3.5-5.1) 09/02/19 06:55 Chloride 97 mmol/L (98-107) L 09/02/19 06:55 Carbon Dioxide 27.1 mmol/L (21.0-32.0) 09/02/19 06:55 Anion Gap 9.9 mmol/L (3-11) 09/02/19 06:55 BUN 22 mg/dL (7-18) H 09/02/19 06:55 Creatinine 1.06 mg/dL (0.70-1.30) 09/02/19 06:55 Estimated GFR/1.73 m2 >= 60.00 (mL/min/1.73m2) 09/02/19 06:55 Glucose 262 mg/dL (74-106) H 09/02/19 06:55 Lactate 1.9 mmol/L (0.6-1.4) H 08/23/19 07:41 Calcium 9.2 mg/dL (8.5-10.1) 09/02/19 06:55 Phosphorus 6.1 mg/dL (2.6-4.7) H 08/26/19 07:15 Magnesium 2.3 mg/dL (1.8-2.4) 09/02/19 06:55 Total Bilirubin 0.5 mg/dL (0.2-1.0) 08/22/19 05:56 AST 45 U/L (15-37) H 08/22/19 05:56 ALT 102 U/L (16-63) H 08/22/19 05:56 Alkaline Phosphatase 92 U/L (46-116) 08/22/19 05:56 Troponin I < 0.05 ng/Ml (<0.06) 08/25/19 20:05 C-Reactive Protein 0.64 mg/dL (0.0-0.3) H 08/31/19 08:00 NT-Pro-B Natriuret Pep 53 pg/mL (<300) 08/27/19 06:18 Total Protein 7.3 g/dL (6.4-8.2) 08/22/19 05:56 Albumin 3.1 g/dL (3.4-5.0) L 08/22/19 05:56 Procalcitonin < 0.1 ng/mL 08/31/19 08:00 Vancomycin Trough 18.7 ug/mL (10.0-20.0) 08/27/19 17:01 Ethyl Alcohol < 3.0 mg/dL (<3) 08/22/19 05:56
[2019-09-02] MEDS: LORazepam 1 MG TAB PO/SL (19:50)
[2019-09-02] MEDS: predniSONE 20 MG TAB 40 MG PO (19:51)
[2019-09-03] VITALS (13 sets, daily range): BP systolic 110–135; BP diastolic 75–89; PULSE 86–109; RESP 2–22; TEMP 36–37; O2SAT 93–99
[2019-09-03] MEDS: Albuterol/Ipratropium 3 ML UPD VIAL UPD ×4 (06:16→23:50)
[2019-09-03] MEDS: Nystatin 500000 UNITS/5 ML SUSP 5ML CUP PO ×5 (06:16→21:28)
[2019-09-03] MEDS: Normal Saline Flush 10 ML SYR IVP (06:18)
[2019-09-03 07:15] LABS: Abs Immature Grans 0.57 k/cumm (0.0-0.09); HCT 46.1 % (40.0-50.0); HGB 15.5 g/dL (13.5-17.5); Mean Corp. HGB Concentration 33.6 g/dL (32.0-36.0); Mean Corpuscular Hemoglobin 28.9 pg (27.0-33.0); Mean Corpuscular Volume 85.8 fL (80-95); Mean Platelet Volume 10.4 fL (8.0-11.0); Platelet Count 199 x1000/uL (130-400); RBC 5.37 m/cumm (4.50-6.00); RBC Distribution Width 14.9 % (11.8-14.1); White Blood Cell Count 9.21 k/cumm (4.4-10.8)
[2019-09-03 07:30] LABS: Anion Gap 7.5 mmol/L (3-11); BUN 25 mg/dL (7-18); CO2 33.5 mmol/L (21.0-32.0); CREATININE 1.24 mg/dL (0.70-1.30); Calcium 8.6 mg/dL (8.5-10.1); Chloride 95 mmol/L (98-107); Glucose 262 mg/dL (74-106); Magnesium 2.2 mg/dL (1.8-2.4); Potassium 4.3 mmol/L (3.5-5.1); Sodium 136 mmol/L (136-145)
[2019-09-03] MEDS: Normal Saline Flush 10 ML SYR 20 ML IVP ×2 (07:58→19:28)
[2019-09-03] MEDS: Enoxaparin 40 MG/0.4 ML SYR SC (07:58)
[2019-09-03] MEDS: guaiFENesin 600 MG TABCR PO ×2 (08:00→19:26)
[2019-09-03] MEDS: Gabapentin 800 MG TAB PO ×3 (08:00→19:25)
[2019-09-03] MEDS: Folic Acid 1 MG TAB PO (08:00)
[2019-09-03] MEDS: predniSONE 20 MG TAB 40 MG PO ×2 (08:00→19:26)
[2019-09-03] MEDS: Pantoprazole 40 MG TABCR PO (08:00)
[2019-09-03] MEDS: Magnesium Oxide 400 MG TAB PO ×2 (08:00→19:26)
[2019-09-03] MEDS: Thiamine 100 MG TAB PO (08:00)
[2019-09-03] MEDS: Multivitamin TAB 1 TAB PO (08:00)
[2019-09-03] MEDS: Methadone Liquid 10 MG/ML 130 MG PO (08:05)
[2019-09-03 08:06] LABS: Absolute Lymphocyte Count 0.92 k/cumm (1.2-3.4); Absolute Monocyte Count 0.46 k/cumm (0.11-0.7); Absolute Neutrophil Count 7.37 k/cumm (1.2-6.7); Diff Comment Manual Differential
[2019-09-03 08:07] LABS: RBC Morphology Normal
[2019-09-03] MEDS: Budesonide/Formoterol 160/4.5 6 GM 60 PUFF INH IH ×2 (08:10→19:32)
[2019-09-03] MEDS: LORazepam 1 MG TAB PO ×4 (08:18→19:26)
[2019-09-03] MEDS: Insulin Aspart 300 UNITS/3 ML PEN SC ×4 (08:18→21:32)
--- NOTE | 2019-09-03 10:00 | NUR.NOTE ---
per patient, this is not enough fluid , (RN following fluid restriction order) I will prob have to cheat per patient. RN instructed patient of fluid restriction plan and importance of following it. Also RN notified charge nurse Sia.Nursing Note:
[2019-09-03] MEDS: Silver sulfaDIAZINE 1% 25 GM TUBE TP ×2 (10:04→21:28)
--- NOTE | 2019-09-03 11:52 | PT.INTREAT ---
PT Notes Visit Reasons: COPD, CHF, CELLULITIS Inpatient Physical Therapy Treatment Note [facility] Date: 09/03/19 PRECAUTIONS:Resp failure SUBJECTIVE: OBJECTIVE: Sit-stand: I Stand-sit: I GAIT Assistive Device: No assist device. I Weight bearing: Full Assist: I Distance: [id number] Deviation: [] VITALS: 2LNC with ambulation and oxygen 91-94% ASSESSMENT: Pt tolerated today's session well. PLAN: Cont as per PT POC. TREATMENT CODE/TIME: 10:05-10:20 (15) TA
--- NOTE | 2019-09-03 12:23 | PDOC.CMPRO ---
Care Management Progress Note S/O: Mario continues to make gains toward discharge and is on room air at this time. He remains on 2L Nocturnal O2 which is his baseline home use and will resume on discharge. Steroids continue to be tapered; Allen continues to be closely monitored. CM continues to follow. A: Allen is a 53 year old male admitted to [facility] on 08/22/19 with COPD, CHF, Cellulitis. P: Anticipate Allen will return home when medically cleared, possible new VNA PT; per PT assessment. He will follow up with his PCP, and plan of care as recommended. Mario will follow up with [facility] outpatient, regarding navigation of disability support. CM will review additional options for support and review community based services. Allen will transport via [facility] private vehicle, coordinated by CM.
--- NOTE | 2019-09-03 13:15 | PGE_ITS ---
Date of Service Date of service: 09/03/19 Time of Service: 13:15 Assessment and Plan Assessment and plan (1) Acute on chronic respiratory failure with hypoxia and hypercapnia: Status: Acute Assessment and plan: Much improved over the past 24 hours. Probably a combination of pneumonia, COPD and some heart failure. Pneumonia resolved. Continue nocturnal oxygen as he has been at home at 2 to 2-1/2 L/min. Continue current inhalers. Discontinue Lasix infusion and place on p.o. Lasix and monitor clinical response. (2) HCAP (healthcare-associated pneumonia): Status: Resolved Assessment and plan: Treated and no evidence of recurrence. (3) Acute on chronic diastolic CHF (congestive heart failure), NYHA class 1: Status: Acute Assessment and plan: Much better. Discontinue IV Lasix infusion and place on p.o. Lasix (4) COPD with acute exacerbation: Status: Acute Assessment and plan: Continue steroid taper. Continue current inhalers. Continue oxygen at home flow rate 2 to 2.5 L/min. (5) Cellulitis of left lower extremity: Status: Resolved Assessment and plan: Chronic pigmentary changes, peeling of skin from the resolved edema. Minimal discomfort of the skin now. No indication for antibiotics. (6) DMII (diabetes mellitus, type 2): Status: Chronic Assessment and plan: Blood sugars still elevated. Steroids are tapering and hopefully blood sugars will improve. Start back on metformin, increasing the dose to 500 mg twice daily and watch for GI upset. Continue sliding scale insulin for now. Qualifiers: Diabetes mellitus group home insulin use: without [facility] [employer] use Diabetes mellitus complication status: without complication Qualified Code(s): E11.9 - Type 2 diabetes mellitus without complications (7) EtOH dependence: Status: Acute Assessment and plan: No withdrawal symptoms. Discontinue [place] scoring. Qualifiers: Substance use status: uncomplicated Qualified Code(s): F10.20 - Alcohol dependence, uncomplicated (8) Obstructive sleep apnea: Status: Suspected Assessment and plan: Will need outpatient sleep study. (9) Opioid dependence: Status: Chronic Assessment and plan: Continue methadone (normally gets it through [facility]). Qualifiers: Substance use status: uncomplicated Qualified Code(s): F11.20 - Opioid dependence, uncomplicated (10) Diarrhea: Status: Acute Assessment and plan: No recurrence. (11) DVT prophylaxis: Status: Acute Assessment and plan: SC lovenox (12) Discharge planning issues: Status: Acute Assessment and plan: Full code Nearing d/c. If current trend of improvement continues, likely discharge tomorrow. Subjective Subjective Interval history since last seen: Breathing is feeling much better. He is antsy about getting home. Wants fluid restriction discontinued. Voiding more. Oxygen has been weaned off during the daytime. Minimal cough, nonproductive. No chest pains. A little bit of discomfort the left ankle but mild. He knows he needs to quit smoking, not ready to commit to total cessation after discharge. Voiding and stooling without problems. BUN and creatinine up slightly compared to yesterday. Blood sugars still above 200. CBC normal. Exam Narrative Exam Narrative: No acute respiratory distress. Weight stable at 108.3 kg. Flui d balance not accurately tracked in terms of his intake. He has had good urine output. Talks in full sentences. Afebrile. SaO2 on room air 99%. Cannot see neck veins well because of his rowe. Lungs a little bit distant breath sounds no wheeze crackles or rub. Regular heart rhythm no murmur S3 or S4. Nontender abdomen. Left leg has maroonish pigmentary changes from the knee down circumfer entially, desquamating skin. No ulcers no vesicles. He can actively flex and extend the ankle with a little bit of discomfort of the skin but not in the joint. There is no increased warmth. No pitting edema in either leg. Symmetric movement of all extremities. Ambulates independently. Objective Objective Clinical Data: Abnormal lab results 09/03/19 09/03/19 Range/Units 07:01 07:01 RDW 14.9 H (11.8-14.1) % Absolute Neutrophils 7.37 H (1.2-6.7) k/cumm Absolute Lymphocytes 0.92 L (1.2-3.4) k/cumm Chloride 95 L (98-107) mmol/L Carbon Dioxide 33.5 H (21.0-32.0) mmol/L BUN 25 H (7-18) mg/dL Glucose 262 H (74-106) mg/dL Vital Signs Temperature 36.6 C 09/03/19 08:54 Temperature Source Tympanic 09/03/19 08:54 Pulse 108 H 09/03/19 12:41 Pulse Rhythm Regular 09/03/19 08:00 Pulse 99 H 08/30/19 11:05 Respiratory Rate 22 09/03/19 12:41 Respiratory Effort 09/03/19 08:00 Respiratory Depth Normal 09/03/19 08:00 Respiratory Pattern Normal 09/03/19 08:00 Blood Pressure 115/81 09/03/19 08:54 Blood Pressure Mean 83 08/30/19 11:05 Blood Pressure Position Supine 08/30/19 09:17 Pulse Oximetry 99 09/03/19 12:41 Oxygen Delivery Method Room Air 09/03/19 12:40 Oxygen Flow Rate 0 09/03/19 12:40 Fraction of Inspired Oxygen (FIO2) 45 08/29/19 16:10 Pain Level 0 09/03/19 08:54 Comment 08/31/19 16:50 Intake & Output 09/02/19 09/03/19 09/03/19 23:59 11:59 23:59 Intake Total 763.334 / 1390.417 98.167 / 98.167 Output Total 2700 / 4435 2685 / 2685 Balance -1936.666 / -3044.583 -2586.833 / -2586.833 Weight 108.3 kg Intake: IV 133.334 / 180.417 98.167 / 98.167 Oral 630 / 1210 Output: Urine 2700 / 4435 2685 / 2685 Other: Urine Color Yellow Yellow Urine Appearance Clear Clear Urine Odor None Comment lasix drip increased to 10 mg/hr Voiding Methods Urinal Urinal Laboratory Results WBC 9.21 k/cumm (4.4-10.8) 09/03/19 07:01 RBC 5.37 m/cumm (4.50-6.00) 09/03/19 07:01 Hgb 15.5 g/dL (13.5-17.5) 09/03/19 07:01 Hct 46.1 % (40.0-50.0) 09/03/19 07:01 MCV 85.8 fL (80-95) 09/03/19 07:01 MCH 28.9 pg (27.0-33.0) 09/03/19 07:01 MCHC 33.6 g/dL (32.0-36.0) 09/03/19 07:01 RDW 14.9 % (11.8-14.1) H 09/03/19 07:01 Plt Count 199 x1000/uL (130-400) 09/03/19 07:01 MPV 10.4 fL (8.0-11.0) 09/03/19 07:01 Immature Gran % See Differential 09/03/19 07:01 Neutrophils % 80.0 09/03/19 07:01 Band Neutrophils % Not Applicable 08/24/19 06:15 Lymphocytes % 10.0 09/03/19 07:01 Atypical Lymphs % 2 09/01/19 07:25 Monocytes % 5.0 09/03/19 07:01 Eosinophils % 0.0 09/03/19 07:01 Basophils % 0.0 09/03/19 07:01 Metamyelocytes % 3.0 % 09/03/19 07:01 Myelocytes % 2.0 % 09/03/19 07:01 Absolute Neutrophils 7.37 k/cumm (1.2-6.7) H 09/03/19 07:01 Absolute Lymphocytes 0.92 k/cumm (1.2-3.4) L 09/03/19 07:01 Absolute Monocytes 0.46 k/cumm (0.11-0.7) 09/03/19 07:01 Absolute Eosinophils 0.00 k/cumm (0.0-0.7) 09/03/19 07:01 Absolute Basophils 0.00 k/cumm (0.0-0.2) 09/03/19 07:01 Differential Comment Manual differential 09/03/19 07:01 RBC Morphology Normal 09/03/19 07:01 Anisocytosis 1+ 08/22/19 05:56 ESR 21 mm/hr (1-20) H 08/22/19 05:56 PT 10.9 sec (9.3-11.0) 08/22/19 05:56 INR 1.1 (0.9-1.1) 08/22/19 05:56 APTT 22.8 sec (21.0-31.4) 08/22/19 05:56 ABG Sample Site Cancelled 08/28/19 08:34 ABG pH Cancelled 08/28/19 08:34 ABG pCO2 Cancelled 08/28/19 08:34 ABG pO2 Cancelled 08/28/19 08:34 ABG HCO3 Cancelled 08/28/19 08:34 ABG Total CO2 Cancelled 08/28/19 08:34 ABG O2 Saturation Cancelled 08/28/19 08:34 ABG Base Excess Cancelled 08/28/19 08:34 VBG pH 7.37 (7.35-7.45) 08/22/19 05:56 VBG pCO2 58 mm/Hg (34-47) H 08/22/19 05:56 VBG pO2 34 mm/Hg (28-44) 08/22/19 05:56 VBG HCO3 34 mmol/L (22-28) H 08/22/19 05:56 VBG Total CO2 30 mmol/L (22-29) H 08/22/19 05:56 VBG O2 Saturation 60 % (70-80) L 08/22/19 05:56 VBG Base Excess 8.5 mmol/L (-3-3) H 08/22/19 05:56 Oxygen Liter Flow Cancelled 08/28/19 08:34 FiO2 Cancelled 08/28/19 08:34 Sodium 136 mmol/L (136-145) 09/03/19 07:01 Potassium 4.3 mmol/L (3.5-5.1) 09/03/19 07:01 Chloride 95 mmol/L (98-107) L 09/03/19 07:01 Carbon Dioxide 33.5 mmol/L (21.0-32.0) H 09/03/19 07:01 Anion Gap 7.5 mmol/L (3-11) 09/03/19 07:01 BUN 25 mg/dL (7-18) H 09/03/19 07:01 Creatinine 1.24 mg/dL (0.70-1.30) 09/03/19 07:01 Estimated GFR/1.73 m2 >= 60.00 (mL/min/1.73m2) 09/03/19 07:01 Glucose 262 mg/dL (74-106) H 09/03/19 07:01 Lactate 1.9 mmol/L (0.6-1.4) H 08/23/19 07:41 Calcium 8.6 mg/dL (8.5-10.1) 09/03/19 07:01 Phosphorus 6.1 mg/dL (2.6-4.7) H 08/26/19 07:15 Magnesium 2.2 mg/dL (1.8-2.4) 09/03/19 07:01 Total Bilirubin 0.5 mg/dL (0.2-1.0) 08/22/19 05:56 AST 45 U/L (15-37) H 08/22/19 05:56 ALT 102 U/L (16-63) H 08/22/19 05:56 Alkaline Phosphatase 92 U/L (46-116) 08/22/19 05:56 Troponin I < 0.05 ng/Ml (<0.06) 08/25/19 20:05 C-Reactive Protein 0.64 mg/dL (0.0-0.3) H 08/31/19 08:00 NT-Pro-B Natriuret Pep 53 pg/mL (<300) 08/27/19 06:18 Total Protein 7.3 g/dL (6.4-8.2) 08/22/19 05:56 Albumin 3.1 g/dL (3.4-5.0) L 08/22/19 05:56 Procalcitonin < 0.1 ng/mL 08/31/19 08:00 Vancomycin Trough 18.7 ug/mL (10.0-20.0) 08/27/19 17:01 Ethyl Alcohol < 3.0 mg/dL (<3) 08/22/19 05:56
[2019-09-03] MEDS: Furosemide 40 MG TAB PO (16:33)
[2019-09-03] MEDS: metFORMIN 500 MG TAB PO (16:33)
[2019-09-04 00:20] VITALS: PULSE 93; RESP 16; RESP 8; O2SAT 96
[2019-09-04] MEDS: LORazepam 1 MG TAB PO ×2 (00:34→08:32)
[2019-09-04] MEDS: Nystatin 500000 UNITS/5 ML SUSP 5ML CUP PO ×2 (06:45→09:35)
[2019-09-04] MEDS: Albuterol/Ipratropium 3 ML UPD VIAL UPD (06:45)
[2019-09-04 07:22] LABS: Anion Gap 7.6 mmol/L (3-11); BUN 28 mg/dL (7-18); CO2 31.4 mmol/L (21.0-32.0); Chloride 95 mmol/L (98-107); Glucose 294 mg/dL (74-106); Potassium 4.2 mmol/L (3.5-5.1); Sodium 134 mmol/L (136-145)
[2019-09-04] MEDS: predniSONE 20 MG TAB 60 MG PO (07:51)
[2019-09-04] MEDS: Gabapentin 800 MG TAB PO (07:51)
[2019-09-04] MEDS: Thiamine 100 MG TAB PO (07:51)
[2019-09-04] MEDS: guaiFENesin 600 MG TABCR PO (07:51)
[2019-09-04] MEDS: metFORMIN 500 MG TAB PO (07:51)
[2019-09-04] MEDS: Magnesium Oxide 400 MG TAB PO (07:51)
[2019-09-04] MEDS: Insulin Aspart 300 UNITS/3 ML PEN SC (07:52)
[2019-09-04] MEDS: Folic Acid 1 MG TAB PO (07:52)
[2019-09-04] MEDS: Furosemide 40 MG TAB PO (07:52)
[2019-09-04] MEDS: Pantoprazole 40 MG TABCR PO (07:52)
[2019-09-04] MEDS: Multivitamin TAB 1 TAB PO (07:52)
[2019-09-04] MEDS: Normal Saline Flush 10 ML SYR 20 ML IVP (07:54)
[2019-09-04] MEDS: Enoxaparin 40 MG/0.4 ML SYR SC (07:54)
[2019-09-04 08:03] VITALS: O2SAT 98
[2019-09-04] MEDS: Budesonide/Formoterol 160/4.5 6 GM 60 PUFF INH IH (08:03)
--- NOTE | 2019-09-04 08:22 | W.PM.DS.N ---
Date of service: 09/04/19 Time of Service: 08:23 DS: Diagnosis Discharge Diagnosis (1) HCAP (healthcare-associated pneumonia): Status: Resolved Asessment and Plan: Admitted with increased shortness of breath, cough and chest x-ray with bilateral patchy infiltrates following a recent hospitalization for treatment of cellulitis of his left leg. He was presumed to have healthcare associated pneumonia and was placed on broad-spectrum antibiotics to cover potential healthcare associated pathogens as well as cellulitis?Zosyn, clindamycin and vancomycin were all used in conjunction. He continued to have significant O2 requirement, was treated with BiPAP briefly. His respiratory status was felt to be likely a combination of infection, COPD and heart failure. Intervention directed towards all of these gradually resulted in improvement of his respiratory status, weaning off of the daytime oxygen with continuation of his nighttime oxygen. He completed treatment for pneumonia. His chest x-ray showed improvement. He also CT angiography for pulmonary embolism which was negative for PE but continued to show on the CT scan some upper lobe infiltrates. In the latter days of hospitalization his breathing was comfortable, he had no productive cough. Oxygen saturations were in the upper 90% on room air. He had no chest pain and no fevers. Diagnostics: CT angiography for PE negative for PE, quality of study compromised by respiratory motion, bilateral infiltrates in the upper lobes, incidental notation of significant fatty infiltration of the liver (2) COPD with acute exacerbation: Status: Acute Asessment and Plan: Respiratory presentation with COPD exacerbation and pneumonia. Treated with parenteral steroids, nebulized treatments and antibiotics as noted above. Oxygen requirement steadily improved. Clear lungs by the day of discharge on a tapering course of prednisone which will be completed as an outpatient. No changes were made to his chronic inhalers. He will be going home with his same oxygen flow rate at night?2 to 2.5 L/min. He was encouraged to quit smoking, but was forthcoming in stating he doubts he will be successful total abstinence at least in the near term. (3) Acute on chronic diastolic CHF (congestive heart failure), NYHA class 1: Status: Acute Asessment and Plan: It was felt that some of his respiratory compromise was due to his chronic diastolic dysfunction. He had had an echocardiogram in April 2019 showing normal LVEF and evidence of diastolic dysfunction. In addition to the above treatments for his pulmonary problems, he was initially dosed with bolus Lasix and then Lasix infusion. Steady clinical improvement. Weight went from 123 kg on admission to 108.4 kg on discharge. He is being discharged on his outpatient dose of furosemide. (4) Cellulitis of left lower extremity: Status: Resolved Asessment and Plan: He continued to have inflammatory changes in his left lower leg on presentation having been admitted earlier in July with cellulitis. There was increased swelling of the leg. Duplex scan was negative for DVT. He was treated with broad-spectrum antibiotics for the combination of pneumonia and cellulitis with antibiotics noted above. He had steady improvement in the appearance of his leg. He completed treatment for both his pneumonia and cellulitis without any recurrent swelling or pain in the left lower leg. He has chronic increased pigmentation and some desquamation of skin. He is not going home on any further antibiotics. He has been encouraged to use compression stockings. (5) DMII (diabetes mellitus, type 2): Status: Chronic Asessment and Plan: Blood sugars trended high during hospitalization with the use of steroids. Metformin was put on hold. He had a brief episode of diarrhea with negative C. difficile toxin assay. He was treated with short acting insulin. He is being discharged back on metformin with dose increased to twice daily and monitoring for GI side effects. He has been instructed to check his blood sugars twice daily and bring the results to his follow-up outpatient appointment. (6) EtOH dependence: Status: Acute Asessment and Plan: He had been drinking prior to admission. He had no significant withdrawal symptoms during his hospitalization and by the day of discharge has stated that he does not plan on resuming any alcohol use. (7) Obstructive sleep apnea: Status: Suspected Asessment and Plan: He is suspected of having sleep apnea. He had BiPAP support briefly during this hospitalization. It was recommended he have a sleep study as an outpatient. This was not scheduled. (8) Opioid dependence: Status: Chronic Asessment and Plan: He was maintained on his usual methadone dose with no opiate withdrawal symptoms during his hospitalization. He received, the day of discharge, his 130 mg methadone dose prior to discharge. (9) Diarrhea: Status: Acute Asessment and Plan: Transient and with negative C. difficile toxin. He was not having diarrhea at the time of discharge after metformin had been resumed. Discharge Plan Disposition Patient Disposition: HOME Condition: Good Discharge Details Chief Complaint: RespSymp Clinical Impression: COPD with acute exacerbation, Cellulitis of left lower extremity Reason For Visit: COPD, CHF, CELLULITIS Admit Date/Time: 08/22/19 12:36 Admit Provider: Marko Amaro Attending Provider: Marko Amaro Primary Care Provider: Milana Canales ED Provider: Og Poole Hospital Course Hospital Course: 53-year-old man with COPD, diastolic dysfunction, adult onset diabetes, substance use disorder and recent hospitalization for cellulitis of the left leg was admitted with increasing respiratory symptoms of shortness of breath cough, increased left leg swelling despite oral antibiotics for cellulitis. He had recently been discharged following inpatient treatment for cellulitis of the left leg and including use of vancomycin and Zosyn, switch to Bactrim and Augmentin. During that hospitalization he also had a mild COPD exacerbation and had been placed on steroids, tapering dose as an outpatient. Despite these interventions his respiratory status worsened and he re-presented with increased cough and orthopnea. He had no fever, no hemoptysis. Please refer to the diagnoses for hospital course by problem. Home Meds and New Rx's Prescriptions: New prednisolone sodium phosphate 10 mg tablet,disintegrating 10 mg PO DAILY Qty: 66 RF: 0 Continued methadone 40 mg Tablet,Soluble 130 mg PO DAILY RF: 0 gabapentin 800 mg Tablet 800 mg PO TID Qty: 60 RF: 0 docusate sodium [Colace] 100 mg Capsule 100 mg PO BID Qty: 60 RF: 0 thiamine mononitrate (vit B1) [Vitamin B-1 (mononitrate)] 100 mg Tablet 100 mg PO DAILY Qty: 30 RF: 0 pantoprazole [Protonix] 40 mg tablet,delayed release (DR/EC) 40 mg PO DAILY Qty: 30 RF: 0 albuterol sulfate [ProAir HFA] 90 mcg/actuation Hfa Aerosol Inhaler 2 puff INHALATION Q6H PRNRF: 0 (DME) Oxygen Tank RF: 0 Spiriva with HandiHaler 18 mcg Capsule, W/Inhalation Device 18 mcg INHALATION QDAY RF: 0 magnesium 200 mg Tablet 400 mg PO BID RF: 0 furosemide 40 mg Tablet 40 mg PO QDAY RF: 0 Advair HFA 115-21 mcg/actuation Hfa Aerosol Inhaler 2 puff INHALATION BID RF: 0 silver sulfadiazine 1 % Cream 0 g topical BID Qty: 1 RF: 0 nystatin 100,000 unit/mL Suspension 500,000 units PO 5X/DAY Qty: 240 RF: 0 Changed metformin 500 mg tablet 500 mg PO BID Qty: 30 RF: 0 Discontinued sulfamethoxazole-trimethoprim 800-160 mg tablet 2 tab PO BID Qty: 40 RF: 0 amoxicillin-pot clavulanate [Augmentin] 875-125 mg tablet 1 tab PO BID Qty: 20 RF: 0 prednisone 20 mg tablet See Rx Instructions .ROUTE .COMPLEX Qty: 6 RF: 0 Discharge Instructions Instructions: Cellulitis (DC), COPD (Chronic Obstructive Pulmonary Disease) (DC), Chronic Lung Disease and Infection Prevention (DC) Additional Instructions: Check your blood sugar twice a day, before you have anything to eat in the morning and 2 hours after the largest meal of your day and bring the results to your follow-up appointment. Call your primary ocular care aide or return to the emergency room if you have increasing shortness of breath, increasing pain or swelling in your left leg. Work on quitting smoking. Avoid all alcohol. Continue your nighttime oxygen at 2 to 2.5 L/min. Referrals: Milana Canales [Primary Care Provider] - (Call for a follow-up appointment for sometime within the next 7 to 10 days.) Activity:: Activity as Tolerated Equipment/Supplies:: No Equipment Needed Diet:: Carb Counting Discharge Orders Discharge Orders: Discharge Order (Routine); Ordered 09/04/19 Ordered By: Alexys Ram DS: Summary Summary Time spent discussing smoking cessation with patient: 3 to 10 minutes Status at Discharge Functional status at discharge: independent ambulation Overall status at discharge: patient is back to baseline Mental Status: mental status grossly normal Speech and Movement: speech and movement normal Mood: congruent mood Affect: normal affect Time Spent with Patient providing and/or coordinating discharge services: Greater than 30 minutes Exam Narrative Exam Narrative: On the morning of discharge he is in good spirits and in no respiratory distress. SaO2 on room air 95%. Neck veins are flat. His lungs have somewhat distant breath sounds but there is no wheezing crackles or rub. Regular heart rhythm with no S3-S4 or murmur. Active bowel sounds with no abdominal tenderness. He has maroon discoloration of his left lower leg with some desquamation of the skin, trace edema at the ankle but no tenderness to palpation, no ulcerations and no vesicles. Ambulates independently. Psych Mental Status: mental status grossly normal Speech and Movement: speech and movement normal Mood: congruent mood Affect: normal affect DS: Data Vitals/I&O Vitals and I&O: Vital Signs Temperature 36.0 C L 09/03/19 23:45 Temperature Source Tympanic 09/03/19 23:45 Pulse 93 H 09/04/19 00:20 Pulse Rhythm Regular 09/03/19 23:45 Pulse 99 H 08/30/19 11:05 Respiratory Rate 16 09/04/19 00:20 Respiratory Effort 09/03/19 23:45 Respiratory Depth Normal 09/03/19 23:45 Respiratory Pattern Normal 09/03/19 23:45 Blood Pressure 119/79 09/03/19 23:45 Blood Pressure Mean 83 08/30/19 11:05 Blood Pressure Position Supine 08/30/19 09:17 Pulse Oximetry 98 09/04/19 08:03 Oxygen Delivery Method Room Air 09/04/19 08:03 Oxygen Flow Rate 0 09/04/19 08:03 Fraction of Inspired Oxygen (FIO2) 45 08/29/19 16:10 Pain Level 0 09/03/19 23:45 Comment 08/31/19 16:50 Intake & Output 09/03/19 09/03/19 09/04/19 11:59 23:59 12:59 Intake Total 348.167 / 1068.167 720 / 1068.167 300 / 300 Output Total 2685 / 3535 850 / 3535 1250 / 1250 Balance -2336.833 / -2466.833 -130 / -2466.833 -950 / -950 Weight 108.3 kg 108.4 kg Intake: IV 98.167 / 98.167 Oral 250 / 970 720 / 970 300 / 300 Output: Urine 2685 / 3535 850 / 3535 1250 / 1250 Other: Urine Color Yellow Yellow Urine Appearance Clear Clear Urine Odor None Comment void x 2 during noc shift per pt. Voiding Methods Urinal Urinal Toilet Data Completed and Pending Labs on day of discharge: Labs from last 24 hours 09/04/19 09/03/19 09/03/19 06:58 07:01 07:01 WBC 9.21 RBC 5.37 Hgb 15.5 Hct 46.1 MCV 85.8 MCH 28.9 MCHC 33.6 RDW 14.9 H Plt Count 199 MPV 10.4 Immature Gran % See Differential Neutrophils % 80.0 Lymphocytes % 10.0 Monocytes % 5.0 Eosinophils % 0.0 Basophils % 0.0 Metamyelocytes % 3.0 Myelocytes % 2.0 Absolute Neutrophils 7.37 H Absolute Lymphocytes 0.92 L Absolute Monocytes 0.46 Absolute Eosinophils 0.00 Absolute Basophils 0.00 Differential Comment Manual differential RBC Morphology Normal Sodium 134 L 136 Potassium 4.2 4.3 Chloride 95 L 95 L Carbon Dioxide 31.4 33.5 H Anion Gap 7.6 7.5 BUN 28 H 25 H Creatinine 1.30 1.24 Estimated GFR/1.73 m2 58.20 >= 60.00 Glucose 294 H 262 H Calcium 9.0 8.6 Magnesium 2.2 PFSH Social History Smoking/Tobacco Use Status: Current every day Tobacco Type: cigarettes Alcohol Intake: current Alcohol Intake frequency: 3 or more drinks per day Alcohol type: beer Drug use: Current Sobriety Details: methadone clinic Do you feel safe at home: Yes Do you feel safe in your relationship?: Yes
[2019-09-04 08:39] VITALS: BP 139/97; PULSE 101; RESP 18; TEMP 36.6; O2SAT 95
[2019-09-04] MEDS: Methadone Liquid 10 MG/ML 130 MG PO (08:39)
[2019-09-04] MEDS: Silver sulfaDIAZINE 1% 25 GM TUBE TP (08:43)
--- NOTE | 2019-09-04 15:38 | CMDISCH_ITS ---
LACE Index Scoring Tool - Questions: Length of Stay (in days): 14 or more Acuity (Admit via E.D.?): Yes Comorbidities: Diabetes w/o Complication, Congestive Heart Failure, Chronic Pulmonary Disease, Mild Liver/Renal Disease E.D. Visits: 3 - Answers: Total Score: 18 Risk of Readmission: High Risk Care Management Discharge Reason for Hospitalization: COPD, CHF, Cellulitis Discharge Plan: Allen will return home when medically cleared. He will follow up with his PCP, and plan of care as recommended. Mario will follow up with [facility] regarding navigation of disability support and has been referred to tissue recovery technician. Allen will transport via private vehicle with family. Patient/Family Education Needs: Review of community based supports, discharge instructions, discuss Ask Me Three. Services Needed at Discharge: DME Agency (Resume Nocturnal O2)
--- NOTE | 2019-09-05 13:00 | INDS_ITS ---
Date of service: 09/05/19 PT Notes Visit Reasons: COPD, CHF, CELLULITIS Inpatient Physical Therapy Discharge Summary Dates: 09/05/2019 Dates of Service: 09/02/2019 through 09/03/2019 This is a clinical summary of care provided on the duration of dates listed above. No charge was made in the completion of this documentation. Referring Doctor: Wendy Robledo MD PT Orders: PT CONSULT: Extended-stay weakness. Precautions: Fall. Standard. Activity as tolerated. Patient Profile/Admitting Diagnosis: Patient is a 53-year-old male who presented to the ED on 08/22/2019 with chief presentation of increased redness, swelling, and discomfort in the left lower extremity accompanied with shortness of breath. Patient is diagnosed with cellulitis of left lower extremity, acute on chronic respiratory failure with hypoxia and hypercapnia, healthcare acquired pneumonia, acute on chronic CHF, COPD exacerbation, diabetes mellitus type 2, EtOH dependence, and diarrhea. Referral to physical therapy was made in order to address complications of prolonged immobility and weakness from extended stay. 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 Patient is independent with all aspects of ADLs without the need for an assistive ambulatory device nor adaptive equipment. Equipment Owned/DME: None Subjective: NT Objective: General Observation: NT Mental Status: NT Pain: NT ROM: Right Upper Extremity: Shoulder Flexion WFL. Shoulder abduction WFL. Elbow flexion WFL. Wrist flexion WFL. Opening and closing of hand WFL. Left Upper Extremity: Shoulder Flexion WFL. Shoulder abduction WFL. Elbow flexion WFL. Wrist flexion WFL. Opening and closing of hand WFL. Right Lower Extremity: Hip flexion WFL. Hip abduction WFL. Knee flexion WFL. Ankle dorsiflexion WFL. Ankle plantarflexion WFL. Left Lower Extremity: Hip flexion WFL. Hip abduction WFL. Knee flexion WFL. Ankle dorsiflexion WFL. Ankle plantarflexion WFL. Strength: Right Upper Extremity: Shoulder flexors 5/5. Shoulder abductors 5/5. Elbow flexors 5/5. Elbow extensors 5/5. [employer] Supervisor strong. Left Upper Extremity: Shoulder flexors 5/5. Shoulder abductors 5/5. Elbow flexors 5/5. Elbow extensors 5/5. [employer] Supervisor strong. Right Lower Extremity: Hip flexors 5/5. Hip abductors 5/5. Knee flexors 5/5. Knee extensors 5/5. Ankle dorsiflexors 5/5. Ankle plantarflexors 5/5. Left Lower Extremity:Hip flexors 5/5. Hip abductors 5/5. Knee flexors 5/5. Knee extensors 5/5. Ankle dorsiflexors 5/5. Ankle plantarflexors 5/5. Sensation: Intact as to pain and pressure on bilateral lower extremities. Bed Mobility/Transfers: Rolling independent Supine to sit independent Sit to supine independent Sit to stand independent Stand to sit independent Bed to chair independent Chair to bed independent Gait: Patient tolerated level surface ambulation of 260 feet without an assistive device with full weightbearing and reciprocal step through gait pattern with only minimal shortness of breath noted. Oxygen oxygen saturation ranged from 91% to 94% on 2 L of oxygen via NC throughout gait activity. Balance: Static Sitting: Normal Dynamic Sitting: Normal Static Standing: Good Dynamic Standing: Good Assessment: Patient is a 53-year-old male who presented to the ED on 08/22/2019 with a chief presentation of increased redness, swelling, and discomfort in the left lower extremity accompanied with shortness of breath. Patient is diagnosed with cellulitis of left lower extremity, acute on chronic respiratory failure with hypoxia and hypercapnia, healthcare acquired pneumonia, acute on chronic CHF, COPD exacerbation, diabetes mellitus type 2, EtOH dependence, and diarrhea. Patient demonstrated meaningful improvements in functional mobility level but will continue to benefit from skilled home health PT services in order to achieve goals indicated below. Patient presented with clinical signs and symptoms consistent with current/admitting diagnoses that have resulted to mobility limitations, gait instability, generalized weakness, and impairment of motor control as demonstrated by the following impairment level findings: 1. Impaired activity tolerance 2. Mild SOB with ambulation activity Impairments contributed to the following functional limitations: 1. Increase completion time for mobility ADL performance 2. Increased fall risk 3. Inability to negotiate steps alone safely Goals: Goals X1 week 1. Supine-Sit independent MET 2. Sit-Supine independent MET 3. Sit-Stand independent MET 4. Stand-Sit independent MET 5. Bed-Chair independent MET 6. Chair-Bed independent MET 7. Independent gait on level surface with out the use of assistive device for at least 300 feet without report of pain nor dyspnea NOT MET 8. Independent stair negotiation while holding onto bilateral rails for at least 5 steps without report of pain nor dyspnea NOT MET 9. Independent with home exercise program NOT MET 10. Good static and dynamic standing balance/tolerance NOT MET DISCHARGE RECOMMENDATIONS: Patient will benefit from home health PT services in order to progress mobility level using least restrictive assistive ambulatory device, assess home safety, identify additional equipment needs, and establish a functional maintenance program that will increase ability of patient to remain at home. TREATMENT CODE/TIME: NC. Thank you very much for this referral. Rukhsana Bonilla PT, DPT, CLT [facility] [place], [place]
== END 2019-09-04 11:02 | disposition home or self-care (01) | DRG 190 ==
LOC: ER 08:35 → MS 08:52 → ICU 08-25 12:52 → MS 08-30 14:49 → ICU 09-09 13:36 → MS 09-09 13:36
PROVIDERS: Emergency Medicine; Internal Medicine; Admitting Provider Internal Medicine; Emergency Provider Student in an Organized Health Care Education/Training Program; PCP Nurse Practitioner Family; Visit Provider Internal Medicine
DX: J44.1 Chronic obstructive pulmonary disease with (acute) exacerbation (principal); J96.21 Acute and chronic respiratory failure with hypoxia; J18.9 Pneumonia, unspecified organism; I50.33 Acute on chronic diastolic (congestive) heart failure; J96.22 Acute and chronic respiratory failure with hypercapnia; L03.116 Cellulitis of left lower limb; F11.20 Opioid dependence, uncomplicated; F10.239 Alcohol dependence with withdrawal, unspecified; J44.0 Chronic obstructive pulmonary disease with (acute) lower respiratory infection; Y95 Nosocomial condition; E11.65 Type 2 diabetes mellitus with hyperglycemia; T38.0X5A Adverse effect of glucocorticoids and synthetic analogues, initial encounter; F17.210 Nicotine dependence, cigarettes, uncomplicated; E11.9 Type 2 diabetes mellitus without complications; Z79.84 Long term (current) use of oral hypoglycemic drugs; R19.7 Diarrhea, unspecified; G47.33 Obstructive sleep apnea (adult) (pediatric); E66.01 Morbid (severe) obesity due to excess calories; Z68.32 Body mass index [BMI] 32.0-32.9, adult; Z71.3 Dietary counseling and surveillance; Z99.81 Dependence on supplemental oxygen
CPT/HCPCS: 36415; 36569; 71275; 80048; 80053; 82805; 84145; 85027; 85652; 87040; 87449; 93005; 94640; 96361; 96365; 96366; 96375; 97110; 97162; 97530; 99223; 99232; 99233; 99239; 99285; 99291; J1650; 36600; 71045; 73630; 80202; 80320; 83605; 83630; 83735; 83880; 84100; 84484; 85025; 85610; 85730; 86140; 87070; 87205; 87324; 93010; 93306; 93971; 94660; G0378; J1940; J2543; J2930; J3360; J3370; J3490; J7512; J7613; J7620

== ENCOUNTER 2019-12-15 21:12 | Emergency (ER) | payer MEDICAID, SELFPAY ==
[2019-12-15 21:20] VITALS: BP 129/88; PULSE 117; RESP 24; TEMP 36.3; O2SAT 90
--- NOTE | 2019-12-15 21:32 | W.ED.GENAD ---
Discharge Plan Disposition Patient Disposition: HOME Condition: Good Discharge Details Chief Complaint: RespSymp Clinical Impression: Dyspnea, Liver disease due to alcohol Primary Care Provider: Milana Canales ED Provider: Marshal Berman [place] Meds and New Rx's Prescriptions: Continued methadone 40 mg Tablet,Soluble 130 mg PO DAILY RF: 0 gabapentin 800 mg Tablet 800 mg PO TID Qty: 60 RF: 0 thiamine mononitrate (vit B1) [Vitamin B-1 (mononitrate)] 100 mg Tablet 100 mg PO DAILY Qty: 30 RF: 0 pantoprazole [Protonix] 40 mg tablet,delayed release (DR/EC) 40 mg PO DAILY Qty: 30 RF: 0 (DME) Oxygen Tank RF: 0 Spiriva with HandiHaler 18 mcg Capsule, W/Inhalation Device 18 mcg INHALATION QDAY RF: 0 magnesium 200 mg Tablet 400 mg PO BID RF: 0 furosemide 40 mg Tablet 40 mg PO QDAY RF: 0 Advair HFA 115-21 mcg/actuation Hfa Aerosol Inhaler 2 puff INHALATION BID RF: 0 sodium chloride 1 gram Tablet 1,000 mg PO TID RF: 0 folic acid 1 mg Tablet 1 mg PO DAILY RF: 0 albuterol sulfate [Proventil HFA] 90 mcg/actuation Hfa Aerosol Inhaler 2 puff INHALATION Q6H PRNRF: 0 loratadine 10 mg Tablet 10 mg PO DAILY RF: 0 duloxetine 30 mg Capsule,Delayed Release(Dr/Ec) 30 mg PO DAILY RF: 0 Januvia 100 mg Tablet 100 mg PO DAILY RF: 0 lactulose 20 gram/30 mL Solution 20 g PO DAILY RF: 0 Combivent Respimat 20-100 mcg/actuation Mist 1 puff INHALATION QID RF: 0 multivitamin Tablet 1 tab PO DAILY RF: 0 nicotine 21 mg/24 hr Patch 24 Hour 1 patch TRANSDERMAL DAILY RF: 0 Discharge Instructions Additional Instructions: Monitor how much urine you put out overnight. Use your oxygen as needed. Touch base with your primary care tomorrow to let her know how you did overnight. Continue medications as before. Follow-up with GI next week as planned. Return to ED if you have increasing shortness of breath, fever, chest pain, mental status changes, abdominal pain. Referrals: Milana Canales [Primary Care Provider] - Medical Decision Making Patient presenting to the ED from PCP office for evaluation of shortness of breath that he has had most of today. Ambulated in on his own. Reports significant improvement just in the last couple of hours. No specific intervention provided. He does have oxygen at home. He has recently been discharged from [facility] after admission for hyponatremia, hypokalemia, liver failure. He still quite jaundiced. He has had a number of medication changes. He is a little tachycardic but does not appear to be in distress. Will place IV and check laboratory studies, EKG, chest x-ray. He tested negative for COVID while at [facility]. He has no coronavirus exposure other than being at [facility] which by report has not had a case in almost 3 weeks. Patient laboratory studies show a normal white count. Hemoglobin is good at 12. Platelets now normal at 221. INR normal at 1.1. Sodium has come up nicely and is now 132. Potassium a little low at 3.2. Kidney function normal. Liver function is actually pretty good except for bilirubin which is now 11.5. As best I can tell the highest at [facility] was 8.8. Ammonia is less than 10. Albumin is low at 2.5. Alcohol 0. EKG unremarkable. Chest x-ray per radiology some increased interstitial markings. Patient does appear to be quite edematous despite 40 mg of Lasix a day. May be related to the low albumin. [facility] records stated no prednisone or Aldactone at this point. He is on Lasix and lactulose. Will give IV dose of Lasix and see how he diuresis and reevaluate. Patient has diuresed about 250 within less than half an hour after getting Lasix. He feels better. He wishes to be discharged because his mother is his ride home she has been in the parking lot waiting. He will take the urinal with him so that he can measure his output. We will have him contact primary care in the morning to touch base with her and let her know how he did overnight. He agrees to return if he has fever, increasing shortness of breath, chest pain, mental status changes or other problems. He has follow-up with GI at [facility] early next week. Medical Records Medical records reviewed: Yes I reviewed the patient's medical records. Lab Data Lab results reviewed: Yes I reviewed the patient's lab results. ECG Data Attestation: I personally reviewed and interpreted this ECG (s) as follows: Prior ECG tracings: not available for review Interpretation: Sinus tachycardia at 111. Normal axis and intervals. Normal QT. Artifact but no acute ST changes. HPI General Mode of arrival: ambulatory. Date/Time Provider Initiated Documentation: 12/15/19 21:18. Limitations to Documentation: no limitations. Information obtained by: patient, RN notes reviewed and old records reviewed. HPI Narrative: Patient sent in for evaluation after follow-up with primary care today, 1 week post discharge from [facility]. Patient had presented to [facility] with respiratory difficulty and altered mental status. He was intubated and eventually transferred to [facility]. He was in the ICU there for some time. In reviewing the records from [facility] his biggest issue was hyponatremia with a sodium as low as 108. He was also hypokalemic. He developed some liver failure with increased LFTs and bilirubin. Ultimately discharged 1 week ago on new medications and told to abstain from alcohol which patient states he has been doing. Today he had follow-up with primary care. He admits that he was more short of breath today than he had been. He was also more yellow than he has been. He denies having fever or cough. He denies chest pain or pressure. He has no abdominal pain but states it is bloated and distended but has been. Lower extremities are about as edematous as usual. They are always purplish red and not any different than before. He was able to walk in here without problem. He feels significantly better than he did at his primary care physician's office. He does continue to smoke though he has cut back. He has been taking his medications and inhalers like he is supposed to. He continues to make urine. He was unable to take the urea that he was discharged on for insurance would not cover it. Primary care prescribed him salt tablets today. Related Data Home Medications Medication Instructions Recorded Confirmed methadone 130 mg PO DAILY 05/12/19 12/15/19 gabapentin 800 mg PO TID #60 tab 05/18/19 12/15/19 pantoprazole [Protonix] 40 mg PO DAILY #30 tab 05/18/19 12/15/19 thiamine mononitrate (vit B1) 100 mg PO DAILY #30 tab 05/18/19 12/15/19 [Vitamin B-1 (mononitrate)] Advair HFA 2 puff INHALATION BID 08/15/19 12/15/19 Oxygen 08/15/19 08/15/19 Spiriva with HandiHaler 18 mcg INHALATION QDAY 08/15/19 12/15/19 furosemide 40 mg PO QDAY 08/15/19 12/15/19 magnesium 400 mg PO BID 08/15/19 12/15/19 Combivent Respimat 1 puff INHALATION QID 12/15/19 12/15/19 Januvia 100 mg PO DAILY 12/15/19 12/15/19 albuterol sulfate [Proventil HFA] 2 puff INHALATION Q6H PRN 12/15/19 12/15/19 duloxetine 30 mg PO DAILY 12/15/19 12/15/19 folic acid 1 mg PO DAILY 12/15/19 12/15/19 lactulose 20 g PO DAILY 12/15/19 12/15/19 loratadine 10 mg PO DAILY 12/15/19 12/15/19 multivitamin 1 tab PO DAILY 12/15/19 12/15/19 nicotine 1 patch TRANSDERMAL DAILY 12/15/19 12/15/19 sodium chloride 1,000 mg PO TID 12/15/19 12/15/19 Previous Rx's Medication Instructions Recorded gabapentin 800 mg PO TID #60 tab 05/18/19 pantoprazole [Protonix] 40 mg PO DAILY #30 tab 05/18/19 thiamine mononitrate (vit B1) 100 mg PO DAILY #30 tab 05/18/19 [Vitamin B-1 (mononitrate)] Allergies Allergy/AdvReac Type Severity Reaction Status Date / Time No Known Allergies Allergy Unverified 08/15/19 07:25 General Stated Complaint: RespSymp KAYLEIGH: 2 Review of Systems Narrative: 04/11 Review of Systems completed and is negative except as stated above in HPI (Systems reviewed: Const, Eyes, ENT, Resp, CV, GI, , MSK, Skin, Neuro) [facility] Medical History Anxiety disorder (Chronic) Chronic diastolic CHF (congestive heart failure) (Acute) Chronic respiratory failure with hypoxia (Acute) COPD (chronic obstructive pulmonary disease) (Chronic) DMII (diabetes mellitus, type 2) (Chronic) ETOH abuse (Chronic) EtOH dependence (Acute) Hepatic steatosis (Acute) 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 Somewhat tachycardic normal blood pressure. Saturations low 90s on room air. At rest on oxygen mid 90s. Const: Obese male in NAD but jaundiced. HEENT: NC/AT. Normal facial exam. Eyes: Icteric. Neck: Supple. Trachea midline. Lungs: Normal respiratory effort. Lungs with good air exchange, no wheeze or rales, diffuse rhonchi. Cor: RRR without murmur/gallop. Good radial pulses. GI: Soft and non-tender but quite distended. Neuro: A+O x 3. Normal speech, mentation, gait. Cranial nerves II - XII grossly intact. No gross motor or sensory deficit. Ext: No C/C. Significant bilateral brawny edema with venous stasis changes present. Skin: Warm and dry with some erythema of the distal lower extremities which patient states is chronic. Course Vital Signs Vital signs: Vital Signs Temperature 97.3 F L 12/15/19 21:20 Pulse 117 H 12/15/19 21:20 Respiratory Rate 24 12/15/19 21:20 Blood Pressure 129/88 12/15/19 21:20 Pulse Oximetry 90 L 12/15/19 21:20 Temperature 97.3 F L 12/15/19 21:20 Pulse 117 H 12/15/19 21:20 Respiratory Rate 24 12/15/19 21:20 Blood Pressure 129/88 12/15/19 21:20 Blood Pressure Position Supine 12/15/19 21:20 Pulse Oximetry 90 L 12/15/19 21:20 Oxygen Delivery Method Room Air 12/15/19 21:20 Oxygen Flow Rate 0 12/15/19 21:20 Pain Level 5 12/15/19 21:20 Comment 12/15/19 21:20
--- NOTE | 2019-12-15 21:45 | DI.RAD_ITS ---
EXAM: XR PORTABLE CHEST AP CLINICAL HISTORY: SOB TECHNIQUE: 2D digital imaging was performed. COMPARISON: CR,XR XR PORTABLE CHEST AP from 05/15/[address] ABD AORTA CTA W RUNOFF from 08/16/2019 CR XR PORTABLE CHEST AP from 08/25/2019 CR,XR XR PORTABLE CHEST AP from 08/28/2019 FINDINGS: Leads overlie the chest. The lungs are again expiratory. There is basilar atelectasis. No superimp osed infiltrate, effusion or pulmonary edema is seen. IMPRESSION: No acute pulmonary findings. DATA REPOSITORY: RADIATION DOSE DELIVERED:
[2019-12-15 21:59] LABS: Absolute Basophil Count 0.02 k/cumm (0.0-0.2); Absolute Eosinophil Count 0.06 k/cumm (0.0-0.7); Absolute Lymphocyte Count 0.53 k/cumm (1.2-3.4); Absolute Monocyte Count 0.38 k/cumm (0.11-0.7); Absolute Neutrophil Count 4.58 k/cumm (1.2-6.7); Ammonia < 10 umol/L (11-32); Basophils % 0.4; Eosinophils % 1.1; HCT 36.4 % (40.0-50.0); HGB 12.2 g/dL (13.5-17.5); Immature Grans % 1.8 %; Lymphocytes % 9.3; Mean Corp. HGB Concentration 33.5 g/dL (32.0-36.0); Mean Corpuscular Hemoglobin 28.9 pg (27.0-33.0); Mean Corpuscular Volume 86.3 fL (80-95); Mean Platelet Volume 10.7 fL (8.0-11.0); Monocytes % 6.7; Neutrophils % 80.7; Platelet Count 221 x1000/uL (130-400); RBC 4.22 m/cumm (4.50-6.00); RBC Distribution Width 17.7 % (11.8-14.1); White Blood Cell Count 5.67 k/cumm (4.4-10.8)
[2019-12-15 22:02] LABS: INR 1.1 (0.9-1.1); Prothrombin Time 11.3 sec (9.3-11.0)
[2019-12-15 22:10] LABS: ALT 57 U/L (16-63); AST 106 U/L (15-37); Albumin 2.5 g/dL (3.4-5.0); Alkaline Phosphatase 294 U/L (46-116); Anion Gap 7.4 mmol/L (3-11); BUN 5 mg/dL (7-18); Bilirubin, Total 11.5 mg/dL (0.2-1.0); CO2 30.6 mmol/L (21.0-32.0); CREATININE 0.69 mg/dL (0.70-1.30); Calcium 8.9 mg/dL (8.5-10.1); Chloride 94 mmol/L (98-107); Glucose 156 mg/dL (74-106); Potassium 3.2 mmol/L (3.5-5.1); Sodium 132 mmol/L (136-145); Total Protein 6.9 g/dL (6.4-8.2)
--- NOTE | 2019-12-15 22:10 | NUR.NOTE ---
Pt mother Sunshine [phone]
[2019-12-15 22:21] LABS: ETHANOL BLOOD < 3.0 mg/dL (<3)
--- NOTE | 2019-12-15 22:40 | DI.VRAD_ITS ---
PROCEDURE INFORMATION: Exam: XR Chest, 1 View Exam date and time: 12/15/2019 10:19 PM Age: 53 years old Clinical indication: Other: SOB TECHNIQUE: Imaging protocol: XR of the chest Views: 1 view. COMPARISON: CR XR PORTABLE CHEST AP 08/28/2019 11:38 AM FINDINGS: Lungs: Increased interstitial lung markings suggesting edema, infection or fibrotic changes. Pleural space: Unremarkable. No pleural effusion. No pneumothorax. Heart/Mediastinum: Unremarkable. No cardiomegaly. Bones/joints: Unremarkable. IMPRESSION: Increased interstitial lung markings suggesting edema, infection or fibrotic changes. Dictated and Authenticated by: Skyla Oshea MD. Ordering:SANTOS Araya MD
--- NOTE | 2019-12-15 22:44 | NUR.NOTE ---
RA sats 88%, up to 94 on 2L. Pt states sats usually low 90's. titrated to 1L 91%
[2019-12-15] MEDS: Furosemide 40 MG/4 ML VIAL IVP (23:01)
[2019-12-15] MEDS: Potassium Chloride 20 MEQ TABCR 40 MEQ PO (23:01)
[2019-12-15 23:03] VITALS: BP 124/78; PULSE 105; RESP 21; O2SAT 93
--- NOTE | 2019-12-15 23:20 | NUR.NOTE ---
LAC line pulled during xray. #22 to LFA.
== END 2019-12-15 23:40 | disposition home or self-care (01) ==
PROVIDERS: Physician Assistant; Emergency Provider Emergency Medicine; PCP Nurse Practitioner Family
DX: R06.00 Dyspnea, unspecified (principal); K70.9 Alcoholic liver disease, unspecified; R17 Unspecified jaundice; E87.6 Hypokalemia; I50.32 Chronic diastolic (congestive) heart failure; J44.9 Chronic obstructive pulmonary disease, unspecified; F17.210 Nicotine dependence, cigarettes, uncomplicated; E11.9 Type 2 diabetes mellitus without complications; Z79.84 Long term (current) use of oral hypoglycemic drugs
CPT/HCPCS: 36415; 80053; 93005; 96374; 99285; 71045; 80320; 82140; 85025; 85610; 93010; J1940